=== PATIENT | female | born 1950 | race Hispanic/Latino ===

== ENCOUNTER 2018-02-09 13:52 | Emergency (ER) | payer MEDICAID, OTHER ==
[~2018-02-09 13:52] MED LIST: ASPI-1197 PO; CETI10CA5 PO; ESOM40CA PO; ISOS120T10 PO; METO50TA18 PO; NITR0.4T SL; ONDA4TAB9 PO; SERT100T12 PO; SEVE800 PO; VITA400C25 PO
== END 2018-02-09 16:32 | disposition home or self-care (01) ==
LOC: EDH 13:52
DX: I12.0 Hypertensive chronic kidney disease with stage 5 chronic kidney disease or end stage renal disease (principal); N18.6 End stage renal disease; E11.22 Type 2 diabetes mellitus with diabetic chronic kidney disease; E78.5 Hyperlipidemia, unspecified; Z79.4 Long term (current) use of insulin; Z99.2 Dependence on renal dialysis; Z88.8 Allergy status to other drugs, medicaments and biological substances
CPT/HCPCS: 93005

== ENCOUNTER 2019-01-25 19:10 | Emergency (ER) | payer MEDICARE ==
[~2019-01-25 19:10] MED LIST changes: -ISOS120T10 PO; +ISOS120T14 PO
[2019-01-25 19:41] LABS: BASOPHILS % (AUTO) 1.2 % (0.0-5.0); EOSINOPHILS % (AUTO) 14.1 % (0.0-8.0); HEMATOCRIT 33.7 % (36-48); MEAN CORPUSCULAR HEMOGLOBIN 31.7 pg (27.0-33.0); MEAN CORPUSCULAR HGB CONC 33.9 g/dL (32.0-36.0); MEAN CORPUSCULAR VOLUME 93.7 fL (79-99); MONOCYTES % (AUTO) 7.5 % (3.0-13.0); NEUTROPHILS % (AUTO) 50.2 % (40.0-77.0); PLATELET COUNT (AUTO) 131 K/uL (130-400); RED BLOOD CELL COUNT(AUTO) 3.59 MIL/uL (4.00-5.50); RED CELL DISTRIBUTION WIDTH 14.8 % (11.0-15.5); WHITE BLOOD COUNT (AUTO) 4.3 K/uL (4.8-10.8)
[2019-01-25] MEDS ORDERED: LISINOPRIL 5 MG TABLET ONE (19:48)
[2019-01-25] MEDS ORDERED: AMLODIPINE BESYLATE 5 MG TAB PO ONE (19:48)
[2019-01-25 19:55] LABS: CREATININE 5.7 mg/dL (0.5-1.5); POTASSIUM 4.7 mmol/L (3.5-5.1)
[2019-01-25 20:00] LABS: BILIRUBIN,TOTAL 0.3 mg/dL (0.2-1.0); TOTAL PROTEIN, SERUM 9.2 g/dL (6.0-8.3)
[2019-01-25] MEDS ORDERED: HYDRALAZINE HCL 25 MG TABLET ONE (21:04)
== END 2019-01-25 22:04 | disposition home or self-care (01) ==
LOC: EDH 19:10
DX: I12.0 Hypertensive chronic kidney disease with stage 5 chronic kidney disease or end stage renal disease (principal); E11.22 Type 2 diabetes mellitus with diabetic chronic kidney disease; N18.6 End stage renal disease; R51 Headache; Z88.8 Allergy status to other drugs, medicaments and biological substances; Z99.2 Dependence on renal dialysis
CPT/HCPCS: 36415; 70450; 80053; 84484; 85025; 93005

== ENCOUNTER 2019-09-05 12:49 | Inpatient (IN) | payer MEDICARE ==
[2019-09-05 14:03] LABS: BASOPHILS % (AUTO) 2.1 % (0.0-5.0); EOSINOPHILS % (AUTO) 7.4 % (0.0-8.0); LYMPHOCYTES % (AUTO) 6.7 % (21.0-51.0); MEAN CORPUSCULAR HEMOGLOBIN 29.7 pg (27.0-33.0); MEAN CORPUSCULAR VOLUME 90.1 fL (79-99); MONOCYTES % (AUTO) 5.8 % (3.0-13.0); PLATELET COUNT (AUTO) 221 K/uL (130-400); RED CELL DISTRIBUTION WIDTH 15.9 % (11.0-15.5); WHITE BLOOD COUNT (AUTO) 12.1 K/uL (4.8-10.8)
[2019-09-05 14:12] LABS: CREATININE 4.9 mg/dL (0.5-1.5); POTASSIUM 3.9 mmol/L (3.5-5.1)
[2019-09-05 14:16] LABS: ALBUMIN 2.8 g/dL (3.5-5.0); BILIRUBIN,TOTAL 0.4 mg/dL (0.2-1.0); TOTAL PROTEIN, SERUM 8.2 g/dL (6.0-8.3)
[2019-09-05 14:37] LABS: INR 1.14 (0.85-1.15); PARTIAL THROMBOPLASTIN TIME 45.3 SEC (26.3-35.5); PROTHROMBIN TIME 11.6 SEC (9.6-11.6)
[2019-09-05 14:50] LABS: B-TYPE NATRIURETIC PEPTIDE 935 pg/mL (0-100)
[2019-09-05] MEDS ORDERED: FUROSEMIDE 10 MG/ML 4ML VIAL ONE (15:37)
[2019-09-05] MEDS ORDERED: DEXTROSE 50%-WATER 50 ML DISP.SYRIN IV PRN (16:30)
[2019-09-05] MEDS ORDERED: ACETAMINOPHEN 325 MG TAB PO PRN (16:30)
[2019-09-05] MEDS ORDERED: ONDANSETRON 4 MG TABLET PO PRN (16:30)
[2019-09-05] MEDS ORDERED: GLUCAGON 1MG KIT 1 MG ML IM PRN (16:30)
[2019-09-05 19:41] VITALS: BP 158/85
[2019-09-05 20:06] LABS: CREATINE KINASE, TOTAL 25 U/L (21-232); MYOGLOBIN 124 ng/mL (10-92); TROPONIN I < 0.04 ng/mL (0.00-0.06)
[2019-09-05] MEDS: INSULIN R PO SSI SQ SCH (21:00)
[2019-09-05] MEDS ORDERED: TRAMADOL HCL 50 MG TABLET ONE (22:28)
[2019-09-05] MEDS ORDERED: TRAMADOL HCL 50 MG TABLET PO ONE (22:45)
[2019-09-05 23:48] VITALS: BP 192/72
[2019-09-06] VITALS (7 sets, daily range): BP systolic 121–162; BP diastolic 50–81
[2019-09-06 04:28] LABS: HEMATOCRIT 24.6 % (36-48); MEAN CORPUSCULAR HEMOGLOBIN 30.1 pg (27.0-33.0); MEAN CORPUSCULAR HGB CONC 33.8 g/dL (32.0-36.0); MEAN CORPUSCULAR VOLUME 89.3 fL (79-99); PLATELET COUNT (AUTO) 197 K/uL (130-400); RED BLOOD CELL COUNT(AUTO) 2.76 MIL/uL (4.00-5.50); RED CELL DISTRIBUTION WIDTH 15.9 % (11.0-15.5); WHITE BLOOD COUNT (AUTO) 10.7 K/uL (4.8-10.8)
[2019-09-06 04:53] LABS: CREATININE 4.3 mg/dL (0.5-1.5); PHOSPHORUS 3.4 mg/dL (2.5-4.9); POTASSIUM 3.8 mmol/L (3.5-5.1)
[2019-09-06] MEDS: INSULIN R PO SSI SQ SCH ×3 (06:07→16:19)
[2019-09-06] MEDS ORDERED: TRAMADOL HCL 50 MG TABLET PO SCH ×2 (07:01→22:00)
[2019-09-06] MEDS ORDERED: PANTOPRAZOLE SODIUM 40 MG TABLET.DR PO SCH (07:30)
[2019-09-06] MEDS ORDERED: ASPIRIN 81 MG EC TAB PO SCH (09:00)
[2019-09-06] MEDS: FOLIC ACID/VITAMIN B COMP W-C 1 MG CAP/TAB PO SCH (09:05)
[2019-09-06] MEDS ORDERED: ONDANSETRON 4 MG TABLET PO SCH (09:45)
[2019-09-06] MEDS ORDERED: NITROGLYCERIN 0.4 MG SL TAB SL SCH (09:45)
[2019-09-06] MEDS: PANTOPRAZOLE SODIUM 40 MG TABLET.DR PO SCH ×2 (10:59→16:48)
[2019-09-06] MEDS ORDERED: LEVOFLOXACIN 500 MG TABLET PO SCH ×2 (11:00)
[2019-09-06] MEDS: SEVELAMER HCL 800 MG TABLET PO SCH ×2 (11:46→16:48)
[2019-09-06] MEDS: ONDANSETRON 4 MG TABLET PO SCH ×2 (14:29→22:00)
[2019-09-06] MEDS ORDERED: LISI40TA4 PO (14:54)
[2019-09-06] MEDS ORDERED: AMLO10TA7 PO (14:54)
[2019-09-06] MEDS ORDERED: LOPE2CAP PO (14:54)
[2019-09-06] MEDS: TRAMADOL HCL 50 MG TABLET PO PRN ×2 (14:55→20:41)
--- NOTE | 2019-09-06 16:34 | NUR ---
DEE DEE PLAN VISITED WITH PATIENT. GETTING A ECHO. CALLED DAUGHTER ANAYELI CAMPO [phone]. SAID THAT MOM PROBABLY WILL NOT WANT TO GO AND SHE WOULD NEED TO BE THE ONE TO MAKE THE DECISION. AT THIS TIME PATIENT IS WORKING WITH THERAPY. PER CR WHO CALLED PATIENT AT [facility] FOR THERAPY SAID DID NOT NEED CLINICALS PATIENT OKAY TO RETURN. DR. GARCIA PLANS TO RETURN TO [facility] POSSIBLY TOMORROW. Addendum: 09/06/19 at 1636 by MELINDA KEARNEY RN CM Amended: Links added.
[2019-09-07] VITALS: BP 151/88
[2019-09-07] MEDS: TRAMADOL HCL 50 MG TABLET PO PRN ×3 (00:20→09:38)
[2019-09-07 03:34] VITALS: BP 118/66
[2019-09-07] MEDS: INSULIN R PO SSI SQ SCH ×2 (05:44→11:30)
[2019-09-07] MEDS: ONDANSETRON 4 MG TABLET PO SCH ×2 (06:00→15:00)
[2019-09-07] MEDS: PANTOPRAZOLE SODIUM 40 MG TABLET.DR PO SCH ×2 (06:45→12:00)
[2019-09-07] MEDS ORDERED: LISI-613 PO (08:06)
[2019-09-07] MEDS ORDERED: LEVO250T59 PO (08:06)
[2019-09-07] MEDS ORDERED: LEVO250S3 PO (08:06)
[2019-09-07 08:16] VITALS: BP 161/72
[2019-09-07] MEDS ORDERED: LEVOFLOXACIN 500 MG TABLET PO SCH (09:00)
[2019-09-07] MEDS ORDERED: ASPIRIN 81MG TAB.CHEW PO SCH (09:00)
[2019-09-07] MEDS ORDERED: SERTRALINE HCL 50 MG TABLET PO SCH (09:00)
[2019-09-07] MEDS ORDERED: VITAMIN E 400 UNIT CAPSULE PO SCH (09:00)
[2019-09-07] MEDS ORDERED: CETIRIZINE HCL 5 MG TABLET PO SCH (09:00)
[2019-09-07] MEDS: SEVELAMER HCL 800 MG TABLET PO SCH ×2 (09:22→12:00)
[2019-09-07] MEDS: FOLIC ACID/VITAMIN B COMP W-C 1 MG CAP/TAB PO SCH (09:23)
--- NOTE | 2019-09-07 11:42 | NUR ---
CM Note: [facility] reacceptance CM spoke to Mariaelena w/[facility], pt has reacceptance, does not need to completed 3 midnights, also does not need new pasrr. Pt safe to transver via [facility] transport van. Primary nurse Nik made aware. CM to cont to follow up.
[2019-09-07 12:07] VITALS: BP 134/64
--- NOTE | 2019-09-07 15:11 | NUR ---
DISCHARGE Report phoned to nurse Rosy at [facility] receiving pt. Med rec, prescriptions and discharge summary information faxed to receiving facility. Pt to be transported by facility van - nurse to dispatch tram driver after this phone call.
== END 2019-09-07 15:28 | DRG 302 ==
LOC: EDH 12:49 → EDHIP 16:00 → 2AH 17:58
PROVIDERS: ADMIT Internal Medicine Nephrology; ATTEND Internal Medicine Nephrology
PROC: 5A1D70Z Performance of Urinary Filtration, Intermittent, Less than 6 Hours Per Day (ICD-10-PCS; principal; 2019-09-05)
PROC: 5A1D70Z Performance of Urinary Filtration, Intermittent, Less than 6 Hours Per Day (ICD-10-PCS; 2019-09-07)
DX: I25.110 Atherosclerotic heart disease of native coronary artery with unstable angina pectoris (principal); N18.6 End stage renal disease; L03.116 Cellulitis of left lower limb; I12.0 Hypertensive chronic kidney disease with stage 5 chronic kidney disease or end stage renal disease; I95.3 Hypotension of hemodialysis; I25.10 Atherosclerotic heart disease of native coronary artery without angina pectoris; E11.22 Type 2 diabetes mellitus with diabetic chronic kidney disease; E11.51 Type 2 diabetes mellitus with diabetic peripheral angiopathy without gangrene; D64.9 Anemia, unspecified; E78.5 Hyperlipidemia, unspecified; Z95.1 Presence of aortocoronary bypass graft; Z99.2 Dependence on renal dialysis; Z79.4 Long term (current) use of insulin; Z86.718 Personal history of other venous thrombosis and embolism; Z71.3 Dietary counseling and surveillance; Z71.89 Other specified counseling; Z83.3 Family history of diabetes mellitus
CPT/HCPCS: 36415; 71045; 80048; 80053; 82550; 82948; 83874; 83880; 84100; 84484; 85025; 85027; 85610; 85730; 90935; 93005; 93306; 93971; 97039; G0378; J1940; Q0162

== ENCOUNTER 2019-12-22 09:36 | Inpatient (IN) | payer MEDICARE ==
[~2019-12-22] VITALS: Ht 149.9 cm; Wt 59.8 kg
[~2019-12-22 09:36] MED LIST changes: +AMLO10TA7 PO; +LEVO250S3 PO; +LEVO250T59 PO; +LISI-613 PO; +LISI40TA4 PO; +LOPE2CAP PO; -METO50TA18 PO; +ONDA-104 PO; -ONDA4TAB9 PO; -SERT100T12 PO
[2019-12-22 10:11] LABS: BASOPHILS % (AUTO) 1.2 % (0.0-5.0); EOSINOPHILS % (AUTO) 14.6 % (0.0-8.0); HEMATOCRIT 41.8 % (36-48); LYMPHOCYTES % (AUTO) 18.7 % (21.0-51.0); MEAN CORPUSCULAR HEMOGLOBIN 29.2 pg (27.0-33.0); MEAN CORPUSCULAR HGB CONC 30.9 g/dL (32.0-36.0); MEAN CORPUSCULAR VOLUME 94.6 fL (79-99); NEUTROPHILS % (AUTO) 57.5 % (40.0-77.0); PLATELET COUNT (AUTO) 98 K/uL (130-400); RED BLOOD CELL COUNT(AUTO) 4.42 MIL/uL (4.00-5.50); RED CELL DISTRIBUTION WIDTH 15.1 % (11.0-15.5); WHITE BLOOD COUNT (AUTO) 4.1 K/uL (4.8-10.8)
[2019-12-22 10:15] LABS: POTASSIUM 3.9 mmol/L (3.5-5.1)
[2019-12-22 10:21] LABS: ALBUMIN 3.5 g/dL (3.5-5.0); BILIRUBIN,TOTAL 0.5 mg/dL (0.2-1.0); TOTAL PROTEIN, SERUM 9.1 g/dL (6.0-8.3)
[2019-12-22] MEDS ORDERED: LACTULOSE 20 GM/30 ML UDCUP PO PRN (11:30)
[2019-12-22] MEDS ORDERED: GUAIFENESIN-DM 200/20 MG 10 ML PO PRN (11:30)
[2019-12-22] MEDS ORDERED: NITROGLYCERIN 1GM/1 INCH PACKET TD ONE (13:28)
[2019-12-22] MEDS ORDERED: HYDRALAZINE HCL 20 MG/ML VIAL ONE (17:47)
[2019-12-22] MEDS ORDERED: ACETAMINOPHEN 325 MG TAB ONE (18:18)
[2019-12-22] MEDS ORDERED: ONDANSETRON HCL 4 MG/2 ML VIAL IVP PRN (22:45)
[2019-12-23] MEDS ORDERED: HYDRALAZINE HCL 20 MG/ML VIAL ONE ×2 (00:06→08:01)
[2019-12-23] MEDS ORDERED: NITROGLYCERIN 1GM/1 INCH PACKET TD ONE ×2 (00:06→08:02)
[2019-12-23] MEDS ORDERED: IPRATROPIUM/ALBUTEROL SULFATE 3 ML SOLUTION IH ONE ×2 (00:51→06:09)
[2019-12-23] MEDS: NITROGLYCERIN 1GM/1 INCH PACKET TD SCH ×3 (02:39→20:31)
[2019-12-23 05:21] LABS: BASOPHILS % (AUTO) 0.7 % (0.0-5.0); EOSINOPHILS % (AUTO) 10.4 % (0.0-8.0); HEMATOCRIT 38.9 % (36-48); LYMPHOCYTES % (AUTO) 19.5 % (21.0-51.0); MEAN CORPUSCULAR HGB CONC 31.4 g/dL (32.0-36.0); MEAN CORPUSCULAR VOLUME 92.6 fL (79-99); MONOCYTES % (AUTO) 10.8 % (3.0-13.0); NEUTROPHILS % (AUTO) 58.2 % (40.0-77.0); PLATELET COUNT (AUTO) 67 K/uL (130-400); RED CELL DISTRIBUTION WIDTH 15.3 % (11.0-15.5); WHITE BLOOD COUNT (AUTO) 4.5 K/uL (4.8-10.8)
[2019-12-23 05:56] LABS: ALBUMIN 3.1 g/dL (3.5-5.0); BILIRUBIN,TOTAL 0.4 mg/dL (0.2-1.0); CREATININE 4.1 mg/dL (0.5-1.5); POTASSIUM 3.5 mmol/L (3.5-5.1); TOTAL PROTEIN, SERUM 8.3 g/dL (6.0-8.3)
[2019-12-23] MEDS: IPRATROPIUM/ALBUTEROL SULFATE 3 ML SOLUTION IH PRN ×2 (06:10→18:50)
[2019-12-23] MEDS ORDERED: APIX2.5T PO (10:02)
[2019-12-23] MEDS ORDERED: MINO2.5T3 PO (10:02)
[2019-12-23] MEDS ORDERED: ESOM40CA PO (10:02)
[2019-12-23] MEDS ORDERED: ONDANSETRON HCL 4 MG/2 ML VIAL ONE (13:16)
[2019-12-23] MEDS ORDERED: ACETAMINOPHEN 325 MG TAB ONE (13:16)
[2019-12-23 14:02] VITALS: BP 163/62
[2019-12-23] MEDS: FOLIC ACID/VITAMIN B COMP W-C 1 CAP TAB PO SCH (14:39)
[2019-12-23 16:06] VITALS: BP 164/64
[2019-12-23 19:07] VITALS: BP 160/60
--- NOTE | 2019-12-23 19:41 | NUR ---
cm note met with patient and states resides at home alone, ambulates with cane, goes to [facility] with dr fletcher, pt has a walker, and w/c but does not use. provider approx 6rhs daily, provider transports to HD. pt recently discharged from [facility]. but states dc plan is back to home at time of dc.no dc needs. Addendum: 12/23/19 at 1949 by RALEIGH WALLS CM Amended: Links added.
[2019-12-23 22:49] VITALS: BP 164/58
[2019-12-24] VITALS (14 sets, daily range): BP systolic 123–186; BP diastolic 46–74
[2019-12-24] MEDS: HYDRALAZINE HCL 20 MG/ML VIAL IV PRN (01:02)
[2019-12-24] MEDS: NITROGLYCERIN 0.4 MG SL TAB SL PRN ×2 (01:07→05:18)
[2019-12-24] MEDS: ACETAMINOPHEN 325 MG TAB PO PRN ×2 (01:23→13:06)
--- NOTE | 2019-12-24 01:29 | NUR ---
PATIENT C/O CHEST PAIN AND SOB. NITRO SL GIVEN Q5 MIN X3. SBP ELEVATE 180S. HYDRALAZINE ADMINISTERED FOR ELEVATED SBP. CURRENTLY USING 2L O2 VIA NC. O2 SATS AT 100%. SAT PATIENT UPRIGHT. PATIENT BP 130/60 POST NITRO AND HYDRALAZINE. PATIENT STATES CHEST PAIN HAS SUBSIDED. DENIES SOB. WILL CONTINUE TO MONITOR.
[2019-12-24] MEDS: NITROGLYCERIN 1GM/1 INCH PACKET TD SCH ×3 (03:30→19:30)
[2019-12-24 04:35] LABS: HEMATOCRIT 36.4 % (36-48); MEAN CORPUSCULAR HEMOGLOBIN 29.5 pg (27.0-33.0); MEAN CORPUSCULAR HGB CONC 31.3 g/dL (32.0-36.0); MEAN CORPUSCULAR VOLUME 94.1 fL (79-99); NUCLEATED RED BLOOD CELLS 0.4 % (0.0-0.19); PLATELET COUNT (AUTO) 87 K/uL (130-400); RED BLOOD CELL COUNT(AUTO) 3.87 MIL/uL (4.00-5.50); RED CELL DISTRIBUTION WIDTH 15.7 % (11.0-15.5); WHITE BLOOD COUNT (AUTO) 4.6 K/uL (4.8-10.8)
[2019-12-24] MEDS: IPRATROPIUM/ALBUTEROL SULFATE 3 ML SOLUTION IH PRN ×2 (04:38→19:28)
[2019-12-24 04:48] LABS: INR 1.12 (0.85-1.15); PARTIAL THROMBOPLASTIN TIME 42.5 SEC (26.3-35.5)
[2019-12-24 04:55] LABS: BILIRUBIN,TOTAL 0.4 mg/dL (0.2-1.0); CREATININE 5.5 mg/dL (0.5-1.5); PHOSPHORUS 5.3 mg/dL (2.5-4.9); POTASSIUM 3.7 mmol/L (3.5-5.1); TOTAL PROTEIN, SERUM 7.8 g/dL (6.0-8.3)
[2019-12-24 04:56] LABS: BAND NEUTROPHILS % (MANUAL) 4 % (0-2); BASOPHILS % (MANUAL) 8 % (0-2); EOSINOPHILS % (MANUAL) 4 % (1-6); LYMPHOCYTES % (MANUAL) 24 % (22-44); MAN.DIFF COMMENT-IMPRESSION MANUAL DIFFERENTIAL; MONOCYTES % (MANUAL) 8 % (2-9); SEGMENTED NEUTROPHILS % 52 % (40-70)
[2019-12-24 04:57] LABS: PLATELET MORPHOLOGY COMMENT DECREASED
--- NOTE | 2019-12-24 05:10 | NUR ---
PATIENT C/O SOB WITH CHEST TIGHTNESS. SBP 125/53. 02 SATS 100%, 2L, HR77. NITRO SL GIVEN Q5MIN X 3 DOSES. DENIES SOB OR TIGHTNESS AT THIS TIME
[2019-12-24] MEDS: FOLIC ACID/VITAMIN B COMP W-C 1 CAP TAB PO SCH (09:40)
[2019-12-24] MEDS ORDERED: NITROGLYCERIN 0.4 MG SL TAB SL SCH (15:00)
[2019-12-24] MEDS ORDERED: LOPERAMIDE HCL 2 MG CAP PO PRN (15:00)
[2019-12-24] MEDS: ONDANSETRON 4 MG TABLET PO SCH ×2 (16:16→23:00)
[2019-12-24] MEDS: METOCLOPRAMIDE 5 MG TABLET PO SCH ×2 (17:08→21:03)
[2019-12-24] MEDS: SEVELAMER HCL 800 MG TABLET PO SCH (17:08)
[2019-12-24] MEDS: MINOXIDIL 2.5 MG TAB PO SCH (21:03)
[2019-12-24] MEDS: APIXABAN 2.5 MG TABLET PO SCH (21:03)
[2019-12-25] MEDS: NITROGLYCERIN 1GM/1 INCH PACKET TD SCH ×3 (02:37→18:43)
[2019-12-25 04:00] VITALS: BP 170/60
[2019-12-25 04:04] LABS: BASOPHILS % (AUTO) 0.7 % (0.0-5.0); EOSINOPHILS % (AUTO) 11.9 % (0.0-8.0); HEMATOCRIT 34.8 % (36-48); LYMPHOCYTES % (AUTO) 20.6 % (21.0-51.0); MEAN CORPUSCULAR HEMOGLOBIN 29.2 pg (27.0-33.0); MEAN CORPUSCULAR VOLUME 94.1 fL (79-99); MONOCYTES % (AUTO) 11.7 % (3.0-13.0); NEUTROPHILS % (AUTO) 54.7 % (40.0-77.0); PLATELET COUNT (AUTO) 40 K/uL (130-400); WHITE BLOOD COUNT (AUTO) 4.6 K/uL (4.8-10.8)
[2019-12-25 05:16] LABS: ALBUMIN 3.2 g/dL (3.5-5.0); BILIRUBIN,TOTAL 0.4 mg/dL (0.2-1.0); CREATININE 5.1 mg/dL (0.5-1.5); POTASSIUM 4.5 mmol/L (3.5-5.1); TOTAL PROTEIN, SERUM 7.9 g/dL (6.0-8.3)
[2019-12-25] MEDS: IPRATROPIUM/ALBUTEROL SULFATE 3 ML SOLUTION IH PRN ×2 (07:19→19:29)
[2019-12-25] MEDS: PANTOPRAZOLE SODIUM 40 MG TABLET.DR PO SCH (07:46)
[2019-12-25] MEDS: ONDANSETRON 4 MG TABLET PO SCH ×3 (07:46→23:36)
[2019-12-25] MEDS: METOCLOPRAMIDE 5 MG TABLET PO SCH ×4 (07:46→20:22)
[2019-12-25] MEDS: SEVELAMER HCL 800 MG TABLET PO SCH ×3 (07:47→17:29)
[2019-12-25 08:15] VITALS: BP 193/64
[2019-12-25] MEDS: APIXABAN 2.5 MG TABLET PO SCH ×3 (09:00→21:00)
[2019-12-25] MEDS: ASPIRIN 81MG TAB.CHEW PO SCH (09:00)
[2019-12-25] MEDS: AMLODIPINE BESYLATE 5 MG TAB PO SCH (10:38)
[2019-12-25] MEDS: CETIRIZINE HCL 5 MG TABLET PO SCH (10:38)
[2019-12-25] MEDS: FOLIC ACID/VITAMIN B COMP W-C 1 CAP TAB PO SCH (10:38)
[2019-12-25] MEDS: VITAMIN E 400 UNIT CAPSULE PO SCH (10:38)
[2019-12-25] MEDS: MINOXIDIL 2.5 MG TAB PO SCH ×2 (10:38→20:22)
[2019-12-25 12:03] VITALS: BP 178/70
[2019-12-25] MEDS: HYDRALAZINE HCL 20 MG/ML VIAL IV PRN (12:28)
[2019-12-25 16:14] VITALS: BP 140/54
[2019-12-25 19:42] VITALS: BP 155/76
[2019-12-26] VITALS (7 sets, daily range): BP systolic 135–183; BP diastolic 57–68
[2019-12-26] MEDS ORDERED: DEXTROSE 50%-WATER 50 ML DISP.SYRIN IV PRN (01:45)
[2019-12-26] MEDS ORDERED: GLUCAGON 1MG KIT 1 MG ML IM PRN (01:45)
[2019-12-26] MEDS: NITROGLYCERIN 1GM/1 INCH PACKET TD SCH ×3 (02:56→19:30)
--- NOTE | 2019-12-26 05:00 | NUR ---
orders Per FOOD SERVICE TEAM MEMBER AJ start patient on electrolyte protocol
[2019-12-26] MEDS: METOCLOPRAMIDE 5 MG TABLET PO SCH ×4 (05:47→21:14)
[2019-12-26] MEDS: PANTOPRAZOLE SODIUM 40 MG TABLET.DR PO SCH (05:47)
[2019-12-26] MEDS: ONDANSETRON 4 MG TABLET PO SCH ×3 (05:47→21:13)
[2019-12-26] MEDS: INSULIN HUMULIN R 100 UNIT/ML 3ML SQ SCH ×4 (05:50→21:00)
[2019-12-26] MEDS: IPRATROPIUM/ALBUTEROL SULFATE 3 ML SOLUTION IH PRN ×2 (06:14→19:13)
--- NOTE | 2019-12-26 07:30 | NUR ---
DAILY ASSESSMENT PT AWAKE, ALERT, AND ORIENTED. UP AD ALEX, GAIT SLOW AND STEADY. DENIES CHEST PAIN, NO LABORED RESPIRATIONS AT THIS TIME. OOB TO BR WITH SUPERVISION, ASSISTED BACK TO BED, PENDING HD TODAY. CALL LIGHT WITHIN REACH.
[2019-12-26 08:12] LABS: HEPATITIS A ANTIBODY IGM Negative (Negative); HEPATITIS B CORE IGM Negative (Negative); HEPATITIS Bs ANTIGEN SCREEN P Negative (Negative)
[2019-12-26] MEDS ORDERED: ALBUMIN (HUMAN) 25% 100 ML IV ONE ×4 (08:20→13:02)
[2019-12-26] MEDS ORDERED: SODIUM CHLORIDE 0.9% 1000ML 1,000 ML IV ONE (08:25)
[2019-12-26] MEDS: APIXABAN 2.5 MG TABLET PO SCH ×2 (09:00→21:00)
[2019-12-26] MEDS: FOLIC ACID/VITAMIN B COMP W-C 1 CAP TAB PO SCH (09:00)
[2019-12-26] MEDS: AMLODIPINE BESYLATE 5 MG TAB PO SCH (09:00)
[2019-12-26] MEDS: MINOXIDIL 2.5 MG TAB PO SCH ×2 (09:00→21:13)
[2019-12-26] MEDS: CETIRIZINE HCL 5 MG TABLET PO SCH (09:00)
[2019-12-26] MEDS: ASPIRIN 81MG TAB.CHEW PO SCH (09:00)
[2019-12-26] MEDS: VITAMIN E 400 UNIT CAPSULE PO SCH (09:00)
[2019-12-26] MEDS ORDERED: MIDODRINE HCL 5 MG TABLET PO SCH (10:45)
[2019-12-26] MEDS: SEVELAMER HCL 800 MG TABLET PO SCH ×2 (12:19→17:00)
[2019-12-26 16:48] LABS: HEMATOCRIT 37.7 % (36-48); MEAN CORPUSCULAR HEMOGLOBIN 29.5 pg (27.0-33.0); RED BLOOD CELL COUNT(AUTO) 3.97 MIL/uL (4.00-5.50); RED CELL DISTRIBUTION WIDTH 15.9 % (11.0-15.5); WHITE BLOOD COUNT (AUTO) 5.8 K/uL (4.8-10.8)
--- NOTE | 2019-12-26 17:00 | NUR ---
AMBULATION O2 SATS AT REST 95% ON ROOM AIR, PT AMBULATING 50FT IN HALLWAY, GAIT SLOW AND STEADY WITH ASSIST, O2 SATS 81% ON ROOM AIR AND C/O SHORTNESS OF BREATH. PT TRANSPORTED BACK TO BED VIA WHEELCHAIR AND PLACED ON 3LNC, O2 SATS RETURNED TO 94%.
[2019-12-26 17:07] LABS: PLATELET COUNT (AUTO) 18 K/uL (130-400)
[2019-12-27] MEDS: NITROGLYCERIN 1GM/1 INCH PACKET TD SCH ×2 (03:59→12:40)
[2019-12-27 04:16] VITALS: BP 155/56
[2019-12-27] MEDS: INSULIN HUMULIN R 100 UNIT/ML 3ML SQ SCH ×3 (06:01→16:30)
[2019-12-27] MEDS: PANTOPRAZOLE SODIUM 40 MG TABLET.DR PO SCH (06:36)
[2019-12-27] MEDS: METOCLOPRAMIDE 5 MG TABLET PO SCH ×3 (06:36→17:33)
[2019-12-27] MEDS: ONDANSETRON 4 MG TABLET PO SCH ×2 (06:36→15:00)
[2019-12-27] MEDS: IPRATROPIUM/ALBUTEROL SULFATE 3 ML SOLUTION IH PRN (06:52)
[2019-12-27 07:00] VITALS: BP 149/61
[2019-12-27] MEDS: CETIRIZINE HCL 5 MG TABLET PO SCH (08:28)
[2019-12-27] MEDS: MINOXIDIL 2.5 MG TAB PO SCH (08:29)
[2019-12-27] MEDS: FOLIC ACID/VITAMIN B COMP W-C 1 CAP TAB PO SCH (08:29)
[2019-12-27] MEDS: AMLODIPINE BESYLATE 5 MG TAB PO SCH (08:29)
[2019-12-27] MEDS: SEVELAMER HCL 800 MG TABLET PO SCH ×3 (08:29→17:33)
[2019-12-27] MEDS: VITAMIN E 400 UNIT CAPSULE PO SCH (08:29)
[2019-12-27] MEDS: APIXABAN 2.5 MG TABLET PO SCH (09:00)
[2019-12-27] MEDS: ASPIRIN 81MG TAB.CHEW PO SCH (09:00)
[2019-12-27 10:42] LABS: HEMATOCRIT 33.1 % (36-48); MEAN CORPUSCULAR HEMOGLOBIN 29.2 pg (27.0-33.0); MEAN CORPUSCULAR HGB CONC 30.8 g/dL (32.0-36.0); MEAN CORPUSCULAR VOLUME 94.8 fL (79-99); PLATELET COUNT (AUTO) 31 K/uL (130-400); RED BLOOD CELL COUNT(AUTO) 3.49 MIL/uL (4.00-5.50); RED CELL DISTRIBUTION WIDTH 16.3 % (11.0-15.5); WHITE BLOOD COUNT (AUTO) 4.5 K/uL (4.8-10.8)
[2019-12-27 11:00] VITALS: BP 151/59
[2019-12-27 11:12] LABS: BASOPHILS % (MANUAL) 1 % (0-2); EOSINOPHILS % (MANUAL) 19 % (1-6); LYMPHOCYTES % (MANUAL) 16 % (22-44); MAN.DIFF COMMENT-IMPRESSION MANUAL DIFFERENTIAL; MONOCYTES % (MANUAL) 7 % (2-9); PLATELET MORPHOLOGY COMMENT MARKED DECREASE; SEGMENTED NEUTROPHILS % 57 % (40-70)
--- NOTE | 2019-12-27 14:29 | NUR ---
RD NOTIFICATION RD CONSULTS DUE TO LOS X 5. PT HAS BEEN ON DIALYSIS FOR SEVERAL YEARS NOW, PER PT. LABS REVIEWED. MEDS REVIEWED. RIGHT FOOT ULCER NOTED. PT IS FAMILIAR WITH DIET AND NUTRITION RECOMMENDATIONS AND SEES RD AT THE DIALYSIS CLINIC. RD EMPHASIZED FLUID RESTRICTION AT TIME OF VISIT AND PT AGREED. RD PROVIDED FLUID RESTRICTION NUTRITION EDUCATION ADD 1200ML/D FLUID RESTRICTION TO DIET ORDER ADD TYLER BID FOR WOUND HEALING Addendum: 12/27/19 at [address] Amended: Links added.
[2019-12-27 15:00] VITALS: BP 168/57
[2019-12-27] MEDS ORDERED: FOLIC ACID 1 MG TABLET PO SCH (15:00)
[2019-12-27] MEDS ORDERED: CYANOCOBALAMIN (VITAMIN B-12) 1,000 MCG TABLET PO SCH (15:00)
--- NOTE | 2019-12-27 17:13 | NUR ---
DEE DEE PLAN VISITED WITH PATIENT. YARED FOR [facility] PATIENT INFO SENT. TO ALL THREE NUMBERS INCLUDING [place]. LET NURSE KNOW THAT DUE TO ORDERS BEING SIGNED AFTER 1500 NOT LIKELY TO GET DELIVERED TODAY. Addendum: 12/27/19 at 1715 by MELINDA KEARNEY RN CM Amended: Links added.
== END 2019-12-27 18:50 | disposition home or self-care (01) | DRG 291 ==
LOC: EDH 09:36 → EDHIP 11:29 → 2DH 12-23 14:10
PROVIDERS: ADMIT Family Medicine; ATTEND Family Medicine
PROC: 5A1D70Z Performance of Urinary Filtration, Intermittent, Less than 6 Hours Per Day (ICD-10-PCS; 2019-12-22)
PROC: 5A1D70Z Performance of Urinary Filtration, Intermittent, Less than 6 Hours Per Day (ICD-10-PCS; 2019-12-24)
PROC: 5A1D70Z Performance of Urinary Filtration, Intermittent, Less than 6 Hours Per Day (ICD-10-PCS; principal; 2019-12-26)
DX: I13.2 Hypertensive heart and chronic kidney disease with heart failure and with stage 5 chronic kidney disease, or end stage renal disease (principal); N18.6 End stage renal disease; I50.43 Acute on chronic combined systolic (congestive) and diastolic (congestive) heart failure; D61.818 Other pancytopenia; N17.9 Acute kidney failure, unspecified; Z99.2 Dependence on renal dialysis; E11.22 Type 2 diabetes mellitus with diabetic chronic kidney disease; R53.81 Other malaise; D64.9 Anemia, unspecified; E11.40 Type 2 diabetes mellitus with diabetic neuropathy, unspecified; E11.51 Type 2 diabetes mellitus with diabetic peripheral angiopathy without gangrene; E78.2 Mixed hyperlipidemia; I25.10 Atherosclerotic heart disease of native coronary artery without angina pectoris; I42.9 Cardiomyopathy, unspecified; Z82.0 Family history of epilepsy and other diseases of the nervous system; Z82.3 Family history of stroke; Z82.49 Family history of ischemic heart disease and other diseases of the circulatory system; Z82.5 Family history of asthma and other chronic lower respiratory diseases; Z83.3 Family history of diabetes mellitus; Z86.718 Personal history of other venous thrombosis and embolism; Z88.8 Allergy status to other drugs, medicaments and biological substances; Z91.11 Patient's noncompliance with dietary regimen; Z95.1 Presence of aortocoronary bypass graft; E78.5 Hyperlipidemia, unspecified; Z90.49 Acquired absence of other specified parts of digestive tract; R63.4 Abnormal weight loss; Z68.26 Body mass index [BMI] 26.0-26.9, adult
CPT/HCPCS: 36415; 71045; 78580; 80053; 80074; 82550; 82948; 83880; 84100; 84145; 84484; 85025; 85027; 85610; 85730; 86140; 90935; 93005; 93970; 94640; 94664; 94760; A9540; G0378; J0360; J2405; J7030; P9046; Q0162

== ENCOUNTER 2020-01-07 13:43 | Inpatient (IN) | payer MEDICARE ==
[~2020-01-07] VITALS: Ht 149.9 cm; Wt 60.1 kg
[~2020-01-07 13:43] MED LIST changes: +AMLO-258 PO; -AMLO10TA7 PO; +APIX2.5T PO; -ISOS120T14 PO; -LEVO250S3 PO; -LEVO250T59 PO; -LISI-613 PO; +MINO2.5T3 PO
[2020-01-07 14:29] LABS: BASOPHILS % (AUTO) 0.8 % (0.0-5.0); EOSINOPHILS % (AUTO) 9.3 % (0.0-8.0); HEMATOCRIT 34.5 % (36-48); MEAN CORPUSCULAR HEMOGLOBIN 28.7 pg (27.0-33.0); MEAN CORPUSCULAR HGB CONC 30.7 g/dL (32.0-36.0); MEAN CORPUSCULAR VOLUME 93.5 fL (79-99); MONOCYTES % (AUTO) 9.9 % (3.0-13.0); NEUTROPHILS % (AUTO) 67.8 % (40.0-77.0); PLATELET COUNT (AUTO) 84 K/uL (130-400); RED BLOOD CELL COUNT(AUTO) 3.69 MIL/uL (4.00-5.50); RED CELL DISTRIBUTION WIDTH 14.4 % (11.0-15.5); WHITE BLOOD COUNT (AUTO) 5.2 K/uL (4.8-10.8)
[2020-01-07 14:42] LABS: CREATININE 3.7 mg/dL (0.5-1.5)
[2020-01-07 14:45] LABS: INR 1.08 (0.85-1.15); PARTIAL THROMBOPLASTIN TIME 46.5 SEC (26.3-35.5); PROTHROMBIN TIME 11.6 SEC (9.6-11.6)
[2020-01-07 14:49] LABS: ALBUMIN 3.1 g/dL (3.5-5.0); BILIRUBIN,TOTAL 0.5 mg/dL (0.2-1.0); TOTAL PROTEIN, SERUM 8.1 g/dL (6.0-8.3)
[2020-01-07] MEDS ORDERED: ONDANSETRON HCL 4 MG/2 ML VIAL IVP PRN (15:00)
[2020-01-07] MEDS ORDERED: AZITHROMYCIN 500MG+NS 250ML 250 ML IV SCH (15:00)
[2020-01-07] MEDS ORDERED: HYDRALAZINE HCL 20 MG/ML VIAL IV PRN ×2 (15:00→17:00)
[2020-01-07 15:17] LABS: B-TYPE NATRIURETIC PEPTIDE 2890 pg/mL (0-100)
[2020-01-07] MEDS ORDERED: AMLODIPINE BESYLATE 5 MG TAB PO SCH (16:15)
--- NOTE | 2020-01-07 16:15 | NUR ---
DR CHAUHAN CALLED BACK ORDERS RECEIVED
[2020-01-07] MEDS ORDERED: CEFTRIAXONE SODIUM 500 MG VIAL ONE (16:46)
[2020-01-07 17:27] VITALS: BP 199/80
--- NOTE | 2020-01-07 17:45 | NUR ---
ARRIVAL TO FLOOR ROOM 205. PT IS AAOX3 DENIES CP DENIES NV. STATES SOB ON EXERTION, SATING >95% ON 3LPM NC. ARRIVED WITH ORDERS, NOTED ELEVATED BP, AMLODIPINE PO GIVEN ORDERED. NOTED LEFT ARM DIALYSIS SITE, AND STILL WITH DIALYSIS NEEDLES IN PLACE, TAPED TO ARM FROM DIALYSIS. PAGED DR CHAUHAN WHO IS ONCALL REGARDING THIS. AWAITING CALL BACK.
--- NOTE | 2020-01-07 18:37 | NUR ---
DR SOTO ROUNDED SAW PATIENT, ORDER RECEIVED
[2020-01-07 19:31] VITALS: BP 197/67
[2020-01-07] MEDS ORDERED: LISINOPRIL 40 MG TABLET PO SCH (19:45)
[2020-01-07] MEDS: CEFTRIAXONE SODIUM 1 GM IVP SCH (20:18)
[2020-01-07] MEDS: HYDRALAZINE HCL 25 MG TABLET PO SCH (20:18)
[2020-01-07] MEDS: MINOXIDIL 2.5 MG TAB PO SCH (20:19)
[2020-01-07] MEDS: AZITHROMYCIN 500MG+NS 250ML 250 ML IV SCH (20:19)
[2020-01-07 20:27] LABS: CREATINE KINASE, TOTAL 38 U/L (21-232); MYOGLOBIN 143 ng/mL (10-92); TROPONIN I < 0.04 ng/mL (0.00-0.06)
[2020-01-08] VITALS (8 sets, daily range): BP systolic 138–189; BP diastolic 51–81
--- NOTE | 2020-01-08 01:27 | NUR ---
PT C/O SOB. STATES FEELS TIGHTNESS. STATED HAVING THIS ISSUE FOR OVER 6 MONTHS NOW SINCE CABG.
[2020-01-08 05:08] LABS: BASOPHILS % (AUTO) 0.9 % (0.0-5.0); EOSINOPHILS % (AUTO) 9.3 % (0.0-8.0); HEMATOCRIT 34.5 % (36-48); LYMPHOCYTES % (AUTO) 12.1 % (21.0-51.0); MEAN CORPUSCULAR HEMOGLOBIN 29.4 pg (27.0-33.0); MEAN CORPUSCULAR HGB CONC 31.6 g/dL (32.0-36.0); MONOCYTES % (AUTO) 7.3 % (3.0-13.0); PLATELET COUNT (AUTO) 76 K/uL (130-400); RED BLOOD CELL COUNT(AUTO) 3.71 MIL/uL (4.00-5.50); RED CELL DISTRIBUTION WIDTH 14.1 % (11.0-15.5); WHITE BLOOD COUNT (AUTO) 5.4 K/uL (4.8-10.8)
[2020-01-08 05:26] LABS: CREATININE 4.6 mg/dL (0.5-1.5); POTASSIUM 4.7 mmol/L (3.5-5.1)
[2020-01-08 05:36] LABS: B-TYPE NATRIURETIC PEPTIDE 2460 pg/mL (0-100)
[2020-01-08] MEDS: MINOXIDIL 2.5 MG TAB PO SCH ×2 (07:44→21:11)
[2020-01-08] MEDS: FAMOTIDINE 20MG TAB 20 MG TAB PO SCH (07:45)
[2020-01-08] MEDS: LISINOPRIL 40 MG TABLET PO SCH (07:45)
[2020-01-08] MEDS: ENOXAPARIN SODIUM 30 MG/0.3 ML SQ SCH (07:45)
[2020-01-08] MEDS: HYDRALAZINE HCL 25 MG TABLET PO SCH ×3 (07:45→21:11)
--- NOTE | 2020-01-08 08:00 | NUR ---
ASSESSMENT AAOX3 DENIES CP DENIES SOB DENIES NV. ON O2 VIA NC, BREATHING PATTERN IS EVEN AND UNLABORED WHILE AT REST SITTING UP IN CHAIR. AM MEDS TAKEN, DENIES PAIN. SITTING UPRIGHT EATING BREAKFAST. CALL LIGHT WITHIN REACH.
[2020-01-08] MEDS ORDERED: CEFTRIAXONE SODIUM 500 MG VIAL IV SCH (09:00)
--- NOTE | 2020-01-08 10:45 | NUR ---
DIALYSIS AT BEDSIDE
[2020-01-08] MEDS ORDERED: HYDRALAZINE HCL 20 MG/ML VIAL IV PRN (11:15)
--- NOTE | 2020-01-08 14:00 | NUR ---
DIALYSIS COMPLETE PT IS AAOX3 DENIES CP DENIES SOB DENIES NV AT THIS TIME, SITTING UPRIGHT AT BEDSIDE, EATING DINNER. CALL LIGHT WITHIN REACH.
--- NOTE | 2020-01-08 15:46 | NUR ---
INITIAL Patient lives with spouse. Emergency contact is her sister, Dee Hawk, [phone]. No home health but does have PHC with [facility] X 37 hours a week. Sister is provider. Dialysis: MWF at 10:30am at [facility] in [place]. Sister helps with transportation to and from dialysis. DME: cane, shower chair, O2 concentrator/portable. Patient needs help with ADL's and does drive at times. PCP is Dr. Steve Higgins. [facility] [place]. DCP is home. Addendum: 01/08/20 at 1550 by SESAR AGUILAR SS Amended: Links added.
--- NOTE | 2020-01-08 18:00 | NUR ---
STATUS RESTING IN BED, NO COMPLAINTS DENIES PAIN. CALL LIGHT WITHIN REACH.
[2020-01-08] MEDS: CEFTRIAXONE SODIUM 1 GM IVP SCH (21:10)
[2020-01-08] MEDS: AZITHROMYCIN 500MG+NS 250ML 250 ML IV SCH (21:11)
[2020-01-08] MEDS ORDERED: ALPRAZOLAM 0.5 MG TABLET PO ONE (21:30)
--- NOTE | 2020-01-08 21:30 | NUR ---
ORDER FOR XANAX 0.5MG X1 DOSE PER AMARJIT DICE DEALER. PT HAS BEEN ANXIOUS SINCE ADMISSION. SOB RELATED. WAS DIALYZED AND STATES SHE HAD MINIMAL IMPROVEMENT.
--- NOTE | 2020-01-09 | NUR ---
PT NOTED TO BE VERY DROWSY, MINIMAL LETHARGY. HAD HARD TIME WAKING UP AND WAS FORGETFUL. UNABLE TO WALK STEADILY AT THIS TIME. INSTRUCTED TO BE BEDREST UNTIL SHOWS IMPROVEMENT. BEDALARM IN PLACE.
[2020-01-09 04:04] LABS: BASOPHILS % (AUTO) 0.8 % (0.0-5.0); EOSINOPHILS % (AUTO) 7.1 % (0.0-8.0); HEMATOCRIT 34.7 % (36-48); LYMPHOCYTES % (AUTO) 14.5 % (21.0-51.0); MEAN CORPUSCULAR HGB CONC 31.1 g/dL (32.0-36.0); MONOCYTES % (AUTO) 12.1 % (3.0-13.0); NEUTROPHILS % (AUTO) 65.3 % (40.0-77.0); PLATELET COUNT (AUTO) 69 K/uL (130-400); RED BLOOD CELL COUNT(AUTO) 3.73 MIL/uL (4.00-5.50); RED CELL DISTRIBUTION WIDTH 14.5 % (11.0-15.5)
[2020-01-09 04:16] LABS: CREATININE 5.1 mg/dL (0.5-1.5); POTASSIUM 4.5 mmol/L (3.5-5.1)
[2020-01-09 04:40] VITALS: BP 151/60
[2020-01-09] MEDS: INSULIN HUMULIN R 100 UNIT/ML 3ML SQ SCH ×4 (06:33→21:00)
[2020-01-09 07:00] VITALS: BP 159/61
[2020-01-09] MEDS: HYDRALAZINE HCL 25 MG TABLET PO SCH ×3 (08:27→20:42)
[2020-01-09] MEDS: LISINOPRIL 40 MG TABLET PO SCH (08:27)
[2020-01-09] MEDS: MINOXIDIL 2.5 MG TAB PO SCH ×2 (08:27→20:42)
[2020-01-09] MEDS: FAMOTIDINE 20MG TAB 20 MG TAB PO SCH (08:27)
[2020-01-09] MEDS: ENOXAPARIN SODIUM 30 MG/0.3 ML SQ SCH (08:27)
--- NOTE | 2020-01-09 09:05 | NUR ---
DR. Wade GARCIA IN ROOM SPEAKING WITH PT. Re:PLAN OF CARE.
[2020-01-09 11:00] VITALS: BP 104/44
[2020-01-09 15:00] VITALS: BP 153/75
--- NOTE | 2020-01-09 18:43 | NUR ---
DR. Wade BURLESON IN ROOM SPEAKING WITH PT. RE:PLAN OF CARE; QUESTIONS ANSWERED BY DR. BURLESON.
[2020-01-09 19:25] VITALS: BP 164/67
[2020-01-09] MEDS: CEFTRIAXONE SODIUM 1 GM IVP SCH (20:42)
[2020-01-09] MEDS: AZITHROMYCIN 500MG+NS 250ML 250 ML IV SCH (20:43)
[2020-01-10] VITALS (8 sets, daily range): BP systolic 134–172; BP diastolic 50–73
[2020-01-10 05:11] LABS: EOSINOPHILS % (AUTO) 6.7 % (0.0-8.0); HEMATOCRIT 32.7 % (36-48); LYMPHOCYTES % (AUTO) 15.7 % (21.0-51.0); MEAN CORPUSCULAR HEMOGLOBIN 29.3 pg (27.0-33.0); MEAN CORPUSCULAR HGB CONC 31.2 g/dL (32.0-36.0); MONOCYTES % (AUTO) 10.6 % (3.0-13.0); NEUTROPHILS % (AUTO) 65.8 % (40.0-77.0); PLATELET COUNT (AUTO) 67 K/uL (130-400); RED BLOOD CELL COUNT(AUTO) 3.48 MIL/uL (4.00-5.50); RED CELL DISTRIBUTION WIDTH 14.5 % (11.0-15.5); WHITE BLOOD COUNT (AUTO) 4.8 K/uL (4.8-10.8)
[2020-01-10 05:38] LABS: PLATELET MORPHOLOGY COMMENT PLT CLUMPS PRESENT
[2020-01-10 05:40] LABS: MAGNESIUM 2.1 mg/dL (1.80-2.40); POTASSIUM 4.1 mmol/L (3.5-5.1)
[2020-01-10] MEDS: INSULIN HUMULIN R 100 UNIT/ML 3ML SQ SCH ×4 (06:36→20:43)
--- NOTE | 2020-01-10 08:35 | NUR ---
DR. Wade GARCIA IN ROOM SPEAKING WITH PT. RE:PLAN OF CARE.
[2020-01-10] MEDS: FAMOTIDINE 20MG TAB 20 MG TAB PO SCH (08:36)
[2020-01-10] MEDS: ENOXAPARIN SODIUM 30 MG/0.3 ML SQ SCH (09:00)
[2020-01-10] MEDS: MINOXIDIL 2.5 MG TAB PO SCH ×2 (09:02→20:42)
[2020-01-10] MEDS: LISINOPRIL 40 MG TABLET PO SCH (09:03)
[2020-01-10] MEDS: HYDRALAZINE HCL 25 MG TABLET PO SCH ×3 (09:03→20:41)
--- NOTE | 2020-01-10 16:05 | NUR ---
BEDSIDE LEFT THORACENTESIS PERFORMED BY DR. PENG UNDER STERILE TECHNIQUE WITH USE OF ULTRASOUND. APPROXIMATELY 1075ML CLEAR YELLOW FLUID OBTAINED. PT. TOLERATED W/O C/O SOB. PT. MADE DR. PENG AWARE OF FEELING PAIN TO THORACENTESIS SITE, PROCEDURE STOPPED BY DR. PENG.
[2020-01-10] MEDS ORDERED: HYDROCODONE/ACETAMINOPHEN 5/325 MG TAB ONE (16:15)
[2020-01-10] MEDS ORDERED: HYDROCODONE/ACETAMINOPHEN 5/325 MG TAB PO PRN (16:30)
--- NOTE | 2020-01-10 18:05 | NUR ---
DR. Wade BURLESON IN ROOM SPEAKING WITH PT. RE:PLAN OF CARE. QUESTIONS ANSWERED BY DR. BURLESON.
[2020-01-10 19:40] LABS: ALBUMIN,BODY FLUID 2.5 g/dL; GLUCOSE,BODY FLUID 108 mg/dL (1-40)
[2020-01-10 20:29] LABS: APPEARANCE BODY FLUID SLIGHTLY CLOUDY (CLEAR); BODY FLUID WBC 375 /cu. mm.; COLOR,BODY FLUID YELLOW (LT YELLOW); SPECIMENTYPE,BODY FLUID PLEURAL; TOTAL VOLUME,BODY FLUID 960 mL
[2020-01-10 20:30] LABS: BODY FLUID RBC 655 /cu. mm.
[2020-01-10] MEDS: CEFTRIAXONE SODIUM 1 GM IVP SCH (20:41)
[2020-01-10] MEDS: AZITHROMYCIN 500MG+NS 250ML 250 ML IV SCH (20:42)
[2020-01-10 21:56] LABS: BF LYMPHOCYTE 2 %; BF MONOCYTE 1 %
[2020-01-11] VITALS (7 sets, daily range): BP systolic 107–164; BP diastolic 51–71
[2020-01-11] MEDS: INSULIN HUMULIN R 100 UNIT/ML 3ML SQ SCH ×4 (05:46→21:54)
--- NOTE | 2020-01-11 08:00 | NUR ---
SBAR REPORT HANDED TO MAY BRIGHT. PATIENT WAS SAFELY WHEELED TO ROOM 3.5. DIALYSIS NURSE WAS IN ROOM UPON PATIENT TRANSFER. ENDORSED TO ACCEPTING NURSE MAY.
[2020-01-11] MEDS: FAMOTIDINE 20MG TAB 20 MG TAB PO SCH (09:00)
[2020-01-11] MEDS: HYDRALAZINE HCL 25 MG TABLET PO SCH ×3 (09:00→20:09)
[2020-01-11] MEDS: MINOXIDIL 2.5 MG TAB PO SCH ×2 (12:59→20:09)
[2020-01-11] MEDS: LISINOPRIL 40 MG TABLET PO SCH (13:00)
[2020-01-11] MEDS: AZITHROMYCIN 500MG+NS 250ML 250 ML IV SCH (20:08)
[2020-01-11] MEDS: CEFTRIAXONE SODIUM 1 GM IVP SCH (20:08)
--- NOTE | 2020-01-12 | NUR ---
patient is clammy and dizzy. accucheck is 42, a stat fasting glucose is ordered and patient was given 1 cup of orange juice, 2 packs of polo crackers with 1 pack of peanut butter and 2 applesauses. 25 ml of dextrose 50% amp was given via IV. will recheck an accucheck at 00:45. patient alert and oriented. will continue to monitor
[2020-01-12] MEDS ORDERED: DEXTROSE 50%-WATER 50 ML DISP.SYRIN IV ONE (00:10)
[2020-01-12] MEDS ORDERED: DEXTROSE 50%-WATER 50 ML DISP.SYRIN IV PRN (00:15)
[2020-01-12] MEDS ORDERED: GLUCAGON 1MG KIT 1 MG ML IM PRN (00:15)
[2020-01-12 04:25] VITALS: BP 148/65
[2020-01-12] MEDS: INSULIN HUMULIN R 100 UNIT/ML 3ML SQ SCH (05:28)
[2020-01-12 08:00] VITALS: BP 144/72
[2020-01-12] MEDS: FAMOTIDINE 20MG TAB 20 MG TAB PO SCH (09:00)
[2020-01-12] MEDS: MINOXIDIL 2.5 MG TAB PO SCH ×2 (09:55→20:20)
[2020-01-12] MEDS: HYDRALAZINE HCL 25 MG TABLET PO SCH ×3 (09:55→20:20)
[2020-01-12] MEDS: LISINOPRIL 40 MG TABLET PO SCH (09:55)
[2020-01-12 11:42] VITALS: BP 169/67
--- NOTE | 2020-01-12 15:00 | NUR ---
dr rebolledo informed of gi consult for weight loss and frequent nausa and i mentioned that pt has an outpatient appointment with dr Canada this week; he stated at this time he was only seeing emergencies and for the patient to keep her outpatient appointment at this time.
[2020-01-12 16:00] VITALS: BP 149/53
[2020-01-12 19:00] VITALS: BP 145/52
[2020-01-12] MEDS: AZITHROMYCIN 500MG+NS 250ML 250 ML IV SCH (20:20)
[2020-01-12] MEDS: CEFTRIAXONE SODIUM 1 GM IVP SCH (20:20)
[2020-01-12 23:31] VITALS: BP 112/47
[2020-01-13 03:42] VITALS: BP 125/62
[2020-01-13 05:49] LABS: BASOPHILS % (AUTO) 1.1 % (0.0-5.0); EOSINOPHILS % (AUTO) 14.2 % (0.0-8.0); HEMATOCRIT 32.8 % (36-48); LYMPHOCYTES % (AUTO) 15.1 % (21.0-51.0); MEAN CORPUSCULAR HEMOGLOBIN 29.3 pg (27.0-33.0); MEAN CORPUSCULAR HGB CONC 31.4 g/dL (32.0-36.0); MEAN CORPUSCULAR VOLUME 93.2 fL (79-99); MONOCYTES % (AUTO) 10.2 % (3.0-13.0); PLATELET COUNT (AUTO) 110 K/uL (130-400); RED BLOOD CELL COUNT(AUTO) 3.52 MIL/uL (4.00-5.50); RED CELL DISTRIBUTION WIDTH 14.3 % (11.0-15.5); WHITE BLOOD COUNT (AUTO) 5.3 K/uL (4.8-10.8)
[2020-01-13 06:16] LABS: CREATININE 5.7 mg/dL (0.5-1.5); POTASSIUM 4.8 mmol/L (3.5-5.1)
[2020-01-13 07:30] VITALS: BP 154/53
[2020-01-13] MEDS: FAMOTIDINE 20MG TAB 20 MG TAB PO SCH (09:00)
[2020-01-13] MEDS ORDERED: LACTULOSE 20 GM/30 ML UDCUP ONE (09:40)
[2020-01-13] MEDS: LISINOPRIL 40 MG TABLET PO SCH (09:43)
[2020-01-13] MEDS: HYDRALAZINE HCL 25 MG TABLET PO SCH ×3 (09:43→20:33)
[2020-01-13] MEDS: MINOXIDIL 2.5 MG TAB PO SCH ×2 (09:44→20:32)
[2020-01-13 11:00] VITALS: BP 152/56
[2020-01-13 16:00] VITALS: BP 148/71
[2020-01-13 20:00] VITALS: BP 109/42
[2020-01-13] MEDS: CEFTRIAXONE SODIUM 1 GM IVP SCH (20:32)
[2020-01-13] MEDS: AZITHROMYCIN 500MG+NS 250ML 250 ML IV SCH (20:33)
[2020-01-13 23:00] VITALS: BP 143/62
[2020-01-14 03:59] VITALS: BP 153/67
[2020-01-14 06:25] LABS: HEMATOCRIT 33.6 % (36-48); MEAN CORPUSCULAR HEMOGLOBIN 29.3 pg (27.0-33.0); MEAN CORPUSCULAR VOLUME 94.6 fL (79-99); PLATELET COUNT (AUTO) 136 K/uL (130-400); RED BLOOD CELL COUNT(AUTO) 3.55 MIL/uL (4.00-5.50); RED CELL DISTRIBUTION WIDTH 14.4 % (11.0-15.5); WHITE BLOOD COUNT (AUTO) 4.8 K/uL (4.8-10.8)
[2020-01-14 06:35] LABS: POTASSIUM 5.1 mmol/L (3.5-5.1)
[2020-01-14 08:00] VITALS: BP 142/53
[2020-01-14 08:31] LABS: EOSINOPHILS % (MANUAL) 9 % (1-6); LYMPHOCYTES % (MANUAL) 9 % (22-44); MONOCYTES % (MANUAL) 10 % (2-9); SEGMENTED NEUTROPHILS % 72 % (40-70)
[2020-01-14 08:32] LABS: MAN.DIFF COMMENT-IMPRESSION MANUAL DIFFERENTIAL; PLATELET MORPHOLOGY COMMENT ADEQUATE
[2020-01-14] MEDS: LISINOPRIL 40 MG TABLET PO SCH (09:00)
[2020-01-14] MEDS: FAMOTIDINE 20MG TAB 20 MG TAB PO SCH (09:00)
[2020-01-14] MEDS: MINOXIDIL 2.5 MG TAB PO SCH ×2 (09:00→21:49)
[2020-01-14] MEDS: HYDRALAZINE HCL 25 MG TABLET PO SCH ×3 (09:00→21:42)
--- NOTE | 2020-01-14 09:03 | NUR ---
pulmonary consult called dr liz, left message regarding consult for possible thoracentesis
[2020-01-14 11:40] VITALS: BP 173/63
[2020-01-14 15:32] VITALS: BP 149/68
[2020-01-14 19:28] VITALS: BP 171/52
--- NOTE | 2020-01-14 20:15 | NUR ---
THORACENTESIS ASSITED DR DE LA GARZA WITH THORACENTESIS. REMOVED 1L BLOOD TINGED FLUID FROM RIGHT LUNG. PLEURAL FLUID TAKEN TO LAB.
[2020-01-14 21:32] LABS: SPECIMENTYPE,BODY FLUID PLEURAL
[2020-01-14 21:33] LABS: APPEARANCE BODY FLUID BLOODY (CLEAR); BODY FLUID WBC 156 /cu. mm.; COLOR,BODY FLUID RED (LT YELLOW); TOTAL VOLUME,BODY FLUID 106 mL
[2020-01-14 21:34] LABS: BODY FLUID RBC 131300 /cu. mm.
[2020-01-14] MEDS ORDERED: SODIUM CHLORIDE 0.9% 250 ML IV ONE (21:39)
[2020-01-14] MEDS: AZITHROMYCIN 500MG+NS 250ML 250 ML IV SCH (21:41)
[2020-01-14] MEDS: CEFTRIAXONE SODIUM 1 GM IVP SCH (21:41)
[2020-01-14 21:52] LABS: BF EOSINOPHIL 7 %; BF LYMPHOCYTE 45 %; BF MONOCYTE 9 %
--- NOTE | 2020-01-14 23:10 | NUR ---
CYTOLOGY ON PLEURAL FLUID REQUEST FORM GIVEN TO RA IN LAB.
--- NOTE | 2020-01-14 23:40 | NUR ---
ATTEMPTED TO LAY PT FLAT WITH O2 2L PT DID NOT TOLERATE LAYING FLAT. STATED THAT SHE FELT SUFFOCATED. 2 SATS NEVER DROPPED. MORE ANXIETY THAN SOB
[2020-01-14 23:49] VITALS: BP 114/43
[2020-01-15] VITALS (11 sets, daily range): BP systolic 126–160; BP diastolic 44–61
--- NOTE | 2020-01-15 00:20 | NUR ---
PT LAYING FLAT ON O2 2L SATS AT 99-100%. TOLERATING LAYING FLAT WELL WHILE ASLEEP.
[2020-01-15 04:12] LABS: BASOPHILS % (AUTO) 0.8 % (0.0-5.0); HEMATOCRIT 29.2 % (36-48); LYMPHOCYTES % (AUTO) 13.5 % (21.0-51.0); MEAN CORPUSCULAR HEMOGLOBIN 29.1 pg (27.0-33.0); MEAN CORPUSCULAR HGB CONC 31.5 g/dL (32.0-36.0); MEAN CORPUSCULAR VOLUME 92.4 fL (79-99); MONOCYTES % (AUTO) 9.1 % (3.0-13.0); NEUTROPHILS % (AUTO) 66.4 % (40.0-77.0); RED BLOOD CELL COUNT(AUTO) 3.16 MIL/uL (4.00-5.50); RED CELL DISTRIBUTION WIDTH 14.5 % (11.0-15.5); WHITE BLOOD COUNT (AUTO) 4.8 K/uL (4.8-10.8)
[2020-01-15 04:13] LABS: INR 1.07 (0.85-1.15); PARTIAL THROMBOPLASTIN TIME 42.1 SEC (26.3-35.5); PROTHROMBIN TIME 11.5 SEC (9.6-11.6)
[2020-01-15 04:33] LABS: ALBUMIN 2.6 g/dL (3.5-5.0); BILIRUBIN,TOTAL 0.3 mg/dL (0.2-1.0); CREATININE 7.1 mg/dL (0.5-1.5); POTASSIUM 5.1 mmol/L (3.5-5.1)
[2020-01-15 04:34] LABS: PLATELET COUNT (AUTO) 90 K/uL (130-400)
[2020-01-15] MEDS: MINOXIDIL 2.5 MG TAB PO SCH ×2 (09:00→21:15)
[2020-01-15] MEDS: LISINOPRIL 40 MG TABLET PO SCH (09:00)
[2020-01-15] MEDS: HYDRALAZINE HCL 25 MG TABLET PO SCH ×3 (09:00→21:15)
[2020-01-15] MEDS: FAMOTIDINE 20MG TAB 20 MG TAB PO SCH (09:00)
--- NOTE | 2020-01-15 10:06 | NUR ---
RD NOTIFICATION RD consults due to LOS X 8. Diet: renal dialysis, fine chopped, 1000ml fluid restriction. PO intake 100% and has good appetite. Pt is tolerating current diet. Skin is intact. Labs and meds reviewed. Pt has been on dialysis for approx. 10 years now. Prognosis is poor. Monitor po intake and tolerance Monitor labs and BM Addendum: 01/15/20 at [address] Amended: Links added.
[2020-01-15] MEDS ORDERED: HEPARIN SODIUM 1000UNIT/ML 10ML VIAL ONE (10:29)
[2020-01-15] MEDS ORDERED: FENTANYL CITRATE PF 50 MCG/1 ML 2ML VIAL ONE (10:30)
[2020-01-15] MEDS ORDERED: IOHEXOL-350 50ML VIAL IV ONE (10:30)
[2020-01-15] MEDS ORDERED: IOHEXOL 350 MG/ML 100ML INFUS..BTL IV ONE ×2 (10:30→14:10)
[2020-01-15] MEDS ORDERED: LIDOCAINE HCL 2% 20ML ONE (10:30)
[2020-01-15] MEDS ORDERED: MIDAZOLAM HCL 1 MG/ML 2ML VIAL ONE (10:30)
[2020-01-15] MEDS ORDERED: NITROGLYCERIN 2 MG/VIAL VIAL IV ONE (10:31)
[2020-01-15] MEDS ORDERED: BIVALIRUDIN 250 MG/VIAL IV ONE (13:06)
[2020-01-15] MEDS: SODIUM CHLORIDE 0.9% 10 ML VIAL IVP SCH ×2 (15:26→21:16)
[2020-01-15] MEDS ORDERED: APIXABAN 2.5 MG TABLET PO SCH (21:00)
[2020-01-15] MEDS: AZITHROMYCIN 500MG+NS 250ML 250 ML IV SCH (21:14)
[2020-01-15] MEDS: CEFTRIAXONE SODIUM 1 GM IVP SCH (21:15)
--- NOTE | 2020-01-16 00:15 | NUR ---
RECEIVED REPORT RECEIVED FROM DEANGELO MIELS. NURSES'S ROUNDS DONE. PT STILL AWAKE, WATCHING TV. NO CONCERNS VERBALIZED. NO DISTRESS NOTED. KEPT RESTED AND COMFORTABLE. CALL LIGHT WITHIN REACH. ENCOURAGED TO REST AND SLEEP. Addendum: 01/16/20 at 0051 by ROBERT TAPIA RN RN Amended: Links added.
--- NOTE | 2020-01-16 02:00 | NUR ---
ROUNDS PT RESTING WELL, FAIRLY ASLEEP WITH RESPIRATIONS EVEN AND UNLABORED. NO NOTED DISTRESS. KEPT RESTED AND COMFORTABLE. CALL LIGHT WITHIN REACH. WILL MONITOR PT.
[2020-01-16 03:32] VITALS: BP 162/53
[2020-01-16] MEDS: SODIUM CHLORIDE 0.9% 10 ML VIAL IVP SCH ×2 (05:24→13:49)
[2020-01-16 05:35] LABS: BASOPHILS % (AUTO) 1.1 % (0.0-5.0); EOSINOPHILS % (AUTO) 8.2 % (0.0-8.0); HEMATOCRIT 29.7 % (36-48); LYMPHOCYTES % (AUTO) 13.2 % (21.0-51.0); MEAN CORPUSCULAR HEMOGLOBIN 28.6 pg (27.0-33.0); MEAN CORPUSCULAR HGB CONC 31.3 g/dL (32.0-36.0); MEAN CORPUSCULAR VOLUME 91.4 fL (79-99); MONOCYTES % (AUTO) 9.1 % (3.0-13.0); NEUTROPHILS % (AUTO) 68.2 % (40.0-77.0); PLATELET COUNT (AUTO) 127 K/uL (130-400); RED BLOOD CELL COUNT(AUTO) 3.25 MIL/uL (4.00-5.50); RED CELL DISTRIBUTION WIDTH 14.6 % (11.0-15.5); WHITE BLOOD COUNT (AUTO) 4.6 K/uL (4.8-10.8)
[2020-01-16 06:00] LABS: ALBUMIN 2.8 g/dL (3.5-5.0); BILIRUBIN,TOTAL 0.4 mg/dL (0.2-1.0); POTASSIUM 5.4 mmol/L (3.5-5.1); TOTAL PROTEIN, SERUM 7.6 g/dL (6.0-8.3)
[2020-01-16 06:11] LABS: CREATININE 8.2 mg/dL (0.5-1.5)
--- NOTE | 2020-01-16 07:05 | NUR ---
REPORT REPORT GIVEN TO AM SHIFT. PT HAVING DIALYSIS TREATMENT AT THIS TIME. FOR MORE CARE.
[2020-01-16 08:00] VITALS: BP 114/47
[2020-01-16] MEDS ORDERED: ISOSORBIDE MONO 30MG TAB SR PO SCH (09:00)
[2020-01-16] MEDS: MINOXIDIL 2.5 MG TAB PO SCH (09:00)
[2020-01-16] MEDS: HYDRALAZINE HCL 25 MG TABLET PO SCH ×2 (09:00→13:48)
[2020-01-16] MEDS ORDERED: FOLIC ACID 1 MG TABLET PO SCH (11:30)
[2020-01-16 12:00] VITALS: BP 147/89
[2020-01-16] MEDS ORDERED: CYANOCOBALAMIN (VITAMIN B-12) 1,000 MCG TABLET PO SCH (12:15)
[2020-01-16] MEDS ORDERED: Isosorbide Mono 30MG Tab Sr PO (12:41)
[2020-01-16] MEDS ORDERED: MECO10005 PO (12:41)
[2020-01-16] MEDS ORDERED: FOLI0.8C PO (12:41)
[2020-01-16] MEDS: FAMOTIDINE 20MG TAB 20 MG TAB PO SCH (13:47)
[2020-01-17] MEDS ORDERED: FOLIC ACID 1 MG TABLET PO SCH (09:00)
[2020-01-17] MEDS ORDERED: CYANOCOBALAMIN (VITAMIN B-12) 1,000 MCG TABLET PO SCH (09:00)
[2020-01-17] MEDS ORDERED: APIXABAN 2.5 MG TABLET PO SCH (09:00)
== END 2020-01-16 18:30 | disposition home or self-care (01) | DRG 286 ==
LOC: EDH 13:43 → OBSVTOIN 14:44 → EDHIP 14:44 → 2AH 17:09 → 3BH 01-11 08:46
PROVIDERS: ADMIT Internal Medicine; ATTEND Internal Medicine
PROC: 5A1D70Z Performance of Urinary Filtration, Intermittent, Less than 6 Hours Per Day (ICD-10-PCS; 2020-01-08)
PROC: 5A1D70Z Performance of Urinary Filtration, Intermittent, Less than 6 Hours Per Day (ICD-10-PCS; 2020-01-09)
PROC: 0W9B3ZZ Drainage of Left Pleural Cavity, Percutaneous Approach (ICD-10-PCS; principal; 2020-01-10)
PROC: 5A1D70Z Performance of Urinary Filtration, Intermittent, Less than 6 Hours Per Day (ICD-10-PCS; 2020-01-11)
PROC: 5A1D70Z Performance of Urinary Filtration, Intermittent, Less than 6 Hours Per Day (ICD-10-PCS; 2020-01-14)
PROC: 0W993ZZ Drainage of Right Pleural Cavity, Percutaneous Approach (ICD-10-PCS; 2020-01-14)
PROC: 4A023N7 Measurement of Cardiac Sampling and Pressure, Left Heart, Percutaneous Approach (ICD-10-PCS; 2020-01-15)
PROC: B2111ZZ Fluoroscopy of Multiple Coronary Arteries using Low Osmolar Contrast (ICD-10-PCS; 2020-01-15)
PROC: B2151ZZ Fluoroscopy of Left Heart using Low Osmolar Contrast (ICD-10-PCS; 2020-01-15)
PROC: B2181ZZ Fluoroscopy of Left Internal Mammary Bypass Graft using Low Osmolar Contrast (ICD-10-PCS; 2020-01-15)
PROC: B51D1ZZ Fluoroscopy of Bilateral Lower Extremity Veins using Low Osmolar Contrast (ICD-10-PCS; 2020-01-15)
PROC: 5A1D70Z Performance of Urinary Filtration, Intermittent, Less than 6 Hours Per Day (ICD-10-PCS; 2020-01-16)
DX: I13.2 Hypertensive heart and chronic kidney disease with heart failure and with stage 5 chronic kidney disease, or end stage renal disease (principal); I50.31 Acute diastolic (congestive) heart failure; J96.21 Acute and chronic respiratory failure with hypoxia; N18.6 End stage renal disease; I16.1 Hypertensive emergency; D61.818 Other pancytopenia; E44.0 Moderate protein-calorie malnutrition; E87.1 Hypo-osmolality and hyponatremia; J94.2 Hemothorax; J98.11 Atelectasis; J91.8 Pleural effusion in other conditions classified elsewhere; I25.110 Atherosclerotic heart disease of native coronary artery with unstable angina pectoris; I42.9 Cardiomyopathy, unspecified; E11.22 Type 2 diabetes mellitus with diabetic chronic kidney disease; D63.8 Anemia in other chronic diseases classified elsewhere; D69.59 Other secondary thrombocytopenia; E78.5 Hyperlipidemia, unspecified; I27.29 Other secondary pulmonary hypertension; I48.91 Unspecified atrial fibrillation; I50.82 Biventricular heart failure; R13.10 Dysphagia, unspecified; T50.905A Adverse effect of unspecified drugs, medicaments and biological substances, initial encounter; Z68.26 Body mass index [BMI] 26.0-26.9, adult; Y92.89 Other specified places as the place of occurrence of the external cause; Z88.8 Allergy status to other drugs, medicaments and biological substances; Z99.2 Dependence on renal dialysis; Z79.01 Long term (current) use of anticoagulants; Z95.1 Presence of aortocoronary bypass graft; Z82.3 Family history of stroke; Z83.3 Family history of diabetes mellitus; Z82.5 Family history of asthma and other chronic lower respiratory diseases; Z82.49 Family history of ischemic heart disease and other diseases of the circulatory system; Z82.0 Family history of epilepsy and other diseases of the nervous system
CPT/HCPCS: 36415; 71045; 71046; 71250; 75710; 80048; 80053; 82042; 82550; 82945; 82947; 82948; 83615; 83735; 83874; 83880; 83986; 84100; 84145; 84157; 84484; 85025; 85610; 85730; 87071; 87116; 87205; 87206; 87210; 87486; 87581; 87633; 87798; 88112; 88305; 89051; 90935; 93005; 93306; 93356; 93459; 97039; 99156; 99157; C1729; C1769; C1894; G0378; J0456; J0583; J0696; J1644; J1650; J1815; J2250; J2405; J3010; J3490; J7050; J7070; Q9967

== ENCOUNTER 2020-04-09 11:31 | Inpatient (IN) | payer MEDICARE ==
[~2020-04-09] VITALS: Ht 149.9 cm; Wt 60.6 kg
[~2020-04-09 11:31] MED LIST changes: -AMLO-258 PO; +AMLO10TA7 PO; +FOLI0.8C PO; +Isosorbide Mono 30MG Tab Sr PO; +MECO10005 PO
[2020-04-09] MEDS ORDERED: ASPIRIN 325 MG TABLET ONE (12:18)
[2020-04-09 12:31] LABS: BASOPHILS % (AUTO) 0.8 % (0.0-5.0); EOSINOPHILS % (AUTO) 25.4 % (0.0-8.0); HEMATOCRIT 49.9 % (36-48); LYMPHOCYTES % (AUTO) 7.7 % (21.0-51.0); MEAN CORPUSCULAR HGB CONC 30.9 g/dL (32.0-36.0); MEAN CORPUSCULAR VOLUME 97.3 fL (79-99); MONOCYTES % (AUTO) 5.6 % (3.0-13.0); NEUTROPHILS % (AUTO) 60.4 % (40.0-77.0); PLATELET COUNT (AUTO) 123 K/uL (130-400); RED BLOOD CELL COUNT(AUTO) 5.13 MIL/uL (4.00-5.50); RED CELL DISTRIBUTION WIDTH 15.1 % (11.0-15.5); WHITE BLOOD COUNT (AUTO) 7.6 K/uL (4.8-10.8)
[2020-04-09 12:45] LABS: ALBUMIN 3.2 g/dL (3.5-5.0); BILIRUBIN,TOTAL 0.5 mg/dL (0.2-1.0); CREATININE 6.1 mg/dL (0.5-1.5); POTASSIUM 4.3 mmol/L (3.5-5.1); TOTAL PROTEIN, SERUM 7.9 g/dL (6.0-8.3)
[2020-04-09 12:49] LABS: INR 1.23 (0.85-1.15); PARTIAL THROMBOPLASTIN TIME 47.4 SEC (26.3-35.5); PROTHROMBIN TIME 13.2 SEC (9.6-11.6)
[2020-04-09] MEDS ORDERED: MORPHINE SULFATE 2 MG/ML 1ML SYG IV PRN (15:15)
[2020-04-09] MEDS ORDERED: NITROGLYCERIN 0.4 MG SL TAB SL PRN (16:15)
[2020-04-09 17:15] LABS: CHOLESTEROL 86 mg/dL (<200); HDL CHOLESTEROL 67 mg/dL (35-85); LDL DIRECT 32 mg/dL (0-99); TRIGLYCERIDES 125 mg/dL (30-200)
[2020-04-09] MEDS ORDERED: FAMOTIDINE/PF 20 MG/2 ML VIAL IV ONE (23:20)
[2020-04-10] VITALS (7 sets, daily range): BP systolic 141–185; BP diastolic 47–114
[2020-04-10 04:53] LABS: BASOPHILS % (AUTO) 0.9 % (0.0-5.0); EOSINOPHILS % (AUTO) 33.8 % (0.0-8.0); HEMATOCRIT 36.8 % (36-48); MEAN CORPUSCULAR HEMOGLOBIN 29.4 pg (27.0-33.0); MEAN CORPUSCULAR HGB CONC 30.2 g/dL (32.0-36.0); MEAN CORPUSCULAR VOLUME 97.6 fL (79-99); MONOCYTES % (AUTO) 6.6 % (3.0-13.0); NEUTROPHILS % (AUTO) 42.5 % (40.0-77.0); PLATELET COUNT (AUTO) 91 K/uL (130-400); RED BLOOD CELL COUNT(AUTO) 3.77 MIL/uL (4.00-5.50); RED CELL DISTRIBUTION WIDTH 15.1 % (11.0-15.5); WHITE BLOOD COUNT (AUTO) 8.1 K/uL (4.8-10.8)
[2020-04-10 05:15] LABS: ALBUMIN 2.9 g/dL (3.5-5.0); BILIRUBIN,TOTAL 0.4 mg/dL (0.2-1.0); POTASSIUM 4.4 mmol/L (3.5-5.1); TOTAL PROTEIN, SERUM 6.8 g/dL (6.0-8.3)
[2020-04-10] MEDS: ACETAMINOPHEN 325 MG TAB PO PRN (06:50)
[2020-04-10] MEDS: ENOXAPARIN SODIUM 30 MG/0.3 ML SQ SCH (09:00)
[2020-04-10] MEDS ORDERED: AMLODIPINE BESYLATE 5 MG TAB PO SCH (09:30)
--- NOTE | 2020-04-10 10:00 | NUR ---
HOLDING MORNING MEDS. PT STATES BP DROPS WHEN GETS DIALYSIS. PT SCHEDULED FOR DIALYSIS TODAY.
--- NOTE | 2020-04-10 13:00 | NUR ---
SPOKE TO PATIENT IN ROOM FOR DC PLANNING [facility] LIVES WITH SISTER XIAO WHO PROVIDES TRANSPORT TO HD. GOES TO HD [address] [facility], STATES HOME IS SAFE AND ACCESSIBLE, HAS SHOWER CHAIR & [employer]IMBER[employer] BAPT[employer]E, DCP IS HOME , NO NEEDS ANTICIPATED Addendum: 04/10/20 at 1448 by RICO ESPINOZA RN CM Amended: Links added.
--- NOTE | 2020-04-10 13:01 | NUR ---
ADDENDUM: ALSO HAS HOME O2 "09/05" PER PATIENT
[2020-04-10] MEDS: LISINOPRIL 40 MG TABLET PO SCH ×2 (13:55→17:02)
[2020-04-10] MEDS: FAMOTIDINE/PF 20 MG/2 ML VIAL IV SCH (13:55)
[2020-04-10] MEDS: AMLODIPINE BESYLATE 5 MG TAB PO SCH ×2 (13:55→17:02)
--- NOTE | 2020-04-10 14:04 | NUR ---
RAPID RESPONSE: PT WAS GETTING DIALYSIS, 30 MIN INTO BEING DIALYZED PT BEGINS TO LOSE CONSCIOUSNESS. PT APPEARS VERY LETHARGIC SO I THEN INITIATED RAPID RESPONSE BP BEGINS TO DROP. DR SCHMID, DR SOTO, DASH BEASLEY, CHARGE MARISA AND NASREEN ARRIVED TO RAPID. BLOOD SUGAR (121) and vitals were being monitored. [SEE RAPID CODE SHEET.] @1413 PT BEGINS TO BECOME MORE AWARE AND RESPONSIVE. DR GARCIA WAS CALLED AT 1417. NO ANSWER BUT MESSAGE LEFT. DR GARCIA CALLED BACK 1428 MADE AWARE OF SITUATION ORDERS GIVEN FOR DIALYSIS NURSE TO RETURN BLOOD AND TRY AGAIN TOMORROW. DIALYSIS NURSES AND DR SCHMID MADE AWARE. PER MD REQUEST PT WAS TRANSFERRED TO RM 425. VITALS STABLE. PT IS AWAKE ALERT, AND ORIENTED. REPORT GIVEN TO DEANGELO FREIRE.
--- NOTE | 2020-04-10 14:37 | NUR ---
RD NOTIFICATION Pt admitted with Chest Pain, Hx of ESRD on HD. Pt with fair PO intake, tolerating Renal Dialysis diet order. Pt with chewing difficulty with dentures, report tough to chew meat especially. Overweight BMI. Hemodialysis in place. Recommend 1500mL Fluid Restriction Mechanical Soft Diet Order modification per Pt request RD to continue to monitor. Please notify RD as additional nutrition concerns arise. Thank you. Addendum: 04/10/20 at [address] Amended: Links added.
--- NOTE | 2020-04-10 16:15 | NUR ---
PATIENT TRANSFER RECEIVED REPORT FROM SHARMILA MATHIS, PATIENT ARRIVED ON FLOOR AT APPROX 1615 HOURS. RESTING COMFORTABLY IN ROOM.
[2020-04-11] VITALS (7 sets, daily range): BP systolic 150–205; BP diastolic 50–84
[2020-04-11 08:13] LABS: HEPATITIS A ANTIBODY IGM Negative (Negative); HEPATITIS B CORE IGM Negative (Negative); HEPATITIS Bs ANTIGEN SCREEN P Negative (Negative)
[2020-04-11] MEDS: FAMOTIDINE/PF 20 MG/2 ML VIAL IV SCH (08:32)
[2020-04-11] MEDS: ENOXAPARIN SODIUM 30 MG/0.3 ML SQ SCH (09:00)
[2020-04-11] MEDS: LISINOPRIL 40 MG TABLET PO SCH ×2 (09:00→15:40)
[2020-04-11] MEDS: AMLODIPINE BESYLATE 5 MG TAB PO SCH ×2 (09:00→15:39)
--- NOTE | 2020-04-11 09:55 | NUR ---
DR. GRUBBS AWARE OF CONSULT CALLED MD CORRECTIONAL PROGRAM SPECIALIST TO FOLLOW-UP ON CONSULT PLACED YESTERDAY. MD STATES HE WILL SEE PATIENT LATER TODAY. PT STATES SHE SEES DR. GRUBBS AN OUTPATIENT.
--- NOTE | 2020-04-11 11:25 | NUR ---
HYPOTENSION DURING HEMODIALYSIS TREATMENT PATIENT CURRENTLY RECEIVING HEMODIALYSIS TREATMENT IN ROOM. HEMODIALYSIS NURSE REPORTED TO ME THAT PATIENTS BLOOD PRESSURE RAPIDLY DROPPED TO 128/42 SHORTLY AFTER STARTING HEMODIALYSIS TREATMENT. PATIENT REPORTS "NOT FEELING GOOD", RESPONSIVE AND ALERT AND ORIENTED TO PERSON AND PLACE. HEMODIALYSIS NURSE BRIEFLY STOPPED TREATMENT UNTIL FURTHER ORDERS FROM DR. ZARA GARCIA. ORDERED TO GIVE MIDODRINE 10MG PO AND ATTEMPT TO CONTINUE HEMODIALYSIS TREATMENT.
[2020-04-11] MEDS ORDERED: MIDODRINE HCL 5 MG TABLET ONE (11:27)
[2020-04-11] MEDS ORDERED: MIDODRINE HCL 5 MG TABLET PO SCH (11:30)
--- NOTE | 2020-04-11 15:21 | NUR ---
1925 PATIENT SIGNED IM LETTER, I FAXED IM LETTER TO [id number] AND PLACED IN CHART UNDER CONSENT TAB.
[2020-04-11] MEDS ORDERED: AMLO10TA4 PO (16:04)
[2020-04-11] MEDS ORDERED: SEVE800 PO (16:04)
[2020-04-11] MEDS ORDERED: LISI40TA4 PO (16:04)
[2020-04-11] MEDS ORDERED: ATOR40TA69 PO (16:04)
[2020-04-11] MEDS ORDERED: ISOS30TA6 PO ×2 (16:04)
[2020-04-11] MEDS ORDERED: MIDO10TA PO (16:05)
[2020-04-11] MEDS ORDERED: APIX2.5T PO (16:05)
[2020-04-11] MEDS ORDERED: ASPI-556 PO (16:05)
[2020-04-12 03:54] VITALS: BP 151/59
[2020-04-12 06:52] LABS: HEMATOCRIT 36.1 % (36-48); MEAN CORPUSCULAR HEMOGLOBIN 29.9 pg (27.0-33.0); MEAN CORPUSCULAR HGB CONC 30.7 g/dL (32.0-36.0); MEAN CORPUSCULAR VOLUME 97.3 fL (79-99); RED BLOOD CELL COUNT(AUTO) 3.71 MIL/uL (4.00-5.50); RED CELL DISTRIBUTION WIDTH 15.1 % (11.0-15.5); WHITE BLOOD COUNT (AUTO) 6.3 K/uL (4.8-10.8)
[2020-04-12 07:18] LABS: MAGNESIUM 2.5 mg/dL (1.80-2.40); PHOSPHORUS 5.6 mg/dL (2.5-4.9); POTASSIUM 5.4 mmol/L (3.5-5.1)
[2020-04-12 07:28] LABS: CREATININE 8.4 mg/dL (0.5-1.5)
[2020-04-12 07:30] VITALS: BP 141/89
--- NOTE | 2020-04-12 07:50 | NUR ---
PAGED HOSPITALIST PAGED BRASS BUFFER HOSPITALIST REGARDING PATIENT HOME MEDICATIONS ENTERED AND NEED TO BE REVIEWED
[2020-04-12] MEDS: LISINOPRIL 40 MG TABLET PO SCH ×2 (08:19→17:11)
[2020-04-12] MEDS: ENOXAPARIN SODIUM 30 MG/0.3 ML SQ SCH (08:19)
[2020-04-12] MEDS: AMLODIPINE BESYLATE 5 MG TAB PO SCH ×2 (08:19→17:10)
[2020-04-12] MEDS: FAMOTIDINE/PF 20 MG/2 ML VIAL IV SCH (09:05)
--- NOTE | 2020-04-12 09:20 | NUR ---
CALLED AND SPOKE WITH DR. GRUBBS IN REFERENCE TO CONSULT. DR. GRUBBS STATED HE IS AWARE OF THE CONSULT FROM 3 DAYS AGO AND STATED HE WILL BE IN TO SEE PATIENT BEFORE THIS DAY IS OVER. NOTIFIED PRIMARY CARE NURSE JENELLE BRIGHT.
[2020-04-12] MEDS: MIDODRINE HCL 5 MG TABLET PO SCH (09:32)
--- NOTE | 2020-04-12 10:55 | NUR ---
DR. Wade CHAUDHARY PATIENT APPEARS TO NOT BE TOLERATING HEMODIALYSIS TREATMENT. REPORTS HAVING TROUBLE BREATHING, CHEST PAIN, AND DIZZINESS SHORTLY AFTER STARTING HEMODIALYSIS TREATMENT. BP READING 119/65 WHEN PATIENT REPORTED SYMPTOMS.
--- NOTE | 2020-04-12 11:25 | NUR ---
DR. GRUBBS HERE TO SEE PATIENT
[2020-04-12 11:30] VITALS: BP 180/71
[2020-04-12 15:19] LABS: POTASSIUM 5.6 mmol/L (3.5-5.1)
[2020-04-12 15:25] LABS: CREATININE 8.3 mg/dL (0.5-1.5)
[2020-04-12 15:30] VITALS: BP 196/57
[2020-04-12] MEDS: ONDANSETRON HCL 4 MG/2 ML VIAL IV PRN (16:35)
[2020-04-12] MEDS ORDERED: SODIUM POLYSTYRENE SULFONATE 15 GM/60 ML ML PO ONE (16:45)
[2020-04-12] MEDS ORDERED: DEXTROSE 50%-WATER 25 GM/50 ML VIAL IV SCH (16:45)
[2020-04-12] MEDS ORDERED: CALCIUM CHLORIDE 100 MG/ML 10 ML SYG IVP ONE (16:45)
[2020-04-12] MEDS ORDERED: INSULIN HUMULIN R 100 UNIT/ML 3ML SQ SCH (16:45)
[2020-04-12] MEDS ORDERED: DEXTROSE 50%-WATER 50 ML DISP.SYRIN IV SCH (17:00)
[2020-04-12] MEDS: SEVELAMER HCL 800 MG TABLET PO SCH (17:10)
--- NOTE | 2020-04-12 19:40 | NUR ---
JAIRO MARTÍNEZ, BUT HELD EARLIER DUE TO LOW PLATELETS. Addendum: 04/13/20 at 0012 by SESAR TORREZ RN RN Amended: Links added.
[2020-04-12 20:18] VITALS: BP 186/78
[2020-04-12] MEDS ORDERED: DEXTROSE 50%-WATER 50 ML DISP.SYRIN IV ONE (20:39)
--- NOTE | 2020-04-12 20:39 | NUR ---
BLOOD SUGAR 28MG/DL. PATIENT DROWSY, BUT RESPONSIVE, REPORTS FEELING DIZZY AND NAUSEATED. ADMINISTERED D50 1 AMPULE IV.
[2020-04-12] MEDS: ATORVASTATIN CALCIUM 40 MG TABLET PO SCH (21:01)
[2020-04-12] MEDS: MINOXIDIL 2.5 MG TAB PO SCH (21:04)
[2020-04-12] MEDS: ISOSORBIDE MONO 30MG TAB SR PO SCH (21:04)
[2020-04-12] MEDS ORDERED: GLUCAGON 1MG KIT 1 MG ML IM PRN (21:15)
[2020-04-12] MEDS ORDERED: DEXTROSE 50%-WATER 50 ML DISP.SYRIN IV PRN (21:15)
--- NOTE | 2020-04-12 21:15 | NUR ---
PATIENT AWAKE IN BED, ALERT, ORIENTED X3, STATES FEELS BETTER AND WAS ABLE TO TOLERATE HS SNACK. BLOOD SUGAR 137MG/DL PER LAB. PATIENT WAS ADMINISTERED. FERMIN BURNETT N.P. CALLED BACK AND WAS MADE AWARE OF HYPOGLYCEMIC EPISODE, ORDERED GLUCOMETER CHECKS Q4HRS. WILL CONTINUE TO MONITOR.
[2020-04-12 23:56] VITALS: BP 137/49
--- NOTE | 2020-04-13 00:40 | NUR ---
PATIENT RESTING IN BED, SNACKED EARLIER, BUT CURRENTLY BLOOD SUGAR AT 78MG/DL, D50 1 AMPULE GIVEN. WILL CONTINUE TO MONITOR.
[2020-04-13 03:40] VITALS: BP 183/63
[2020-04-13 04:30] LABS: HEMATOCRIT 37.5 % (36-48); MEAN CORPUSCULAR HEMOGLOBIN 29.4 pg (27.0-33.0); MEAN CORPUSCULAR HGB CONC 30.1 g/dL (32.0-36.0); MEAN CORPUSCULAR VOLUME 97.7 fL (79-99); PLATELET COUNT (AUTO) 90 K/uL (130-400); RED BLOOD CELL COUNT(AUTO) 3.84 MIL/uL (4.00-5.50); WHITE BLOOD COUNT (AUTO) 5.9 K/uL (4.8-10.8)
[2020-04-13 04:52] LABS: ALBUMIN 3.1 g/dL (3.5-5.0); BILIRUBIN,DIRECT 0.2 mg/dL (0.0-0.3); BILIRUBIN,TOTAL 0.4 mg/dL (0.2-1.0); PHOSPHORUS 5.8 mg/dL (2.5-4.9); POTASSIUM 5.3 mmol/L (3.5-5.1); TOTAL PROTEIN, SERUM 7.1 g/dL (6.0-8.3)
[2020-04-13 04:58] LABS: HEMOGLOBIN A1C 4.2 % (4.0-6.0)
[2020-04-13 05:01] LABS: CREATININE 8.9 mg/dL (0.5-1.5)
[2020-04-13 05:19] LABS: BAND NEUTROPHILS % (MANUAL) 4 % (0-2); EOSINOPHILS % (MANUAL) 8 % (1-6); LYMPHOCYTES % (MANUAL) 32 % (22-44); MAN.DIFF COMMENT-IMPRESSION MANUAL DIFFERENTIAL; PLATELET MORPHOLOGY COMMENT DECREASED; SEGMENTED NEUTROPHILS % 56 % (40-70)
[2020-04-13 07:30] VITALS: BP 141/80
[2020-04-13] MEDS: ENOXAPARIN SODIUM 30 MG/0.3 ML SQ SCH (08:08)
[2020-04-13] MEDS: FAMOTIDINE/PF 20 MG/2 ML VIAL IV SCH (08:39)
[2020-04-13] MEDS: SEVELAMER HCL 800 MG TABLET PO SCH ×3 (08:39→16:24)
[2020-04-13] MEDS: FOLIC ACID 1 MG TABLET PO SCH (08:39)
[2020-04-13] MEDS: ISOSORBIDE MONO 30MG TAB SR PO SCH ×2 (08:40→20:18)
[2020-04-13] MEDS: AMLODIPINE BESYLATE 5 MG TAB PO SCH (08:40)
[2020-04-13] MEDS: CYANOCOBALAMIN (VITAMIN B-12) 1,000 MCG TABLET PO SCH (08:40)
[2020-04-13] MEDS: CETIRIZINE HCL 5 MG TABLET PO SCH (08:40)
[2020-04-13] MEDS: ASPIRIN 81 MG EC TAB PO SCH (08:40)
[2020-04-13] MEDS: VITAMIN E 400 UNIT CAPSULE PO SCH (08:40)
[2020-04-13] MEDS: MINOXIDIL 2.5 MG TAB PO SCH ×2 (08:41→20:18)
[2020-04-13] MEDS: LISINOPRIL 40 MG TABLET PO SCH (08:41)
[2020-04-13 11:30] VITALS: BP 187/73
[2020-04-13 16:00] VITALS: BP 144/56
[2020-04-13] MEDS: MIDODRINE HCL 5 MG TABLET PO SCH (16:06)
[2020-04-13] MEDS ORDERED: ALBUMIN (HUMAN) 25% 50 ML IV ONE (17:15)
[2020-04-13] MEDS ORDERED: ALBUMIN (HUMAN) 25% 50 ML IV STA (17:33)
[2020-04-13] MEDS: ONDANSETRON HCL 4 MG/2 ML VIAL IV PRN (17:58)
[2020-04-13 19:58] VITALS: BP 170/62
[2020-04-13] MEDS: ATORVASTATIN CALCIUM 40 MG TABLET PO SCH (20:18)
--- NOTE | 2020-04-13 20:20 | NUR ---
MEDS SHIFT ASSESSMENT DONE, PLEASE REFER TO CHART. DUE MEDS ADMINISTERED, TOLERATED WELL. KEPT RESTED AND COMFORTABLE WITH HOB ELEVATED. PT ON RA AT THIS TIME AND O2 SAT=99%. CALL LIGHT WITHIN REACH. WILL MONITOR PT. Addendum: 04/13/20 at 2218 by ROBERT TAPIA RN RN Amended: Links added.
--- NOTE | 2020-04-13 22:00 | NUR ---
ROUNDS PT HAS OCCASIONAL COUGH BUT NOT IN SEVERE DISTRESS. KEPT RESTED IN BED. WILL MONITOR PT.
[2020-04-13 23:23] VITALS: BP 157/58
--- NOTE | 2020-04-14 01:56 | NUR ---
ROUNDS PT SLEPT AT INTERVALS. OCCASIONAL COUGHING NOTED BUT NO SEVERE RESPIRATORY DISTRESS. KEPT PT ON O2 AT 2LPM VIA NC. KEPT COMFORTABLE WITH HOB ELEVATED. WILL MONITOR PT.
[2020-04-14 03:45] VITALS: BP 165/57
[2020-04-14] MEDS: FOLIC ACID 1 MG TABLET PO SCH (07:50)
[2020-04-14] MEDS: SEVELAMER HCL 800 MG TABLET PO SCH ×3 (07:50→17:40)
[2020-04-14] MEDS: ASPIRIN 81 MG EC TAB PO SCH (09:19)
[2020-04-14] MEDS: CETIRIZINE HCL 5 MG TABLET PO SCH (09:19)
[2020-04-14] MEDS: VITAMIN E 400 UNIT CAPSULE PO SCH (09:19)
[2020-04-14] MEDS: ENOXAPARIN SODIUM 30 MG/0.3 ML SQ SCH (09:20)
[2020-04-14] MEDS: CYANOCOBALAMIN (VITAMIN B-12) 1,000 MCG TABLET PO SCH (09:20)
[2020-04-14] MEDS: FAMOTIDINE/PF 20 MG/2 ML VIAL IV SCH (09:21)
[2020-04-14 09:39] LABS: BASOPHILS % (AUTO) 1.2 % (0.0-5.0); EOSINOPHILS % (AUTO) 20.8 % (0.0-8.0); HEMATOCRIT 35.3 % (36-48); LYMPHOCYTES % (AUTO) 11.9 % (21.0-51.0); MEAN CORPUSCULAR HEMOGLOBIN 29.1 pg (27.0-33.0); MONOCYTES % (AUTO) 13.2 % (3.0-13.0); NEUTROPHILS % (AUTO) 52.7 % (40.0-77.0); PLATELET COUNT (AUTO) 84 K/uL (130-400); RED BLOOD CELL COUNT(AUTO) 3.64 MIL/uL (4.00-5.50); RED CELL DISTRIBUTION WIDTH 14.7 % (11.0-15.5); WHITE BLOOD COUNT (AUTO) 4.9 K/uL (4.8-10.8)
[2020-04-14 09:59] LABS: ALBUMIN 3.2 g/dL (3.5-5.0); BILIRUBIN,TOTAL 0.4 mg/dL (0.2-1.0); MAGNESIUM 2.5 mg/dL (1.80-2.40); POTASSIUM 5.3 mmol/L (3.5-5.1); TOTAL PROTEIN, SERUM 7.2 g/dL (6.0-8.3)
[2020-04-14 10:15] LABS: CREATININE 9.2 mg/dL (0.5-1.5)
[2020-04-14 10:33] VITALS: BP 187/58
[2020-04-14 12:28] VITALS: BP 181/66
[2020-04-14] MEDS: MIDODRINE HCL 5 MG TABLET PO SCH (13:26)
[2020-04-14] MEDS ORDERED: ALBUMIN (HUMAN) 25% 100 ML IV PRN (13:45)
[2020-04-14] MEDS ORDERED: 0.9% SODIUM CHLORIDE 1000 ML IV BAG IV PRN (13:45)
[2020-04-14] MEDS ORDERED: NITROGLYCERIN 0.4 MG SL TAB SL PRN (13:45)
[2020-04-14] MEDS ORDERED: LIDOCAINE HCL-MPF 1% 2ML VIAL IJ PRN (13:45)
[2020-04-14] MEDS ORDERED: SODIUM CHLORIDE 0.9% 1000ML 1,000 ML IV PRN (13:45)
[2020-04-14] MEDS ORDERED: ACETAMINOPHEN 325 MG TAB PO PRN (13:45)
[2020-04-14] MEDS ORDERED: ALBUMIN (HUMAN) 25% 100 ML IV ONE (13:51)
[2020-04-14] MEDS ORDERED: METHYLPREDNISOLONE SOD SUCC 40MG/ML 1ML IVP SCH (14:15)
[2020-04-14] MEDS: ISOSORBIDE MONO 30MG TAB SR PO SCH (17:37)
[2020-04-14] MEDS: AMLODIPINE BESYLATE 5 MG TAB PO SCH (17:38)
[2020-04-14] MEDS: LISINOPRIL 40 MG TABLET PO SCH (17:39)
[2020-04-14] MEDS: MINOXIDIL 2.5 MG TAB PO SCH ×2 (17:39→20:56)
[2020-04-14 18:26] VITALS: BP 124/79
[2020-04-14 20:35] VITALS: BP 168/54
[2020-04-14] MEDS: ATORVASTATIN CALCIUM 40 MG TABLET PO SCH (21:03)
[2020-04-14] MEDS: ACETAMINOPHEN 325 MG TAB PO PRN (21:18)
[2020-04-15] VITALS (7 sets, daily range): BP systolic 156–173; BP diastolic 65–78
[2020-04-15 05:07] LABS: BASOPHILS % (AUTO) 0.8 % (0.0-5.0); LYMPHOCYTES % (AUTO) 17.4 % (21.0-51.0); MEAN CORPUSCULAR HEMOGLOBIN 29.6 pg (27.0-33.0); MEAN CORPUSCULAR HGB CONC 30.6 g/dL (32.0-36.0); MONOCYTES % (AUTO) 5.1 % (3.0-13.0); NEUTROPHILS % (AUTO) 76.3 % (40.0-77.0); PLATELET COUNT (AUTO) 86 K/uL (130-400); RED BLOOD CELL COUNT(AUTO) 3.71 MIL/uL (4.00-5.50); RED CELL DISTRIBUTION WIDTH 14.1 % (11.0-15.5); WHITE BLOOD COUNT (AUTO) 2.4 K/uL (4.8-10.8)
[2020-04-15 05:19] LABS: CREATININE 6.7 mg/dL (0.5-1.5); MAGNESIUM 2.4 mg/dL (1.80-2.40)
[2020-04-15 06:04] LABS: BAND NEUTROPHILS % (MANUAL) 5 % (0-2); BASOPHILS % (MANUAL) 2 % (0-2); LYMPHOCYTES % (MANUAL) 14 % (22-44); MAN.DIFF COMMENT-IMPRESSION MANUAL DIFFERENTIAL; MONOCYTES % (MANUAL) 4 % (2-9); PLATELET MORPHOLOGY COMMENT DECREASED; SEGMENTED NEUTROPHILS % 75 % (40-70)
[2020-04-15] MEDS: SEVELAMER HCL 800 MG TABLET PO SCH ×3 (09:09→16:18)
[2020-04-15] MEDS: CYANOCOBALAMIN (VITAMIN B-12) 1,000 MCG TABLET PO SCH (09:10)
[2020-04-15] MEDS: VITAMIN E 400 UNIT CAPSULE PO SCH (09:10)
[2020-04-15] MEDS: ASPIRIN 81 MG EC TAB PO SCH (09:10)
[2020-04-15] MEDS: CETIRIZINE HCL 5 MG TABLET PO SCH (09:11)
[2020-04-15] MEDS: FAMOTIDINE/PF 20 MG/2 ML VIAL IV SCH (09:11)
[2020-04-15] MEDS: ENOXAPARIN SODIUM 30 MG/0.3 ML SQ SCH (09:12)
[2020-04-15] MEDS: FOLIC ACID 1 MG TABLET PO SCH (09:15)
[2020-04-15] MEDS ORDERED: LACTULOSE 20 GM/30 ML UDCUP PO PRN (11:30)
[2020-04-15] MEDS: ISOSORBIDE MONO 30MG TAB SR PO SCH ×2 (12:16→20:21)
[2020-04-15] MEDS: MINOXIDIL 2.5 MG TAB PO SCH ×2 (12:16→20:21)
[2020-04-15] MEDS: LISINOPRIL 40 MG TABLET PO SCH (12:17)
[2020-04-15] MEDS: AMLODIPINE BESYLATE 5 MG TAB PO SCH (12:17)
[2020-04-15] MEDS: ATORVASTATIN CALCIUM 40 MG TABLET PO SCH (20:21)
[2020-04-16] MEDS ORDERED: METHYLPREDNISOLONE SOD SUCC 40MG/ML 1ML IVP PRN (01:00)
--- NOTE | 2020-04-16 02:47 | NUR ---
RESTING Pt calm,resting quietly in bed,no distress noted.
[2020-04-16 04:00] VITALS: BP 149/52
[2020-04-16 04:26] LABS: ALBUMIN 2.9 g/dL (3.5-5.0); BILIRUBIN,TOTAL 0.4 mg/dL (0.2-1.0); CREATININE 7.5 mg/dL (0.5-1.5); TOTAL PROTEIN, SERUM 6.9 g/dL (6.0-8.3)
[2020-04-16 08:00] VITALS: BP 150/62
[2020-04-16] MEDS: SEVELAMER HCL 800 MG TABLET PO SCH ×3 (08:03→16:55)
[2020-04-16] MEDS: MIDODRINE HCL 5 MG TABLET PO SCH (08:50)
[2020-04-16] MEDS: AMLODIPINE BESYLATE 5 MG TAB PO SCH (09:00)
[2020-04-16] MEDS: MINOXIDIL 2.5 MG TAB PO SCH ×2 (09:00→21:06)
[2020-04-16] MEDS: LISINOPRIL 40 MG TABLET PO SCH (09:00)
[2020-04-16] MEDS: ENOXAPARIN SODIUM 30 MG/0.3 ML SQ SCH (09:00)
[2020-04-16] MEDS: ISOSORBIDE MONO 30MG TAB SR PO SCH (09:00)
[2020-04-16 12:00] VITALS: BP 136/64
[2020-04-16] MEDS: ASPIRIN 81 MG EC TAB PO SCH (12:16)
[2020-04-16] MEDS: CETIRIZINE HCL 5 MG TABLET PO SCH (12:16)
[2020-04-16] MEDS: CYANOCOBALAMIN (VITAMIN B-12) 1,000 MCG TABLET PO SCH (12:16)
[2020-04-16] MEDS: VITAMIN E 400 UNIT CAPSULE PO SCH (12:16)
[2020-04-16] MEDS: FAMOTIDINE/PF 20 MG/2 ML VIAL IV SCH (12:17)
[2020-04-16] MEDS: FOLIC ACID 1 MG TABLET PO SCH (12:17)
[2020-04-16 16:00] VITALS: BP 163/68
[2020-04-16 19:34] VITALS: BP 158/65
[2020-04-16] MEDS: ATORVASTATIN CALCIUM 40 MG TABLET PO SCH (21:06)
[2020-04-16 23:16] VITALS: BP 162/52
[2020-04-17 03:16] VITALS: BP 167/54
[2020-04-17 06:21] LABS: CREATININE 6.1 mg/dL (0.5-1.5)
[2020-04-17] MEDS: FOLIC ACID 1 MG TABLET PO SCH (07:34)
[2020-04-17] MEDS: SEVELAMER HCL 800 MG TABLET PO SCH ×3 (07:34→17:00)
[2020-04-17] MEDS: CETIRIZINE HCL 5 MG TABLET PO SCH (08:09)
[2020-04-17] MEDS: LISINOPRIL 40 MG TABLET PO SCH (08:09)
[2020-04-17] MEDS: FAMOTIDINE/PF 20 MG/2 ML VIAL IV SCH (08:09)
[2020-04-17] MEDS: VITAMIN E 400 UNIT CAPSULE PO SCH (08:09)
[2020-04-17] MEDS: ASPIRIN 81 MG EC TAB PO SCH (08:10)
[2020-04-17] MEDS: ISOSORBIDE MONO 30MG TAB SR PO SCH ×2 (08:10→20:46)
[2020-04-17] MEDS: AMLODIPINE BESYLATE 5 MG TAB PO SCH (08:10)
[2020-04-17] MEDS: CYANOCOBALAMIN (VITAMIN B-12) 1,000 MCG TABLET PO SCH (08:10)
[2020-04-17] MEDS: MINOXIDIL 2.5 MG TAB PO SCH ×2 (08:10→20:46)
[2020-04-17] MEDS: ENOXAPARIN SODIUM 30 MG/0.3 ML SQ SCH (08:11)
[2020-04-17 08:30] VITALS: BP 201/74
--- NOTE | 2020-04-17 11:20 | NUR ---
CM NOTE/[facility] HGN PER NOEL AT [facility], PATIENT IS CURRENT WITH HER DIALYSIS CHAIR, MAY RETURN TO HER SCHEDULE OF MWF AND BE ABLE TO RECEIVE DIALYSIS 04/18/2020.
[2020-04-17 11:53] VITALS: BP 143/53
[2020-04-17 16:56] VITALS: BP 179/68
[2020-04-17 19:00] VITALS: BP 173/62
[2020-04-17] MEDS: ATORVASTATIN CALCIUM 40 MG TABLET PO SCH (20:45)
[2020-04-17 23:00] VITALS: BP 177/53
[2020-04-18 03:00] VITALS: BP 168/61
[2020-04-18 07:51] VITALS: BP 165/55
--- NOTE | 2020-04-18 08:00 | NUR ---
AM SHIFT ASSESSMENT
[2020-04-18] MEDS: ENOXAPARIN SODIUM 30 MG/0.3 ML SQ SCH (09:00)
[2020-04-18] MEDS: CETIRIZINE HCL 5 MG TABLET PO SCH (09:23)
[2020-04-18] MEDS: ASPIRIN 81 MG EC TAB PO SCH (09:23)
[2020-04-18] MEDS: FAMOTIDINE/PF 20 MG/2 ML VIAL IV SCH (09:23)
[2020-04-18] MEDS: VITAMIN E 400 UNIT CAPSULE PO SCH (09:24)
[2020-04-18] MEDS: ISOSORBIDE MONO 30MG TAB SR PO SCH (09:24)
[2020-04-18] MEDS: AMLODIPINE BESYLATE 5 MG TAB PO SCH (09:24)
[2020-04-18] MEDS: CYANOCOBALAMIN (VITAMIN B-12) 1,000 MCG TABLET PO SCH (09:24)
[2020-04-18] MEDS: MINOXIDIL 2.5 MG TAB PO SCH ×2 (09:25→20:00)
[2020-04-18] MEDS: LISINOPRIL 40 MG TABLET PO SCH (09:25)
[2020-04-18] MEDS: FOLIC ACID 1 MG TABLET PO SCH (09:33)
[2020-04-18] MEDS: SEVELAMER HCL 800 MG TABLET PO SCH ×3 (09:34→17:08)
[2020-04-18 11:57] VITALS: BP 161/61
--- NOTE | 2020-04-18 14:00 | NUR ---
DR. CHAUHAN IN TO SEE PT. ORDERED LABS FOR AM
[2020-04-18 16:41] VITALS: BP 141/56
--- NOTE | 2020-04-18 17:15 | NUR ---
H-D TX. NOW COMPLETE. PROCEDURE TOLERATED WELL, 2 LITERS OF FLUID REMOVED.
[2020-04-18] MEDS: ATORVASTATIN CALCIUM 40 MG TABLET PO SCH (20:00)
[2020-04-18 20:02] VITALS: BP 167/60
[2020-04-19] VITALS (8 sets, daily range): BP systolic 121–163; BP diastolic 41–73
[2020-04-19] MEDS: ACETAMINOPHEN 325 MG TAB PO PRN (05:08)
--- NOTE | 2020-04-19 06:44 | NUR ---
NO SCALE ON BED OR ON FLOOR. NO WEIGHT FOR THIS AM
[2020-04-19 07:57] LABS: HEMATOCRIT 33.2 % (36-48); MEAN CORPUSCULAR HEMOGLOBIN 28.5 pg (27.0-33.0); MEAN CORPUSCULAR HGB CONC 30.7 g/dL (32.0-36.0); MEAN CORPUSCULAR VOLUME 92.7 fL (79-99); PLATELET COUNT (AUTO) 93 K/uL (130-400); RED BLOOD CELL COUNT(AUTO) 3.58 MIL/uL (4.00-5.50); RED CELL DISTRIBUTION WIDTH 13.5 % (11.0-15.5)
[2020-04-19 08:16] LABS: CREATININE 5.5 mg/dL (0.5-1.5); POTASSIUM 4.2 mmol/L (3.5-5.1)
[2020-04-19 08:19] LABS: BAND NEUTROPHILS % (MANUAL) 1 % (0-2); EOSINOPHILS % (MANUAL) 2 % (1-6); LYMPHOCYTES % (MANUAL) 21 % (22-44); MAN.DIFF COMMENT-IMPRESSION MANUAL DIFFERENTIAL; MONOCYTES % (MANUAL) 9 % (2-9); SEGMENTED NEUTROPHILS % 67 % (40-70)
[2020-04-19 08:21] LABS: PLATELET MORPHOLOGY COMMENT SLIGHTLY DECREASED
[2020-04-19] MEDS: FOLIC ACID 1 MG TABLET PO SCH (09:18)
[2020-04-19] MEDS: CETIRIZINE HCL 5 MG TABLET PO SCH (09:18)
[2020-04-19] MEDS: SEVELAMER HCL 800 MG TABLET PO SCH ×3 (09:18→17:29)
[2020-04-19] MEDS: ENOXAPARIN SODIUM 30 MG/0.3 ML SQ SCH (09:18)
[2020-04-19] MEDS: ASPIRIN 81 MG EC TAB PO SCH (09:19)
[2020-04-19] MEDS: ISOSORBIDE MONO 30MG TAB SR PO SCH ×2 (09:19→20:33)
[2020-04-19] MEDS: MINOXIDIL 2.5 MG TAB PO SCH ×2 (09:19→20:34)
[2020-04-19] MEDS: CYANOCOBALAMIN (VITAMIN B-12) 1,000 MCG TABLET PO SCH (09:19)
[2020-04-19] MEDS: LISINOPRIL 40 MG TABLET PO SCH (09:20)
[2020-04-19] MEDS: FAMOTIDINE/PF 20 MG/2 ML VIAL IV SCH (09:20)
[2020-04-19] MEDS: VITAMIN E 400 UNIT CAPSULE PO SCH (09:20)
[2020-04-19] MEDS: AMLODIPINE BESYLATE 5 MG TAB PO SCH (09:26)
[2020-04-19] MEDS ORDERED: VANCOMYCIN PROTOCOL PER PHARMACY IV SCH (11:45)
[2020-04-19] MEDS ORDERED: VANCOMYCIN 1.25 GM in SODIUM CHLORIDE 0.9% 250 ML IV ONE (13:30)
[2020-04-19] MEDS ORDERED: COMPOUND IV REFRIGERATED 1 EACH IVSOLN MISC PRN (13:45)
[2020-04-19] MEDS: ZOSYN 3.375GM+NS 50ML 50 ML IV SCH ×2 (14:19→23:45)
--- NOTE | 2020-04-19 18:17 | NUR ---
Report for transfer to Covid unit. Report to Nurse Ed for transfer to Covid unit. All questions answered.
--- NOTE | 2020-04-19 18:30 | NUR ---
PT RECEIVED AAO3, NO SIGNS OF DISTRESS NOTED, 2 IV INTACT/PATENT TO RT HAND/WRIST. O2 @ 2L NC, O2 SATS 98%, COVID SWAB OBTAINED BY Christiano ARGUETA RN. TOLERATED WITHOUT INCIDENT.
[2020-04-19] MEDS: ATORVASTATIN CALCIUM 40 MG TABLET PO SCH (20:33)
[2020-04-20 04:00] VITALS: BP 147/58
[2020-04-20] MEDS: FAMOTIDINE/PF 20 MG/2 ML VIAL IV SCH (07:44)
[2020-04-20] MEDS: ZOSYN 3.375GM+NS 50ML 50 ML IV SCH ×2 (07:44→23:45)
[2020-04-20] MEDS: ENOXAPARIN SODIUM 30 MG/0.3 ML SQ SCH (07:44)
[2020-04-20] MEDS: CETIRIZINE HCL 5 MG TABLET PO SCH (07:45)
[2020-04-20] MEDS: FOLIC ACID 1 MG TABLET PO SCH (07:45)
[2020-04-20] MEDS: ASPIRIN 81 MG EC TAB PO SCH (07:45)
[2020-04-20] MEDS: CYANOCOBALAMIN (VITAMIN B-12) 1,000 MCG TABLET PO SCH (07:45)
[2020-04-20] MEDS: LISINOPRIL 40 MG TABLET PO SCH (07:45)
[2020-04-20] MEDS: AMLODIPINE BESYLATE 5 MG TAB PO SCH (07:45)
[2020-04-20] MEDS: MINOXIDIL 2.5 MG TAB PO SCH ×2 (07:45→20:37)
[2020-04-20] MEDS: VITAMIN E 400 UNIT CAPSULE PO SCH (07:46)
[2020-04-20] MEDS: SEVELAMER HCL 800 MG TABLET PO SCH ×3 (07:46→16:29)
[2020-04-20] MEDS: ISOSORBIDE MONO 30MG TAB SR PO SCH ×2 (07:47→20:37)
[2020-04-20 08:00] VITALS: BP 134/71
--- NOTE | 2020-04-20 08:00 | NUR ---
ASSESSMENT PT IS AAOX3 DENIES CP DENIES NV DENIES SOB WHILE AT REST, CURRENTLY ON O2 VIA NC. BREATHING PATTERN IS EVEN AND UNLABORED. SITTING UPRIGHT AT BEDSIDE. CALL LIGHT WITHIN REACH.
[2020-04-20 08:09] LABS: BASOPHILS % (AUTO) 0.3 % (0.0-5.0); EOSINOPHILS % (AUTO) 6.3 % (0.0-8.0); HEMATOCRIT 32.2 % (36-48); LYMPHOCYTES % (AUTO) 17.2 % (21.0-51.0); MEAN CORPUSCULAR HGB CONC 31.1 g/dL (32.0-36.0); MEAN CORPUSCULAR VOLUME 93.3 fL (79-99); MONOCYTES % (AUTO) 8.9 % (3.0-13.0); PLATELET COUNT (AUTO) 93 K/uL (130-400); RED BLOOD CELL COUNT(AUTO) 3.45 MIL/uL (4.00-5.50); RED CELL DISTRIBUTION WIDTH 13.3 % (11.0-15.5); WHITE BLOOD COUNT (AUTO) 3.5 K/uL (4.8-10.8)
[2020-04-20 08:30] LABS: CREATININE 6.7 mg/dL (0.5-1.5); POTASSIUM 4.5 mmol/L (3.5-5.1)
[2020-04-20 11:00] VITALS: BP 135/49
[2020-04-20 12:02] LABS: CRP QUANTITATIVE 35.5 mg/L (0.00-9.0)
[2020-04-20 16:00] VITALS: BP 149/65
[2020-04-20 20:29] VITALS: BP 149/49
[2020-04-20] MEDS: ATORVASTATIN CALCIUM 40 MG TABLET PO SCH (20:37)
[2020-04-20 23:59] VITALS: BP 146/52
--- NOTE | 2020-04-21 03:30 | NUR ---
ZOSYN WAS GIVEN IN THE 2100 DOSE. BY ONLAN BRIGHT. VERIFIED THROUGH [facility]. NURSE WAS TRANSFERRED TO ER.
[2020-04-21 04:08] VITALS: BP 145/49
[2020-04-21 07:58] LABS: HEMATOCRIT 33.2 % (36-48); MEAN CORPUSCULAR HEMOGLOBIN 28.5 pg (27.0-33.0); MEAN CORPUSCULAR VOLUME 91.7 fL (79-99); RED BLOOD CELL COUNT(AUTO) 3.62 MIL/uL (4.00-5.50); RED CELL DISTRIBUTION WIDTH 13.5 % (11.0-15.5); WHITE BLOOD COUNT (AUTO) 4.7 K/uL (4.8-10.8)
[2020-04-21 08:00] VITALS: BP 143/44
[2020-04-21] MEDS: FAMOTIDINE/PF 20 MG/2 ML VIAL IV SCH (08:19)
[2020-04-21] MEDS: SEVELAMER HCL 800 MG TABLET PO SCH ×3 (08:20→17:08)
[2020-04-21] MEDS: CETIRIZINE HCL 5 MG TABLET PO SCH (08:20)
[2020-04-21] MEDS: AMLODIPINE BESYLATE 5 MG TAB PO SCH (08:20)
[2020-04-21] MEDS: FOLIC ACID 1 MG TABLET PO SCH (08:20)
[2020-04-21] MEDS: VITAMIN E 400 UNIT CAPSULE PO SCH (08:20)
[2020-04-21] MEDS: MINOXIDIL 2.5 MG TAB PO SCH ×2 (08:21→21:12)
[2020-04-21] MEDS: ISOSORBIDE MONO 30MG TAB SR PO SCH (08:21)
[2020-04-21] MEDS: CYANOCOBALAMIN (VITAMIN B-12) 1,000 MCG TABLET PO SCH (08:21)
[2020-04-21] MEDS: LISINOPRIL 40 MG TABLET PO SCH (08:21)
[2020-04-21] MEDS: ASPIRIN 81 MG EC TAB PO SCH (08:21)
[2020-04-21] MEDS: ENOXAPARIN SODIUM 30 MG/0.3 ML SQ SCH (08:23)
[2020-04-21 12:00] VITALS: BP 134/59
[2020-04-21] MEDS: ZOSYN 3.375GM+NS 50ML 50 ML IV SCH (12:06)
[2020-04-21 16:00] VITALS: BP 158/60
--- NOTE | 2020-04-21 18:30 | NUR ---
DIALYSIS DIALYSIS TODAY ON AT 1530 OFF AT 1830 VIA LEFT AV FISSULA WITH 2.5 LITERS REMOVED. PATIENT TOLERATED PROCEDURE WELL
[2020-04-21 19:57] VITALS: BP 129/50
[2020-04-21] MEDS: ATORVASTATIN CALCIUM 40 MG TABLET PO SCH (21:12)
[2020-04-21 23:47] VITALS: BP 106/48
[2020-04-21] MEDS ORDERED: SODIUM CHLORIDE 0.9% 250 ML IV ONE (23:57)
[2020-04-22 03:22] VITALS: BP 122/50
[2020-04-22 07:30] VITALS: BP 118/51
[2020-04-22 07:51] LABS: BASOPHILS % (AUTO) 0.2 % (0.0-5.0); EOSINOPHILS % (AUTO) 8.7 % (0.0-8.0); HEMATOCRIT 33.2 % (36-48); MEAN CORPUSCULAR VOLUME 93.5 fL (79-99); MONOCYTES % (AUTO) 10.5 % (3.0-13.0); NEUTROPHILS % (AUTO) 65.4 % (40.0-77.0); PLATELET COUNT (AUTO) 93 K/uL (130-400); RED BLOOD CELL COUNT(AUTO) 3.55 MIL/uL (4.00-5.50); RED CELL DISTRIBUTION WIDTH 13.4 % (11.0-15.5)
[2020-04-22 08:05] LABS: CREATININE 5.8 mg/dL (0.5-1.5); CRP QUANTITATIVE 40.6 mg/L (0.00-9.0); POTASSIUM 4.2 mmol/L (3.5-5.1)
[2020-04-22] MEDS: VITAMIN E 400 UNIT CAPSULE PO SCH (10:22)
[2020-04-22] MEDS: FOLIC ACID 1 MG TABLET PO SCH (10:22)
[2020-04-22] MEDS: AMLODIPINE BESYLATE 5 MG TAB PO SCH (10:22)
[2020-04-22] MEDS: ISOSORBIDE MONO 30MG TAB SR PO SCH ×2 (10:23→21:37)
[2020-04-22] MEDS: MINOXIDIL 2.5 MG TAB PO SCH ×2 (10:23→21:37)
[2020-04-22] MEDS: FAMOTIDINE/PF 20 MG/2 ML VIAL IV SCH (10:23)
[2020-04-22] MEDS: CYANOCOBALAMIN (VITAMIN B-12) 1,000 MCG TABLET PO SCH (10:23)
[2020-04-22] MEDS: LISINOPRIL 40 MG TABLET PO SCH (10:23)
[2020-04-22] MEDS: ASPIRIN 81 MG EC TAB PO SCH (10:23)
[2020-04-22] MEDS: CETIRIZINE HCL 5 MG TABLET PO SCH (10:23)
[2020-04-22] MEDS: SEVELAMER HCL 800 MG TABLET PO SCH ×3 (10:24→17:26)
[2020-04-22] MEDS: ENOXAPARIN SODIUM 30 MG/0.3 ML SQ SCH (10:24)
[2020-04-22] MEDS: ZOSYN 3.375GM+NS 50ML 50 ML IV SCH ×3 (10:25→23:30)
[2020-04-22 11:00] VITALS: BP 124/47
[2020-04-22 16:00] VITALS: BP 127/53
--- NOTE | 2020-04-22 20:00 | NUR ---
Pt presented A&Ox4 and is cooperative and pleasant to talk to; pts mood is appropriate; pt stated "I feel good and ready to go go home;" pt stated she had BM today; pt administered medications, no PRNs were requested and/or administered; pt educated on benefits, risk and side effects of meds and encouraged to utilize PRNs to relieve symptoms of disease process as well as use of medical equipment; pt verbalized understanding; pt denies any requests and/or complaints at this time; pts respirations are even and unlabored and she denies SOB (pt on nasal canula with 3L O2); no distress noted; will continue to monitor throughout remainder of shift Addendum: 04/23/20 at 0100 by Raúl Hough RN RN Amended: Links added.
[2020-04-22 20:15] VITALS: BP 131/58
[2020-04-22] MEDS: ATORVASTATIN CALCIUM 40 MG TABLET PO SCH (21:37)
[2020-04-22 23:34] VITALS: BP 122/48
[2020-04-23 03:36] VITALS: BP 140/58
[2020-04-23 08:00] VITALS: BP 138/55
[2020-04-23] MEDS: SEVELAMER HCL 800 MG TABLET PO SCH ×3 (08:00→17:49)
[2020-04-23] MEDS: FOLIC ACID 1 MG TABLET PO SCH (08:00)
--- NOTE | 2020-04-23 08:30 | NUR ---
AM ASSESSMENT PT AWAKE AND ALERT, DENIES CHEST PAIN, NO SOB OR LABORED RESPIRATIONS, O2 PER NC AT 2 L. CALL LIGHT WITHIN REACH.
[2020-04-23] MEDS: ASPIRIN 81 MG EC TAB PO SCH (09:00)
[2020-04-23] MEDS: ENOXAPARIN SODIUM 30 MG/0.3 ML SQ SCH (09:00)
[2020-04-23] MEDS: MINOXIDIL 2.5 MG TAB PO SCH ×2 (09:00→21:52)
[2020-04-23] MEDS: LISINOPRIL 40 MG TABLET PO SCH (09:00)
[2020-04-23] MEDS: VITAMIN E 400 UNIT CAPSULE PO SCH (09:00)
[2020-04-23] MEDS: CETIRIZINE HCL 5 MG TABLET PO SCH (09:00)
[2020-04-23] MEDS: AMLODIPINE BESYLATE 5 MG TAB PO SCH (09:00)
[2020-04-23] MEDS: ISOSORBIDE MONO 30MG TAB SR PO SCH (09:00)
[2020-04-23] MEDS: FAMOTIDINE/PF 20 MG/2 ML VIAL IV SCH (09:00)
[2020-04-23] MEDS: CYANOCOBALAMIN (VITAMIN B-12) 1,000 MCG TABLET PO SCH (09:00)
--- NOTE | 2020-04-23 09:30 | NUR ---
HEMODIALYSIS PT AWAKE AND ALERT, DENIES SOB OR LABORED RESPIRATIONS, O2 PER NC. PT RECEIVING HEMODIALYSIS AT THIS TIME, TOLERATING, NO DISTRESS.
--- NOTE | 2020-04-23 10:45 | NUR ---
LAB CALL PLACED TO LAB REGARDING RESULTS FOR COVID, PER STAFF READINESS OFFICER, SPECIMEN SENT OUT AND SHOULD RECEIVE RESULTS BY TODAY.
[2020-04-23] MEDS: ZOSYN 3.375GM+NS 50ML 50 ML IV SCH (11:45)
[2020-04-23 12:00] VITALS: BP 116/51
[2020-04-23] MEDS ORDERED: VANCOMYCIN 750MG + NS 250 ML IV SCH ×2 (13:00)
--- NOTE | 2020-04-23 13:00 | NUR ---
PM ASSESSMENT PT AWAKE AND ORIENTED , COMPLETED HEMODIALYSIS, DENIES DISCOMFORT, NO SOB OR LABORED RESPIRATIONS, O2 PER NC. CALL LIGHT WITHIN REACH.
[2020-04-23 16:00] VITALS: BP 128/55
[2020-04-23 21:15] VITALS: BP 129/57
[2020-04-23] MEDS: ATORVASTATIN CALCIUM 40 MG TABLET PO SCH (21:52)
[2020-04-24] MEDS: ZOSYN 3.375GM+NS 50ML 50 ML IV SCH ×2 (00:32→12:04)
[2020-04-24 00:53] VITALS: BP 139/54
[2020-04-24 04:45] VITALS: BP 143/55
[2020-04-24] MEDS: SEVELAMER HCL 800 MG TABLET PO SCH ×3 (08:23→17:15)
[2020-04-24] MEDS: CYANOCOBALAMIN (VITAMIN B-12) 1,000 MCG TABLET PO SCH (08:23)
[2020-04-24] MEDS: LISINOPRIL 40 MG TABLET PO SCH (08:23)
[2020-04-24] MEDS: FOLIC ACID 1 MG TABLET PO SCH (08:23)
[2020-04-24] MEDS: ASPIRIN 81 MG EC TAB PO SCH (08:23)
[2020-04-24] MEDS: CETIRIZINE HCL 5 MG TABLET PO SCH (08:23)
[2020-04-24] MEDS: VITAMIN E 400 UNIT CAPSULE PO SCH (08:23)
[2020-04-24] MEDS: AMLODIPINE BESYLATE 5 MG TAB PO SCH (08:23)
[2020-04-24] MEDS: FAMOTIDINE/PF 20 MG/2 ML VIAL IV SCH (08:24)
[2020-04-24] MEDS: ISOSORBIDE MONO 30MG TAB SR PO SCH (08:24)
[2020-04-24] MEDS: MINOXIDIL 2.5 MG TAB PO SCH (08:24)
[2020-04-24] MEDS: ENOXAPARIN SODIUM 30 MG/0.3 ML SQ SCH (08:24)
[2020-04-24 09:26] VITALS: BP 147/56
--- NOTE | 2020-04-24 11:30 | NUR ---
CM NOTE/[facility] CALLED MADE TO [facility] TO SEE IF ARRANGEMENTS WILL BE MADE TO DUE COVID POSITIVE. PER JENNIFER, PATIENT OK TO RETURN TO DIALYSIS CENTER BUT SHIFT IS TO BE CHANGED TO ACCOMMODATE DIAGNOSIS. PER JENNIFER, NOTHING ELSE IS REQUIRED TO BE FAXED OTHER THAN THE COVID TEST RESULTS. PER JENNIFER, PATIENT TO CALL DIALYSIS CENTER WHEN DISCHARGED TO BE INFORMED OF WHAT NEW SHIFT SHE WILL ATTEND. COVID RESULTS FAXED AND CONFIRMED RECEIVED. CALL MADE TO PATIENT CELL [phone], NO ANSWER, LEFT. SISTER CALLED, XIAO SPICER, TO INFORM, VERBALIZED UNDERSTANDING.
--- NOTE | 2020-04-24 11:51 | NUR ---
CM NOTE/[facility] NOTED POSSIBILITY OF PATIENT TO BE DISCHARGED TODAY. CALLED JENNIFER AT [facility] TO INFORM. PER JENNIFER, REQUIRES H&P AND DISCHARGE SUMMARY. CLINICAL PACKET FAXED AND CONFIRMED RECEIVED. JAIME RN, PRIMARY NURSE, AWARE OF POSSIBLE DC HOME TODAY AND FOR PATIENT TO CALL [facility] FOR NEW TIME FOR DIALYSIS ONCE DISCHARGED FROM HOSPITAL
[2020-04-24 12:00] VITALS: BP 138/50
[2020-04-24] MEDS ORDERED: BENZ-39 PO (12:24)
--- NOTE | 2020-04-24 14:30 | NUR ---
DR RADHA GARCIA PAGED ORDERED. MADE AWARE PT WAS GOING TO BE DISCHARGED TODAY; STATED PT CAN BE DISCHARGED FROM NEPHROLOGY STANDPOINT. STATED TO MAKE PT AWARE OUTPATIENT DIALYSIS CENTER WILL HER AND LET HER KNOW OF NEW OUTPATIENT HEMODIALYSIS SCHEDULE AND TIME.
--- NOTE | 2020-04-24 16:00 | NUR ---
DC INSTRUCTIONS PT AWAKE, ALERT, AND ORIENTED. DC HOME INSTRUCTIONS GIVEN TO PT, ACKNOWLEDGED ALL INFORMATION, ALL QUESTIONS ANSWERED. EDUCATED PATIENT ON COVID 19 AND ALSO MADE PT AWARE OF HAVING TO SELF ISOLATE UNTIL CLEARED. COVID-19 INFORMATION GIVEN TO PT ON PAPER; MADE AWARE TO CALL 911 IMMEDIATELY IF HAVING SOB OR LABORED RESPIRATIONS. NOTIFY MD FOR OTHER QUESTIONS OR CONCERNS. MADE AWARE RX SENT ELECTRONICALLY TO PHARMACY. AWAITING FOR TRANSPORTATION PER SISTER.
--- NOTE | 2020-04-24 17:00 | NUR ---
TRANSPORTATION AWAITING FOR PT'S SISTER TO PROVIDE TRANSPORTATION.
== END 2020-04-24 18:30 | disposition home or self-care (01) | DRG 177 ==
LOC: EDH 11:31 → INTOOBSV 14:38 → OBSVTOIN 14:38 → EDHIP 14:38 → 3AH 04-10 00:34 → 4DH 04-10 16:50 → DAHIP 04-17 17:46 → 4CH 04-19 18:22
PROVIDERS: ADMIT Hospitalist; ATTEND Hospitalist
PROC: 5A1D70Z Performance of Urinary Filtration, Intermittent, Less than 6 Hours Per Day (ICD-10-PCS; 2020-04-09)
PROC: 5A1D70Z Performance of Urinary Filtration, Intermittent, Less than 6 Hours Per Day (ICD-10-PCS; 2020-04-10)
PROC: 5A1D70Z Performance of Urinary Filtration, Intermittent, Less than 6 Hours Per Day (ICD-10-PCS; 2020-04-12)
PROC: 5A1D70Z Performance of Urinary Filtration, Intermittent, Less than 6 Hours Per Day (ICD-10-PCS; 2020-04-13)
PROC: 5A1D70Z Performance of Urinary Filtration, Intermittent, Less than 6 Hours Per Day (ICD-10-PCS; 2020-04-14)
PROC: 5A1D70Z Performance of Urinary Filtration, Intermittent, Less than 6 Hours Per Day (ICD-10-PCS; 2020-04-16)
PROC: 5A1D70Z Performance of Urinary Filtration, Intermittent, Less than 6 Hours Per Day (ICD-10-PCS; 2020-04-18)
PROC: 5A1D70Z Performance of Urinary Filtration, Intermittent, Less than 6 Hours Per Day (ICD-10-PCS; 2020-04-21)
PROC: 5A1D70Z Performance of Urinary Filtration, Intermittent, Less than 6 Hours Per Day (ICD-10-PCS; principal; 2020-04-23)
DX: U07.1 COVID-19 (principal); A41.89 Other specified sepsis; N18.6 End stage renal disease; J18.9 Pneumonia, unspecified organism; E44.1 Mild protein-calorie malnutrition; I12.0 Hypertensive chronic kidney disease with stage 5 chronic kidney disease or end stage renal disease; J44.0 Chronic obstructive pulmonary disease with (acute) lower respiratory infection; J98.11 Atelectasis; I25.119 Atherosclerotic heart disease of native coronary artery with unspecified angina pectoris; E11.22 Type 2 diabetes mellitus with diabetic chronic kidney disease; D64.9 Anemia, unspecified; E11.51 Type 2 diabetes mellitus with diabetic peripheral angiopathy without gangrene; E87.5 Hyperkalemia; E87.70 Fluid overload, unspecified; I95.3 Hypotension of hemodialysis; Y95 Nosocomial condition; I45.10 Unspecified right bundle-branch block; T78.40XA Allergy, unspecified, initial encounter; X58.XXXA Exposure to other specified factors, initial encounter; R07.89 Other chest pain; Z82.0 Family history of epilepsy and other diseases of the nervous system; Z82.3 Family history of stroke; Z82.49 Family history of ischemic heart disease and other diseases of the circulatory system; Z82.5 Family history of asthma and other chronic lower respiratory diseases; Z83.3 Family history of diabetes mellitus; Z95.1 Presence of aortocoronary bypass graft; Z99.2 Dependence on renal dialysis; Z90.49 Acquired absence of other specified parts of digestive tract; Z68.27 Body mass index [BMI] 27.0-27.9, adult; Z88.8 Allergy status to other drugs, medicaments and biological substances
CPT/HCPCS: 36415; 71045; 71250; 74150; 80048; 80053; 80061; 80074; 80076; 80202; 82550; 82728; 82947; 82948; 83036; 83615; 83735; 84100; 84145; 84443; 84484; 85025; 85027; 85378; 85610; 85730; 86140; 87040; 90935; 93005; 93306; 93356; G0378; J1650; J1815; J2405; J2543; J2920; J3370; J3490; J7050; J7070; P9046; P9047; U0003

== ENCOUNTER → 2020-11-04 | Outpatient (CLI) | payer MEDICARE ==
[~2020-11-04] MED LIST changes: +ALBUMIN (HUMAN) 25% 200 ML IV SCH; +AMLO10TA4 PO; -AMLO10TA7 PO; -ASPI-1197 PO; +ASPI-556 PO; +ATOR40TA69 PO; +BENZ-39 PO; +ISOS30TA6 PO; -Isosorbide Mono 30MG Tab Sr PO; -LOPE2CAP PO; +MIDO10TA PO; -NITR0.4T SL
[2020-11-04 08:52] LABS: INR 1.21 (0.85-1.15); PROTHROMBIN TIME 12.7 SEC (9.6-11.6)
[2020-11-04 08:53] LABS: PARTIAL THROMBOPLASTIN TIME 48.4 SEC (26.3-35.5)
== END | disposition home or self-care (01) ==
LOC: RAH 07:32
PROVIDERS: ATTEND Internal Medicine Nephrology
DX: R18.8 Other ascites (principal); I12.0 Hypertensive chronic kidney disease with stage 5 chronic kidney disease or end stage renal disease; E11.22 Type 2 diabetes mellitus with diabetic chronic kidney disease; N18.6 End stage renal disease
CPT/HCPCS: 36415; 76705; 85610; 85730; P9046

== ENCOUNTER → 2020-11-06 | Outpatient (CLI) | payer MEDICARE ==
[~2020-11-06] MED LIST changes: +ALBUMIN (HUMAN) 25% 100 ML IV SCH; -ALBUMIN (HUMAN) 25% 200 ML IV SCH
[2020-11-06 14:09] LABS: APPEARANCE BODY FLUID CLEAR (CLEAR); COLOR,BODY FLUID YELLOW (LT YELLOW); SPECIMENTYPE,BODY FLUID ASCITES; TOTAL VOLUME,BODY FLUID 13300 mL
[2020-11-06 14:10] LABS: BODY FLUID RBC 20 /cu. mm.; BODY FLUID WBC 175 /cu. mm.
[2020-11-06 14:23] LABS: BF LYMPHOCYTE 18 %; BF MESOTHELIAL 5 %
== END | disposition home or self-care (01) ==
LOC: RAH 07:38
PROVIDERS: ATTEND Internal Medicine Nephrology
DX: R18.8 Other ascites (principal); K74.69 Other cirrhosis of liver; E11.22 Type 2 diabetes mellitus with diabetic chronic kidney disease; I12.0 Hypertensive chronic kidney disease with stage 5 chronic kidney disease or end stage renal disease; N18.6 End stage renal disease
CPT/HCPCS: 49083; 87071; 87205; 89051; A4215; P9046; 96365

== ENCOUNTER 2020-12-08 07:38 | Emergency (ER) | payer MEDICARE ==
[~2020-12-08 07:38] MED LIST changes: -ALBUMIN (HUMAN) 25% 100 ML IV SCH; -ISOS30TA6 PO; +ISOS30TA92 PO; -LISI40TA4 PO; +LISI40TA9 PO
[2020-12-08 08:03] LABS: BASOPHILS % (AUTO) 0.7 % (0.0-5.0); EOSINOPHILS % (AUTO) 2.4 % (0.0-8.0); HEMATOCRIT 33.5 % (36-48); LYMPHOCYTES % (AUTO) 15.7 % (21.0-51.0); MEAN CORPUSCULAR HEMOGLOBIN 29.7 pg (27.0-33.0); MEAN CORPUSCULAR HGB CONC 30.4 g/dL (32.0-36.0); MEAN CORPUSCULAR VOLUME 97.7 fL (79-99); NEUTROPHILS % (AUTO) 73.9 % (40.0-77.0); PLATELET COUNT (AUTO) 192 K/uL (130-400); RED BLOOD CELL COUNT(AUTO) 3.43 MIL/uL (4.00-5.50); RED CELL DISTRIBUTION WIDTH 16.3 % (11.0-15.5); WHITE BLOOD COUNT (AUTO) 5.9 K/uL (4.8-10.8)
[2020-12-08 08:11] LABS: CREATININE 5.5 mg/dL (0.5-1.5); POTASSIUM 4.4 mmol/L (3.5-5.1)
[2020-12-08 08:14] LABS: INR 1.13 (0.85-1.15); PROTHROMBIN TIME 12.2 SEC (9.6-11.6)
[2020-12-08 08:16] LABS: PARTIAL THROMBOPLASTIN TIME 41.5 SEC (26.3-35.5)
[2020-12-08] MEDS ORDERED: ALBUMIN (HUMAN) 25% 200 ML IV ONE (10:03)
== END 2020-12-08 11:54 | disposition home or self-care (01) ==
LOC: EDH 07:38
DX: R18.8 Other ascites (principal); E11.22 Type 2 diabetes mellitus with diabetic chronic kidney disease; N18.6 End stage renal disease; E87.70 Fluid overload, unspecified; E78.00 Pure hypercholesterolemia, unspecified; Z99.2 Dependence on renal dialysis; Z88.8 Allergy status to other drugs, medicaments and biological substances; Z90.49 Acquired absence of other specified parts of digestive tract
CPT/HCPCS: 36415; 49083; 80048; 85025; 85610; 85730; 96365; 99285; A4215; P9046

== ENCOUNTER 2020-12-25 07:32 | Emergency (ER) | payer MEDICARE ==
[2020-12-25 07:53] LABS: BASOPHILS % (AUTO) 0.8 % (0.0-5.0); EOSINOPHILS % (AUTO) 5.6 % (0.0-8.0); HEMATOCRIT 32.3 % (36-48); LYMPHOCYTES % (AUTO) 19.6 % (21.0-51.0); MEAN CORPUSCULAR HEMOGLOBIN 29.4 pg (27.0-33.0); MEAN CORPUSCULAR HGB CONC 29.1 g/dL (32.0-36.0); MEAN CORPUSCULAR VOLUME 100.9 fL (79-99); MONOCYTES % (AUTO) 9.3 % (3.0-13.0); NEUTROPHILS % (AUTO) 64.5 % (40.0-77.0); PLATELET COUNT (AUTO) 177 K/uL (130-400); RED CELL DISTRIBUTION WIDTH 15.6 % (11.0-15.5)
[2020-12-25 08:08] LABS: CREATININE 3.9 mg/dL (0.5-1.5); POTASSIUM 4.6 mmol/L (3.5-5.1)
[2020-12-25 08:10] LABS: INR 1.15 (0.85-1.15); PROTHROMBIN TIME 12.4 SEC (9.6-11.6)
[2020-12-25 08:11] LABS: PARTIAL THROMBOPLASTIN TIME 43.8 SEC (26.3-35.5)
[2020-12-25 08:13] LABS: ALBUMIN 2.5 g/dL (3.5-5.0); BILIRUBIN,TOTAL 0.3 mg/dL (0.2-1.0); TOTAL PROTEIN, SERUM 7.2 g/dL (6.0-8.3)
[2020-12-25] MEDS ORDERED: ALBUMIN (HUMAN) 25% 200 ML IV ONE (10:59)
== END 2020-12-25 13:15 | disposition home or self-care (01) ==
LOC: EDH 07:32
DX: R18.8 Other ascites (principal); E78.00 Pure hypercholesterolemia, unspecified; Z99.2 Dependence on renal dialysis; E11.22 Type 2 diabetes mellitus with diabetic chronic kidney disease; N18.6 End stage renal disease; Z88.8 Allergy status to other drugs, medicaments and biological substances
CPT/HCPCS: 36415; 49083; 80053; 85025; 85610; 85730; 93005; 96365; 99285; A4215; P9046

== ENCOUNTER 2021-01-05 08:18 | Emergency (ER) | payer MEDICARE ==
[2021-01-05 08:55] LABS: BASOPHILS % (AUTO) 0.8 % (0.0-5.0); EOSINOPHILS % (AUTO) 4.6 % (0.0-8.0); HEMATOCRIT 37.5 % (36-48); LYMPHOCYTES % (AUTO) 14.7 % (21.0-51.0); MEAN CORPUSCULAR HEMOGLOBIN 30.1 pg (27.0-33.0); MEAN CORPUSCULAR HGB CONC 29.6 g/dL (32.0-36.0); MEAN CORPUSCULAR VOLUME 101.6 fL (79-99); MONOCYTES % (AUTO) 7.5 % (3.0-13.0); NEUTROPHILS % (AUTO) 71.8 % (40.0-77.0); PLATELET COUNT (AUTO) 180 K/uL (130-400); RED BLOOD CELL COUNT(AUTO) 3.69 MIL/uL (4.00-5.50); RED CELL DISTRIBUTION WIDTH 16.2 % (11.0-15.5); WHITE BLOOD COUNT (AUTO) 5.2 K/uL (4.8-10.8)
[2021-01-05 09:04] LABS: CREATININE 5.7 mg/dL (0.5-1.5)
[2021-01-05 09:07] LABS: INR 1.1 (0.85-1.15); PROTHROMBIN TIME 11.9 SEC (9.6-11.6)
[2021-01-05 09:09] LABS: PARTIAL THROMBOPLASTIN TIME 41.9 SEC (26.3-35.5)
[2021-01-05] MEDS ORDERED: CALCIUM GLUCONATE 1 GM/10 ML VIAL IV ONE (11:12)
[2021-01-05] MEDS ORDERED: DEXTROSE 50%-WATER 50 ML DISP.SYRIN IV ONE (11:12)
[2021-01-05] MEDS ORDERED: INSULIN HUMULIN R 100 UNIT/ML 3ML ONE (11:14)
[2021-01-05] MEDS ORDERED: SODIUM CHLORIDE 0.9% 50 ML IV ONE (11:16)
[2021-01-05] MEDS ORDERED: ALBUMIN (HUMAN) 25% 200 ML IV ONE (11:52)
== END 2021-01-05 13:19 | disposition home or self-care (01) ==
LOC: EDH 08:18
DX: R18.8 Other ascites (principal); E87.5 Hyperkalemia
CPT/HCPCS: 36415; 49083; 71045; 80048; 85025; 85610; 85730; 93005; 96365; 96366; 96367; 96375; 99285; A4215; J0610; J1815; J7070; P9046

== ENCOUNTER 2021-01-16 07:57 | Emergency (ER) | payer MEDICARE ==
[2021-01-16 08:32] LABS: BASOPHILS % (AUTO) 0.8 % (0.0-5.0); EOSINOPHILS % (AUTO) 5.6 % (0.0-8.0); HEMATOCRIT 32.9 % (36-48); LYMPHOCYTES % (AUTO) 13.1 % (21.0-51.0); MEAN CORPUSCULAR HEMOGLOBIN 30.2 pg (27.0-33.0); MEAN CORPUSCULAR HGB CONC 30.1 g/dL (32.0-36.0); MEAN CORPUSCULAR VOLUME 100.3 fL (79-99); MONOCYTES % (AUTO) 7.6 % (3.0-13.0); NEUTROPHILS % (AUTO) 72.4 % (40.0-77.0); PLATELET COUNT (AUTO) 147 K/uL (130-400); RED BLOOD CELL COUNT(AUTO) 3.28 MIL/uL (4.00-5.50); RED CELL DISTRIBUTION WIDTH 15.5 % (11.0-15.5); WHITE BLOOD COUNT (AUTO) 5.9 K/uL (4.8-10.8)
[2021-01-16 08:42] LABS: INR 1.17 (0.85-1.15); PROTHROMBIN TIME 12.6 SEC (9.6-11.6)
[2021-01-16 08:43] LABS: PARTIAL THROMBOPLASTIN TIME 43.5 SEC (26.3-35.5)
[2021-01-16 08:48] LABS: ALBUMIN 2.5 g/dL (3.5-5.0); BILIRUBIN,TOTAL 0.3 mg/dL (0.2-1.0); CREATININE 5.4 mg/dL (0.5-1.5); POTASSIUM 5.3 mmol/L (3.5-5.1); TOTAL PROTEIN, SERUM 6.9 g/dL (6.0-8.3)
[2021-01-16] MEDS ORDERED: ALBUMIN (HUMAN) 25% 200 ML IV ONE (09:37)
== END 2021-01-16 13:32 | disposition home or self-care (01) ==
LOC: EDH 07:57
DX: R18.8 Other ascites (principal); E11.22 Type 2 diabetes mellitus with diabetic chronic kidney disease; N18.6 End stage renal disease; E78.00 Pure hypercholesterolemia, unspecified; Z90.49 Acquired absence of other specified parts of digestive tract; Z88.8 Allergy status to other drugs, medicaments and biological substances; Z88.2 Allergy status to sulfonamides
CPT/HCPCS: 36415; 49083; 80053; 82550; 84484; 85025; 85610; 85730; 96365; 99284; A4215; P9046

== ENCOUNTER 2021-01-26 07:25 | Emergency (ER) | payer MEDICARE ==
[2021-01-26 08:01] LABS: BASOPHILS % (AUTO) 0.6 % (0.0-5.0); EOSINOPHILS % (AUTO) 7.5 % (0.0-8.0); HEMATOCRIT 38.1 % (36-48); MEAN CORPUSCULAR HEMOGLOBIN 30.8 pg (27.0-33.0); MEAN CORPUSCULAR HGB CONC 30.4 g/dL (32.0-36.0); MEAN CORPUSCULAR VOLUME 101.1 fL (79-99); MONOCYTES % (AUTO) 7.5 % (3.0-13.0); NEUTROPHILS % (AUTO) 70.1 % (40.0-77.0); PLATELET COUNT (AUTO) 122 K/uL (130-400); RED BLOOD CELL COUNT(AUTO) 3.77 MIL/uL (4.00-5.50); RED CELL DISTRIBUTION WIDTH 15.9 % (11.0-15.5); WHITE BLOOD COUNT (AUTO) 6.8 K/uL (4.8-10.8)
[2021-01-26 08:15] LABS: ALBUMIN 2.7 g/dL (3.5-5.0); BILIRUBIN,TOTAL 0.3 mg/dL (0.2-1.0); CREATININE 6.1 mg/dL (0.5-1.5); POTASSIUM 5.8 mmol/L (3.5-5.1); TOTAL PROTEIN, SERUM 6.9 g/dL (6.0-8.3)
[2021-01-26 08:45] LABS: INR 1.17 (0.85-1.15); PARTIAL THROMBOPLASTIN TIME 41.1 SEC (26.3-35.5); PROTHROMBIN TIME 12.1 SEC (9.6-11.6)
[2021-01-26] MEDS ORDERED: ALBUMIN (HUMAN) 25% 200 ML IV ONE (10:22)
== END 2021-01-26 13:19 | disposition home or self-care (01) ==
LOC: EDH 07:25
DX: R18.8 Other ascites (principal); I12.0 Hypertensive chronic kidney disease with stage 5 chronic kidney disease or end stage renal disease; E11.22 Type 2 diabetes mellitus with diabetic chronic kidney disease; N18.6 End stage renal disease; E87.5 Hyperkalemia; E78.00 Pure hypercholesterolemia, unspecified; Z90.49 Acquired absence of other specified parts of digestive tract; Z88.8 Allergy status to other drugs, medicaments and biological substances; Z88.2 Allergy status to sulfonamides
CPT/HCPCS: 36415; 49083; 71045; 80053; 84484; 85025; 85610; 85730; 93005; 96365; 99285; A4215; P9046

== ENCOUNTER 2021-02-05 08:02 | Emergency (ER) | payer MEDICARE ==
[2021-02-05 08:48] LABS: BASOPHILS % (AUTO) 0.8 % (0.0-5.0); EOSINOPHILS % (AUTO) 9.1 % (0.0-8.0); LYMPHOCYTES % (AUTO) 16.3 % (21.0-51.0); MEAN CORPUSCULAR HEMOGLOBIN 30.7 pg (27.0-33.0); MEAN CORPUSCULAR HGB CONC 30.5 g/dL (32.0-36.0); MEAN CORPUSCULAR VOLUME 100.9 fL (79-99); MONOCYTES % (AUTO) 6.6 % (3.0-13.0); NEUTROPHILS % (AUTO) 66.9 % (40.0-77.0); PLATELET COUNT (AUTO) 110 K/uL (130-400); RED BLOOD CELL COUNT(AUTO) 4.36 MIL/uL (4.00-5.50); RED CELL DISTRIBUTION WIDTH 15.6 % (11.0-15.5); WHITE BLOOD COUNT (AUTO) 6.1 K/uL (4.8-10.8)
[2021-02-05 09:05] LABS: CREATININE 4.4 mg/dL (0.5-1.5); POTASSIUM 4.2 mmol/L (3.5-5.1)
[2021-02-05 09:07] LABS: INR 1.14 (0.85-1.15); PROTHROMBIN TIME 12.3 SEC (9.6-11.6)
[2021-02-05 09:09] LABS: PARTIAL THROMBOPLASTIN TIME 45.9 SEC (26.3-35.5)
[2021-02-05 09:10] LABS: ALBUMIN 3.2 g/dL (3.5-5.0); BILIRUBIN,TOTAL 0.4 mg/dL (0.2-1.0); TOTAL PROTEIN, SERUM 8.4 g/dL (6.0-8.3)
[2021-02-05] MEDS ORDERED: ALBUMIN (HUMAN) 25% 200 ML IV SCH (11:15)
[2021-02-05 15:46] LABS: APPEARANCE BODY FLUID SLIGHTLY CLOUDY (CLEAR); BODY FLUID RBC 23 /cu. mm.; BODY FLUID WBC 46 /cu. mm.; COLOR,BODY FLUID YELLOW (LT YELLOW); SPECIMENTYPE,BODY FLUID ASCITES; TOTAL VOLUME,BODY FLUID 6200 mL
[2021-02-05 16:05] LABS: BF LYMPHOCYTE 33 %; BF MESOTHELIAL 63 %
== END 2021-02-05 15:34 | disposition home or self-care (01) ==
LOC: EDH 08:02
DX: K76.89 Other specified diseases of liver (principal); R18.8 Other ascites; R94.31 Abnormal electrocardiogram [ECG] [EKG]; I12.0 Hypertensive chronic kidney disease with stage 5 chronic kidney disease or end stage renal disease; E11.22 Type 2 diabetes mellitus with diabetic chronic kidney disease; N18.6 End stage renal disease; E78.00 Pure hypercholesterolemia, unspecified; Z99.2 Dependence on renal dialysis; Z90.49 Acquired absence of other specified parts of digestive tract; Z88.8 Allergy status to other drugs, medicaments and biological substances
CPT/HCPCS: 36415; 49083; 80053; 85025; 85610; 85730; 87071; 87205; 89051; 93005; 96365; 99285; A4215

== ENCOUNTER 2021-02-25 10:11 | Emergency (ER) | payer MEDICARE ==
[~2021-02-25 10:11] MED LIST changes: -AMLO10TA4 PO; -LISI40TA9 PO; -MINO2.5T3 PO
[2021-02-25 11:17] LABS: BASOPHILS % (AUTO) 0.9 % (0.0-5.0); EOSINOPHILS % (AUTO) 8.1 % (0.0-8.0); HEMATOCRIT 33.7 % (36-48); LYMPHOCYTES % (AUTO) 16.1 % (21.0-51.0); MEAN CORPUSCULAR HEMOGLOBIN 31.7 pg (27.0-33.0); MEAN CORPUSCULAR HGB CONC 31.5 g/dL (32.0-36.0); MEAN CORPUSCULAR VOLUME 100.9 fL (79-99); MONOCYTES % (AUTO) 8.3 % (3.0-13.0); NEUTROPHILS % (AUTO) 66.4 % (40.0-77.0); PLATELET COUNT (AUTO) 125 K/uL (130-400); RED BLOOD CELL COUNT(AUTO) 3.34 MIL/uL (4.00-5.50); RED CELL DISTRIBUTION WIDTH 14.1 % (11.0-15.5); WHITE BLOOD COUNT (AUTO) 5.5 K/uL (4.8-10.8)
[2021-02-25 11:19] LABS: ALBUMIN 2.9 g/dL (3.5-5.0); BILIRUBIN,TOTAL 0.3 mg/dL (0.2-1.0); CREATININE 5.9 mg/dL (0.5-1.5); POTASSIUM 5.5 mmol/L (3.5-5.1); TOTAL PROTEIN, SERUM 6.9 g/dL (6.0-8.3)
[2021-02-25] MEDS ORDERED: ALBUMIN (HUMAN) 25% 200 ML IV ONE (13:20)
[2021-02-25 13:47] LABS: INR 1.14 (0.85-1.15); PARTIAL THROMBOPLASTIN TIME 40.5 SEC (26.3-35.5); PROTHROMBIN TIME 11.7 SEC (9.6-11.6)
== END 2021-02-25 16:23 | disposition home or self-care (01) ==
LOC: EDH 10:11
DX: R18.8 Other ascites (principal); I12.0 Hypertensive chronic kidney disease with stage 5 chronic kidney disease or end stage renal disease; E11.22 Type 2 diabetes mellitus with diabetic chronic kidney disease; N18.6 End stage renal disease; Z88.6 Allergy status to analgesic agent; Z88.8 Allergy status to other drugs, medicaments and biological substances; Z99.2 Dependence on renal dialysis; Z90.49 Acquired absence of other specified parts of digestive tract; Z86.16 Personal history of COVID-19
CPT/HCPCS: 36415; 49083; 80053; 85025; 85610; 85730; 96365; 99285; A4215; P9046

== ENCOUNTER 2021-03-06 10:38 | Emergency (ER) | payer MEDICARE ==
[2021-03-06] MEDS ORDERED: ALBUMIN (HUMAN) 25% 200 ML IV ONE (11:04)
[2021-03-06 11:40] LABS: BASOPHILS % (AUTO) 0.5 % (0.0-5.0); EOSINOPHILS % (AUTO) 7.6 % (0.0-8.0); HEMATOCRIT 33.5 % (36-48); LYMPHOCYTES % (AUTO) 13.9 % (21.0-51.0); MEAN CORPUSCULAR HEMOGLOBIN 31.7 pg (27.0-33.0); MEAN CORPUSCULAR HGB CONC 31.3 g/dL (32.0-36.0); MEAN CORPUSCULAR VOLUME 101.2 fL (79-99); MONOCYTES % (AUTO) 7.6 % (3.0-13.0); NEUTROPHILS % (AUTO) 70.1 % (40.0-77.0); PLATELET COUNT (AUTO) 121 K/uL (130-400); RED BLOOD CELL COUNT(AUTO) 3.31 MIL/uL (4.00-5.50); RED CELL DISTRIBUTION WIDTH 13.9 % (11.0-15.5)
[2021-03-06 12:00] LABS: INR 1.05 (0.85-1.15); PROTHROMBIN TIME 11.4 SEC (9.6-11.6)
[2021-03-06 12:01] LABS: PARTIAL THROMBOPLASTIN TIME 38.3 SEC (26.3-35.5)
[2021-03-06 13:29] LABS: ALBUMIN 4.3 g/dL (3.5-5.0); BILIRUBIN,TOTAL 0.4 mg/dL (0.2-1.0); CREATININE 4.3 mg/dL (0.5-1.5)
[2021-03-06 14:27] LABS: POTASSIUM 5.2 mmol/L (3.5-5.1)
== END 2021-03-06 15:46 | disposition home or self-care (01) ==
LOC: EDH 10:38
DX: R18.8 Other ascites (principal); K76.89 Other specified diseases of liver; I12.0 Hypertensive chronic kidney disease with stage 5 chronic kidney disease or end stage renal disease; N18.6 End stage renal disease; E11.22 Type 2 diabetes mellitus with diabetic chronic kidney disease; Z99.2 Dependence on renal dialysis; Z88.8 Allergy status to other drugs, medicaments and biological substances
CPT/HCPCS: 36415; 49083; 80053; 85025; 85610; 85730; 96365; 99285; A4215; P9046

== ENCOUNTER 2021-03-13 10:11 | Emergency (ER) | payer MEDICARE ==
[2021-03-13 10:39] LABS: BASOPHILS % (AUTO) 0.8 % (0.0-5.0); HEMATOCRIT 28.7 % (36-48); MEAN CORPUSCULAR HEMOGLOBIN 31.7 pg (27.0-33.0); MEAN CORPUSCULAR HGB CONC 32.1 g/dL (32.0-36.0); MONOCYTES % (AUTO) 7.2 % (3.0-13.0); NEUTROPHILS % (AUTO) 72.5 % (40.0-77.0); PLATELET COUNT (AUTO) 149 K/uL (130-400); RED CELL DISTRIBUTION WIDTH 14.2 % (11.0-15.5); WHITE BLOOD COUNT (AUTO) 6.3 K/uL (4.8-10.8)
[2021-03-13 10:52] LABS: INR 1.1 (0.85-1.15); PROTHROMBIN TIME 11.9 SEC (9.6-11.6)
[2021-03-13 10:53] LABS: PARTIAL THROMBOPLASTIN TIME 40.8 SEC (26.3-35.5)
[2021-03-13 10:55] LABS: ALBUMIN 2.7 g/dL (3.5-5.0); BILIRUBIN,TOTAL 0.4 mg/dL (0.2-1.0); POTASSIUM 5.8 mmol/L (3.5-5.1); TOTAL PROTEIN, SERUM 6.8 g/dL (6.0-8.3)
[2021-03-13 11:14] LABS: CREATININE 5.4 mg/dL (0.5-1.5)
[2021-03-13] MEDS ORDERED: ALBUMIN (HUMAN) 25% 200 ML IV ONE (11:15)
[2021-03-13] MEDS ORDERED: MIDODRINE HCL 5 MG TABLET ONE (13:41)
== END 2021-03-13 15:57 | disposition home or self-care (01) ==
LOC: EDH 10:11
DX: R18.8 Other ascites (principal); I12.0 Hypertensive chronic kidney disease with stage 5 chronic kidney disease or end stage renal disease; E11.22 Type 2 diabetes mellitus with diabetic chronic kidney disease; N18.6 End stage renal disease; Z99.2 Dependence on renal dialysis; E78.00 Pure hypercholesterolemia, unspecified; Z90.49 Acquired absence of other specified parts of digestive tract; Z98.890 Other specified postprocedural states; Z88.8 Allergy status to other drugs, medicaments and biological substances
CPT/HCPCS: 36415; 49083; 80053; 85025; 85610; 85730; 96365; 99285; A4215; P9046

== ENCOUNTER 2021-03-18 10:24 | Emergency (ER) | payer MEDICARE ==
[~2021-03-18] VITALS: Ht 149.9 cm; Wt 61.2 kg
[2021-03-18 13:46] LABS: BASOPHILS % (AUTO) 0.4 % (0.0-5.0); HEMATOCRIT 31.7 % (36-48); LYMPHOCYTES % (AUTO) 7.3 % (21.0-51.0); MEAN CORPUSCULAR HEMOGLOBIN 31.1 pg (27.0-33.0); MEAN CORPUSCULAR HGB CONC 30.6 g/dL (32.0-36.0); MEAN CORPUSCULAR VOLUME 101.6 fL (79-99); MONOCYTES % (AUTO) 8.1 % (3.0-13.0); NEUTROPHILS % (AUTO) 81.7 % (40.0-77.0); PLATELET COUNT (AUTO) 185 K/uL (130-400); RED BLOOD CELL COUNT(AUTO) 3.12 MIL/uL (4.00-5.50); RED CELL DISTRIBUTION WIDTH 14.8 % (11.0-15.5); WHITE BLOOD COUNT (AUTO) 10.7 K/uL (4.8-10.8)
[2021-03-18 13:57] LABS: ALBUMIN 2.5 g/dL (3.5-5.0); CREATININE 5.6 mg/dL (0.5-1.5)
[2021-03-18 14:01] LABS: POTASSIUM 6.1 mmol/L (3.5-5.1)
[2021-03-18 14:03] LABS: BILIRUBIN,TOTAL 0.6 mg/dL (0.2-1.0); TOTAL PROTEIN, SERUM 6.7 g/dL (6.0-8.3)
[2021-03-18] MEDS ORDERED: ACETAMINOPHEN 500 MG TABLET PO SCH (14:30)
[2021-03-18] MEDS ORDERED: DEXTROSE 50%-WATER 25 GM/50 ML VIAL IV ONE (15:45)
[2021-03-18] MEDS ORDERED: DEXTROSE 50%-WATER 50 ML DISP.SYRIN IV ONE (15:45)
[2021-03-18] MEDS ORDERED: CALCIUM GLUCONATE 1 GM in SODIUM CHLORIDE 0.9% 100 ML IV ONE (15:45)
[2021-03-18] MEDS ORDERED: SODIUM BICARB 8.4% 50ML SYRINGE IVP ONE (15:45)
[2021-03-18] MEDS ORDERED: INSULIN HUMULIN R 100 UNIT/ML 3ML IV ONE (15:45)
[2021-03-18 16:06] VITALS: BP 102/42
== END 2021-03-18 16:06 | disposition home or self-care (01) ==
LOC: EDH 10:24
DX: E87.5 Hyperkalemia (principal); R60.0 Localized edema; M79.605 Pain in left leg; N18.6 End stage renal disease; D63.1 Anemia in chronic kidney disease; Z99.2 Dependence on renal dialysis; Z88.6 Allergy status to analgesic agent; Z79.899 Other long term (current) drug therapy; Z88.8 Allergy status to other drugs, medicaments and biological substances
CPT/HCPCS: 36415; 80053; 85025; 93971; J0610; J7070

== ENCOUNTER 2021-03-23 10:09 | Emergency (ER) | payer MEDICARE ==
[~2021-03-23] VITALS: Ht 149.9 cm; Wt 59.0 kg
[2021-03-23 10:11] VITALS: BP 141/52
[2021-03-23 11:10] LABS: BASOPHILS % (AUTO) 0.2 % (0.0-5.0); EOSINOPHILS % (AUTO) 1.2 % (0.0-8.0); HEMATOCRIT 28.5 % (36-48); LYMPHOCYTES % (AUTO) 8.2 % (21.0-51.0); MEAN CORPUSCULAR HEMOGLOBIN 31.2 pg (27.0-33.0); MEAN CORPUSCULAR HGB CONC 30.9 g/dL (32.0-36.0); MEAN CORPUSCULAR VOLUME 101.1 fL (79-99); MONOCYTES % (AUTO) 8.2 % (3.0-13.0); NEUTROPHILS % (AUTO) 81.3 % (40.0-77.0); PLATELET COUNT (AUTO) 196 K/uL (130-400); RED BLOOD CELL COUNT(AUTO) 2.82 MIL/uL (4.00-5.50); WHITE BLOOD COUNT (AUTO) 8.1 K/uL (4.8-10.8)
[2021-03-23 11:27] LABS: ALANINE AMINOTRANSFERASE 24 U/L (12-78); ALBUMIN 2.2 g/dL (3.5-5.0); ASPARTATE AMINOTRANSFERASE 24 U/L (10-37); BILIRUBIN,TOTAL 0.5 mg/dL (0.2-1.0); CARBON DIOXIDE 27 mmol/L (21-32); CHLORIDE 104 mmol/L (101-111); CREATININE 6.1 mg/dL (0.5-1.5); GLOMERULAR FILTR. RATE CALC 7 mL/min (>60); GLUCOSE,RANDOM 99 mg/dL (70-105); SODIUM SERUM 141 mmol/L (136-145); TOTAL PROTEIN, SERUM 6.5 g/dL (6.0-8.3); UREA NITROGEN, BLOOD 58 mg/dL (7-18)
[2021-03-23 11:28] LABS: LIPASE < 50 U/L (114-286); POTASSIUM 6.2 mmol/L (3.5-5.1)
[2021-03-23 11:53] LABS: INR 1.16 (0.85-1.15); PROTHROMBIN TIME 12.5 SEC (9.6-11.6)
[2021-03-23 11:54] LABS: PARTIAL THROMBOPLASTIN TIME 50.7 SEC (26.3-35.5)
== END 2021-03-23 12:31 | disposition home or self-care (01) ==
LOC: EDH 10:09
DX: E87.5 Hyperkalemia (principal); R60.0 Localized edema; E11.9 Type 2 diabetes mellitus without complications; I10 Essential (primary) hypertension; Z79.01 Long term (current) use of anticoagulants; Z79.899 Other long term (current) drug therapy; Z79.82 Long term (current) use of aspirin; Z99.2 Dependence on renal dialysis
CPT/HCPCS: 36415; 80053; 83690; 85025; 85610; 85730

== ENCOUNTER 2021-04-24 07:41 | Emergency (ER) | payer MEDICARE ==
[~2021-04-24] VITALS: Ht 149.9 cm; Wt 63.5 kg
[~2021-04-24 07:41] MED LIST changes: -BENZ-39 PO; -FOLI0.8C PO; +LISI40TA9 PO; -MECO10005 PO; +MINO2.5T3 PO; -ONDA-104 PO; -SEVE800 PO; +VITA200C75 PO; -VITA400C25 PO
[2021-04-24 07:44] VITALS: BP 145/65
[2021-04-24] MEDS ORDERED: ALBUMIN (HUMAN) 25% 200 ML IV ONE (08:18)
[2021-04-24] MEDS ORDERED: SODIUM BICARB 50MEQ 50ML VIAL 50 ML ONE (09:41)
[2021-04-24 11:02] VITALS: BP 111/49
[2021-04-24 13:20] LABS: APPEARANCE BODY FLUID CLEAR (CLEAR); COLOR,BODY FLUID YELLOW (LT YELLOW); SPECIMENTYPE,BODY FLUID ASCITES; TOTAL VOLUME,BODY FLUID 10600 mL
[2021-04-24 13:21] LABS: BODY FLUID RBC 47 /cu. mm.; BODY FLUID WBC 112 /cu. mm.
[2021-04-24 13:23] LABS: BF LYMPHOCYTE 6 %; BF MESOTHELIAL 55 %; BF MONOCYTE 24 %
== END 2021-04-24 11:07 | disposition home or self-care (01) ==
LOC: EDH 07:41
DX: R18.8 Other ascites (principal); R14.0 Abdominal distension (gaseous); R06.02 Shortness of breath; I12.0 Hypertensive chronic kidney disease with stage 5 chronic kidney disease or end stage renal disease; E11.22 Type 2 diabetes mellitus with diabetic chronic kidney disease; N18.6 End stage renal disease; Z90.49 Acquired absence of other specified parts of digestive tract; Z95.0 Presence of cardiac pacemaker; Z98.890 Other specified postprocedural states; Z79.82 Long term (current) use of aspirin; Z79.899 Other long term (current) drug therapy; Z88.8 Allergy status to other drugs, medicaments and biological substances
CPT/HCPCS: 49083; 87071; 87205; 89051; 96365; 99285; A4215; J3490; P9046

== ENCOUNTER → 2021-05-11 | Outpatient (CLI) | payer MEDICARE ==
[~2021-05-11] MED LIST changes: +ALBUMIN (HUMAN) 25% 200 ML IV SCH
[2021-05-11 10:38] LABS: INR 1.18 (0.85-1.15); PROTHROMBIN TIME 12.7 SEC (9.6-11.6)
[2021-05-11 10:39] LABS: PARTIAL THROMBOPLASTIN TIME 45.8 SEC (26.3-35.5)
[2021-05-11 12:55] LABS: APPEARANCE BODY FLUID CLEAR (CLEAR); BODY FLUID WBC 174 /cu. mm.; COLOR,BODY FLUID YELLOW (LT YELLOW); SPECIMENTYPE,BODY FLUID ASCITES; TOTAL VOLUME,BODY FLUID 7900 mL
[2021-05-11 12:56] LABS: BODY FLUID RBC 2 /cu. mm.
[2021-05-11 13:27] LABS: BF LYMPHOCYTE 23 %; BF MESOTHELIAL 70 %; BF MONOCYTE 7 %
== END | disposition home or self-care (01) ==
LOC: RAH 09:43
PROVIDERS: ATTEND Internal Medicine
DX: R18.8 Other ascites (principal); Z79.01 Long term (current) use of anticoagulants
CPT/HCPCS: 36415; 49083; 85610; 85730; 87071; 87205; 89051; A4215; P9046; 96365; C1729

== ENCOUNTER 2021-05-29 11:03 | Emergency (ER) | payer MEDICARE ==
[~2021-05-29 11:03] MED LIST changes: -ALBUMIN (HUMAN) 25% 200 ML IV SCH
[2021-05-29 11:05] VITALS: BP 157/72
[2021-05-29 11:52] LABS: BASOPHILS % (AUTO) 0.8 % (0.0-5.0); EOSINOPHILS % (AUTO) 4.8 % (0.0-8.0); HEMATOCRIT 39.4 % (36-48); LYMPHOCYTES % (AUTO) 12.5 % (21.0-51.0); MEAN CORPUSCULAR HEMOGLOBIN 31.7 pg (27.0-33.0); MEAN CORPUSCULAR HGB CONC 29.4 g/dL (32.0-36.0); MEAN CORPUSCULAR VOLUME 107.7 fL (79-99); MONOCYTES % (AUTO) 7.3 % (3.0-13.0); PLATELET COUNT (AUTO) 137 K/uL (130-400); RED BLOOD CELL COUNT(AUTO) 3.66 MIL/uL (4.00-5.50); RED CELL DISTRIBUTION WIDTH 15.2 % (11.0-15.5); WHITE BLOOD COUNT (AUTO) 5.2 K/uL (4.8-10.8)
[2021-05-29 12:02] LABS: CREATININE 5.3 mg/dL (0.5-1.5); POTASSIUM 5.4 mmol/L (3.5-5.1)
[2021-05-29 12:10] LABS: ALBUMIN 2.7 g/dL (3.5-5.0); BILIRUBIN,DIRECT 0.2 mg/dL (0.0-0.3); BILIRUBIN,TOTAL 0.4 mg/dL (0.2-1.0); TOTAL PROTEIN, SERUM 7.6 g/dL (6.0-8.3)
[2021-05-29] MEDS ORDERED: ALBUMIN (HUMAN) 25% 200 ML IV ONE (16:00)
[2021-05-29 16:31] VITALS: BP 119/66
[2021-05-29 16:33] LABS: APPEARANCE BODY FLUID SLIGHTLY CLOUDY (CLEAR); COLOR,BODY FLUID YELLOW (LT YELLOW); SPECIMENTYPE,BODY FLUID ASCITES; TOTAL VOLUME,BODY FLUID 5200 mL
[2021-05-29 16:34] LABS: BODY FLUID RBC 47 /cu. mm.; BODY FLUID WBC 75 /cu. mm.
[2021-05-29 17:05] LABS: BF LYMPHOCYTE 49 %; BF MESOTHELIAL 45 %
== END 2021-05-29 16:48 | disposition home or self-care (01) ==
LOC: EDH 11:03
DX: R18.8 Other ascites (principal); K74.60 Unspecified cirrhosis of liver; I12.0 Hypertensive chronic kidney disease with stage 5 chronic kidney disease or end stage renal disease; E11.22 Type 2 diabetes mellitus with diabetic chronic kidney disease; N18.6 End stage renal disease; Z99.2 Dependence on renal dialysis; Z90.49 Acquired absence of other specified parts of digestive tract; Z95.1 Presence of aortocoronary bypass graft; Z79.82 Long term (current) use of aspirin; Z79.899 Other long term (current) drug therapy; Z88.8 Allergy status to other drugs, medicaments and biological substances
CPT/HCPCS: 36415; 49083; 71045; 80053; 80076; 82140; 83690; 84484; 85025; 87071; 87205; 89051; 93005; 96365; 99285; C1729; P9046

== ENCOUNTER 2021-06-26 10:23 | Emergency (ER) | payer MEDICARE ==
[~2021-06-26] VITALS: Ht 149.9 cm; Wt 59.0 kg
[2021-06-26 11:43] VITALS: BP 164/71
[2021-06-26 11:48] LABS: BASOPHILS % (AUTO) 1.5 % (0.0-5.0); EOSINOPHILS % (AUTO) 10.7 % (0.0-8.0); HEMATOCRIT 46.1 % (36-48); LYMPHOCYTES % (AUTO) 13.9 % (21.0-51.0); MEAN CORPUSCULAR HGB CONC 30.6 g/dL (32.0-36.0); MEAN CORPUSCULAR VOLUME 98.1 fL (79-99); NEUTROPHILS % (AUTO) 63.9 % (40.0-77.0); PLATELET COUNT (AUTO) 138 K/uL (130-400); RED CELL DISTRIBUTION WIDTH 13.9 % (11.0-15.5); WHITE BLOOD COUNT (AUTO) 4.7 K/uL (4.8-10.8)
[2021-06-26 11:58] LABS: CREATININE 5.4 mg/dL (0.5-1.5); POTASSIUM 5.1 mmol/L (3.5-5.1)
[2021-06-26 12:03] LABS: ALBUMIN 2.7 g/dL (3.5-5.0); BILIRUBIN,TOTAL 0.4 mg/dL (0.2-1.0); TOTAL PROTEIN, SERUM 7.8 g/dL (6.0-8.3)
[2021-06-26 12:55] VITALS: BP 154/63
[2021-06-26] MEDS ORDERED: ALBUMIN (HUMAN) 25% 100 ML IV ONE (14:00)
[2021-06-26 14:25] LABS: INR 1.08 (0.85-1.15); PROTHROMBIN TIME 11.7 SEC (9.6-11.6)
[2021-06-26 14:27] LABS: PARTIAL THROMBOPLASTIN TIME 46.1 SEC (26.3-35.5)
[2021-06-26] MEDS ORDERED: ALBUMIN (HUMAN) 25% 200 ML IV SCH (14:30)
[2021-06-26 15:20] VITALS: BP 147/54
[2021-06-26 16:29] VITALS: BP 145/61
[2021-06-26 17:49] LABS: APPEARANCE BODY FLUID CLEAR (CLEAR); COLOR,BODY FLUID YELLOW (LT YELLOW); SPECIMENTYPE,BODY FLUID ASCITES; TOTAL VOLUME,BODY FLUID 5500 mL
[2021-06-26 17:50] LABS: BODY FLUID RBC 13 /cu. mm.; BODY FLUID WBC 18 /cu. mm.
[2021-06-26 18:32] LABS: BF LYMPHOCYTE 55 %; BF MESOTHELIAL 41 %
== END 2021-06-26 16:30 | disposition home or self-care (01) ==
LOC: EDH 10:23
DX: R18.8 Other ascites (principal); I13.2 Hypertensive heart and chronic kidney disease with heart failure and with stage 5 chronic kidney disease, or end stage renal disease; I50.9 Heart failure, unspecified; N18.6 End stage renal disease; E11.22 Type 2 diabetes mellitus with diabetic chronic kidney disease; E78.5 Hyperlipidemia, unspecified; Z79.01 Long term (current) use of anticoagulants; Z79.82 Long term (current) use of aspirin; Z79.899 Other long term (current) drug therapy; Z90.49 Acquired absence of other specified parts of digestive tract; Z95.1 Presence of aortocoronary bypass graft; Z95.5 Presence of coronary angioplasty implant and graft; Z99.2 Dependence on renal dialysis
CPT/HCPCS: 36415; 49083; 80053; 85025; 85610; 85730; 87071; 87205; 89051; 96365; 99285; C1729; P9046

== ENCOUNTER 2021-07-21 10:38 | Emergency (ER) | payer MEDICARE ==
[~2021-07-21] VITALS: Ht 149.9 cm; Wt 61.2 kg
[2021-07-21 11:09] LABS: BASOPHILS % (AUTO) 1.1 % (0.0-5.0); EOSINOPHILS % (AUTO) 13.7 % (0.0-8.0); HEMATOCRIT 35.4 % (36-48); LYMPHOCYTES % (AUTO) 13.8 % (21.0-51.0); MEAN CORPUSCULAR HEMOGLOBIN 29.1 pg (27.0-33.0); MEAN CORPUSCULAR HGB CONC 30.5 g/dL (32.0-36.0); MEAN CORPUSCULAR VOLUME 95.4 fL (79-99); MONOCYTES % (AUTO) 7.7 % (3.0-13.0); NEUTROPHILS % (AUTO) 63.5 % (40.0-77.0); PLATELET COUNT (AUTO) 106 K/uL (130-400); RED BLOOD CELL COUNT(AUTO) 3.71 MIL/uL (4.00-5.50); RED CELL DISTRIBUTION WIDTH 14.6 % (11.0-15.5); WHITE BLOOD COUNT (AUTO) 5.4 K/uL (4.8-10.8)
[2021-07-21 11:28] LABS: BILIRUBIN,TOTAL 0.4 mg/dL (0.2-1.0); CREATININE 4.4 mg/dL (0.5-1.5); POTASSIUM 4.9 mmol/L (3.5-5.1); TOTAL PROTEIN, SERUM 7.8 g/dL (6.0-8.3)
[2021-07-21 11:32] LABS: INR 1.08 (0.85-1.15); PROTHROMBIN TIME 11.7 SEC (9.6-11.6)
[2021-07-21 11:33] LABS: PARTIAL THROMBOPLASTIN TIME 44.2 SEC (26.3-35.5)
[2021-07-21 16:01] VITALS: BP 149/58
[2021-07-21 19:14] LABS: APPEARANCE BODY FLUID CLEAR (CLEAR); COLOR,BODY FLUID YELLOW (LT YELLOW); SPECIMENTYPE,BODY FLUID ASCITES; TOTAL VOLUME,BODY FLUID 5400 mL
[2021-07-21 19:15] LABS: BODY FLUID RBC 101 /cu. mm.; BODY FLUID WBC 70 /cu. mm.
[2021-07-21 19:38] LABS: BF EOSINOPHIL 1 %; BF LYMPHOCYTE 41 %; BF MONOCYTE 8 %; BF OTHER CELLS 4
== END 2021-07-21 16:19 | disposition home or self-care (01) ==
LOC: EDH 10:38
DX: R18.8 Other ascites (principal); K74.60 Unspecified cirrhosis of liver; I25.10 Atherosclerotic heart disease of native coronary artery without angina pectoris; I12.0 Hypertensive chronic kidney disease with stage 5 chronic kidney disease or end stage renal disease; E11.22 Type 2 diabetes mellitus with diabetic chronic kidney disease; N18.6 End stage renal disease; Z99.2 Dependence on renal dialysis; E78.00 Pure hypercholesterolemia, unspecified; Z88.8 Allergy status to other drugs, medicaments and biological substances; Z79.899 Other long term (current) drug therapy; Z79.82 Long term (current) use of aspirin; Z90.49 Acquired absence of other specified parts of digestive tract; Z95.818 Presence of other cardiac implants and grafts; Z98.890 Other specified postprocedural states; Z60.2 Problems related to living alone
CPT/HCPCS: 36415; 49083; 80053; 85025; 85610; 85730; 87071; 87205; 89051; 96365; 99285; C1729

== ENCOUNTER 2021-07-30 10:24 | Emergency (ER) | payer MEDICARE ==
[~2021-07-30] VITALS: Ht 147.3 cm; Wt 56.7 kg
[2021-07-30] MEDS ORDERED: ALBUMIN (HUMAN) 25% 100 ML IV ONE (10:25)
[2021-07-30 11:13] LABS: BASOPHILS % (AUTO) 1.1 % (0.0-5.0); EOSINOPHILS % (AUTO) 16.3 % (0.0-8.0); HEMATOCRIT 38.5 % (36-48); LYMPHOCYTES % (AUTO) 13.9 % (21.0-51.0); MEAN CORPUSCULAR HEMOGLOBIN 29.4 pg (27.0-33.0); MEAN CORPUSCULAR HGB CONC 30.9 g/dL (32.0-36.0); MEAN CORPUSCULAR VOLUME 95.1 fL (79-99); MONOCYTES % (AUTO) 7.8 % (3.0-13.0); NEUTROPHILS % (AUTO) 60.7 % (40.0-77.0); PLATELET COUNT (AUTO) 124 K/uL (130-400); RED BLOOD CELL COUNT(AUTO) 4.05 MIL/uL (4.00-5.50); RED CELL DISTRIBUTION WIDTH 15.2 % (11.0-15.5); WHITE BLOOD COUNT (AUTO) 5.5 K/uL (4.8-10.8)
[2021-07-30 11:19] LABS: CREATININE 4.4 mg/dL (0.5-1.5); POTASSIUM 4.9 mmol/L (3.5-5.1)
[2021-07-30 11:25] LABS: ALBUMIN 3.5 g/dL (3.5-5.0); BILIRUBIN,TOTAL 0.4 mg/dL (0.2-1.0); TOTAL PROTEIN, SERUM 8.8 g/dL (6.0-8.3)
[2021-07-30 16:48] VITALS: BP 148/78
== END 2021-07-30 16:55 | disposition home or self-care (01) ==
LOC: EDH 10:24
DX: R18.8 Other ascites (principal); I12.0 Hypertensive chronic kidney disease with stage 5 chronic kidney disease or end stage renal disease; E11.22 Type 2 diabetes mellitus with diabetic chronic kidney disease; N18.6 End stage renal disease; E78.00 Pure hypercholesterolemia, unspecified; Z79.01 Long term (current) use of anticoagulants; Z79.82 Long term (current) use of aspirin; Z79.899 Other long term (current) drug therapy; Z90.49 Acquired absence of other specified parts of digestive tract; Z95.1 Presence of aortocoronary bypass graft; Z95.5 Presence of coronary angioplasty implant and graft; Z99.2 Dependence on renal dialysis
CPT/HCPCS: 36415; 49083; 80053; 85025; 85730; 96365; 99285; C1729; P9046

== ENCOUNTER 2021-08-11 10:09 | Emergency (ER) | payer MEDICARE ==
[~2021-08-11] VITALS: Ht 149.9 cm; Wt 56.7 kg
[2021-08-11 11:05] LABS: BASOPHILS % (AUTO) 0.7 % (0.0-5.0); HEMATOCRIT 31.7 % (36-48); LYMPHOCYTES % (AUTO) 16.5 % (21.0-51.0); MEAN CORPUSCULAR HEMOGLOBIN 29.5 pg (27.0-33.0); MEAN CORPUSCULAR HGB CONC 31.2 g/dL (32.0-36.0); MEAN CORPUSCULAR VOLUME 94.3 fL (79-99); MONOCYTES % (AUTO) 9.2 % (3.0-13.0); NEUTROPHILS % (AUTO) 62.4 % (40.0-77.0); PLATELET COUNT (AUTO) 126 K/uL (130-400); RED BLOOD CELL COUNT(AUTO) 3.36 MIL/uL (4.00-5.50); RED CELL DISTRIBUTION WIDTH 15.2 % (11.0-15.5); WHITE BLOOD COUNT (AUTO) 5.6 K/uL (4.8-10.8)
[2021-08-11 11:19] LABS: INR 1.09 (0.85-1.15); PROTHROMBIN TIME 11.8 SEC (9.6-11.6)
[2021-08-11 11:22] LABS: ALBUMIN 2.8 g/dL (3.5-5.0); BILIRUBIN,TOTAL 0.3 mg/dL (0.2-1.0); CREATININE 3.9 mg/dL (0.5-1.5); POTASSIUM 5.1 mmol/L (3.5-5.1); TOTAL PROTEIN, SERUM 7.5 g/dL (6.0-8.3)
[2021-08-11] MEDS ORDERED: ALBUMIN (HUMAN) 25% 200 ML IV ONE (14:22)
[2021-08-11] MEDS ORDERED: SODIUM BICARB 50MEQ 50ML VIAL 50 ML ONE (14:22)
[2021-08-11 17:35] VITALS: BP 139/50
== END 2021-08-11 17:40 | disposition home or self-care (01) ==
LOC: EDH 10:09
DX: R18.8 Other ascites (principal); I12.0 Hypertensive chronic kidney disease with stage 5 chronic kidney disease or end stage renal disease; E11.22 Type 2 diabetes mellitus with diabetic chronic kidney disease; N18.6 End stage renal disease; E78.00 Pure hypercholesterolemia, unspecified; Z79.01 Long term (current) use of anticoagulants; Z79.82 Long term (current) use of aspirin; Z79.899 Other long term (current) drug therapy; Z82.49 Family history of ischemic heart disease and other diseases of the circulatory system; Z90.49 Acquired absence of other specified parts of digestive tract; Z95.1 Presence of aortocoronary bypass graft; Z99.2 Dependence on renal dialysis
CPT/HCPCS: 36415; 49083; 80053; 85025; 85610; 96365; 99285; C1729; J3490; P9046

== ENCOUNTER 2021-08-25 09:22 | Emergency (ER) | payer MEDICARE ==
[~2021-08-25] VITALS: Ht 149.9 cm; Wt 56.7 kg
[2021-08-25 10:53] LABS: BASOPHILS % (AUTO) 0.9 % (0.0-5.0); EOSINOPHILS % (AUTO) 12.3 % (0.0-8.0); HEMATOCRIT 34.8 % (36-48); LYMPHOCYTES % (AUTO) 13.4 % (21.0-51.0); MEAN CORPUSCULAR HEMOGLOBIN 29.8 pg (27.0-33.0); MEAN CORPUSCULAR HGB CONC 30.7 g/dL (32.0-36.0); MEAN CORPUSCULAR VOLUME 96.9 fL (79-99); NEUTROPHILS % (AUTO) 63.2 % (40.0-77.0); PLATELET COUNT (AUTO) 122 K/uL (130-400); RED BLOOD CELL COUNT(AUTO) 3.59 MIL/uL (4.00-5.50); RED CELL DISTRIBUTION WIDTH 17.4 % (11.0-15.5); WHITE BLOOD COUNT (AUTO) 5.3 K/uL (4.8-10.8)
[2021-08-25 11:00] LABS: INR 1.09 (0.85-1.15); PROTHROMBIN TIME 11.8 SEC (9.6-11.6)
[2021-08-25 11:01] LABS: CREATININE 4.4 mg/dL (0.5-1.5); PARTIAL THROMBOPLASTIN TIME 44.7 SEC (26.3-35.5)
[2021-08-25 11:05] LABS: ALBUMIN 2.9 g/dL (3.5-5.0); BILIRUBIN,TOTAL 0.4 mg/dL (0.2-1.0); TOTAL PROTEIN, SERUM 7.7 g/dL (6.0-8.3)
[2021-08-25] MEDS ORDERED: KAYEXALATE 15GM/60ML PO ONE (12:30)
[2021-08-25] MEDS ORDERED: ALBUMIN (HUMAN) 25% 200 ML IV ONE (14:03)
[2021-08-25 15:49] VITALS: BP 144/62
== END 2021-08-25 15:56 | disposition home or self-care (01) ==
LOC: EDH 09:22
DX: R18.8 Other ascites (principal); E87.5 Hyperkalemia; E78.00 Pure hypercholesterolemia, unspecified; I12.0 Hypertensive chronic kidney disease with stage 5 chronic kidney disease or end stage renal disease; N18.6 End stage renal disease; E11.22 Type 2 diabetes mellitus with diabetic chronic kidney disease; Z79.01 Long term (current) use of anticoagulants; Z79.82 Long term (current) use of aspirin; Z79.899 Other long term (current) drug therapy; Z90.49 Acquired absence of other specified parts of digestive tract; Z95.1 Presence of aortocoronary bypass graft
CPT/HCPCS: 36415; 49083; 80053; 85025; 85610; 85730; 96365; 99285; C1729; P9046

== ENCOUNTER → 2021-09-07 | Outpatient (CLI) | payer MEDICARE | END | disposition home or self-care (01) | LOC: RAH 11:39 | PROVIDERS: ATTEND Internal Medicine Infectious Disease | DX: R18.8 Other ascites (principal); K74.60 Unspecified cirrhosis of liver; E11.22 Type 2 diabetes mellitus with diabetic chronic kidney disease; I13.2 Hypertensive heart and chronic kidney disease with heart failure and with stage 5 chronic kidney disease, or end stage renal disease; N18.6 End stage renal disease; I50.9 Heart failure, unspecified; E11.40 Type 2 diabetes mellitus with diabetic neuropathy, unspecified; E11.3519 Type 2 diabetes mellitus with proliferative diabetic retinopathy with macular edema, unspecified eye; K21.9 Gastro-esophageal reflux disease without esophagitis; E66.9 Obesity, unspecified; I25.10 Atherosclerotic heart disease of native coronary artery without angina pectoris; Z99.2 Dependence on renal dialysis; Z98.42 Cataract extraction status, left eye; Z98.41 Cataract extraction status, right eye; Z86.73 Personal history of transient ischemic attack (TIA), and cerebral infarction without residual deficits | CPT/HCPCS: 49083; C1729 ==

== ENCOUNTER → 2021-09-17 | Outpatient (CLI) | payer MEDICARE ==
[~2021-09-17] MED LIST changes: +LIDOCAINE HCL 4% LTA SOL 4 ML VIAL TP ONE
== END | disposition home or self-care (01) ==
LOC: WHH 09:07
PROVIDERS: ATTEND Family Medicine
DX: T81.89XD Other complications of procedures, not elsewhere classified, subsequent encounter (principal); S81.802D Unspecified open wound, left lower leg, subsequent encounter; E11.628 Type 2 diabetes mellitus with other skin complications; I70.203 Unspecified atherosclerosis of native arteries of extremities, bilateral legs; E11.22 Type 2 diabetes mellitus with diabetic chronic kidney disease; I12.0 Hypertensive chronic kidney disease with stage 5 chronic kidney disease or end stage renal disease; N18.6 End stage renal disease; E78.5 Hyperlipidemia, unspecified; K74.60 Unspecified cirrhosis of liver; I25.10 Atherosclerotic heart disease of native coronary artery without angina pectoris; I25.9 Chronic ischemic heart disease, unspecified; E78.00 Pure hypercholesterolemia, unspecified; Z79.899 Other long term (current) drug therapy; Z79.84 Long term (current) use of oral hypoglycemic drugs; Z95.5 Presence of coronary angioplasty implant and graft; Z95.1 Presence of aortocoronary bypass graft; Z99.2 Dependence on renal dialysis; Z90.49 Acquired absence of other specified parts of digestive tract; Z98.890 Other specified postprocedural states; X58.XXXD Exposure to other specified factors, subsequent encounter; Y83.8 Other surgical procedures as the cause of abnormal reaction of the patient, or of later complication, without mention of misadventure at the time of the procedure
CPT/HCPCS: 11042; A4450; A6209

== ENCOUNTER 2021-09-24 10:30 | Emergency (ER) | payer MEDICARE ==
[~2021-09-24] VITALS: Ht 144.8 cm; Wt 56.7 kg
[~2021-09-24 10:30] MED LIST changes: -LIDOCAINE HCL 4% LTA SOL 4 ML VIAL TP ONE; -SILVER NITRATE APPLICATOR 1 SWAB TP ONE
[2021-09-24 11:16] LABS: BASOPHILS % (AUTO) 0.8 % (0.0-5.0); HEMATOCRIT 37.2 % (36-48); LYMPHOCYTES % (AUTO) 19.1 % (21.0-51.0); MEAN CORPUSCULAR HEMOGLOBIN 31.3 pg (27.0-33.0); MEAN CORPUSCULAR HGB CONC 30.9 g/dL (32.0-36.0); MEAN CORPUSCULAR VOLUME 101.1 fL (79-99); NEUTROPHILS % (AUTO) 57.9 % (40.0-77.0); PLATELET COUNT (AUTO) 103 K/uL (130-400); RED BLOOD CELL COUNT(AUTO) 3.68 MIL/uL (4.00-5.50); RED CELL DISTRIBUTION WIDTH 14.2 % (11.0-15.5); WHITE BLOOD COUNT (AUTO) 4.9 K/uL (4.8-10.8)
[2021-09-24 11:25] LABS: CREATININE 4.9 mg/dL (0.5-1.5); INR 1.1 (0.85-1.15); POTASSIUM 5.4 mmol/L (3.5-5.1); PROTHROMBIN TIME 11.9 SEC (9.6-11.6)
[2021-09-24 11:27] LABS: PARTIAL THROMBOPLASTIN TIME 47.1 SEC (26.3-35.5)
[2021-09-24 11:29] LABS: ALBUMIN 3.1 g/dL (3.5-5.0); BILIRUBIN,TOTAL 0.4 mg/dL (0.2-1.0); TOTAL PROTEIN, SERUM 7.9 g/dL (6.0-8.3)
[2021-09-24] MEDS ORDERED: ALBUMIN (HUMAN) 25% 200 ML IV ONE (15:00)
[2021-09-24 17:03] VITALS: BP 137/44
[2021-09-24 18:09] LABS: APPEARANCE BODY FLUID SLIGHTLY CLOUDY (CLEAR); COLOR,BODY FLUID YELLOW (LT YELLOW); SPECIMENTYPE,BODY FLUID ASCITES; TOTAL VOLUME,BODY FLUID 1750 mL
[2021-09-24 18:10] LABS: BODY FLUID RBC 40 /cu. mm.; BODY FLUID WBC 65 /cu. mm.
[2021-09-24 18:22] LABS: BF EOSINOPHIL 2 %; BF LYMPHOCYTE 85 %; BF MONOCYTE 11 %
== END 2021-09-24 17:38 | disposition home or self-care (01) ==
LOC: EDH 10:30
DX: R18.8 Other ascites (principal); I12.0 Hypertensive chronic kidney disease with stage 5 chronic kidney disease or end stage renal disease; E11.22 Type 2 diabetes mellitus with diabetic chronic kidney disease; N18.6 End stage renal disease; E78.00 Pure hypercholesterolemia, unspecified; Z79.01 Long term (current) use of anticoagulants; Z79.82 Long term (current) use of aspirin; Z79.899 Other long term (current) drug therapy; Z90.49 Acquired absence of other specified parts of digestive tract; Z95.1 Presence of aortocoronary bypass graft
CPT/HCPCS: 36415; 49083; 80053; 85025; 85610; 85730; 87071; 87205; 89051; 96365; 99285; C1729; P9046

== ENCOUNTER → 2021-09-24 | Outpatient (CLI) | payer MEDICARE ==
[~2021-09-24] MED LIST changes: +SILVER NITRATE APPLICATOR 1 SWAB TP ONE
== END | disposition home or self-care (01) ==
LOC: WHH 09:26
PROVIDERS: ATTEND Family Medicine
DX: T81.89XD Other complications of procedures, not elsewhere classified, subsequent encounter (principal); S81.802D Unspecified open wound, left lower leg, subsequent encounter; E11.628 Type 2 diabetes mellitus with other skin complications; I70.203 Unspecified atherosclerosis of native arteries of extremities, bilateral legs; E11.22 Type 2 diabetes mellitus with diabetic chronic kidney disease; I12.0 Hypertensive chronic kidney disease with stage 5 chronic kidney disease or end stage renal disease; N18.6 End stage renal disease; E78.5 Hyperlipidemia, unspecified; K74.60 Unspecified cirrhosis of liver; I25.10 Atherosclerotic heart disease of native coronary artery without angina pectoris; I25.9 Chronic ischemic heart disease, unspecified; E78.00 Pure hypercholesterolemia, unspecified; Z79.899 Other long term (current) drug therapy; Z79.84 Long term (current) use of oral hypoglycemic drugs; Z95.5 Presence of coronary angioplasty implant and graft; Z95.1 Presence of aortocoronary bypass graft; Z99.2 Dependence on renal dialysis; Z90.49 Acquired absence of other specified parts of digestive tract; Z98.890 Other specified postprocedural states; X58.XXXD Exposure to other specified factors, subsequent encounter; Y83.8 Other surgical procedures as the cause of abnormal reaction of the patient, or of later complication, without mention of misadventure at the time of the procedure
CPT/HCPCS: 11042; A6209

== ENCOUNTER → 2021-10-01 | Outpatient (CLI) | payer MEDICARE ==
[~2021-10-01] MED LIST changes: +LIDOCAINE HCL 4% LTA SOL 4 ML VIAL TP ONE; +SILVER NITRATE APPLICATOR 1 SWAB TP ONE
== END | disposition home or self-care (01) ==
LOC: WHH 09:34
PROVIDERS: ATTEND Family Medicine
DX: T81.89XD Other complications of procedures, not elsewhere classified, subsequent encounter (principal); S81.802D Unspecified open wound, left lower leg, subsequent encounter; E11.628 Type 2 diabetes mellitus with other skin complications; I70.203 Unspecified atherosclerosis of native arteries of extremities, bilateral legs; E11.22 Type 2 diabetes mellitus with diabetic chronic kidney disease; I12.0 Hypertensive chronic kidney disease with stage 5 chronic kidney disease or end stage renal disease; N18.6 End stage renal disease; E78.5 Hyperlipidemia, unspecified; K74.60 Unspecified cirrhosis of liver; I25.10 Atherosclerotic heart disease of native coronary artery without angina pectoris; I25.9 Chronic ischemic heart disease, unspecified; E78.00 Pure hypercholesterolemia, unspecified; Z79.899 Other long term (current) drug therapy; Z79.84 Long term (current) use of oral hypoglycemic drugs; Z95.5 Presence of coronary angioplasty implant and graft; Z95.1 Presence of aortocoronary bypass graft; Z99.2 Dependence on renal dialysis; Z90.49 Acquired absence of other specified parts of digestive tract; Z98.890 Other specified postprocedural states; X58.XXXD Exposure to other specified factors, subsequent encounter; Y83.8 Other surgical procedures as the cause of abnormal reaction of the patient, or of later complication, without mention of misadventure at the time of the procedure
CPT/HCPCS: 17250; A6209

== ENCOUNTER 2021-10-08 10:17 | Emergency (ER) | payer MEDICARE ==
[~2021-10-08] VITALS: Ht 149.9 cm; Wt 61.2 kg
[~2021-10-08 10:17] MED LIST changes: -LIDOCAINE HCL 4% LTA SOL 4 ML VIAL TP ONE; -SILVER NITRATE APPLICATOR 1 SWAB TP ONE
[2021-10-08 11:13] LABS: BASOPHILS % (AUTO) 0.6 % (0.0-5.0); EOSINOPHILS % (AUTO) 10.5 % (0.0-8.0); HEMATOCRIT 39.7 % (36-48); LYMPHOCYTES % (AUTO) 11.9 % (21.0-51.0); MEAN CORPUSCULAR HEMOGLOBIN 31.1 pg (27.0-33.0); MEAN CORPUSCULAR HGB CONC 30.7 g/dL (32.0-36.0); MEAN CORPUSCULAR VOLUME 101.3 fL (79-99); MONOCYTES % (AUTO) 9.2 % (3.0-13.0); NEUTROPHILS % (AUTO) 67.6 % (40.0-77.0); PLATELET COUNT (AUTO) 113 K/uL (130-400); RED BLOOD CELL COUNT(AUTO) 3.92 MIL/uL (4.00-5.50); WHITE BLOOD COUNT (AUTO) 5.3 K/uL (4.8-10.8)
[2021-10-08 11:17] LABS: CREATININE 4.4 mg/dL (0.5-1.5); POTASSIUM 4.8 mmol/L (3.5-5.1)
[2021-10-08 11:21] LABS: ALBUMIN 3.1 g/dL (3.5-5.0); BILIRUBIN,TOTAL 0.3 mg/dL (0.2-1.0); TOTAL PROTEIN, SERUM 7.9 g/dL (6.0-8.3)
[2021-10-08 11:30] LABS: INR 1.1 (0.85-1.15); PROTHROMBIN TIME 11.9 SEC (9.6-11.6)
[2021-10-08] MEDS ORDERED: ALBUMIN (HUMAN) 25% 200 ML IV ONE (11:56)
[2021-10-08 15:08] VITALS: BP 134/66
[2021-10-08 15:37] LABS: APPEARANCE BODY FLUID SLIGHTLY CLOUDY (CLEAR); COLOR,BODY FLUID YELLOW (LT YELLOW); SPECIMENTYPE,BODY FLUID ASCITES; TOTAL VOLUME,BODY FLUID 5300 mL
[2021-10-08 16:51] LABS: BODY FLUID WBC 335 /cu. mm.
[2021-10-08 16:52] LABS: BODY FLUID RBC 1700 /cu. mm.
[2021-10-08 16:57] LABS: BF LYMPHOCYTE 37 %; BF MESOTHELIAL 28 %; BF OTHER CELLS 3
== END 2021-10-08 15:11 | disposition home or self-care (01) ==
LOC: EDH 10:17
DX: R18.8 Other ascites (principal); I12.0 Hypertensive chronic kidney disease with stage 5 chronic kidney disease or end stage renal disease; E11.22 Type 2 diabetes mellitus with diabetic chronic kidney disease; N18.6 End stage renal disease; E78.00 Pure hypercholesterolemia, unspecified; Z79.01 Long term (current) use of anticoagulants; Z79.82 Long term (current) use of aspirin; Z79.899 Other long term (current) drug therapy; Z90.49 Acquired absence of other specified parts of digestive tract; Z95.1 Presence of aortocoronary bypass graft; Z99.2 Dependence on renal dialysis
CPT/HCPCS: 36415; 49083; 80053; 85025; 85610; 85730; 87071; 87205; 89051; 96365; 99285; C1729; P9046

== ENCOUNTER → 2021-10-08 | Outpatient (CLI) | payer MEDICARE | END | disposition home or self-care (01) | LOC: WHH 08:53 | PROVIDERS: ATTEND Family Medicine | DX: T81.89XD Other complications of procedures, not elsewhere classified, subsequent encounter (principal); S81.802D Unspecified open wound, left lower leg, subsequent encounter; E11.628 Type 2 diabetes mellitus with other skin complications; I70.203 Unspecified atherosclerosis of native arteries of extremities, bilateral legs; E11.22 Type 2 diabetes mellitus with diabetic chronic kidney disease; I12.0 Hypertensive chronic kidney disease with stage 5 chronic kidney disease or end stage renal disease; N18.6 End stage renal disease; E78.5 Hyperlipidemia, unspecified; K74.60 Unspecified cirrhosis of liver; I25.10 Atherosclerotic heart disease of native coronary artery without angina pectoris; I25.9 Chronic ischemic heart disease, unspecified; E78.00 Pure hypercholesterolemia, unspecified; Z79.899 Other long term (current) drug therapy; Z79.84 Long term (current) use of oral hypoglycemic drugs; Z95.5 Presence of coronary angioplasty implant and graft; Z95.1 Presence of aortocoronary bypass graft; Z99.2 Dependence on renal dialysis; Z90.49 Acquired absence of other specified parts of digestive tract; Z98.890 Other specified postprocedural states; X58.XXXD Exposure to other specified factors, subsequent encounter; Y83.8 Other surgical procedures as the cause of abnormal reaction of the patient, or of later complication, without mention of misadventure at the time of the procedure | CPT/HCPCS: 17250; A6209 ==

== ENCOUNTER → 2021-10-15 | Outpatient (CLI) | payer MEDICARE ==
[~2021-10-15] MED LIST changes: +LIDOCAINE HCL 4% LTA SOL 4 ML VIAL TP ONE; +SILVER NITRATE APPLICATOR 1 SWAB TP ONE
== END | disposition home or self-care (01) ==
LOC: WHH 09:07
PROVIDERS: ATTEND Family Medicine
DX: T81.89XD Other complications of procedures, not elsewhere classified, subsequent encounter (principal); S81.802D Unspecified open wound, left lower leg, subsequent encounter; E11.628 Type 2 diabetes mellitus with other skin complications; I70.203 Unspecified atherosclerosis of native arteries of extremities, bilateral legs; E11.22 Type 2 diabetes mellitus with diabetic chronic kidney disease; I12.0 Hypertensive chronic kidney disease with stage 5 chronic kidney disease or end stage renal disease; N18.6 End stage renal disease; E11.40 Type 2 diabetes mellitus with diabetic neuropathy, unspecified; E11.311 Type 2 diabetes mellitus with unspecified diabetic retinopathy with macular edema; E78.5 Hyperlipidemia, unspecified; K74.60 Unspecified cirrhosis of liver; I25.10 Atherosclerotic heart disease of native coronary artery without angina pectoris; I25.9 Chronic ischemic heart disease, unspecified; E78.00 Pure hypercholesterolemia, unspecified; K21.9 Gastro-esophageal reflux disease without esophagitis; Z98.42 Cataract extraction status, left eye; Z98.41 Cataract extraction status, right eye; Z79.899 Other long term (current) drug therapy; Z79.84 Long term (current) use of oral hypoglycemic drugs; Z95.5 Presence of coronary angioplasty implant and graft; Z95.1 Presence of aortocoronary bypass graft; Z99.2 Dependence on renal dialysis; Z90.49 Acquired absence of other specified parts of digestive tract; Z98.890 Other specified postprocedural states; X58.XXXD Exposure to other specified factors, subsequent encounter; Y83.8 Other surgical procedures as the cause of abnormal reaction of the patient, or of later complication, without mention of misadventure at the time of the procedure
CPT/HCPCS: 11042; A6209

== ENCOUNTER → 2021-10-22 | Outpatient (CLI) | payer OTHER, MEDICARE | END | disposition home or self-care (01) | LOC: WHH 09:51 | PROVIDERS: ATTEND Family Medicine | DX: T81.89XD Other complications of procedures, not elsewhere classified, subsequent encounter (principal); S81.802D Unspecified open wound, left lower leg, subsequent encounter; E11.628 Type 2 diabetes mellitus with other skin complications; I70.203 Unspecified atherosclerosis of native arteries of extremities, bilateral legs; E11.22 Type 2 diabetes mellitus with diabetic chronic kidney disease; I12.0 Hypertensive chronic kidney disease with stage 5 chronic kidney disease or end stage renal disease; N18.6 End stage renal disease; E11.40 Type 2 diabetes mellitus with diabetic neuropathy, unspecified; E11.311 Type 2 diabetes mellitus with unspecified diabetic retinopathy with macular edema; E78.5 Hyperlipidemia, unspecified; K74.60 Unspecified cirrhosis of liver; I25.10 Atherosclerotic heart disease of native coronary artery without angina pectoris; I25.9 Chronic ischemic heart disease, unspecified; E78.00 Pure hypercholesterolemia, unspecified; K21.9 Gastro-esophageal reflux disease without esophagitis; Z98.42 Cataract extraction status, left eye; Z98.41 Cataract extraction status, right eye; Z79.899 Other long term (current) drug therapy; Z79.84 Long term (current) use of oral hypoglycemic drugs; Z95.5 Presence of coronary angioplasty implant and graft; Z95.1 Presence of aortocoronary bypass graft; Z99.2 Dependence on renal dialysis; Z90.49 Acquired absence of other specified parts of digestive tract; Z98.890 Other specified postprocedural states; X58.XXXD Exposure to other specified factors, subsequent encounter; Y83.8 Other surgical procedures as the cause of abnormal reaction of the patient, or of later complication, without mention of misadventure at the time of the procedure | CPT/HCPCS: 11042; A6209 ==

== ENCOUNTER 2021-10-29 11:26 | Emergency (ER) | payer OTHER, MEDICARE ==
[~2021-10-29] VITALS: Ht 149.9 cm; Wt 61.2 kg
[~2021-10-29 11:26] MED LIST changes: -CIPR-278 PO
[2021-10-29 12:08] LABS: BASOPHILS % (AUTO) 0.8 % (0.0-5.0); EOSINOPHILS % (AUTO) 8.2 % (0.0-8.0); HEMATOCRIT 35.2 % (36-48); LYMPHOCYTES % (AUTO) 13.7 % (21.0-51.0); MEAN CORPUSCULAR HEMOGLOBIN 30.8 pg (27.0-33.0); MEAN CORPUSCULAR HGB CONC 31.5 g/dL (32.0-36.0); MEAN CORPUSCULAR VOLUME 97.8 fL (79-99); MONOCYTES % (AUTO) 7.8 % (3.0-13.0); NEUTROPHILS % (AUTO) 69.1 % (40.0-77.0); PLATELET COUNT (AUTO) 131 K/uL (130-400); WHITE BLOOD COUNT (AUTO) 5.1 K/uL (4.8-10.8)
[2021-10-29 12:17] LABS: CREATININE 4.2 mg/dL (0.5-1.5); POTASSIUM 4.8 mmol/L (3.5-5.1)
[2021-10-29 12:23] LABS: ALBUMIN 3.3 g/dL (3.5-5.0); BILIRUBIN,TOTAL 0.2 mg/dL (0.2-1.0); TOTAL PROTEIN, SERUM 8.3 g/dL (6.0-8.3)
[2021-10-29 12:24] LABS: INR 1.09 (0.85-1.15); PROTHROMBIN TIME 11.8 SEC (9.6-11.6)
[2021-10-29 12:26] LABS: PARTIAL THROMBOPLASTIN TIME 47.7 SEC (26.3-35.5)
[2021-10-29 14:02] LABS: APPEARANCE BODY FLUID CLEAR (CLEAR); BODY FLUID WBC 152 /cu. mm.; COLOR,BODY FLUID YELLOW (LT YELLOW); SPECIMENTYPE,BODY FLUID ASCITES; TOTAL VOLUME,BODY FLUID 4300 mL
[2021-10-29 14:03] LABS: BODY FLUID RBC 40 /cu. mm.
[2021-10-29 14:27] LABS: BF EOSINOPHIL 1 %; BF LYMPHOCYTE 46 %; BF MESOTHELIAL 43 %; BF MONOCYTE 10 %
[2021-10-29 14:50] VITALS: BP 145/65
[2021-10-29] MEDS ORDERED: CIPR-278 PO (14:50)
[2021-10-29] MEDS ORDERED: ALBUMIN (HUMAN) 25% 100 ML IV ONE (15:00)
== END 2021-10-29 15:23 | disposition home or self-care (01) ==
LOC: EDH 11:26
DX: R18.8 Other ascites (principal); I10 Essential (primary) hypertension; Z90.49 Acquired absence of other specified parts of digestive tract; Z95.0 Presence of cardiac pacemaker; Z88.8 Allergy status to other drugs, medicaments and biological substances; Z79.82 Long term (current) use of aspirin; Z79.899 Other long term (current) drug therapy
CPT/HCPCS: 11042; 36415; 49083; 80053; 85025; 85610; 85730; 87071; 87205; 89051; 96365; 99285; A6021; A6197; C1729

== ENCOUNTER → 2021-10-29 | Outpatient (CLI) | payer OTHER, MEDICARE ==
[~2021-10-29] MED LIST changes: +CIPR-278 PO; -LIDOCAINE HCL 4% LTA SOL 4 ML VIAL TP ONE; -SILVER NITRATE APPLICATOR 1 SWAB TP ONE
== END | disposition home or self-care (01) ==
LOC: WHH 09:24
PROVIDERS: ATTEND Family Medicine
DX: T81.89XD Other complications of procedures, not elsewhere classified, subsequent encounter (principal); S81.802D Unspecified open wound, left lower leg, subsequent encounter; E11.628 Type 2 diabetes mellitus with other skin complications; I70.203 Unspecified atherosclerosis of native arteries of extremities, bilateral legs; E11.22 Type 2 diabetes mellitus with diabetic chronic kidney disease; I12.0 Hypertensive chronic kidney disease with stage 5 chronic kidney disease or end stage renal disease; N18.6 End stage renal disease; E11.40 Type 2 diabetes mellitus with diabetic neuropathy, unspecified; E11.311 Type 2 diabetes mellitus with unspecified diabetic retinopathy with macular edema; E78.5 Hyperlipidemia, unspecified; K74.60 Unspecified cirrhosis of liver; I25.10 Atherosclerotic heart disease of native coronary artery without angina pectoris; I25.9 Chronic ischemic heart disease, unspecified; E78.00 Pure hypercholesterolemia, unspecified; K21.9 Gastro-esophageal reflux disease without esophagitis; Z98.42 Cataract extraction status, left eye; Z98.41 Cataract extraction status, right eye; Z79.899 Other long term (current) drug therapy; Z79.84 Long term (current) use of oral hypoglycemic drugs; Z95.5 Presence of coronary angioplasty implant and graft; Z95.1 Presence of aortocoronary bypass graft; Z99.2 Dependence on renal dialysis; Z90.49 Acquired absence of other specified parts of digestive tract; Z98.890 Other specified postprocedural states; X58.XXXD Exposure to other specified factors, subsequent encounter; Y83.8 Other surgical procedures as the cause of abnormal reaction of the patient, or of later complication, without mention of misadventure at the time of the procedure
CPT/HCPCS: 11042; A6021

== ENCOUNTER → 2021-11-05 | Outpatient (CLI) | payer OTHER, MEDICARE ==
[~2021-11-05] MED LIST changes: +CIPR-278 PO
== END | disposition home or self-care (01) ==
LOC: WHH 09:36
PROVIDERS: ATTEND Family Medicine
DX: T81.89XD Other complications of procedures, not elsewhere classified, subsequent encounter (principal); S81.802D Unspecified open wound, left lower leg, subsequent encounter; E11.628 Type 2 diabetes mellitus with other skin complications; I70.203 Unspecified atherosclerosis of native arteries of extremities, bilateral legs; E11.22 Type 2 diabetes mellitus with diabetic chronic kidney disease; I12.0 Hypertensive chronic kidney disease with stage 5 chronic kidney disease or end stage renal disease; N18.6 End stage renal disease; E11.40 Type 2 diabetes mellitus with diabetic neuropathy, unspecified; E11.311 Type 2 diabetes mellitus with unspecified diabetic retinopathy with macular edema; E78.5 Hyperlipidemia, unspecified; K74.60 Unspecified cirrhosis of liver; I25.10 Atherosclerotic heart disease of native coronary artery without angina pectoris; I25.9 Chronic ischemic heart disease, unspecified; E78.00 Pure hypercholesterolemia, unspecified; K21.9 Gastro-esophageal reflux disease without esophagitis; Z98.42 Cataract extraction status, left eye; Z98.41 Cataract extraction status, right eye; Z79.899 Other long term (current) drug therapy; Z79.84 Long term (current) use of oral hypoglycemic drugs; Z95.5 Presence of coronary angioplasty implant and graft; Z95.1 Presence of aortocoronary bypass graft; Z99.2 Dependence on renal dialysis; Z90.49 Acquired absence of other specified parts of digestive tract; Z98.890 Other specified postprocedural states; X58.XXXD Exposure to other specified factors, subsequent encounter; Y83.8 Other surgical procedures as the cause of abnormal reaction of the patient, or of later complication, without mention of misadventure at the time of the procedure
CPT/HCPCS: 11042; A6021; A6197

== ENCOUNTER → 2021-11-12 | Outpatient (CLI) | payer OTHER, MEDICARE | END | disposition home or self-care (01) | LOC: WHH 10:47 | PROVIDERS: ATTEND Family Medicine | DX: T81.89XD Other complications of procedures, not elsewhere classified, subsequent encounter (principal); E11.628 Type 2 diabetes mellitus with other skin complications; S81.802D Unspecified open wound, left lower leg, subsequent encounter; I70.203 Unspecified atherosclerosis of native arteries of extremities, bilateral legs; E11.22 Type 2 diabetes mellitus with diabetic chronic kidney disease; I13.11 Hypertensive heart and chronic kidney disease without heart failure, with stage 5 chronic kidney disease, or end stage renal disease; N18.6 End stage renal disease; E11.40 Type 2 diabetes mellitus with diabetic neuropathy, unspecified; E11.311 Type 2 diabetes mellitus with unspecified diabetic retinopathy with macular edema; E78.5 Hyperlipidemia, unspecified; E78.00 Pure hypercholesterolemia, unspecified; I70.92 Chronic total occlusion of artery of the extremities; I25.10 Atherosclerotic heart disease of native coronary artery without angina pectoris; K21.9 Gastro-esophageal reflux disease without esophagitis; K74.60 Unspecified cirrhosis of liver; Z99.2 Dependence on renal dialysis; Z79.899 Other long term (current) drug therapy; Z98.42 Cataract extraction status, left eye; Z98.41 Cataract extraction status, right eye; Z98.890 Other specified postprocedural states; Z79.01 Long term (current) use of anticoagulants; Z79.82 Long term (current) use of aspirin; Z95.5 Presence of coronary angioplasty implant and graft; Z95.1 Presence of aortocoronary bypass graft; X58.XXXD Exposure to other specified factors, subsequent encounter; Y83.8 Other surgical procedures as the cause of abnormal reaction of the patient, or of later complication, without mention of misadventure at the time of the procedure | CPT/HCPCS: G0463 ==

== ENCOUNTER 2021-11-26 11:11 | Emergency (ER) | payer OTHER, MEDICARE ==
[~2021-11-26] VITALS: Ht 149.9 cm; Wt 61.2 kg
[2021-11-26 12:14] LABS: BASOPHILS % (AUTO) 1.2 % (0.0-5.0); EOSINOPHILS % (AUTO) 7.1 % (0.0-8.0); HEMATOCRIT 42.6 % (36-48); LYMPHOCYTES % (AUTO) 14.6 % (21.0-51.0); MEAN CORPUSCULAR HEMOGLOBIN 30.4 pg (27.0-33.0); MEAN CORPUSCULAR HGB CONC 29.6 g/dL (32.0-36.0); MEAN CORPUSCULAR VOLUME 102.9 fL (79-99); MONOCYTES % (AUTO) 7.8 % (3.0-13.0); NEUTROPHILS % (AUTO) 69.1 % (40.0-77.0); PLATELET COUNT (AUTO) 108 K/uL (130-400); RED BLOOD CELL COUNT(AUTO) 4.14 MIL/uL (4.00-5.50); WHITE BLOOD COUNT (AUTO) 4.1 K/uL (4.8-10.8)
[2021-11-26 12:24] LABS: CREATININE 4.5 mg/dL (0.5-1.5); POTASSIUM 5.1 mmol/L (3.5-5.1)
[2021-11-26 12:26] LABS: INR 1.1 (0.85-1.15); PROTHROMBIN TIME 11.9 SEC (9.6-11.6)
[2021-11-26 12:28] LABS: PARTIAL THROMBOPLASTIN TIME 45.9 SEC (26.3-35.5)
[2021-11-26 12:29] LABS: ALBUMIN 3.1 g/dL (3.5-5.0); BILIRUBIN,TOTAL 0.3 mg/dL (0.2-1.0); TOTAL PROTEIN, SERUM 8.1 g/dL (6.0-8.3)
[2021-11-26] MEDS ORDERED: ALBUMIN (HUMAN) 25% 100 ML IV ONE (14:00)
[2021-11-26 15:38] VITALS: BP 154/64
== END 2021-11-26 15:39 | disposition home or self-care (01) ==
LOC: EDH 11:11
DX: R18.8 Other ascites (principal); R06.02 Shortness of breath; I13.2 Hypertensive heart and chronic kidney disease with heart failure and with stage 5 chronic kidney disease, or end stage renal disease; E11.22 Type 2 diabetes mellitus with diabetic chronic kidney disease; N18.6 End stage renal disease; I50.9 Heart failure, unspecified; E78.00 Pure hypercholesterolemia, unspecified; Z98.890 Other specified postprocedural states; Z99.2 Dependence on renal dialysis; Z95.0 Presence of cardiac pacemaker
CPT/HCPCS: 36415; 49083; 80053; 85025; 85610; 85730; 96365; 99285; C1729

== ENCOUNTER 2021-12-31 12:01 | Emergency (ER) | payer OTHER, MEDICARE ==
[~2021-12-31] VITALS: Ht 149.9 cm; Wt 56.2 kg
[2021-12-31 12:38] LABS: BASOPHILS % (AUTO) 0.8 % (0.0-5.0); EOSINOPHILS % (AUTO) 8.3 % (0.0-8.0); HEMATOCRIT 41.4 % (36-48); LYMPHOCYTES % (AUTO) 12.1 % (21.0-51.0); MEAN CORPUSCULAR HEMOGLOBIN 30.5 pg (27.0-33.0); MEAN CORPUSCULAR HGB CONC 30.2 g/dL (32.0-36.0); MONOCYTES % (AUTO) 8.3 % (3.0-13.0); NEUTROPHILS % (AUTO) 70.2 % (40.0-77.0); PLATELET COUNT (AUTO) 134 K/uL (130-400); RED CELL DISTRIBUTION WIDTH 14.5 % (11.0-15.5); WHITE BLOOD COUNT (AUTO) 6.3 K/uL (4.8-10.8)
[2021-12-31 12:55] LABS: CREATININE 4.6 mg/dL (0.5-1.5); POTASSIUM 5.1 mmol/L (3.5-5.1)
[2021-12-31 12:57] LABS: INR 1.19 (0.85-1.15); PROTHROMBIN TIME 12.8 SEC (9.6-11.6)
[2021-12-31 12:58] LABS: PARTIAL THROMBOPLASTIN TIME 52.4 SEC (26.3-35.5)
[2021-12-31 13:00] LABS: ALBUMIN 3.3 g/dL (3.5-5.0); BILIRUBIN,TOTAL 0.5 mg/dL (0.2-1.0); TOTAL PROTEIN, SERUM 8.7 g/dL (6.0-8.3)
[2021-12-31 15:13] VITALS: BP 134/67
== END 2021-12-31 15:15 | disposition home or self-care (01) ==
LOC: EDH 12:01
DX: R18.8 Other ascites (principal); I12.0 Hypertensive chronic kidney disease with stage 5 chronic kidney disease or end stage renal disease; E11.22 Type 2 diabetes mellitus with diabetic chronic kidney disease; N18.6 End stage renal disease; Z99.2 Dependence on renal dialysis; Z90.49 Acquired absence of other specified parts of digestive tract; Z95.1 Presence of aortocoronary bypass graft; Z98.890 Other specified postprocedural states; Z88.8 Allergy status to other drugs, medicaments and biological substances; Z79.82 Long term (current) use of aspirin; Z79.899 Other long term (current) drug therapy
CPT/HCPCS: 36415; 49082; 80053; 85025; 85610; 85730

== ENCOUNTER 2022-01-21 10:14 | Emergency (ER) | payer OTHER, MEDICARE ==
[~2022-01-21] VITALS: Ht 149.9 cm; Wt 57.6 kg
[2022-01-21 10:50] LABS: BASOPHILS % (AUTO) 0.7 % (0.0-5.0); EOSINOPHILS % (AUTO) 10.4 % (0.0-8.0); HEMATOCRIT 31.2 % (36-48); LYMPHOCYTES % (AUTO) 13.6 % (21.0-51.0); MEAN CORPUSCULAR HEMOGLOBIN 31.4 pg (27.0-33.0); MEAN CORPUSCULAR HGB CONC 31.7 g/dL (32.0-36.0); MONOCYTES % (AUTO) 6.6 % (3.0-13.0); NEUTROPHILS % (AUTO) 68.5 % (40.0-77.0); PLATELET COUNT (AUTO) 146 K/uL (130-400); RED BLOOD CELL COUNT(AUTO) 3.15 MIL/uL (4.00-5.50); RED CELL DISTRIBUTION WIDTH 14.1 % (11.0-15.5); WHITE BLOOD COUNT (AUTO) 5.6 K/uL (4.8-10.8)
[2022-01-21 10:54] LABS: INR 1.08 (0.85-1.15); PROTHROMBIN TIME 11.7 SEC (9.6-11.6)
[2022-01-21 10:57] LABS: CREATININE 4.2 mg/dL (0.5-1.5); POTASSIUM 5.1 mmol/L (3.5-5.1)
[2022-01-21] MEDS ORDERED: SODIUM BICARB 50MEQ 50ML VIAL 50 ML ONE (11:00)
[2022-01-21 11:01] LABS: ALBUMIN 3.3 g/dL (3.5-5.0); BILIRUBIN,TOTAL 0.4 mg/dL (0.2-1.0); TOTAL PROTEIN, SERUM 8.9 g/dL (6.0-8.3)
[2022-01-21] MEDS ORDERED: LIDOCAINE HCL MPF 1% 5ML VIAL ONE (11:02)
[2022-01-21 12:32] VITALS: BP 155/56
[2022-01-21 16:01] LABS: APPEARANCE BODY FLUID SLIGHTLY CLOUDY (CLEAR); COLOR,BODY FLUID YELLOW (LT YELLOW); SPECIMENTYPE,BODY FLUID ASCITES
[2022-01-21 16:02] LABS: BODY FLUID WBC 59 /cu. mm.; TOTAL VOLUME,BODY FLUID 4500 mL
[2022-01-21 16:03] LABS: BODY FLUID RBC 57 /cu. mm.
[2022-01-21 16:24] LABS: BF LYMPHOCYTE 23 %; BF MONOCYTE 1 %; BF OTHER CELLS 5
== END 2022-01-21 12:56 | disposition home or self-care (01) ==
LOC: EDH 10:14
DX: R18.8 Other ascites (principal); I12.0 Hypertensive chronic kidney disease with stage 5 chronic kidney disease or end stage renal disease; E11.22 Type 2 diabetes mellitus with diabetic chronic kidney disease; N18.6 End stage renal disease; E78.00 Pure hypercholesterolemia, unspecified; Z99.2 Dependence on renal dialysis; Z79.899 Other long term (current) drug therapy; Z79.82 Long term (current) use of aspirin; Z79.01 Long term (current) use of anticoagulants
CPT/HCPCS: 36415; 49083; 80053; 85025; 85610; 85730; 87071; 87205; 89051; 99285; C1729; J3490 ×2

== ENCOUNTER 2022-02-04 10:49 | Emergency (ER) | payer OTHER, MEDICARE ==
[~2022-02-04] VITALS: Ht 152.4 cm; Wt 74.8 kg
[2022-02-04 11:10] LABS: CREATININE 4.2 mg/dL (0.5-1.5); POTASSIUM 4.3 mmol/L (3.5-5.1)
[2022-02-04 11:15] LABS: ALBUMIN 2.8 g/dL (3.5-5.0); BILIRUBIN,TOTAL 0.3 mg/dL (0.2-1.0)
[2022-02-04 11:19] LABS: BASOPHILS % (AUTO) 0.6 % (0.0-5.0); HEMATOCRIT 25.9 % (36-48); LYMPHOCYTES % (AUTO) 14.1 % (21.0-51.0); MEAN CORPUSCULAR HEMOGLOBIN 31.9 pg (27.0-33.0); MEAN CORPUSCULAR HGB CONC 31.3 g/dL (32.0-36.0); MONOCYTES % (AUTO) 8.2 % (3.0-13.0); NEUTROPHILS % (AUTO) 68.9 % (40.0-77.0); PLATELET COUNT (AUTO) 132 K/uL (130-400); RED BLOOD CELL COUNT(AUTO) 2.54 MIL/uL (4.00-5.50); RED CELL DISTRIBUTION WIDTH 16.5 % (11.0-15.5); WHITE BLOOD COUNT (AUTO) 4.9 K/uL (4.8-10.8)
[2022-02-04 11:27] LABS: INR 1.11 (0.85-1.15)
[2022-02-04 11:28] LABS: PARTIAL THROMBOPLASTIN TIME 46.4 SEC (26.3-35.5)
[2022-02-04 13:09] VITALS: BP 105/65
[2022-02-04] MEDS ORDERED: LIDOCAINE HCL MPF 1% 5ML VIAL ONE (16:16)
== END 2022-02-04 13:13 | disposition home or self-care (01) ==
LOC: EDH 10:49
DX: R18.8 Other ascites (principal); R14.0 Abdominal distension (gaseous); E11.9 Type 2 diabetes mellitus without complications; E78.00 Pure hypercholesterolemia, unspecified; I10 Essential (primary) hypertension; Z88.8 Allergy status to other drugs, medicaments and biological substances; Z79.899 Other long term (current) drug therapy; Z79.82 Long term (current) use of aspirin; Z79.01 Long term (current) use of anticoagulants; Z98.890 Other specified postprocedural states; Z60.2 Problems related to living alone
CPT/HCPCS: 36415; 49083; 80053; 85025; 85610; 85730; 99285; C1729; J3490

== ENCOUNTER 2022-02-18 10:17 | Emergency (ER) | payer OTHER, MEDICARE ==
[~2022-02-18] VITALS: Ht 149.9 cm; Wt 62.6 kg
[2022-02-18 10:22] VITALS: BP 165/75
[2022-02-18 10:51] LABS: EOSINOPHILS % (AUTO) 10.5 % (0.0-8.0); HEMATOCRIT 30.9 % (36-48); LYMPHOCYTES % (AUTO) 16.7 % (21.0-51.0); MEAN CORPUSCULAR HEMOGLOBIN 31.9 pg (27.0-33.0); MEAN CORPUSCULAR HGB CONC 30.7 g/dL (32.0-36.0); MEAN CORPUSCULAR VOLUME 103.7 fL (79-99); MONOCYTES % (AUTO) 8.1 % (3.0-13.0); NEUTROPHILS % (AUTO) 63.2 % (40.0-77.0); PLATELET COUNT (AUTO) 121 K/uL (130-400); RED BLOOD CELL COUNT(AUTO) 2.98 MIL/uL (4.00-5.50); RED CELL DISTRIBUTION WIDTH 15.9 % (11.0-15.5); WHITE BLOOD COUNT (AUTO) 4.1 K/uL (4.8-10.8)
[2022-02-18 10:55] LABS: CREATININE 4.4 mg/dL (0.5-1.5); POTASSIUM 4.9 mmol/L (3.5-5.1)
[2022-02-18 11:00] LABS: ALBUMIN 2.9 g/dL (3.5-5.0); BILIRUBIN,TOTAL 0.4 mg/dL (0.2-1.0); TOTAL PROTEIN, SERUM 7.9 g/dL (6.0-8.3)
[2022-02-18 11:02] LABS: INR 1.07 (0.85-1.15); PROTHROMBIN TIME 11.6 SEC (9.6-11.6)
[2022-02-18 11:03] LABS: PARTIAL THROMBOPLASTIN TIME 47.7 SEC (26.3-35.5)
[2022-02-18] MEDS ORDERED: LIDOCAINE HCL 400MG/20ML VIAL ONE (11:25)
== END 2022-02-18 14:21 | disposition home or self-care (01) ==
LOC: EDH 10:17
DX: S09.90XA Unspecified injury of head, initial encounter (principal); R18.8 Other ascites; I12.0 Hypertensive chronic kidney disease with stage 5 chronic kidney disease or end stage renal disease; E11.22 Type 2 diabetes mellitus with diabetic chronic kidney disease; N18.6 End stage renal disease; E78.00 Pure hypercholesterolemia, unspecified; Z99.2 Dependence on renal dialysis; Z90.49 Acquired absence of other specified parts of digestive tract; Z95.0 Presence of cardiac pacemaker; Z88.8 Allergy status to other drugs, medicaments and biological substances; Z79.82 Long term (current) use of aspirin; Z79.899 Other long term (current) drug therapy; W22.8XXA Striking against or struck by other objects, initial encounter; Y93.89 Activity, other specified; Y92.810 Car as the place of occurrence of the external cause; Y99.8 Other external cause status
CPT/HCPCS: 36415; 49083; 70250; 80053; 85025; 85610; 85730; 99285; C1729; J3490

== ENCOUNTER 2022-03-04 10:38 | Emergency (ER) | payer OTHER, MEDICARE ==
[~2022-03-04] VITALS: Ht 149.9 cm; Wt 56.2 kg
[2022-03-04 10:58] LABS: BASOPHILS % (AUTO) 0.9 % (0.0-5.0); EOSINOPHILS % (AUTO) 11.4 % (0.0-8.0); HEMATOCRIT 38.9 % (36-48); LYMPHOCYTES % (AUTO) 16.4 % (21.0-51.0); MEAN CORPUSCULAR HEMOGLOBIN 30.4 pg (27.0-33.0); MEAN CORPUSCULAR HGB CONC 29.8 g/dL (32.0-36.0); MEAN CORPUSCULAR VOLUME 102.1 fL (79-99); MONOCYTES % (AUTO) 8.2 % (3.0-13.0); NEUTROPHILS % (AUTO) 62.7 % (40.0-77.0); PLATELET COUNT (AUTO) 126 K/uL (130-400); RED BLOOD CELL COUNT(AUTO) 3.81 MIL/uL (4.00-5.50); RED CELL DISTRIBUTION WIDTH 14.8 % (11.0-15.5); WHITE BLOOD COUNT (AUTO) 4.6 K/uL (4.8-10.8)
[2022-03-04 11:10] LABS: ALBUMIN 3.3 g/dL (3.5-5.0); BILIRUBIN,TOTAL 0.4 mg/dL (0.2-1.0); CREATININE 4.4 mg/dL (0.5-1.5); POTASSIUM 5.5 mmol/L (3.5-5.1); TOTAL PROTEIN, SERUM 8.5 g/dL (6.0-8.3)
[2022-03-04] MEDS ORDERED: LIDOCAINE PF 100MG/5ML (2%) SYRINGE 5ML ONE (11:51)
[2022-03-04] MEDS ORDERED: ALBUMIN (HUMAN) 25% 200 ML IV ONE (13:00)
[2022-03-04 14:18] VITALS: BP 149/50
== END 2022-03-04 15:45 | disposition home or self-care (01) ==
LOC: EDH 10:38
DX: R18.8 Other ascites (principal); E11.9 Type 2 diabetes mellitus without complications; E78.00 Pure hypercholesterolemia, unspecified; I10 Essential (primary) hypertension; Z90.49 Acquired absence of other specified parts of digestive tract; Z88.8 Allergy status to other drugs, medicaments and biological substances; Z79.899 Other long term (current) drug therapy; Z79.82 Long term (current) use of aspirin; Z79.01 Long term (current) use of anticoagulants; Z98.890 Other specified postprocedural states; Z60.2 Problems related to living alone
CPT/HCPCS: 36415; 49083; 80053; 85025; 96365; 99285; C1729; J2001; P9046

== ENCOUNTER → 2022-03-25 | Outpatient (CLI) | payer OTHER, MEDICARE ==
[~2022-03-25] MED LIST changes: +ALBUMIN (HUMAN) 25% 200 ML IV ONE
[2022-03-25 11:32] LABS: MEAN CORPUSCULAR HEMOGLOBIN 30.6 pg (27.0-33.0); MEAN CORPUSCULAR HGB CONC 30.5 g/dL (32.0-36.0); MEAN CORPUSCULAR VOLUME 100.2 fL (79-99); PLATELET COUNT (AUTO) 124 K/uL (130-400); RED BLOOD CELL COUNT(AUTO) 4.09 MIL/uL (4.00-5.50); RED CELL DISTRIBUTION WIDTH 13.8 % (11.0-15.5)
[2022-03-25 11:53] LABS: BASOPHILS % (MANUAL) 1 % (0-2); EOSINOPHILS % (MANUAL) 13 % (1-6); LYMPHOCYTES % (MANUAL) 13 % (22-44); MAN.DIFF COMMENT-IMPRESSION MANUAL DIFFERENTIAL; MONOCYTES % (MANUAL) 5 % (2-9); SEGMENTED NEUTROPHILS % 68 % (40-70)
[2022-03-25 11:54] LABS: % IRON SATURATION 26.2 % (22-44); PLATELET MORPHOLOGY COMMENT SLIGHTLY DECREASED
[2022-03-25 11:58] LABS: ALBUMIN 3.8 g/dL (3.5-5.0); BILIRUBIN,TOTAL 0.4 mg/dL (0.2-1.0); CREATININE 4.9 mg/dL (0.5-1.5); POTASSIUM 4.9 mmol/L (3.5-5.1); TOTAL PROTEIN, SERUM 9.3 g/dL (6.0-8.3)
[2022-03-25 12:18] LABS: INR 1.01 (0.85-1.15)
[2022-03-25 12:52] LABS: APPEARANCE BODY FLUID CLEAR (CLEAR); COLOR,BODY FLUID YELLOW (LT YELLOW); SPECIMENTYPE,BODY FLUID ASCITES; TOTAL VOLUME,BODY FLUID 3200 mL
[2022-03-25 12:58] LABS: BODY FLUID WBC 453 /cu. mm.
[2022-03-25 12:59] LABS: BODY FLUID RBC 144 /cu. mm.
[2022-03-25 14:23] LABS: BF LYMPHOCYTE 13 %; BF MESOTHELIAL 87 %
[2022-03-25 18:36] LABS: HEPATITIS A IGM ANTIBODY Non-Reactive (Negative); HEPATITIS B CORE IGM ANTIBODY Non-Reactive (Negative); HEPATITIS B SURFACE ANTIGEN Non-Reactive (Negative); HEPATITIS C ANTIBODY Non-Reactive (NEGATIVE)
[2022-03-26 15:13] LABS: ALPHA-1-ANTITRYPSIN 172 mg/dL (101-187)
== END | disposition home or self-care (01) ==
LOC: RAH 09:38
PROVIDERS: ATTEND Internal Medicine Gastroenterology
DX: R18.8 Other ascites (principal); K74.60 Unspecified cirrhosis of liver; I10 Essential (primary) hypertension; E11.9 Type 2 diabetes mellitus without complications; E78.00 Pure hypercholesterolemia, unspecified; Z90.49 Acquired absence of other specified parts of digestive tract; Z98.890 Other specified postprocedural states; Z88.8 Allergy status to other drugs, medicaments and biological substances; Z60.2 Problems related to living alone; Z79.82 Long term (current) use of aspirin; Z79.01 Long term (current) use of anticoagulants; Z79.899 Other long term (current) drug therapy
CPT/HCPCS: 36415; 49083; 80053; 80074; 82103; 82105; 82390; 82728; 82784 ×2; 83516; 83540; 83550; 85025; 85610; 86038; 86255; 87071; 87205; 89051; C1729; P9046; 96365

== ENCOUNTER → 2022-04-08 | Outpatient (CLI) | payer OTHER, MEDICARE ==
[~2022-04-08] MED LIST changes: +LIDOCAINE HCL 1% MDV 50ML VIAL ONE
[2022-04-08 13:59] LABS: APPEARANCE BODY FLUID CLEAR (CLEAR); COLOR,BODY FLUID YELLOW (LT YELLOW); SPECIMENTYPE,BODY FLUID ASCITES; TOTAL VOLUME,BODY FLUID 3200 mL
[2022-04-08 14:00] LABS: BODY FLUID RBC 80 /cu. mm.; BODY FLUID WBC 330 /cu. mm.
[2022-04-08 14:05] LABS: BF LYMPHOCYTE 45 %; BF MESOTHELIAL 31 %
== END | disposition home or self-care (01) ==
LOC: CANPRECLI → RAH 07:29
PROVIDERS: ATTEND Internal Medicine Gastroenterology
DX: R18.8 Other ascites (principal); K74.60 Unspecified cirrhosis of liver; E11.22 Type 2 diabetes mellitus with diabetic chronic kidney disease; I13.2 Hypertensive heart and chronic kidney disease with heart failure and with stage 5 chronic kidney disease, or end stage renal disease; I50.9 Heart failure, unspecified; K21.9 Gastro-esophageal reflux disease without esophagitis; N18.6 End stage renal disease; F32.A Depression, unspecified; G47.00 Insomnia, unspecified; J44.9 Chronic obstructive pulmonary disease, unspecified; I25.10 Atherosclerotic heart disease of native coronary artery without angina pectoris; F41.9 Anxiety disorder, unspecified; D64.9 Anemia, unspecified; Z90.49 Acquired absence of other specified parts of digestive tract; Z86.73 Personal history of transient ischemic attack (TIA), and cerebral infarction without residual deficits; Z86.010 Personal history of colon polyps; Z98.890 Other specified postprocedural states; Z99.2 Dependence on renal dialysis; Z79.899 Other long term (current) drug therapy; Z86.718 Personal history of other venous thrombosis and embolism; Z79.01 Long term (current) use of anticoagulants
CPT/HCPCS: 49083; 76700; 87071; 87205; 89051; C1729; J3490; P9046

== ENCOUNTER → 2022-04-15 | Outpatient (CLI) | payer OTHER, MEDICARE ==
[~2022-04-15] MED LIST changes: -ALBUMIN (HUMAN) 25% 200 ML IV ONE; -LIDOCAINE HCL 1% MDV 50ML VIAL ONE
== END | disposition home or self-care (01) ==
LOC: SHCH 08:28
PROVIDERS: ATTEND Internal Medicine Cardiovascular Disease
DX: I08.1 Rheumatic disorders of both mitral and tricuspid valves (principal); I11.9 Hypertensive heart disease without heart failure; I25.10 Atherosclerotic heart disease of native coronary artery without angina pectoris; I27.20 Pulmonary hypertension, unspecified; E11.9 Type 2 diabetes mellitus without complications; Z95.1 Presence of aortocoronary bypass graft
CPT/HCPCS: 93306

== ENCOUNTER → 2022-04-27 | Outpatient (CLI) | payer OTHER, MEDICARE ==
[2022-04-27 09:40] LABS: HEMATOCRIT 35.1 % (36-48); MEAN CORPUSCULAR HEMOGLOBIN 29.4 pg (27.0-33.0); MEAN CORPUSCULAR HGB CONC 30.5 g/dL (32.0-36.0); MEAN CORPUSCULAR VOLUME 96.4 fL (79-99); PLATELET COUNT (AUTO) 103 K/uL (130-400); RED BLOOD CELL COUNT(AUTO) 3.64 MIL/uL (4.00-5.50); RED CELL DISTRIBUTION WIDTH 14.1 % (11.0-15.5); WHITE BLOOD COUNT (AUTO) 4.6 K/uL (4.8-10.8)
[2022-04-27 09:51] LABS: INR 1.05 (0.85-1.15); PROTHROMBIN TIME 11.4 SEC (9.6-11.6)
[2022-04-27 09:52] LABS: PARTIAL THROMBOPLASTIN TIME 45.8 SEC (26.3-35.5)
[2022-04-27 09:55] LABS: ALBUMIN 3.1 g/dL (3.5-5.0); BILIRUBIN,TOTAL 0.3 mg/dL (0.2-1.0); POTASSIUM 5.5 mmol/L (3.5-5.1); TOTAL PROTEIN, SERUM 8.1 g/dL (6.0-8.3)
[2022-04-27 10:08] LABS: BASOPHILS % (MANUAL) 1 % (0-2); EOSINOPHILS % (MANUAL) 19 % (1-6); LYMPHOCYTES % (MANUAL) 13 % (22-44); MAN.DIFF COMMENT-IMPRESSION MANUAL DIFFERENTIAL; MONOCYTES % (MANUAL) 5 % (2-9); SEGMENTED NEUTROPHILS % 62 % (40-70)
[2022-04-27 10:09] LABS: PLATELET MORPHOLOGY COMMENT SLIGHTLY DECREASED
[2022-04-27 16:02] LABS: APPEARANCE BODY FLUID SLIGHTLY CLOUDY (CLEAR); COLOR,BODY FLUID YELLOW (LT YELLOW); SPECIMENTYPE,BODY FLUID ASCITES; TOTAL VOLUME,BODY FLUID 3200 mL
[2022-04-27 16:03] LABS: BODY FLUID RBC 158 /cu. mm.; BODY FLUID WBC 338 /cu. mm.
[2022-04-27 17:46] LABS: BF EOSINOPHIL 1 %; BF LYMPHOCYTE 58 %
== END | disposition home or self-care (01) ==
LOC: RAH 08:51
PROVIDERS: ATTEND Internal Medicine Gastroenterology
DX: R18.8 Other ascites (principal); K74.60 Unspecified cirrhosis of liver; E11.22 Type 2 diabetes mellitus with diabetic chronic kidney disease; I13.2 Hypertensive heart and chronic kidney disease with heart failure and with stage 5 chronic kidney disease, or end stage renal disease; I50.9 Heart failure, unspecified; N18.6 End stage renal disease; K21.9 Gastro-esophageal reflux disease without esophagitis; G47.00 Insomnia, unspecified; F32.A Depression, unspecified; J44.9 Chronic obstructive pulmonary disease, unspecified; I25.10 Atherosclerotic heart disease of native coronary artery without angina pectoris; F41.9 Anxiety disorder, unspecified; D64.9 Anemia, unspecified; Z90.49 Acquired absence of other specified parts of digestive tract; Z86.73 Personal history of transient ischemic attack (TIA), and cerebral infarction without residual deficits; Z86.010 Personal history of colon polyps; Z98.890 Other specified postprocedural states; Z99.2 Dependence on renal dialysis; Z86.718 Personal history of other venous thrombosis and embolism; Z79.01 Long term (current) use of anticoagulants; Z79.899 Other long term (current) drug therapy
CPT/HCPCS: 49083; 80053; 85025; 89051; 85610; 85730; 36415; C1729

== ENCOUNTER → 2022-05-25 | Outpatient (CLI) | payer OTHER, MEDICARE ==
[~2022-05-25] MED LIST changes: +ALBUMIN (HUMAN) 25% 200 ML IV SCH
[2022-05-25 11:57] LABS: APPEARANCE BODY FLUID CLEAR (CLEAR); BODY FLUID WBC 494 /cu. mm.; COLOR,BODY FLUID YELLOW (LT YELLOW); SPECIMENTYPE,BODY FLUID ASCITES; TOTAL VOLUME,BODY FLUID 2500 mL
[2022-05-25 11:58] LABS: BODY FLUID RBC 88 /cu. mm.
[2022-05-25 12:19] LABS: BF LYMPHOCYTE 12 %; BF MESOTHELIAL 87 %; BF MONOCYTE 1 %
== END | disposition home or self-care (01) ==
LOC: RAH 09:34
PROVIDERS: ATTEND Internal Medicine Gastroenterology
DX: R18.8 Other ascites (principal); K74.60 Unspecified cirrhosis of liver; E11.22 Type 2 diabetes mellitus with diabetic chronic kidney disease; I13.2 Hypertensive heart and chronic kidney disease with heart failure and with stage 5 chronic kidney disease, or end stage renal disease; N18.6 End stage renal disease; I50.9 Heart failure, unspecified; K21.9 Gastro-esophageal reflux disease without esophagitis; G47.00 Insomnia, unspecified; F32.A Depression, unspecified; F41.9 Anxiety disorder, unspecified; I25.10 Atherosclerotic heart disease of native coronary artery without angina pectoris; J44.9 Chronic obstructive pulmonary disease, unspecified; D64.9 Anemia, unspecified; Z79.899 Other long term (current) drug therapy; Z79.01 Long term (current) use of anticoagulants; Z98.890 Other specified postprocedural states; Z90.49 Acquired absence of other specified parts of digestive tract; Z86.73 Personal history of transient ischemic attack (TIA), and cerebral infarction without residual deficits; Z86.010 Personal history of colon polyps; Z86.718 Personal history of other venous thrombosis and embolism; Z99.2 Dependence on renal dialysis
CPT/HCPCS: 49083; 89051; 87071; 87205; 88305; 88342; 88112; 88341; P9046; C1729

== ENCOUNTER → 2022-06-08 | Outpatient (CLI) | payer OTHER, MEDICARE ==
[~2022-06-08] MED LIST changes: +ALBUMIN (HUMAN) 25% 100 ML IV SCH; -ALBUMIN (HUMAN) 25% 200 ML IV SCH
[2022-06-08 11:51] LABS: HEMATOCRIT 39.7 % (36-48); MEAN CORPUSCULAR HEMOGLOBIN 30.3 pg (27.0-33.0); MEAN CORPUSCULAR HGB CONC 30.7 g/dL (32.0-36.0); MEAN CORPUSCULAR VOLUME 98.5 fL (79-99); PLATELET COUNT (AUTO) 116 K/uL (130-400); RED BLOOD CELL COUNT(AUTO) 4.03 MIL/uL (4.00-5.50); RED CELL DISTRIBUTION WIDTH 14.9 % (11.0-15.5); WHITE BLOOD COUNT (AUTO) 5.4 K/uL (4.8-10.8)
[2022-06-08 12:03] LABS: INR 1.04 (0.85-1.15); PROTHROMBIN TIME 11.3 SEC (9.6-11.6)
[2022-06-08 12:06] LABS: ALBUMIN 3.5 g/dL (3.5-5.0); CREATININE 5.2 mg/dL (0.5-1.5); POTASSIUM 5.2 mmol/L (3.5-5.1)
[2022-06-08 12:34] LABS: EOSINOPHILS % (MANUAL) 11 % (1-6); LYMPHOCYTES % (MANUAL) 14 % (22-44); MAN.DIFF COMMENT-IMPRESSION MANUAL DIFFERENTIAL; MONOCYTES % (MANUAL) 3 % (2-9); PLATELET MORPHOLOGY COMMENT SLIGHTLY DECREASED; SEGMENTED NEUTROPHILS % 72 % (40-70)
[2022-06-08 20:00] LABS: BF LYMPHOCYTE 38 %; BF OTHER CELLS 7
[2022-06-08 21:09] LABS: APPEARANCE BODY FLUID SLIGHTLY CLOUDY (CLEAR); COLOR,BODY FLUID YELLOW (LT YELLOW); SPECIMENTYPE,BODY FLUID ASCITES
[2022-06-08 21:10] LABS: BODY FLUID WBC 367 /cu. mm.; TOTAL VOLUME,BODY FLUID 2300 mL
[2022-06-08 21:11] LABS: BODY FLUID RBC 164 /cu. mm.
== END | disposition home or self-care (01) ==
LOC: RAH 10:55
PROVIDERS: ATTEND Internal Medicine Gastroenterology
DX: R18.8 Other ascites (principal); K74.60 Unspecified cirrhosis of liver; E11.22 Type 2 diabetes mellitus with diabetic chronic kidney disease; I13.2 Hypertensive heart and chronic kidney disease with heart failure and with stage 5 chronic kidney disease, or end stage renal disease; N18.6 End stage renal disease; I50.9 Heart failure, unspecified; K21.9 Gastro-esophageal reflux disease without esophagitis; G47.00 Insomnia, unspecified; F32.A Depression, unspecified; F41.9 Anxiety disorder, unspecified; I25.10 Atherosclerotic heart disease of native coronary artery without angina pectoris; J44.9 Chronic obstructive pulmonary disease, unspecified; D64.9 Anemia, unspecified; Z79.899 Other long term (current) drug therapy; Z90.49 Acquired absence of other specified parts of digestive tract; Z79.01 Long term (current) use of anticoagulants; Z98.890 Other specified postprocedural states
CPT/HCPCS: 49083; 80053; 85025; 89051; 85610; 87071; 87205; 36415; 88305; 88342; 88112; 88341; P9046; C1729

== ENCOUNTER → 2022-06-22 | Outpatient (CLI) | payer OTHER, MEDICARE ==
[~2022-06-22] MED LIST changes: -ALBUMIN (HUMAN) 25% 100 ML IV SCH
[2022-06-22 13:21] LABS: APPEARANCE BODY FLUID CLEAR (CLEAR); COLOR,BODY FLUID YELLOW (LT YELLOW); SPECIMENTYPE,BODY FLUID ASCITES
[2022-06-22 13:22] LABS: BODY FLUID RBC 123 /cu. mm.; BODY FLUID WBC 425 /cu. mm.; TOTAL VOLUME,BODY FLUID 3000 mL
[2022-06-22 13:42] LABS: BF EOSINOPHIL 1 %; BF LYMPHOCYTE 23 %; BF MESOTHELIAL 66 %; BF MONOCYTE 9 %
== END | disposition home or self-care (01) ==
LOC: RAH 09:28
PROVIDERS: ATTEND Internal Medicine Gastroenterology
DX: R18.8 Other ascites (principal); K74.69 Other cirrhosis of liver; E11.22 Type 2 diabetes mellitus with diabetic chronic kidney disease; I13.2 Hypertensive heart and chronic kidney disease with heart failure and with stage 5 chronic kidney disease, or end stage renal disease; N18.6 End stage renal disease; I50.9 Heart failure, unspecified; K21.9 Gastro-esophageal reflux disease without esophagitis; G47.00 Insomnia, unspecified; F32.A Depression, unspecified; F41.9 Anxiety disorder, unspecified; I25.10 Atherosclerotic heart disease of native coronary artery without angina pectoris; J44.9 Chronic obstructive pulmonary disease, unspecified; D64.9 Anemia, unspecified; Z90.49 Acquired absence of other specified parts of digestive tract; Z79.01 Long term (current) use of anticoagulants; Z79.899 Other long term (current) drug therapy
CPT/HCPCS: 49083; 89051; 87071; 87205; 88305; 88112; C1729

== ENCOUNTER → 2022-07-15 | Outpatient (CLI) | payer OTHER, MEDICARE ==
[2022-07-15 11:04] LABS: BASOPHILS % (AUTO) 0.8 % (0.0-5.0); EOSINOPHILS % (AUTO) 9.6 % (0.0-8.0); HEMATOCRIT 31.8 % (36-48); LYMPHOCYTES % (AUTO) 13.8 % (21.0-51.0); MEAN CORPUSCULAR HEMOGLOBIN 30.6 pg (27.0-33.0); MEAN CORPUSCULAR HGB CONC 31.1 g/dL (32.0-36.0); MEAN CORPUSCULAR VOLUME 98.1 fL (79-99); MONOCYTES % (AUTO) 9.2 % (3.0-13.0); NEUTROPHILS % (AUTO) 65.6 % (40.0-77.0); PLATELET COUNT (AUTO) 177 K/uL (130-400); RED BLOOD CELL COUNT(AUTO) 3.24 MIL/uL (4.00-5.50); RED CELL DISTRIBUTION WIDTH 14.9 % (11.0-15.5); WHITE BLOOD COUNT (AUTO) 4.8 K/uL (4.8-10.8)
[2022-07-15 11:18] LABS: INR 1.05 (0.85-1.15); PROTHROMBIN TIME 11.4 SEC (9.6-11.6)
[2022-07-15 17:01] LABS: APPEARANCE BODY FLUID CLOUDY (CLEAR); SPECIMENTYPE,BODY FLUID ASCITES
[2022-07-15 17:02] LABS: BODY FLUID WBC 255 /cu. mm.; COLOR,BODY FLUID YELLOW (LT YELLOW); TOTAL VOLUME,BODY FLUID 3000 mL
[2022-07-15 17:03] LABS: BODY FLUID RBC 2270 /cu. mm.
[2022-07-15 17:20] LABS: BF LYMPHOCYTE 38 %; BF OTHER CELLS 6
== END | disposition home or self-care (01) ==
LOC: RAH 09:49
PROVIDERS: ATTEND Internal Medicine Gastroenterology
DX: R18.8 Other ascites (principal); K74.69 Other cirrhosis of liver; E11.22 Type 2 diabetes mellitus with diabetic chronic kidney disease; I13.2 Hypertensive heart and chronic kidney disease with heart failure and with stage 5 chronic kidney disease, or end stage renal disease; N18.6 End stage renal disease; I50.9 Heart failure, unspecified; K21.9 Gastro-esophageal reflux disease without esophagitis; G47.00 Insomnia, unspecified; F32.A Depression, unspecified; F41.9 Anxiety disorder, unspecified; I25.10 Atherosclerotic heart disease of native coronary artery without angina pectoris; J44.9 Chronic obstructive pulmonary disease, unspecified; D64.9 Anemia, unspecified; Z79.899 Other long term (current) drug therapy; Z90.49 Acquired absence of other specified parts of digestive tract; Z79.01 Long term (current) use of anticoagulants
CPT/HCPCS: 49083; 85025; 89051; 85610; 87071; 87205; 36415; 88305; 88112; C1729

== ENCOUNTER → 2022-08-12 | Outpatient (CLI) | payer OTHER, MEDICARE ==
[2022-08-12 15:25] LABS: APPEARANCE BODY FLUID SLIGHTLY CLOUDY (CLEAR); BODY FLUID WBC 348 /cu. mm.; COLOR,BODY FLUID YELLOW (LT YELLOW); SPECIMENTYPE,BODY FLUID ASCITES; TOTAL VOLUME,BODY FLUID 3100 mL
[2022-08-12 15:26] LABS: BODY FLUID RBC 30 /cu. mm.
[2022-08-12 15:38] LABS: BF LYMPHOCYTE 40 %; BF MONOCYTE 21 %
== END | disposition home or self-care (01) ==
LOC: RAH 09:55
PROVIDERS: ATTEND Internal Medicine Gastroenterology
DX: R18.8 Other ascites (principal); E11.22 Type 2 diabetes mellitus with diabetic chronic kidney disease; I13.2 Hypertensive heart and chronic kidney disease with heart failure and with stage 5 chronic kidney disease, or end stage renal disease; N18.6 End stage renal disease; I50.9 Heart failure, unspecified; K21.9 Gastro-esophageal reflux disease without esophagitis; G47.00 Insomnia, unspecified; F41.9 Anxiety disorder, unspecified; F32.A Depression, unspecified; I25.10 Atherosclerotic heart disease of native coronary artery without angina pectoris; J44.9 Chronic obstructive pulmonary disease, unspecified; D64.9 Anemia, unspecified; Z79.899 Other long term (current) drug therapy; Z79.01 Long term (current) use of anticoagulants; Z90.49 Acquired absence of other specified parts of digestive tract
CPT/HCPCS: 49083; 89051; C1729

== ENCOUNTER → 2022-08-26 | Outpatient (CLI) | payer OTHER, MEDICARE ==
[2022-08-26 10:50] LABS: BASOPHILS % (AUTO) 0.8 % (0.0-5.0); EOSINOPHILS % (AUTO) 10.2 % (0.0-8.0); HEMATOCRIT 30.5 % (36-48); LYMPHOCYTES % (AUTO) 16.4 % (21.0-51.0); MEAN CORPUSCULAR HEMOGLOBIN 30.5 pg (27.0-33.0); MEAN CORPUSCULAR HGB CONC 29.8 g/dL (32.0-36.0); MEAN CORPUSCULAR VOLUME 102.3 fL (79-99); MONOCYTES % (AUTO) 9.9 % (3.0-13.0); NEUTROPHILS % (AUTO) 62.4 % (40.0-77.0); PLATELET COUNT (AUTO) 117 K/uL (130-400); RED BLOOD CELL COUNT(AUTO) 2.98 MIL/uL (4.00-5.50); RED CELL DISTRIBUTION WIDTH 14.9 % (11.0-15.5); WHITE BLOOD COUNT (AUTO) 3.7 K/uL (4.8-10.8)
[2022-08-26 11:04] LABS: ALBUMIN 3.1 g/dL (3.5-5.0); CREATININE 4.4 mg/dL (0.5-1.5); POTASSIUM 4.9 mmol/L (3.5-5.1); TOTAL PROTEIN, SERUM 7.6 g/dL (6.0-8.3)
[2022-08-26 11:25] LABS: INR 1.06 (0.85-1.15); PROTHROMBIN TIME 11.5 SEC (9.6-11.6)
== END | disposition home or self-care (01) ==
LOC: RAH 09:53
PROVIDERS: ATTEND Internal Medicine Gastroenterology
DX: R18.8 Other ascites (principal)
CPT/HCPCS: 36415; 76705; 80053; 85025; 85610

== ENCOUNTER → 2022-09-06 | Outpatient (CLI) | payer OTHER, MEDICARE ==
[2022-09-06 17:10] LABS: APPEARANCE BODY FLUID SLIGHTLY CLOUDY (CLEAR); COLOR,BODY FLUID YELLOW (LT YELLOW); SPECIMENTYPE,BODY FLUID ASCITES; TOTAL VOLUME,BODY FLUID 3000 mL
[2022-09-06 17:11] LABS: BODY FLUID WBC 76 /cu. mm.
[2022-09-06 17:12] LABS: BODY FLUID RBC 126 /cu. mm.
[2022-09-06 17:16] LABS: BF LYMPHOCYTE 29 %
== END | disposition home or self-care (01) ==
LOC: RAH 10:36
PROVIDERS: ATTEND Internal Medicine Gastroenterology
DX: R18.8 Other ascites (principal); E11.22 Type 2 diabetes mellitus with diabetic chronic kidney disease; I13.2 Hypertensive heart and chronic kidney disease with heart failure and with stage 5 chronic kidney disease, or end stage renal disease; N18.6 End stage renal disease; I50.9 Heart failure, unspecified; K21.9 Gastro-esophageal reflux disease without esophagitis; G47.00 Insomnia, unspecified; F41.9 Anxiety disorder, unspecified; F32.A Depression, unspecified; I25.10 Atherosclerotic heart disease of native coronary artery without angina pectoris; J44.9 Chronic obstructive pulmonary disease, unspecified; D64.9 Anemia, unspecified; Z90.49 Acquired absence of other specified parts of digestive tract; Z79.01 Long term (current) use of anticoagulants; Z98.890 Other specified postprocedural states; Z79.899 Other long term (current) drug therapy
CPT/HCPCS: 49083; 89051; C1729

== ENCOUNTER 2022-09-28 10:07 | Emergency (ER) | payer OTHER, MEDICARE ==
[~2022-09-28] VITALS: Ht 149.9 cm; Wt 61.2 kg
[2022-09-28 10:43] LABS: EOSINOPHILS % (AUTO) 9.5 % (0.0-8.0); LYMPHOCYTES % (AUTO) 17.8 % (21.0-51.0); MEAN CORPUSCULAR HEMOGLOBIN 29.9 pg (27.0-33.0); MEAN CORPUSCULAR HGB CONC 30.7 g/dL (32.0-36.0); MEAN CORPUSCULAR VOLUME 97.3 fL (79-99); MONOCYTES % (AUTO) 9.3 % (3.0-13.0); NEUTROPHILS % (AUTO) 62.2 % (40.0-77.0); PLATELET COUNT (AUTO) 148 K/uL (130-400); RED BLOOD CELL COUNT(AUTO) 4.52 MIL/uL (4.00-5.50); RED CELL DISTRIBUTION WIDTH 15.2 % (11.0-15.5); WHITE BLOOD COUNT (AUTO) 4.1 K/uL (4.8-10.8)
[2022-09-28 11:14] LABS: CREATININE 5.1 mg/dL (0.5-1.5); POTASSIUM 4.6 mmol/L (3.5-5.1)
[2022-09-28 11:18] LABS: ALBUMIN 3.2 g/dL (3.5-5.0); TOTAL PROTEIN, SERUM 8.2 g/dL (6.0-8.3)
[2022-09-28 11:38] LABS: INR 1.13 (0.85-1.15); PROTHROMBIN TIME 12.2 SEC (9.6-11.6)
[2022-09-28 11:40] LABS: PARTIAL THROMBOPLASTIN TIME 50.1 SEC (26.3-35.5)
[2022-09-28 12:46] VITALS: BP 133/69
== END 2022-09-28 13:12 | disposition home or self-care (01) ==
LOC: EDH 10:07
DX: R10.9 Unspecified abdominal pain (principal); I12.9 Hypertensive chronic kidney disease with stage 1 through stage 4 chronic kidney disease, or unspecified chronic kidney disease; E11.22 Type 2 diabetes mellitus with diabetic chronic kidney disease; N18.6 End stage renal disease; E78.00 Pure hypercholesterolemia, unspecified; Z90.49 Acquired absence of other specified parts of digestive tract; Z99.2 Dependence on renal dialysis; Z98.890 Other specified postprocedural states; Z88.8 Allergy status to other drugs, medicaments and biological substances; Z95.1 Presence of aortocoronary bypass graft
CPT/HCPCS: 49083 ×2; 99285; 80053; 85025; 85610; 85730; 36415; C1729

== ENCOUNTER → 2022-10-07 | Outpatient (CLI) | payer OTHER, MEDICARE | END | disposition home or self-care (01) | LOC: RAH 09:38 | PROVIDERS: ATTEND Internal Medicine Gastroenterology | DX: R18.8 Other ascites (principal) | CPT/HCPCS: 76705 ==

== ENCOUNTER → 2022-10-14 | Outpatient (CLI) | payer OTHER, MEDICARE | END | disposition home or self-care (01) | LOC: RAH 10:38 | PROVIDERS: ATTEND Internal Medicine Gastroenterology | DX: R18.8 Other ascites (principal) | CPT/HCPCS: 76705 ==

== ENCOUNTER 2022-11-03 13:26 | Observation (INO) | payer MEDICARE ==
[~2022-11-03] VITALS: Ht 149.9 cm; Wt 59.1 kg
[2022-11-03 14:18] LABS: BASOPHILS % (AUTO) 0.8 % (0.0-5.0); EOSINOPHILS % (AUTO) 7.4 % (0.0-8.0); HEMATOCRIT 40.6 % (36-48); MEAN CORPUSCULAR HGB CONC 31.5 g/dL (32.0-36.0); MEAN CORPUSCULAR VOLUME 91.9 fL (79-99); MONOCYTES % (AUTO) 6.1 % (3.0-13.0); NEUTROPHILS % (AUTO) 71.1 % (40.0-77.0); PLATELET COUNT (AUTO) 118 K/uL (130-400); RED BLOOD CELL COUNT(AUTO) 4.42 MIL/uL (4.00-5.50); RED CELL DISTRIBUTION WIDTH 14.6 % (11.0-15.5); WHITE BLOOD COUNT (AUTO) 3.6 K/uL (4.8-10.8)
[2022-11-03 14:30] LABS: CREATININE 3.6 mg/dL (0.5-1.5); POTASSIUM 4.2 mmol/L (3.5-5.1)
[2022-11-03 14:35] LABS: ALBUMIN 3.4 g/dL (3.5-5.0); TOTAL PROTEIN, SERUM 8.6 g/dL (6.0-8.3)
[2022-11-03] MEDS ORDERED: HYDROCODONE/ACETAMINOPHEN 5/325 MG TAB PO PRN (19:30)
[2022-11-03] MEDS ORDERED: ACETAMINOPHEN 325 MG TAB PO PRN ×2 (19:30)
[2022-11-03] MEDS ORDERED: HYDROMORPHONE 0.5 MG SYG (0.5MG/0.5ML) IV PRN (19:30)
[2022-11-03] MEDS ORDERED: ASPIRIN 81MG CHEW TAB PO ONE (19:30)
[2022-11-03] MEDS ORDERED: ONDANSETRON 4MG INJ IV PRN (19:30)
[2022-11-03] MEDS: NITROGLYCERIN 1GM OINT 1 INCH/1GM TD SCH (19:52)
[2022-11-03] MEDS: HEPARIN 5,000 UNIT VIAL SQ SCH (19:52)
[2022-11-03] MEDS ORDERED: CINA30TA5 PO (20:31)
[2022-11-03] MEDS ORDERED: SEVE800T7 PO (20:31)
[2022-11-03] MEDS ORDERED: MIDO10TA PO (20:31)
[2022-11-03] MEDS ORDERED: URSO250T12 PO (20:31)
[2022-11-03] MEDS ORDERED: AMLO-390 PO (20:31)
[2022-11-03 20:35] LABS: CREATININE,URINE RANDOM 63 mg/dL (30-135); SODIUM,URINE RANDOM 88 mmol/l (40-220)
[2022-11-03 21:40] VITALS: BP 178/60
[2022-11-03] MEDS ORDERED: VITA400T9 PO (22:52)
[2022-11-03] MEDS ORDERED: FOLI0.4T6 PO (22:54)
[2022-11-03] MEDS ORDERED: ONDA4TAB10 PO (22:54)
[2022-11-04] VITALS: BP 131/56
[2022-11-04] MEDS: NITROGLYCERIN 1GM OINT 1 INCH/1GM TD SCH (03:51)
[2022-11-04 04:00] VITALS: BP 141/54
[2022-11-04 05:02] LABS: EOSINOPHILS % (AUTO) 14.7 % (0.0-8.0); HEMATOCRIT 35.3 % (36-48); LYMPHOCYTES % (AUTO) 20.4 % (21.0-51.0); MEAN CORPUSCULAR HEMOGLOBIN 29.1 pg (27.0-33.0); MEAN CORPUSCULAR HGB CONC 30.9 g/dL (32.0-36.0); MEAN CORPUSCULAR VOLUME 94.1 fL (79-99); NEUTROPHILS % (AUTO) 55.7 % (40.0-77.0); PLATELET COUNT (AUTO) 107 K/uL (130-400); RED BLOOD CELL COUNT(AUTO) 3.75 MIL/uL (4.00-5.50); RED CELL DISTRIBUTION WIDTH 14.6 % (11.0-15.5); WHITE BLOOD COUNT (AUTO) 4.9 K/uL (4.8-10.8)
[2022-11-04 05:13] LABS: CREATININE 4.7 mg/dL (0.5-1.5); MAGNESIUM 2.1 mg/dL (1.80-2.40); PHOSPHORUS 4.3 mg/dL (2.5-4.9); POTASSIUM 5.1 mmol/L (3.5-5.1)
[2022-11-04 05:28] LABS: HEMOGLOBIN A1C 5.3 % (4.0-6.0)
[2022-11-04] MEDS ORDERED: INSULIN HUMULIN R 100 UNIT/ML 3ML SQ SCH (07:30)
[2022-11-04 08:00] VITALS: BP 122/50
[2022-11-04] MEDS ORDERED: PANTOPRAZOLE 40 MG TAB DR PO SCH (09:00)
[2022-11-04] MEDS ORDERED: ASPIRIN 81MG CHEW TAB PO SCH (09:00)
[2022-11-04] MEDS: HEPARIN 5,000 UNIT VIAL SQ SCH (10:19)
[2022-11-04 12:00] VITALS: BP 146/61
[2022-11-04 16:00] VITALS: BP 141/51
== END 2022-11-04 17:30 | disposition home or self-care (01) ==
LOC: EDH 13:26 → EDHIP 18:05 → INTOOBSV 18:05 → 4CH 20:53
PROVIDERS: ADMIT Hospitalist; ATTEND Hospitalist
DX: R77.8 Other specified abnormalities of plasma proteins (principal); I12.0 Hypertensive chronic kidney disease with stage 5 chronic kidney disease or end stage renal disease; N18.6 End stage renal disease; E11.22 Type 2 diabetes mellitus with diabetic chronic kidney disease; I25.10 Atherosclerotic heart disease of native coronary artery without angina pectoris; I48.91 Unspecified atrial fibrillation; I51.7 Cardiomegaly; I95.3 Hypotension of hemodialysis; F41.9 Anxiety disorder, unspecified; J44.9 Chronic obstructive pulmonary disease, unspecified; K43.9 Ventral hernia without obstruction or gangrene; R55 Syncope and collapse; R07.89 Other chest pain; K74.60 Unspecified cirrhosis of liver; Z51.5 Encounter for palliative care; Z79.82 Long term (current) use of aspirin; Z88.8 Allergy status to other drugs, medicaments and biological substances; Z95.1 Presence of aortocoronary bypass graft; Z99.2 Dependence on renal dialysis
CPT/HCPCS: 96372 ×2; 99285; 82570; 84484 ×4; 80053; 84300; 85025 ×2; 82948 ×4; 83605; 83935; 36415 ×2; 71045; 93005; 83036; 83735; 84100; 80048; J1644 ×2; G0378 ×8

== ENCOUNTER → 2022-12-09 | Outpatient (CLI) | payer MEDICARE ==
[~2022-12-09] MED LIST changes: +AMLO-390 PO; -APIX2.5T PO; -CETI10CA5 PO; +CINA30TA5 PO; -CIPR-278 PO; +FOLI0.4T6 PO; -ISOS30TA92 PO; +LIDOCAINE HCL 1% 20 ML VIAL ONE; -LISI40TA9 PO; +ONDA4TAB10 PO; +SEVE800T7 PO; +URSO250T12 PO; -VITA200C75 PO; +VITA400T9 PO
[2022-12-09 14:22] LABS: BASOPHILS % (AUTO) 0.8 % (0.0-5.0); EOSINOPHILS % (AUTO) 9.1 % (0.0-8.0); HEMATOCRIT 30.6 % (36-48); MEAN CORPUSCULAR HEMOGLOBIN 29.2 pg (27.0-33.0); MEAN CORPUSCULAR HGB CONC 30.7 g/dL (32.0-36.0); MONOCYTES % (AUTO) 8.1 % (3.0-13.0); NEUTROPHILS % (AUTO) 62.8 % (40.0-77.0); PLATELET COUNT (AUTO) 156 K/uL (130-400); RED BLOOD CELL COUNT(AUTO) 3.22 MIL/uL (4.00-5.50); RED CELL DISTRIBUTION WIDTH 17.9 % (11.0-15.5); WHITE BLOOD COUNT (AUTO) 4.8 K/uL (4.8-10.8)
[2022-12-09 14:32] LABS: INR 1.12 (0.85-1.15); PROTHROMBIN TIME 12.1 SEC (9.6-11.6)
[2022-12-09 15:38] LABS: ALBUMIN 3.2 g/dL (3.5-5.0); CREATININE 4.3 mg/dL (0.5-1.5); POTASSIUM 4.1 mmol/L (3.5-5.1); TOTAL PROTEIN, SERUM 7.6 g/dL (6.0-8.3)
[2022-12-09 16:38] LABS: SPECIMENTYPE,BODY FLUID ASCITES
[2022-12-09 16:39] LABS: APPEARANCE BODY FLUID CLEAR (CLEAR); COLOR,BODY FLUID YELLOW (LT YELLOW); TOTAL VOLUME,BODY FLUID 2500 mL
[2022-12-09 16:45] LABS: BODY FLUID RBC 275 /cu. mm.; BODY FLUID WBC 516 /cu. mm.
[2022-12-09 16:51] LABS: ALBUMIN,BODY FLUID 2.2 g/dL
[2022-12-09 17:19] LABS: BF LYMPHOCYTE 55 %; BF MESOTHELIAL 14 %; BF MONOCYTE 15 %
== END | disposition home or self-care (01) ==
LOC: RAH 12:11
PROVIDERS: ATTEND Internal Medicine
DX: R18.8 Other ascites (principal); K74.69 Other cirrhosis of liver; E11.22 Type 2 diabetes mellitus with diabetic chronic kidney disease; I12.0 Hypertensive chronic kidney disease with stage 5 chronic kidney disease or end stage renal disease; N18.6 End stage renal disease; K72.90 Hepatic failure, unspecified without coma; K21.9 Gastro-esophageal reflux disease without esophagitis; F32.A Depression, unspecified; G47.00 Insomnia, unspecified; D64.9 Anemia, unspecified; J44.9 Chronic obstructive pulmonary disease, unspecified; F41.9 Anxiety disorder, unspecified; E78.5 Hyperlipidemia, unspecified; Z86.73 Personal history of transient ischemic attack (TIA), and cerebral infarction without residual deficits; Z86.010 Personal history of colon polyps; Z99.2 Dependence on renal dialysis; Z90.710 Acquired absence of both cervix and uterus; Z90.49 Acquired absence of other specified parts of digestive tract; Z79.01 Long term (current) use of anticoagulants; Z79.899 Other long term (current) drug therapy; Z98.890 Other specified postprocedural states
CPT/HCPCS: 49083; 84157; 80053; 85025; 89051; 85610; 85730; 87071; 87076; 87205; 82042; 36415; 88108; 88305; 88342; 88341; C1729

== ENCOUNTER 2022-12-29 13:15 | Inpatient (IN) | payer MEDICARE ==
[~2022-12-29] VITALS: Ht 149.9 cm; Wt 59.5 kg
[~2022-12-29 13:15] MED LIST changes: -LIDOCAINE HCL 1% 20 ML VIAL ONE
[2022-12-29 13:42] LABS: BASOPHILS % (AUTO) 0.5 % (0.0-5.0); EOSINOPHILS % (AUTO) 2.3 % (0.0-8.0); HEMATOCRIT 38.7 % (36-48); LYMPHOCYTES % (AUTO) 5.7 % (21.0-51.0); MEAN CORPUSCULAR HEMOGLOBIN 29.6 pg (27.0-33.0); MEAN CORPUSCULAR HGB CONC 30.7 g/dL (32.0-36.0); MEAN CORPUSCULAR VOLUME 96.3 fL (79-99); MONOCYTES % (AUTO) 7.5 % (3.0-13.0); NEUTROPHILS % (AUTO) 83.7 % (40.0-77.0); PLATELET COUNT (AUTO) 115 K/uL (130-400); RED BLOOD CELL COUNT(AUTO) 4.02 MIL/uL (4.00-5.50); RED CELL DISTRIBUTION WIDTH 16.6 % (11.0-15.5); WHITE BLOOD COUNT (AUTO) 3.9 K/uL (4.8-10.8)
[2022-12-29 13:55] LABS: ALBUMIN 3.6 g/dL (3.5-5.0); CREATININE 3.6 mg/dL (0.5-1.5); POTASSIUM 3.3 mmol/L (3.5-5.1); TOTAL PROTEIN, SERUM 8.4 g/dL (6.0-8.3)
[2022-12-29] MEDS ORDERED: NITROGLYCERIN 1GM OINT 1 INCH/1GM TD ONE (15:00)
[2022-12-29] MEDS ORDERED: SOD FERRIC GLUC COMPLEX/SUC 125 MG in 0.9%NACL 100ML 100 ML IV SCH (19:00)
[2022-12-29] MEDS ORDERED: IRON SUCROSE COMPLEX 300 MG in 0.9% NACL 250ML 250 ML IV ONE (21:00)
[2022-12-29] MEDS: AZITHROMYCIN 250 MG TABLET PO SCH (21:05)
[2022-12-30 04:00] VITALS: BP 159/60
[2022-12-30 05:59] LABS: EOSINOPHILS % (AUTO) 1.4 % (0.0-8.0); HEMATOCRIT 36.2 % (36-48); MEAN CORPUSCULAR HEMOGLOBIN 29.3 pg (27.0-33.0); MEAN CORPUSCULAR HGB CONC 29.8 g/dL (32.0-36.0); MEAN CORPUSCULAR VOLUME 98.1 fL (79-99); MONOCYTES % (AUTO) 15.6 % (3.0-13.0); PLATELET COUNT (AUTO) 115 K/uL (130-400); RED BLOOD CELL COUNT(AUTO) 3.69 MIL/uL (4.00-5.50); RED CELL DISTRIBUTION WIDTH 16.5 % (11.0-15.5); WHITE BLOOD COUNT (AUTO) 2.9 K/uL (4.8-10.8)
[2022-12-30 06:05] LABS: HEMOGLOBIN A1C 4.4 % (4.0-6.0)
[2022-12-30 06:29] LABS: ALBUMIN 2.9 g/dL (3.5-5.0); CREATININE 4.7 mg/dL (0.5-1.5); MAGNESIUM 2.1 mg/dL (1.80-2.40); PHOSPHORUS 4.1 mg/dL (2.5-4.9); POTASSIUM 3.4 mmol/L (3.5-5.1); TOTAL PROTEIN, SERUM 7.2 g/dL (6.0-8.3)
[2022-12-30 07:46] LABS: BAND NEUTROPHILS % (MANUAL) 2 % (0-2); EOSINOPHILS % (MANUAL) 2 % (1-6); LYMPHOCYTES % (MANUAL) 17 % (22-44); MONOCYTES % (MANUAL) 8 % (2-9); SEGMENTED NEUTROPHILS % 71 % (40-70)
[2022-12-30 07:47] LABS: MAN.DIFF COMMENT-IMPRESSION MANUAL DIFFERENTIAL
[2022-12-30 07:48] LABS: PLATELET MORPHOLOGY COMMENT SLIGHTLY DECREASED
[2022-12-30 08:00] VITALS: BP 150/53
[2022-12-30] MEDS: LOSARTAN 50 MG TABLET PO SCH (09:00)
[2022-12-30 12:00] VITALS: BP 176/63
[2022-12-30 16:00] VITALS: BP 172/68
[2022-12-30] MEDS: AZITHROMYCIN 250 MG TABLET PO SCH (17:30)
[2022-12-30 20:00] VITALS: BP_SYST 149; BP_SYST 161; BP_DIAS 58; BP_DIAS 61
[2022-12-31] VITALS (20 sets, daily range): BP systolic 139–188; BP diastolic 52–74
[2022-12-31] MEDS: AZITHROMYCIN 250 MG TABLET PO SCH (10:04)
[2022-12-31] MEDS: LOSARTAN 50 MG TABLET PO SCH (10:04)
[2023-01-01] VITALS: BP 175/71
[2023-01-01 04:50] VITALS: BP 159/72
[2023-01-01 08:00] VITALS: BP 165/66
[2023-01-01] MEDS: LOSARTAN 50 MG TABLET PO SCH (09:10)
[2023-01-01 12:00] VITALS: BP 172/73
[2023-01-01 16:00] VITALS: BP 173/60
[2023-01-02 04:21] LABS: HEPATITIS B SURFACE ANTIGEN Non-Reactive (Nonreactive)
== END 2023-01-01 20:15 | disposition home or self-care (01) | DRG 177 ==
LOC: EDH 13:15 → EDHIP 17:37 → 3AH 12-30 02:58
PROVIDERS: ADMIT Internal Medicine; ATTEND Internal Medicine
PROC: 5A1D70Z Performance of Urinary Filtration, Intermittent, Less than 6 Hours Per Day (ICD-10-PCS; principal; 2022-12-31)
DX: U07.1 COVID-19 (principal); I21.A1 Myocardial infarction type 2; J12.82 Pneumonia due to coronavirus disease 2019; N18.6 End stage renal disease; I25.110 Atherosclerotic heart disease of native coronary artery with unstable angina pectoris; I12.0 Hypertensive chronic kidney disease with stage 5 chronic kidney disease or end stage renal disease; E87.70 Fluid overload, unspecified; K74.60 Unspecified cirrhosis of liver; E11.22 Type 2 diabetes mellitus with diabetic chronic kidney disease; D64.9 Anemia, unspecified; E78.00 Pure hypercholesterolemia, unspecified; I27.20 Pulmonary hypertension, unspecified; Z82.49 Family history of ischemic heart disease and other diseases of the circulatory system; Z86.718 Personal history of other venous thrombosis and embolism; Z86.73 Personal history of transient ischemic attack (TIA), and cerebral infarction without residual deficits; Z95.1 Presence of aortocoronary bypass graft; Z99.2 Dependence on renal dialysis
CPT/HCPCS: 36415; 71045; 80053; 82550; 82948; 83036; 83630; 83735; 83874; 83880; 84100; 84484; 85025; 86704; 86706; 87324; 87340; 87635; 87804; 90935; C9803; G0378; J1756; J2916; J7050

== ENCOUNTER → 2023-01-11 | Outpatient (CLI) | payer MEDICARE ==
[~2023-01-11] MED LIST changes: +LIDOCAINE HCL-MPF 1% 2ML VIAL ONE; -ONDA4TAB10 PO
[2023-01-11 12:53] LABS: BASOPHILS % (AUTO) 0.8 % (0.0-5.0); EOSINOPHILS % (AUTO) 6.7 % (0.0-8.0); HEMATOCRIT 39.2 % (36-48); LYMPHOCYTES % (AUTO) 15.8 % (21.0-51.0); MEAN CORPUSCULAR HEMOGLOBIN 29.2 pg (27.0-33.0); MEAN CORPUSCULAR HGB CONC 30.1 g/dL (32.0-36.0); MONOCYTES % (AUTO) 8.7 % (3.0-13.0); NEUTROPHILS % (AUTO) 67.8 % (40.0-77.0); PLATELET COUNT (AUTO) 136 K/uL (130-400); RED BLOOD CELL COUNT(AUTO) 4.04 MIL/uL (4.00-5.50); RED CELL DISTRIBUTION WIDTH 15.2 % (11.0-15.5)
[2023-01-11 13:03] LABS: ALBUMIN 3.3 g/dL (3.5-5.0); CREATININE 4.5 mg/dL (0.5-1.5); POTASSIUM 3.9 mmol/L (3.5-5.1)
[2023-01-11 13:04] LABS: INR 1.1 (0.85-1.15); PROTHROMBIN TIME 11.9 SEC (9.6-11.6)
[2023-01-11 13:05] LABS: PARTIAL THROMBOPLASTIN TIME 47.8 SEC (26.3-35.5)
[2023-01-11 15:11] LABS: APPEARANCE BODY FLUID CLEAR (CLEAR); COLOR,BODY FLUID YELLOW (LT YELLOW); SPECIMENTYPE,BODY FLUID ASCITES; TOTAL VOLUME,BODY FLUID 2800 mL
[2023-01-11 15:28] LABS: BODY FLUID RBC 66 /cu. mm.; BODY FLUID WBC 625 /cu. mm.
[2023-01-11 16:16] LABS: BF LYMPHOCYTE 28 %; BF MESOTHELIAL 46 %; BF MONOCYTE 1 %
== END | disposition home or self-care (01) ==
LOC: RAH 10:04
PROVIDERS: ATTEND Internal Medicine
DX: R18.8 Other ascites (principal); K74.69 Other cirrhosis of liver; E11.22 Type 2 diabetes mellitus with diabetic chronic kidney disease; I12.0 Hypertensive chronic kidney disease with stage 5 chronic kidney disease or end stage renal disease; N18.6 End stage renal disease; K72.90 Hepatic failure, unspecified without coma; K21.9 Gastro-esophageal reflux disease without esophagitis; F32.A Depression, unspecified; G47.00 Insomnia, unspecified; D64.9 Anemia, unspecified; J44.9 Chronic obstructive pulmonary disease, unspecified; F41.9 Anxiety disorder, unspecified; E78.5 Hyperlipidemia, unspecified; Z86.73 Personal history of transient ischemic attack (TIA), and cerebral infarction without residual deficits; Z79.01 Long term (current) use of anticoagulants; Z86.010 Personal history of colon polyps; Z99.2 Dependence on renal dialysis; Z90.710 Acquired absence of both cervix and uterus; Z90.49 Acquired absence of other specified parts of digestive tract; Z79.899 Other long term (current) drug therapy; Z98.890 Other specified postprocedural states
CPT/HCPCS: 49083; 84157; 80053; 85025; 89051; 85610; 85730; 87071; 87076; 87205; 82042; 36415; 88108; 88305; J3490; C1729

== ENCOUNTER → 2023-01-25 | Outpatient (CLI) | payer MEDICARE ==
[~2023-01-25] MED LIST changes: +LIDOCAINE HCL 1% 20 ML VIAL ONE; -LIDOCAINE HCL-MPF 1% 2ML VIAL ONE
== END | disposition home or self-care (01) ==
LOC: RAH 11:02
PROVIDERS: ATTEND Internal Medicine Gastroenterology
DX: R18.8 Other ascites (principal); K74.69 Other cirrhosis of liver; E11.22 Type 2 diabetes mellitus with diabetic chronic kidney disease; I12.0 Hypertensive chronic kidney disease with stage 5 chronic kidney disease or end stage renal disease; N18.6 End stage renal disease; K72.90 Hepatic failure, unspecified without coma; K21.9 Gastro-esophageal reflux disease without esophagitis; F32.A Depression, unspecified; G47.00 Insomnia, unspecified; F41.9 Anxiety disorder, unspecified; D64.9 Anemia, unspecified; J44.9 Chronic obstructive pulmonary disease, unspecified; E78.5 Hyperlipidemia, unspecified; Z86.73 Personal history of transient ischemic attack (TIA), and cerebral infarction without residual deficits; Z86.010 Personal history of colon polyps; Z99.2 Dependence on renal dialysis; Z90.49 Acquired absence of other specified parts of digestive tract; Z90.710 Acquired absence of both cervix and uterus; Z79.899 Other long term (current) drug therapy; Z98.890 Other specified postprocedural states; Z79.01 Long term (current) use of anticoagulants
CPT/HCPCS: 49083; C1729

== ENCOUNTER 2023-03-03 11:10 | Observation (INO) | payer MEDICARE ==
[~2023-03-03] VITALS: Ht 149.9 cm; Wt 62.8 kg
[~2023-03-03 11:10] MED LIST changes: -LIDOCAINE HCL 1% 20 ML VIAL ONE
[2023-03-03 12:21] LABS: BASOPHILS % (AUTO) 0.7 % (0.0-5.0); HEMATOCRIT 37.8 % (36-48); MEAN CORPUSCULAR HEMOGLOBIN 28.9 pg (27.0-33.0); MEAN CORPUSCULAR HGB CONC 30.4 g/dL (32.0-36.0); MONOCYTES % (AUTO) 7.2 % (3.0-13.0); NEUTROPHILS % (AUTO) 60.6 % (40.0-77.0); PLATELET COUNT (AUTO) 127 K/uL (130-400); RED BLOOD CELL COUNT(AUTO) 3.98 MIL/uL (4.00-5.50); RED CELL DISTRIBUTION WIDTH 14.5 % (11.0-15.5); WHITE BLOOD COUNT (AUTO) 4.3 K/uL (4.8-10.8)
[2023-03-03 12:38] LABS: CREATININE 4.1 mg/dL (0.5-1.5); POTASSIUM 4.6 mmol/L (3.5-5.1)
[2023-03-03 12:46] LABS: ALBUMIN 3.5 g/dL (3.5-5.0); TOTAL PROTEIN, SERUM 8.2 g/dL (6.0-8.3)
[2023-03-03] MEDS ORDERED: AMLO-257 PO (17:27)
[2023-03-03] MEDS ORDERED: OLME40TA18 PO (17:27)
[2023-03-03] MEDS ORDERED: LACT10SO85 PO (17:27)
[2023-03-03] MEDS ORDERED: ONDA4TAB10 PO (17:27)
[2023-03-03] MEDS ORDERED: MV-M1TAB20 PO (17:27)
[2023-03-04] VITALS (27 sets, daily range): BP systolic 124–180; BP diastolic 50–83
[2023-03-04 02:14] LABS: BASOPHILS % (AUTO) 0.9 % (0.0-5.0); EOSINOPHILS % (AUTO) 12.6 % (0.0-8.0); HEMATOCRIT 35.4 % (36-48); LYMPHOCYTES % (AUTO) 21.8 % (21.0-51.0); MEAN CORPUSCULAR HEMOGLOBIN 28.9 pg (27.0-33.0); MEAN CORPUSCULAR HGB CONC 30.2 g/dL (32.0-36.0); MEAN CORPUSCULAR VOLUME 95.7 fL (79-99); MONOCYTES % (AUTO) 10.6 % (3.0-13.0); NEUTROPHILS % (AUTO) 53.7 % (40.0-77.0); PLATELET COUNT (AUTO) 115 K/uL (130-400); RED CELL DISTRIBUTION WIDTH 14.4 % (11.0-15.5); WHITE BLOOD COUNT (AUTO) 4.5 K/uL (4.8-10.8)
[2023-03-04 02:30] LABS: ALBUMIN 2.9 g/dL (3.5-5.0); CREATININE 4.9 mg/dL (0.5-1.5); POTASSIUM 4.5 mmol/L (3.5-5.1); TOTAL PROTEIN, SERUM 6.9 g/dL (6.0-8.3)
[2023-03-04] MEDS: LACTULOSE 20 GM/30 ML UDCUP PO SCH ×2 (09:00→20:58)
[2023-03-04] MEDS ORDERED: CINACALCET 30 MG TAB PO SCH (09:00)
[2023-03-04] MEDS: SEVELAMER HCL 800 MG TABLET PO SCH ×3 (09:41→20:58)
[2023-03-04] MEDS ORDERED: ONDANSETRON ODT 4MG TAB PO PRN (12:30)
[2023-03-04] MEDS ORDERED: LOPERAMIDE 1 MG/7.5 ML UDCUP PO PRN (12:30)
[2023-03-04] MEDS ORDERED: NON-FORMULARY MEDICATION 1 EACH (Midodrine HCl 10 MG) PO PRN (12:30)
[2023-03-04] MEDS ORDERED: ALBUMIN (HUMAN) 25% 200 ML IV SCH (13:00)
[2023-03-04] MEDS: Ursodiol 250 MG PO SCH ×2 (13:25→20:59)
[2023-03-04] MEDS ORDERED: PHARMACY COMMUNICATION MISC SCH ×2 (14:00→15:00)
[2023-03-04 14:01] LABS: BODY FLUID RBC 369 /cu. mm.; BODY FLUID WBC 717 /cu. mm.
[2023-03-04 14:07] LABS: APPEARANCE BODY FLUID SLIGHTLY CLOUDY (CLEAR); COLOR,BODY FLUID YELLOW (LT YELLOW); SPECIMENTYPE,BODY FLUID ASCITES; TOTAL VOLUME,BODY FLUID 5300 mL
[2023-03-04 14:30] LABS: BF LYMPHOCYTE 50 %; BF MONOCYTE 19 %
[2023-03-04] MEDS ORDERED: ALBUMIN (HUMAN) 25% 100 ML IV SCH ×2 (14:30→15:13)
[2023-03-04] MEDS ORDERED: ALBUMIN (HUMAN) 25% 50 ML IV SCH (14:30)
[2023-03-04] MEDS ORDERED: ATORVASTATIN 40 MG TABLET PO SCH (21:00)
[2023-03-05] MEDS ORDERED: ASPIRIN 81 MG EC TAB PO SCH (09:00)
[2023-03-05] MEDS ORDERED: VITAMIN E 400 UNIT CAPSULE PO SCH (09:00)
[2023-03-05] MEDS ORDERED: AMLODIPINE 5 MG TAB PO SCH (09:00)
[2023-03-05] MEDS ORDERED: FOLIC ACID 1 MG TABLET PO SCH (09:00)
[2023-03-05] MEDS ORDERED: Olmesartan 40 MG PO SCH (09:00)
[2023-03-05] MEDS ORDERED: Vitamin D3 Complete Cap PO SCH (09:00)
[2023-03-05] MEDS ORDERED: FOLIC ACID 0.4 MG PO SCH (09:00)
[2023-03-05] MEDS ORDERED: MINOXIDIL 2.5 MG TAB PO SCH (09:00)
[2023-03-05] MEDS ORDERED: PANTOPRAZOLE 40 MG TAB DR PO SCH (09:00)
[2023-03-07] MEDS ORDERED: MIDODRINE HCL 5 MG TABLET PO SCH (09:00)
== END 2023-03-04 22:20 | disposition home or self-care (01) ==
LOC: EDH 11:10 → EDHIP 16:09 → 3AH 03-04
PROVIDERS: ADMIT Internal Medicine; ATTEND Internal Medicine
DX: K74.60 Unspecified cirrhosis of liver (principal); R18.8 Other ascites; I12.0 Hypertensive chronic kidney disease with stage 5 chronic kidney disease or end stage renal disease; E11.22 Type 2 diabetes mellitus with diabetic chronic kidney disease; N18.6 End stage renal disease; E78.5 Hyperlipidemia, unspecified; I25.10 Atherosclerotic heart disease of native coronary artery without angina pectoris; E87.70 Fluid overload, unspecified; E78.00 Pure hypercholesterolemia, unspecified; I25.2 Old myocardial infarction; I45.10 Unspecified right bundle-branch block; K76.6 Portal hypertension; Z95.1 Presence of aortocoronary bypass graft; Z99.2 Dependence on renal dialysis; Z79.899 Other long term (current) drug therapy
CPT/HCPCS: 99284; 82550 ×3; 83874 ×3; 84484 ×5; 80053 ×2; 83690; 85025 ×2; 36415 ×2; 93005 ×2; 96365; 89051; 87071; 87205; 82948 ×4; 49083; G0378 ×27; P9046; C1729; 90935; P9047

== ENCOUNTER → 2023-03-15 | Outpatient (CLI) | payer MEDICARE ==
[~2023-03-15] MED LIST changes: +AMLO-257 PO; +LACT10SO85 PO; +MV-M1TAB20 PO; +OLME40TA18 PO; +ONDA4TAB10 PO; +REGADENOSON 0.4 MG/5 ML PF SYG IVP ONE
== END | disposition home or self-care (01) ==
LOC: SHCH 08:46
PROVIDERS: ATTEND Internal Medicine Cardiovascular Disease
DX: I25.10 Atherosclerotic heart disease of native coronary artery without angina pectoris (principal); I12.0 Hypertensive chronic kidney disease with stage 5 chronic kidney disease or end stage renal disease; E11.22 Type 2 diabetes mellitus with diabetic chronic kidney disease; N18.6 End stage renal disease; I25.2 Old myocardial infarction; J44.9 Chronic obstructive pulmonary disease, unspecified; K21.9 Gastro-esophageal reflux disease without esophagitis; E78.5 Hyperlipidemia, unspecified; F41.9 Anxiety disorder, unspecified; F32.A Depression, unspecified; Z99.2 Dependence on renal dialysis; Z79.01 Long term (current) use of anticoagulants; Z95.1 Presence of aortocoronary bypass graft; Z79.899 Other long term (current) drug therapy; Z90.49 Acquired absence of other specified parts of digestive tract
CPT/HCPCS: 78452; 93017; J2785; A9500 ×2; 96374

== ENCOUNTER 2023-03-24 10:42 | Emergency (ER) | payer MEDICARE ==
[~2023-03-24] VITALS: Ht 180.3 cm; Wt 59.4 kg
[~2023-03-24 10:42] MED LIST changes: -REGADENOSON 0.4 MG/5 ML PF SYG IVP ONE
[2023-03-24 11:21] LABS: BASOPHILS % (AUTO) 0.8 % (0.0-5.0); HEMATOCRIT 37.6 % (36-48); LYMPHOCYTES % (AUTO) 14.9 % (21.0-51.0); MEAN CORPUSCULAR HEMOGLOBIN 29.3 pg (27.0-33.0); MEAN CORPUSCULAR HGB CONC 30.6 g/dL (32.0-36.0); MEAN CORPUSCULAR VOLUME 95.7 fL (79-99); MONOCYTES % (AUTO) 8.6 % (3.0-13.0); NEUTROPHILS % (AUTO) 66.3 % (40.0-77.0); PLATELET COUNT (AUTO) 121 K/uL (130-400); RED BLOOD CELL COUNT(AUTO) 3.93 MIL/uL (4.00-5.50); RED CELL DISTRIBUTION WIDTH 16.1 % (11.0-15.5)
[2023-03-24 11:25] LABS: CREATININE 4.2 mg/dL (0.5-1.5); POTASSIUM 3.6 mmol/L (3.5-5.1)
[2023-03-24] MEDS ORDERED: LIDOCAINE HCL 1% 20 ML VIAL ONE ×2 (11:27→12:17)
[2023-03-24 11:29] LABS: ALBUMIN 3.6 g/dL (3.5-5.0); TOTAL PROTEIN, SERUM 8.2 g/dL (6.0-8.3)
[2023-03-24 11:52] LABS: INR 1.05 (0.85-1.15); PROTHROMBIN TIME 11.4 SEC (9.6-11.6)
[2023-03-24] MEDS ORDERED: SODIUM BICARB 50MEQ 50ML VIAL 50 ML ONE (12:18)
[2023-03-24] MEDS ORDERED: ALBUMIN (HUMAN) 25% 200 ML IV ONE (12:18)
[2023-03-24 12:58] VITALS: BP 134/50
== END 2023-03-24 14:16 | disposition home or self-care (01) ==
LOC: EDH 10:42
DX: R18.8 Other ascites (principal); E11.9 Type 2 diabetes mellitus without complications; E78.00 Pure hypercholesterolemia, unspecified; I10 Essential (primary) hypertension; Z79.82 Long term (current) use of aspirin; Z95.1 Presence of aortocoronary bypass graft
CPT/HCPCS: 49083; 99285; 96365; 80053; 85025; 85610; 36415; P9046; J3490; C1729

== ENCOUNTER 2023-04-12 10:14 | Emergency (ER) | payer MEDICARE ==
[~2023-04-12] VITALS: Ht 149.9 cm; Wt 59.4 kg
[2023-04-12 11:13] LABS: BASOPHILS % (AUTO) 0.4 % (0.0-5.0); EOSINOPHILS % (AUTO) 9.7 % (0.0-8.0); HEMATOCRIT 35.1 % (36-48); MEAN CORPUSCULAR HEMOGLOBIN 30.4 pg (27.0-33.0); MEAN CORPUSCULAR HGB CONC 31.1 g/dL (32.0-36.0); MEAN CORPUSCULAR VOLUME 97.8 fL (79-99); NEUTROPHILS % (AUTO) 73.6 % (40.0-77.0); PLATELET COUNT (AUTO) 164 K/uL (130-400); RED BLOOD CELL COUNT(AUTO) 3.59 MIL/uL (4.00-5.50); RED CELL DISTRIBUTION WIDTH 15.3 % (11.0-15.5); WHITE BLOOD COUNT (AUTO) 6.9 K/uL (4.8-10.8)
[2023-04-12 11:22] LABS: CREATININE 4.7 mg/dL (0.5-1.5); POTASSIUM 4.3 mmol/L (3.5-5.1)
[2023-04-12 11:35] LABS: ALBUMIN 3.5 g/dL (3.5-5.0); TOTAL PROTEIN, SERUM 8.3 g/dL (6.0-8.3)
[2023-04-12 11:56] LABS: INR 0.97 (0.85-1.15); PROTHROMBIN TIME 11.3 SEC (9.6-11.6)
[2023-04-12 11:57] LABS: PARTIAL THROMBOPLASTIN TIME 47.9 SEC (26.3-35.5)
[2023-04-12 14:32] VITALS: BP 141/63
== END 2023-04-12 14:45 | disposition home or self-care (01) ==
LOC: EDH 10:14
DX: R18.8 Other ascites (principal); E11.9 Type 2 diabetes mellitus without complications; E78.00 Pure hypercholesterolemia, unspecified; I10 Essential (primary) hypertension; Z79.82 Long term (current) use of aspirin; Z90.49 Acquired absence of other specified parts of digestive tract
CPT/HCPCS: 49083; 99285; 80053; 83690; 85025; 85610; 85730; 36415; C1729

== ENCOUNTER → 2023-05-12 | Emergency (ER) | payer MEDICARE ==
[~2023-05-12] VITALS: Ht 149.9 cm; Wt 61.2 kg
[2023-05-12 14:12] VITALS: BP 122/53; PULSE 77; RESP 16
== END ==
LOC: EDH 14:10
DX: R18.8 Other ascites (principal); I12.0 Hypertensive chronic kidney disease with stage 5 chronic kidney disease or end stage renal disease; E11.22 Type 2 diabetes mellitus with diabetic chronic kidney disease; N18.6 End stage renal disease; Z99.2 Dependence on renal dialysis; E78.00 Pure hypercholesterolemia, unspecified; Z79.82 Long term (current) use of aspirin; Z95.1 Presence of aortocoronary bypass graft
CPT/HCPCS: 99281

== ENCOUNTER 2023-05-17 10:50 | Emergency (ER) | payer MEDICARE ==
[~2023-05-17] VITALS: Ht 149.9 cm; Wt 61.2 kg
[2023-05-17 12:35] LABS: BASOPHILS # (AUTO) 0.04 K/uL (0.00-0.20); BASOPHILS % (AUTO) 0.8 % (0.0-5.0); EOSINOPHILS # (AUTO) 0.43 K/uL (0.00-0.70); EOSINOPHILS % (AUTO) 8.7 % (0.0-8.0); HEMATOCRIT 32.1 % (36-48); IMMATURE GRANULOCYTE ABSOLUTE 0.01 K/uL (0-1); LYMPHOCYTES # (AUTO) 0.8 K/uL (1.0-4.8); MEAN CORPUSCULAR HEMOGLOBIN 30.8 pg (27.0-33.0); MEAN CORPUSCULAR HGB CONC 30.8 g/dL (32.0-36.0); MONOCYTES # (AUTO) 0.4 K/uL (0.1-1.0); MONOCYTES % (AUTO) 8.7 % (3.0-13.0); NEUTROPHILS # (AUTO) 3.2 K/uL (1.8-7.7); NEUTROPHILS % (AUTO) 65.6 % (40.0-77.0); PLATELET COUNT (AUTO) 158 K/uL (130-400); RED BLOOD CELL COUNT(AUTO) 3.21 MIL/uL (4.00-5.50); RED CELL DISTRIBUTION WIDTH 14.6 % (11.0-15.5); WHITE BLOOD COUNT (AUTO) 4.9 K/uL (4.8-10.8)
[2023-05-17 12:52] LABS: CREATININE 4.9 mg/dL (0.5-1.5); INR 1.03 (0.85-1.15); POTASSIUM 4.2 mmol/L (3.5-5.1); PROTHROMBIN TIME 11.9 SEC (9.6-11.6)
[2023-05-17 12:53] LABS: PARTIAL THROMBOPLASTIN TIME 50.1 SEC (26.3-35.5)
[2023-05-17 13:08] LABS: ALBUMIN 3.1 g/dL (3.5-5.0); BILIRUBIN,TOTAL 0.3 mg/dL (0.2-1.0); TOTAL PROTEIN, SERUM 7.8 g/dL (6.0-8.3)
[2023-05-17] MEDS ORDERED: LIDOCAINE HCL 1% 20 ML VIAL ONE (14:22)
[2023-05-17] MEDS ORDERED: SODIUM BICARB 50MEQ 50ML VIAL 50 ML ONE (14:22)
[2023-05-17] MEDS ORDERED: ALBUMIN (HUMAN) 25% 200 ML IV ONE (15:14)
[2023-05-17 16:34] VITALS: BP 121/62; PULSE 76; RESP 18; O2SAT 98
== END 2023-05-17 16:51 | disposition home or self-care (01) ==
LOC: EDH 10:50
DX: R18.8 Other ascites (principal); E11.9 Type 2 diabetes mellitus without complications; E78.00 Pure hypercholesterolemia, unspecified; I10 Essential (primary) hypertension; Z79.82 Long term (current) use of aspirin; Z95.1 Presence of aortocoronary bypass graft
CPT/HCPCS: 49083; 99285; 96365; 80053; 85025; 85610; 85730; 36415; P9046; J3490; C1729

== ENCOUNTER → 2023-06-16 | Outpatient (CLI) | payer MEDICARE ==
[~2023-06-16] MED LIST changes: +ALBUMIN (HUMAN) 25% 200 ML IV SCH
[2023-06-16 11:08] LABS: BASOPHILS # (AUTO) 0.04 K/uL (0.00-0.20); BASOPHILS % (AUTO) 0.7 % (0.0-5.0); EOSINOPHILS # (AUTO) 0.61 K/uL (0.00-0.70); EOSINOPHILS % (AUTO) 11.3 % (0.0-8.0); HEMATOCRIT 38.2 % (36-48); IMMATURE GRANULOCYTE ABSOLUTE 0.02 K/uL (0-1); LYMPHOCYTES # (AUTO) 0.7 K/uL (1.0-4.8); LYMPHOCYTES % (AUTO) 13.8 % (21.0-51.0); MEAN CORPUSCULAR HEMOGLOBIN 30.3 pg (27.0-33.0); MEAN CORPUSCULAR HGB CONC 30.4 g/dL (32.0-36.0); MEAN CORPUSCULAR VOLUME 99.7 fL (79-99); MONOCYTES # (AUTO) 0.4 K/uL (0.1-1.0); MONOCYTES % (AUTO) 7.4 % (3.0-13.0); NEUTROPHILS # (AUTO) 3.6 K/uL (1.8-7.7); NEUTROPHILS % (AUTO) 66.4 % (40.0-77.0); PLATELET COUNT (AUTO) 138 K/uL (130-400); RED BLOOD CELL COUNT(AUTO) 3.83 MIL/uL (4.00-5.50); RED CELL DISTRIBUTION WIDTH 13.9 % (11.0-15.5); WHITE BLOOD COUNT (AUTO) 5.4 K/uL (4.8-10.8)
[2023-06-16 11:25] LABS: ALBUMIN 3.3 g/dL (3.5-5.0)
[2023-06-16 11:39] LABS: BILIRUBIN,TOTAL 0.3 mg/dL (0.2-1.0); POTASSIUM 4.3 mmol/L (3.5-5.1); TOTAL PROTEIN, SERUM 8.4 g/dL (6.0-8.3)
[2023-06-16 11:45] LABS: INR 1.03 (0.85-1.15); PROTHROMBIN TIME 11.9 SEC (9.6-11.6)
[2023-06-16 11:46] LABS: PARTIAL THROMBOPLASTIN TIME 51.8 SEC (26.3-35.5)
[2023-06-16 15:32] LABS: SPECIMENTYPE,BODY FLUID ASCITES
[2023-06-16 15:33] LABS: APPEARANCE BODY FLUID CLEAR (CLEAR); COLOR,BODY FLUID YELLOW (LT YELLOW); TOTAL VOLUME,BODY FLUID 4800 mL
[2023-06-16 16:06] LABS: BODY FLUID RBC 190 /cu. mm.; BODY FLUID WBC 360 /cu. mm.
[2023-06-16 18:49] LABS: BF EOSINOPHIL 1 %; BF LYMPHOCYTE 38 %; BF MACROPHAGE 52; BF OTHER CELLS 9; BF TOTAL CELLS COUNTED 100
== END | disposition home or self-care (01) ==
LOC: RAH 10:00
PROVIDERS: ATTEND Internal Medicine Gastroenterology
DX: R18.8 Other ascites (principal); K74.69 Other cirrhosis of liver; I12.0 Hypertensive chronic kidney disease with stage 5 chronic kidney disease or end stage renal disease; E11.22 Type 2 diabetes mellitus with diabetic chronic kidney disease; N18.6 End stage renal disease; E78.00 Pure hypercholesterolemia, unspecified; Z99.2 Dependence on renal dialysis; Z79.01 Long term (current) use of anticoagulants; Z79.899 Other long term (current) drug therapy
CPT/HCPCS: 49083; 80053; 85025; 89051; 85610; 85730; 87071; 87205; 36415; 88108; C1729

== ENCOUNTER 2023-06-17 11:00 | Observation (INO) | payer MEDICARE ==
[~2023-06-17] VITALS: Ht 144.8 cm; Wt 56.6 kg
[~2023-06-17 11:00] MED LIST changes: -ALBUMIN (HUMAN) 25% 200 ML IV SCH
[2023-06-17] MEDS ORDERED: 0.9% NACL 250ML 250 ML IV ONE (12:00)
[2023-06-17 13:16] LABS: CREATININE 5.5 mg/dL (0.5-1.5); POTASSIUM 4.4 mmol/L (3.5-5.1)
[2023-06-17 13:20] LABS: ALBUMIN 3.1 g/dL (3.5-5.0); BILIRUBIN,TOTAL 0.3 mg/dL (0.2-1.0); TOTAL PROTEIN, SERUM 6.7 g/dL (6.0-8.3)
[2023-06-17 13:46] LABS: BASOPHILS # (AUTO) 0.06 K/uL (0.00-0.20); BASOPHILS % (AUTO) 0.5 % (0.0-5.0); EOSINOPHILS # (AUTO) 0.26 K/uL (0.00-0.70); EOSINOPHILS % (AUTO) 2.1 % (0.0-8.0); HEMATOCRIT 22.4 % (36-48); IMMATURE GRANULOCYTE ABSOLUTE 0.05 K/uL (0-1); LYMPHOCYTES # (AUTO) 1.3 K/uL (1.0-4.8); LYMPHOCYTES % (AUTO) 10.4 % (21.0-51.0); MEAN CORPUSCULAR HEMOGLOBIN 29.9 pg (27.0-33.0); MEAN CORPUSCULAR HGB CONC 29.9 g/dL (32.0-36.0); MONOCYTES % (AUTO) 8.3 % (3.0-13.0); NEUTROPHILS # (AUTO) 9.6 K/uL (1.8-7.7); NEUTROPHILS % (AUTO) 78.3 % (40.0-77.0); PLATELET COUNT (AUTO) 144 K/uL (130-400); RED BLOOD CELL COUNT(AUTO) 2.24 MIL/uL (4.00-5.50); RED CELL DISTRIBUTION WIDTH 14.6 % (11.0-15.5); WHITE BLOOD COUNT (AUTO) 12.3 K/uL (4.8-10.8)
[2023-06-17 21:24] VITALS: O2SAT 98
[2023-06-17 21:30] VITALS: BP 121/50; PULSE 63; RESP 18
[2023-06-17 23:40] VITALS: BP 96/41; PULSE 56; RESP 15
[2023-06-18] VITALS (23 sets, daily range): BP systolic 90–124; BP diastolic 37–58; PULSE 49–99; RESP 14–18; TEMP 97.9–98.4; O2SAT 97–99
[2023-06-18] MEDS ORDERED: MIDODRINE HCL 5 MG TABLET ONE (03:08)
[2023-06-18] MEDS ORDERED: DEXTROSE 50%-WATER 50 ML DISP.SYRIN IV PRN (03:30)
[2023-06-18] MEDS ORDERED: GLUCAGON 1MG KIT 1 MG ML IM PRN (03:30)
[2023-06-18 06:53] LABS: BASOPHILS # (AUTO) 0.07 K/uL (0.00-0.20); BASOPHILS % (AUTO) 0.7 % (0.0-5.0); EOSINOPHILS # (AUTO) 0.55 K/uL (0.00-0.70); EOSINOPHILS % (AUTO) 5.3 % (0.0-8.0); HEMATOCRIT 26.8 % (36-48); IMMATURE GRANULOCYTE ABSOLUTE 0.06 K/uL (0-1); LYMPHOCYTES % (AUTO) 9.9 % (21.0-51.0); MEAN CORPUSCULAR HEMOGLOBIN 28.7 pg (27.0-33.0); MEAN CORPUSCULAR HGB CONC 30.2 g/dL (32.0-36.0); MONOCYTES # (AUTO) 0.9 K/uL (0.1-1.0); MONOCYTES % (AUTO) 8.4 % (3.0-13.0); NEUTROPHILS # (AUTO) 7.8 K/uL (1.8-7.7); NEUTROPHILS % (AUTO) 75.1 % (40.0-77.0); PLATELET COUNT (AUTO) 152 K/uL (130-400); RED BLOOD CELL COUNT(AUTO) 2.82 MIL/uL (4.00-5.50); RED CELL DISTRIBUTION WIDTH 19.9 % (11.0-15.5); WHITE BLOOD COUNT (AUTO) 10.3 K/uL (4.8-10.8)
[2023-06-18 07:17] LABS: ALBUMIN 2.8 g/dL (3.5-5.0); BILIRUBIN,TOTAL 0.4 mg/dL (0.2-1.0); CREATININE 6.3 mg/dL (0.5-1.5); POTASSIUM 5.4 mmol/L (3.5-5.1); TOTAL PROTEIN, SERUM 6.5 g/dL (6.0-8.3)
[2023-06-18] MEDS: INSULIN HUMULIN R 100 UNIT/ML 3ML SQ SCH ×4 (07:30→20:58)
[2023-06-18] MEDS ORDERED: MIDODRINE HCL 5 MG TABLET PO SCH (09:00)
[2023-06-18] MEDS ORDERED: EPOETIN ALFA-EPBX (NON-ESRD) 10,000 UNIT/ML VIAL SQ SCH (12:00)
[2023-06-18] MEDS: MIDODRINE HCL 5 MG TABLET PO SCH ×2 (16:43→21:15)
[2023-06-19 04:00] VITALS: BP 105/51; PULSE 77; RESP 16
[2023-06-19] MEDS: INSULIN HUMULIN R 100 UNIT/ML 3ML SQ SCH (06:17)
[2023-06-19 07:29] VITALS: BP 94/48; PULSE 71; RESP 17
[2023-06-19 07:40] VITALS: O2SAT 96
[2023-06-19] MEDS: MIDODRINE HCL 5 MG TABLET PO SCH (09:34)
[2023-06-20] MEDS ORDERED: EPOETIN ALFA-EPBX (NON-ESRD) 10,000 UNIT/ML VIAL SQ SCH (09:00)
== END 2023-06-19 11:35 | disposition home or self-care (01) ==
LOC: EDH 11:00 → EDHIP 17:10 → 3AH 20:26
PROVIDERS: ADMIT Internal Medicine; ATTEND Internal Medicine
DX: I95.9 Hypotension, unspecified (principal); I12.0 Hypertensive chronic kidney disease with stage 5 chronic kidney disease or end stage renal disease; E11.22 Type 2 diabetes mellitus with diabetic chronic kidney disease; N18.6 End stage renal disease; D63.1 Anemia in chronic kidney disease; E87.5 Hyperkalemia; K74.60 Unspecified cirrhosis of liver; R18.8 Other ascites; E78.00 Pure hypercholesterolemia, unspecified; Z95.1 Presence of aortocoronary bypass graft; Z99.0 Dependence on aspirator; Z99.2 Dependence on renal dialysis; Z79.899 Other long term (current) drug therapy
CPT/HCPCS: 36430; 84484; 80053 ×2; 85025 ×2; 86850; 86900; 86901; 86923; 36415 ×2; 71045; 99291; 93005; 96372; 82948 ×5; 86706; G0378 ×40; P9016; J7050; Q5106; 90935

== ENCOUNTER 2023-08-04 08:44 | Emergency (ER) | payer MEDICARE ==
[~2023-08-04] VITALS: Ht 149.9 cm; Wt 61.2 kg
[2023-08-04 09:11] LABS: BASOPHILS # (AUTO) 0.04 K/uL (0.00-0.20); BASOPHILS % (AUTO) 0.7 % (0.0-5.0); EOSINOPHILS # (AUTO) 0.18 K/uL (0.00-0.70); EOSINOPHILS % (AUTO) 3.3 % (0.0-8.0); IMMATURE GRANULOCYTE ABSOLUTE 0.01 K/uL (0-1); LYMPHOCYTES # (AUTO) 0.7 K/uL (1.0-4.8); LYMPHOCYTES % (AUTO) 12.9 % (21.0-51.0); MEAN CORPUSCULAR HEMOGLOBIN 28.5 pg (27.0-33.0); MEAN CORPUSCULAR HGB CONC 30.7 g/dL (32.0-36.0); MEAN CORPUSCULAR VOLUME 92.7 fL (79-99); MONOCYTES # (AUTO) 0.5 K/uL (0.1-1.0); MONOCYTES % (AUTO) 8.6 % (3.0-13.0); NEUTROPHILS % (AUTO) 74.3 % (40.0-77.0); PLATELET COUNT (AUTO) 229 K/uL (130-400); RED BLOOD CELL COUNT(AUTO) 3.02 MIL/uL (4.00-5.50); RED CELL DISTRIBUTION WIDTH 16.5 % (11.0-15.5); WHITE BLOOD COUNT (AUTO) 5.4 K/uL (4.8-10.8)
[2023-08-04 09:30] LABS: INR 0.99 (0.85-1.15); PROTHROMBIN TIME 11.5 SEC (9.6-11.6)
[2023-08-04 09:31] LABS: PARTIAL THROMBOPLASTIN TIME 55.3 SEC (26.3-35.5)
[2023-08-04 09:34] LABS: CREATININE 3.5 mg/dL (0.5-1.5); POTASSIUM 3.5 mmol/L (3.5-5.1)
[2023-08-04 09:39] LABS: BILIRUBIN,TOTAL 0.4 mg/dL (0.2-1.0); TOTAL PROTEIN, SERUM 8.6 g/dL (6.0-8.3)
[2023-08-04 10:36] VITALS: BP 137/64; PULSE 75; RESP 18; O2SAT 100
== END 2023-08-04 10:57 | disposition home or self-care (01) ==
LOC: EDH 08:44
DX: R18.8 Other ascites (principal); E78.00 Pure hypercholesterolemia, unspecified; E11.22 Type 2 diabetes mellitus with diabetic chronic kidney disease; I12.0 Hypertensive chronic kidney disease with stage 5 chronic kidney disease or end stage renal disease; N18.5 Chronic kidney disease, stage 5; Z79.82 Long term (current) use of aspirin; Z79.899 Other long term (current) drug therapy; Z98.890 Other specified postprocedural states
CPT/HCPCS: 99285; 49083; 80053; 85025; 85610; 85730; 36415; C1729

== ENCOUNTER 2023-08-11 08:47 | Emergency (ER) | payer MEDICARE ==
[~2023-08-11] VITALS: Ht 149.9 cm; Wt 57.2 kg
[2023-08-11 09:44] LABS: CREATININE 3.3 mg/dL (0.5-1.5); HEMATOCRIT 27.3 % (36-48); MEAN CORPUSCULAR HEMOGLOBIN 29.2 pg (27.0-33.0); MEAN CORPUSCULAR HGB CONC 30.8 g/dL (32.0-36.0); MEAN CORPUSCULAR VOLUME 94.8 fL (79-99); PLATELET COUNT (AUTO) 192 K/uL (130-400); POTASSIUM 4.3 mmol/L (3.5-5.1); RED BLOOD CELL COUNT(AUTO) 2.88 MIL/uL (4.00-5.50); RED CELL DISTRIBUTION WIDTH 18.1 % (11.0-15.5); WHITE BLOOD COUNT (AUTO) 5.3 K/uL (4.8-10.8)
[2023-08-11 09:48] LABS: INR 1.03 (0.85-1.15); PROTHROMBIN TIME 11.9 SEC (9.6-11.6)
[2023-08-11 10:12] VITALS: RESP 16
[2023-08-11 11:51] VITALS: BP 132/47; PULSE 54; O2SAT 98
== END 2023-08-11 13:17 | disposition home or self-care (01) ==
LOC: EDH 08:47
DX: R18.8 Other ascites (principal); I12.0 Hypertensive chronic kidney disease with stage 5 chronic kidney disease or end stage renal disease; E11.22 Type 2 diabetes mellitus with diabetic chronic kidney disease; N18.6 End stage renal disease; Z99.2 Dependence on renal dialysis; E78.00 Pure hypercholesterolemia, unspecified; Z79.82 Long term (current) use of aspirin; Z95.1 Presence of aortocoronary bypass graft
CPT/HCPCS: 49083; 99285; 80048; 85027; 85610; 85730; 36415; 93005; C1729

== ENCOUNTER → 2023-08-30 | Outpatient (CLI) | payer MEDICARE ==
[~2023-08-30] MED LIST changes: +ALBUMIN (HUMAN) 25% 200 ML IV SCH
== END | disposition home or self-care (01) ==
LOC: RAH 08:02
PROVIDERS: ATTEND Internal Medicine Gastroenterology
DX: R18.8 Other ascites (principal); I12.0 Hypertensive chronic kidney disease with stage 5 chronic kidney disease or end stage renal disease; E11.22 Type 2 diabetes mellitus with diabetic chronic kidney disease; N18.6 End stage renal disease; E78.00 Pure hypercholesterolemia, unspecified; Z99.2 Dependence on renal dialysis; Z79.82 Long term (current) use of aspirin; Z95.1 Presence of aortocoronary bypass graft; Z79.01 Long term (current) use of anticoagulants
CPT/HCPCS: 49083; C1729; P9046

== ENCOUNTER → 2023-09-22 | Outpatient (CLI) | payer MEDICARE ==
[~2023-09-22] MED LIST changes: +ALBUMIN (HUMAN) 25% 200 ML IV ONE; -ALBUMIN (HUMAN) 25% 200 ML IV SCH
[2023-09-22 10:37] LABS: BASOPHILS # (AUTO) 0.05 K/uL (0.00-0.20); EOSINOPHILS # (AUTO) 0.36 K/uL (0.00-0.70); EOSINOPHILS % (AUTO) 7.4 % (0.0-8.0); HEMATOCRIT 36.4 % (36-48); IMMATURE GRANULOCYTE ABSOLUTE 0.02 K/uL (0-1); LYMPHOCYTES # (AUTO) 0.5 K/uL (1.0-4.8); LYMPHOCYTES % (AUTO) 10.9 % (21.0-51.0); MEAN CORPUSCULAR HEMOGLOBIN 31.8 pg (27.0-33.0); MEAN CORPUSCULAR VOLUME 102.5 fL (79-99); MONOCYTES # (AUTO) 0.6 K/uL (0.1-1.0); MONOCYTES % (AUTO) 11.3 % (3.0-13.0); NEUTROPHILS # (AUTO) 3.4 K/uL (1.8-7.7); PLATELET COUNT (AUTO) 171 K/uL (130-400); RED BLOOD CELL COUNT(AUTO) 3.55 MIL/uL (4.00-5.50); RED CELL DISTRIBUTION WIDTH 14.4 % (11.0-15.5); WHITE BLOOD COUNT (AUTO) 4.9 K/uL (4.8-10.8)
[2023-09-22 10:54] LABS: ALBUMIN 2.6 g/dL (3.5-5.0); BILIRUBIN,TOTAL 0.4 mg/dL (0.2-1.0); CREATININE 4.1 mg/dL (0.5-1.5); POTASSIUM 4.4 mmol/L (3.5-5.1); TOTAL PROTEIN, SERUM 7.8 g/dL (6.0-8.3)
[2023-09-22 10:56] LABS: INR 1.03 (0.85-1.15); PROTHROMBIN TIME 11.9 SEC (9.6-11.6)
[2023-09-22 10:57] LABS: PARTIAL THROMBOPLASTIN TIME 53.5 SEC (26.3-35.5)
[2023-09-22 15:15] LABS: BODY FLUID RBC 225 /cu. mm.; BODY FLUID WBC 497 /cu. mm.
[2023-09-22 16:00] LABS: APPEARANCE BODY FLUID CLEAR (CLEAR); SPECIMENTYPE,BODY FLUID ASCITES
[2023-09-22 16:01] LABS: COLOR,BODY FLUID YELLOW (LT YELLOW); TOTAL VOLUME,BODY FLUID 3800 mL
[2023-09-22 16:40] LABS: BF EOSINOPHIL 1 %; BF LYMPHOCYTE 35 %; BF MACROPHAGE 32; BF TOTAL CELLS COUNTED 100
== END ==
LOC: RAH 08:56
PROVIDERS: ATTEND Internal Medicine Gastroenterology
DX: R18.8 Other ascites (principal); I12.9 Hypertensive chronic kidney disease with stage 1 through stage 4 chronic kidney disease, or unspecified chronic kidney disease; N18.9 Chronic kidney disease, unspecified; Z99.2 Dependence on renal dialysis; Z83.3 Family history of diabetes mellitus; Z80.9 Family history of malignant neoplasm, unspecified; Z88.6 Allergy status to analgesic agent; Z88.8 Allergy status to other drugs, medicaments and biological substances; Z82.49 Family history of ischemic heart disease and other diseases of the circulatory system; Z79.82 Long term (current) use of aspirin; Z79.899 Other long term (current) drug therapy
CPT/HCPCS: 49083; 84157; 80053; 85025; 89051; 85610; 85730; 87071; 87205; 82105; 82042; 36415; 88305; 88112; P9046; C1729

== ENCOUNTER 2023-11-17 08:53 | Emergency (ER) | payer MEDICARE ==
[~2023-11-17] VITALS: Ht 149.9 cm; Wt 58.5 kg
[~2023-11-17 08:53] MED LIST changes: -ALBUMIN (HUMAN) 25% 200 ML IV ONE
[2023-11-17 09:10] VITALS: BP 185/50; PULSE 50; RESP 18; O2SAT 98
[2023-11-17 09:33] LABS: BASOPHILS # (AUTO) 0.06 K/uL (0.00-0.20); BASOPHILS % (AUTO) 1.1 % (0.0-5.0); EOSINOPHILS # (AUTO) 0.46 K/uL (0.00-0.70); EOSINOPHILS % (AUTO) 8.5 % (0.0-8.0); HEMATOCRIT 35.3 % (36-48); IMMATURE GRANULOCYTE ABSOLUTE 0.02 K/uL (0-1); LYMPHOCYTES # (AUTO) 0.8 K/uL (1.0-4.8); LYMPHOCYTES % (AUTO) 13.9 % (21.0-51.0); MEAN CORPUSCULAR HEMOGLOBIN 31.8 pg (27.0-33.0); MEAN CORPUSCULAR HGB CONC 31.2 g/dL (32.0-36.0); MONOCYTES # (AUTO) 0.5 K/uL (0.1-1.0); MONOCYTES % (AUTO) 8.3 % (3.0-13.0); NEUTROPHILS # (AUTO) 3.7 K/uL (1.8-7.7); NEUTROPHILS % (AUTO) 67.8 % (40.0-77.0); PLATELET COUNT (AUTO) 134 K/uL (130-400); RED BLOOD CELL COUNT(AUTO) 3.46 MIL/uL (4.00-5.50); RED CELL DISTRIBUTION WIDTH 14.5 % (11.0-15.5); WHITE BLOOD COUNT (AUTO) 5.4 K/uL (4.8-10.8)
[2023-11-17 09:40] LABS: POTASSIUM 4.5 mmol/L (3.5-5.1)
[2023-11-17 09:42] LABS: INR 1.05 (0.85-1.15); PROTHROMBIN TIME 12.1 SEC (9.6-11.6)
[2023-11-17 09:44] LABS: PARTIAL THROMBOPLASTIN TIME 54.6 SEC (26.3-35.5)
[2023-11-17 09:46] LABS: ALBUMIN 3.2 g/dL (3.5-5.0); BILIRUBIN,TOTAL 0.5 mg/dL (0.2-1.0); TOTAL PROTEIN, SERUM 8.9 g/dL (6.0-8.3)
== END 2023-11-17 11:06 | disposition home or self-care (01) ==
LOC: EDH 08:53
DX: R18.8 Other ascites (principal); R06.02 Shortness of breath; E11.9 Type 2 diabetes mellitus without complications; E78.00 Pure hypercholesterolemia, unspecified; I10 Essential (primary) hypertension; K74.60 Unspecified cirrhosis of liver; Z79.82 Long term (current) use of aspirin
CPT/HCPCS: 49083; 99285; 80053; 85025; 85610; 85730; 36415; C1729

== ENCOUNTER 2023-12-29 09:04 | Emergency (ER) | payer MEDICARE ==
[~2023-12-29] VITALS: Ht 149.9 cm; Wt 57.2 kg
[~2023-12-29 09:04] MED LIST changes: +SEVE800T50 PO; -SEVE800T7 PO
[2023-12-29 09:33] LABS: BASOPHILS # (AUTO) 0.03 K/uL (0.00-0.20); BASOPHILS % (AUTO) 0.8 % (0.0-5.0); EOSINOPHILS # (AUTO) 0.43 K/uL (0.00-0.70); EOSINOPHILS % (AUTO) 10.8 % (0.0-8.0); HEMATOCRIT 35.6 % (36-48); IMMATURE GRANULOCYTE ABSOLUTE 0.01 K/uL (0-1); LYMPHOCYTES # (AUTO) 0.6 K/uL (1.0-4.8); LYMPHOCYTES % (AUTO) 16.1 % (21.0-51.0); MEAN CORPUSCULAR HEMOGLOBIN 31.6 pg (27.0-33.0); MEAN CORPUSCULAR HGB CONC 31.5 g/dL (32.0-36.0); MEAN CORPUSCULAR VOLUME 100.6 fL (79-99); MONOCYTES # (AUTO) 0.4 K/uL (0.1-1.0); MONOCYTES % (AUTO) 8.8 % (3.0-13.0); NEUTROPHILS # (AUTO) 2.5 K/uL (1.8-7.7); NEUTROPHILS % (AUTO) 63.2 % (40.0-77.0); PLATELET COUNT (AUTO) 110 K/uL (130-400); RED BLOOD CELL COUNT(AUTO) 3.54 MIL/uL (4.00-5.50); RED CELL DISTRIBUTION WIDTH 13.3 % (11.0-15.5)
[2023-12-29 09:40] LABS: INR 1.04 (0.85-1.15); PROTHROMBIN TIME 12.2 SEC (9.6-11.6)
[2023-12-29 09:41] LABS: PARTIAL THROMBOPLASTIN TIME 49.9 SEC (26.3-35.5)
[2023-12-29 09:45] LABS: ALBUMIN 3.5 g/dL (3.5-5.0); BILIRUBIN,TOTAL 0.4 mg/dL (0.2-1.0); CREATININE 3.6 mg/dL (0.5-1.5); POTASSIUM 4.8 mmol/L (3.5-5.1); TOTAL PROTEIN, SERUM 8.8 g/dL (6.0-8.3)
[2023-12-29 11:54] VITALS: BP 174/51; PULSE 59; RESP 17; O2SAT 96
== END 2023-12-29 12:25 | disposition home or self-care (01) ==
LOC: EDH 09:04
DX: K70.31 Alcoholic cirrhosis of liver with ascites (principal); R06.02 Shortness of breath
CPT/HCPCS: 49083; 99285; 80053; 85025; 85610; 85730; 36415; C1729

== ENCOUNTER 2024-02-16 09:28 | Emergency (ER) | payer MEDICARE ==
[~2024-02-16] VITALS: Ht 149.9 cm; Wt 59.0 kg
[~2024-02-16 09:28] MED LIST changes: -SEVE800T50 PO; +SEVE800T7 PO
[2024-02-16 10:11] LABS: BASOPHILS # (AUTO) 0.03 K/uL (0.00-0.20); BASOPHILS % (AUTO) 0.8 % (0.0-5.0); EOSINOPHILS % (AUTO) 10.7 % (0.0-8.0); HEMATOCRIT 36.4 % (36-48); IMMATURE GRANULOCYTE ABSOLUTE 0.02 K/uL (0-1); LYMPHOCYTES # (AUTO) 0.6 K/uL (1.0-4.8); MEAN CORPUSCULAR HEMOGLOBIN 32.9 pg (27.0-33.0); MEAN CORPUSCULAR VOLUME 99.7 fL (79-99); MONOCYTES # (AUTO) 0.3 K/uL (0.1-1.0); MONOCYTES % (AUTO) 9.1 % (3.0-13.0); NEUTROPHILS # (AUTO) 2.4 K/uL (1.8-7.7); NEUTROPHILS % (AUTO) 63.9 % (40.0-77.0); PLATELET COUNT (AUTO) 126 K/uL (130-400); RED BLOOD CELL COUNT(AUTO) 3.65 MIL/uL (4.00-5.50); RED CELL DISTRIBUTION WIDTH 13.6 % (11.0-15.5); WHITE BLOOD COUNT (AUTO) 3.7 K/uL (4.8-10.8)
[2024-02-16 10:21] LABS: POTASSIUM 3.9 mmol/L (3.5-5.1)
[2024-02-16 10:24] LABS: INR 0.98 (0.85-1.15); PROTHROMBIN TIME 11.6 SEC (9.6-11.6)
[2024-02-16 10:25] LABS: PARTIAL THROMBOPLASTIN TIME 49.4 SEC (26.3-35.5)
[2024-02-16 10:26] LABS: ALBUMIN 3.6 g/dL (3.5-5.0); BILIRUBIN,TOTAL 0.4 mg/dL (0.2-1.0); TOTAL PROTEIN, SERUM 8.6 g/dL (6.0-8.3)
[2024-02-16 13:11] VITALS: BP 126/64; PULSE 73; RESP 18; O2SAT 99
== END 2024-02-16 13:14 | disposition home or self-care (01) ==
LOC: EDH 09:28
DX: R18.8 Other ascites (principal); R14.0 Abdominal distension (gaseous); R74.8 Abnormal levels of other serum enzymes; I12.0 Hypertensive chronic kidney disease with stage 5 chronic kidney disease or end stage renal disease; E11.22 Type 2 diabetes mellitus with diabetic chronic kidney disease; N18.6 End stage renal disease; Z99.2 Dependence on renal dialysis; E78.00 Pure hypercholesterolemia, unspecified; Z79.82 Long term (current) use of aspirin
CPT/HCPCS: 49083; 99285; 80053; 85025; 85610; 85730; 36415; C1729

== ENCOUNTER → 2024-03-27 | Outpatient (CLI) | payer MEDICARE ==
[~2024-03-27] MED LIST changes: +ONDA-243 PO; -ONDA4TAB10 PO
[2024-03-27 10:22] LABS: BASOPHILS # (AUTO) 0.04 K/uL (0.00-0.20); EOSINOPHILS # (AUTO) 0.44 K/uL (0.00-0.70); EOSINOPHILS % (AUTO) 11.5 % (0.0-8.0); HEMATOCRIT 36.6 % (36-48); IMMATURE GRANULOCYTE ABSOLUTE 0.01 K/uL (0-1); LYMPHOCYTES # (AUTO) 0.7 K/uL (1.0-4.8); LYMPHOCYTES % (AUTO) 17.8 % (21.0-51.0); MEAN CORPUSCULAR HEMOGLOBIN 31.8 pg (27.0-33.0); MEAN CORPUSCULAR HGB CONC 30.9 g/dL (32.0-36.0); MEAN CORPUSCULAR VOLUME 103.1 fL (79-99); MONOCYTES # (AUTO) 0.4 K/uL (0.1-1.0); MONOCYTES % (AUTO) 10.4 % (3.0-13.0); NEUTROPHILS # (AUTO) 2.3 K/uL (1.8-7.7); PLATELET COUNT (AUTO) 132 K/uL (130-400); RED BLOOD CELL COUNT(AUTO) 3.55 MIL/uL (4.00-5.50); RED CELL DISTRIBUTION WIDTH 13.5 % (11.0-15.5); WHITE BLOOD COUNT (AUTO) 3.8 K/uL (4.8-10.8)
[2024-03-27 10:28] LABS: INR 1.01 (0.85-1.15); PROTHROMBIN TIME 11.9 SEC (9.6-11.6)
[2024-03-27 10:29] LABS: PARTIAL THROMBOPLASTIN TIME 49.5 SEC (26.3-35.5)
[2024-03-27 10:33] LABS: ALBUMIN 3.3 g/dL (3.5-5.0); BILIRUBIN,TOTAL 0.4 mg/dL (0.2-1.0); CREATININE 4.2 mg/dL (0.5-1.0); POTASSIUM 4.4 mmol/L (3.5-5.1); TOTAL PROTEIN, SERUM 8.1 g/dL (6.0-8.3)
[2024-03-27 14:18] LABS: ALBUMIN,BODY FLUID 2.2 g/dL; TOTAL PROTEIN,BODY FLUID 4.6 g/dL
[2024-03-27 14:19] LABS: APPEARANCE BODY FLUID CLEAR (CLEAR); COLOR,BODY FLUID YELLOW (LT YELLOW); SPECIMENTYPE,BODY FLUID ASCITES; TOTAL VOLUME,BODY FLUID 2800 mL
[2024-03-27 14:23] LABS: BODY FLUID RBC 0 /cu. mm.; BODY FLUID WBC 273 /cu. mm.
[2024-03-27 14:41] LABS: BF BASOPHIL 1 %; BF LYMPHOCYTE 23 %; BF MESOTHELIAL 71 %; BF MONOCYTE 5 %; BF TOTAL CELLS COUNTED 100
== END | disposition home or self-care (01) ==
LOC: RAH 09:10
PROVIDERS: ATTEND Internal Medicine Gastroenterology
DX: R18.8 Other ascites (principal); K74.69 Other cirrhosis of liver; F32.A Depression, unspecified; F41.9 Anxiety disorder, unspecified; J44.9 Chronic obstructive pulmonary disease, unspecified; E78.5 Hyperlipidemia, unspecified; K72.90 Hepatic failure, unspecified without coma; E11.22 Type 2 diabetes mellitus with diabetic chronic kidney disease; I13.11 Hypertensive heart and chronic kidney disease without heart failure, with stage 5 chronic kidney disease, or end stage renal disease; N18.6 End stage renal disease; Z99.2 Dependence on renal dialysis; Z79.01 Long term (current) use of anticoagulants; Z79.899 Other long term (current) drug therapy; Z86.73 Personal history of transient ischemic attack (TIA), and cerebral infarction without residual deficits; Z86.718 Personal history of other venous thrombosis and embolism
CPT/HCPCS: 49083; 84157; 80053; 85025; 89051; 85610; 85730; 87071; 87076; 87205; 82042; 36415; 88305; 88112; C1729

== ENCOUNTER 2024-04-19 10:02 | Emergency (ER) | payer MEDICARE ==
[~2024-04-19] VITALS: Ht 149.9 cm; Wt 59.0 kg
[2024-04-19 10:16] VITALS: BP 122/50; PULSE 64; RESP 20
[2024-04-19] MEDS ORDERED: ONDANSETRON 4MG INJ IVP ONE (11:00)
[2024-04-19] MEDS ORDERED: KETOROLAC 15MG/ML VIAL (15MG/ML) IV ONE (11:00)
[2024-04-19 11:56] LABS: BASOPHILS # (AUTO) 0.04 K/uL (0.00-0.20); BASOPHILS % (AUTO) 0.8 % (0.0-5.0); EOSINOPHILS # (AUTO) 0.52 K/uL (0.00-0.70); HEMATOCRIT 36.1 % (36-48); IMMATURE GRANULOCYTE ABSOLUTE 0.01 K/uL (0-1); LYMPHOCYTES % (AUTO) 20.5 % (21.0-51.0); MEAN CORPUSCULAR HEMOGLOBIN 32.2 pg (27.0-33.0); MEAN CORPUSCULAR HGB CONC 31.9 g/dL (32.0-36.0); MEAN CORPUSCULAR VOLUME 101.1 fL (79-99); MONOCYTES # (AUTO) 0.4 K/uL (0.1-1.0); MONOCYTES % (AUTO) 9.1 % (3.0-13.0); NEUTROPHILS # (AUTO) 2.8 K/uL (1.8-7.7); NEUTROPHILS % (AUTO) 58.4 % (40.0-77.0); PLATELET COUNT (AUTO) 121 K/uL (130-400); RED BLOOD CELL COUNT(AUTO) 3.57 MIL/uL (4.00-5.50); RED CELL DISTRIBUTION WIDTH 13.3 % (11.0-15.5); WHITE BLOOD COUNT (AUTO) 4.7 K/uL (4.8-10.8)
[2024-04-19 12:16] LABS: CREATININE 4.1 mg/dL (0.5-1.0); POTASSIUM 4.4 mmol/L (3.5-5.1)
[2024-04-19 12:20] LABS: ALBUMIN 3.5 g/dL (3.5-5.0); BILIRUBIN,TOTAL 0.4 mg/dL (0.2-1.0); TOTAL PROTEIN, SERUM 8.6 g/dL (6.0-8.3)
== END 2024-04-19 13:01 | disposition home or self-care (01) ==
LOC: EDH 10:02
DX: R18.8 Other ascites (principal); I12.0 Hypertensive chronic kidney disease with stage 5 chronic kidney disease or end stage renal disease; E11.22 Type 2 diabetes mellitus with diabetic chronic kidney disease; N18.6 End stage renal disease; Z99.2 Dependence on renal dialysis; E78.00 Pure hypercholesterolemia, unspecified; K74.60 Unspecified cirrhosis of liver; Z79.82 Long term (current) use of aspirin; Z79.899 Other long term (current) drug therapy; Z98.890 Other specified postprocedural states; Z88.8 Allergy status to other drugs, medicaments and biological substances
CPT/HCPCS: 36415; 74176; 80053; 83690; 84484; 85025; 93005

== ENCOUNTER 2024-04-24 09:16 | Emergency (ER) | payer MEDICARE ==
[~2024-04-24] VITALS: Ht 149.9 cm; Wt 59.0 kg
[2024-04-24 09:54] LABS: HEMATOCRIT 32.1 % (36-48); MEAN CORPUSCULAR HEMOGLOBIN 32.1 pg (27.0-33.0); MEAN CORPUSCULAR HGB CONC 32.4 g/dL (32.0-36.0); MEAN CORPUSCULAR VOLUME 99.1 fL (79-99); PLATELET COUNT (AUTO) 130 K/uL (130-400); RED BLOOD CELL COUNT(AUTO) 3.24 MIL/uL (4.00-5.50); RED CELL DISTRIBUTION WIDTH 13.3 % (11.0-15.5); WHITE BLOOD COUNT (AUTO) 4.3 K/uL (4.8-10.8)
[2024-04-24 10:17] LABS: ALBUMIN 3.4 g/dL (3.5-5.0); BILIRUBIN,TOTAL 0.4 mg/dL (0.2-1.0); CREATININE 5.2 mg/dL (0.5-1.0); TOTAL PROTEIN, SERUM 8.2 g/dL (6.0-8.3)
[2024-04-24 11:04] LABS: BASOPHILS % (MANUAL) 2 % (0-2); EOSINOPHILS % (MANUAL) 1 % (1-6); LYMPHOCYTES % (MANUAL) 16 % (22-44); MONOCYTES % (MANUAL) 5 % (2-9); SEGMENTED NEUTROPHILS % 76 % (40-70); TOTAL CELLS COUNTED 100
[2024-04-24 11:05] LABS: MAN.DIFF COMMENT-IMPRESSION MANUAL DIFFERENTIAL; PLATELET MORPHOLOGY COMMENT ADEQUATE
[2024-04-24 11:50] LABS: INR 1.07 (0.85-1.15); PROTHROMBIN TIME 11.5 SEC (9.6-11.6)
[2024-04-24 11:52] LABS: PARTIAL THROMBOPLASTIN TIME 46.4 SEC (26.3-35.5)
[2024-04-24] MEDS: SODIUM BICARB 50MEQ 50ML VIAL 50 ML ONE (12:34)
[2024-04-24] MEDS: ALBUMIN (HUMAN) 25% 200 ML IV ONE (12:35)
[2024-04-24 13:42] VITALS: BP 134/47; PULSE 52; RESP 16; O2SAT 99
== END 2024-04-24 14:00 | disposition home or self-care (01) ==
LOC: EDH 09:16
DX: R18.8 Other ascites (principal); I12.0 Hypertensive chronic kidney disease with stage 5 chronic kidney disease or end stage renal disease; E11.22 Type 2 diabetes mellitus with diabetic chronic kidney disease; N18.6 End stage renal disease; Z99.2 Dependence on renal dialysis; D63.1 Anemia in chronic kidney disease; E78.00 Pure hypercholesterolemia, unspecified; Z79.82 Long term (current) use of aspirin
CPT/HCPCS: 49083; 99285; 96365; 80053; 85025; 85610; 85730; 36415; P9046; J3490; C1729

== ENCOUNTER 2024-05-29 09:36 | Emergency (ER) | payer MEDICARE ==
[~2024-05-29] VITALS: Ht 149.9 cm; Wt 59.0 kg
[2024-05-29 10:04] LABS: BASOPHILS # (AUTO) 0.02 K/uL (0.00-0.20); BASOPHILS % (AUTO) 0.5 % (0.0-5.0); EOSINOPHILS # (AUTO) 0.42 K/uL (0.00-0.70); EOSINOPHILS % (AUTO) 10.9 % (0.0-8.0); HEMATOCRIT 33.4 % (36-48); IMMATURE GRANULOCYTE ABSOLUTE 0.01 K/uL (0-1); LYMPHOCYTES # (AUTO) 0.8 K/uL (1.0-4.8); LYMPHOCYTES % (AUTO) 19.4 % (21.0-51.0); MEAN CORPUSCULAR HEMOGLOBIN 32.3 pg (27.0-33.0); MEAN CORPUSCULAR HGB CONC 31.7 g/dL (32.0-36.0); MEAN CORPUSCULAR VOLUME 101.8 fL (79-99); MONOCYTES # (AUTO) 0.3 K/uL (0.1-1.0); MONOCYTES % (AUTO) 8.3 % (3.0-13.0); NEUTROPHILS # (AUTO) 2.4 K/uL (1.8-7.7); NEUTROPHILS % (AUTO) 60.6 % (40.0-77.0); PLATELET COUNT (AUTO) 75 K/uL (130-400); RED BLOOD CELL COUNT(AUTO) 3.28 MIL/uL (4.00-5.50); RED CELL DISTRIBUTION WIDTH 13.6 % (11.0-15.5); WHITE BLOOD COUNT (AUTO) 3.9 K/uL (4.8-10.8)
[2024-05-29 10:11] LABS: CREATININE 4.6 mg/dL (0.5-1.0); POTASSIUM 4.1 mmol/L (3.5-5.1)
[2024-05-29 10:33] LABS: INR 1.06 (0.85-1.15); PROTHROMBIN TIME 11.4 SEC (9.6-11.6)
[2024-05-29 10:34] LABS: PARTIAL THROMBOPLASTIN TIME 45.6 SEC (26.3-35.5)
[2024-05-29] MEDS ORDERED: ALBUMIN (HUMAN) 25% 200 ML IV ONE (12:47)
[2024-05-29 14:55] VITALS: BP 138/42; PULSE 56; RESP 14; O2SAT 100
== END 2024-05-29 15:47 | disposition home or self-care (01) ==
LOC: EDH 09:36
DX: R18.8 Other ascites (principal); I12.0 Hypertensive chronic kidney disease with stage 5 chronic kidney disease or end stage renal disease; E11.22 Type 2 diabetes mellitus with diabetic chronic kidney disease; N18.6 End stage renal disease; D63.1 Anemia in chronic kidney disease; K74.60 Unspecified cirrhosis of liver; D69.6 Thrombocytopenia, unspecified; E78.00 Pure hypercholesterolemia, unspecified; Z79.82 Long term (current) use of aspirin; Z99.2 Dependence on renal dialysis; Z79.899 Other long term (current) drug therapy; Z88.8 Allergy status to other drugs, medicaments and biological substances
CPT/HCPCS: 49083; 99285; 82040; 80048; 85025; 85610; 85730; 36415; 93005; P9046; C1729

== ENCOUNTER 2024-06-21 09:40 | Emergency (ER) | payer MEDICARE ==
[~2024-06-21] VITALS: Ht 152.4 cm; Wt 55.3 kg
[2024-06-21 09:44] VITALS: BP 137/54; PULSE 65; RESP 16; TEMP 97.5
[2024-06-21 10:37] LABS: BASOPHILS # (AUTO) 0.05 K/uL (0.00-0.20); BASOPHILS % (AUTO) 1.1 % (0.0-5.0); EOSINOPHILS # (AUTO) 0.48 K/uL (0.00-0.70); EOSINOPHILS % (AUTO) 10.3 % (0.0-8.0); HEMATOCRIT 33.4 % (36-48); IMMATURE GRANULOCYTE ABSOLUTE 0.01 K/uL (0-1); LYMPHOCYTES # (AUTO) 0.8 K/uL (1.0-4.8); LYMPHOCYTES % (AUTO) 16.8 % (21.0-51.0); MEAN CORPUSCULAR HEMOGLOBIN 32.6 pg (27.0-33.0); MEAN CORPUSCULAR HGB CONC 32.3 g/dL (32.0-36.0); MEAN CORPUSCULAR VOLUME 100.9 fL (79-99); MONOCYTES # (AUTO) 0.4 K/uL (0.1-1.0); MONOCYTES % (AUTO) 8.2 % (3.0-13.0); NEUTROPHILS # (AUTO) 2.9 K/uL (1.8-7.7); NEUTROPHILS % (AUTO) 63.4 % (40.0-77.0); PLATELET COUNT (AUTO) 120 K/uL (130-400); RED BLOOD CELL COUNT(AUTO) 3.31 MIL/uL (4.00-5.50); RED CELL DISTRIBUTION WIDTH 13.3 % (11.0-15.5); WHITE BLOOD COUNT (AUTO) 4.6 K/uL (4.8-10.8)
[2024-06-21 10:53] LABS: CREATININE 4.3 mg/dL (0.5-1.0); INR 1.06 (0.85-1.15); POTASSIUM 3.8 mmol/L (3.5-5.1); PROTHROMBIN TIME 11.4 SEC (9.6-11.6)
[2024-06-21 10:55] LABS: PARTIAL THROMBOPLASTIN TIME 45.8 SEC (26.3-35.5)
[2024-06-21] MEDS ORDERED: ALBUMIN (HUMAN) 25% 200 ML IV ONE (11:47)
== END 2024-06-21 13:07 | disposition home or self-care (01) ==
LOC: EDH 09:40
DX: K74.60 Unspecified cirrhosis of liver (principal); R18.8 Other ascites; N19 Unspecified kidney failure; I10 Essential (primary) hypertension; Z88.8 Allergy status to other drugs, medicaments and biological substances; Z79.899 Other long term (current) drug therapy; Z79.82 Long term (current) use of aspirin; Z98.890 Other specified postprocedural states; Z86.73 Personal history of transient ischemic attack (TIA), and cerebral infarction without residual deficits; Z99.2 Dependence on renal dialysis
CPT/HCPCS: 49083; 99285; 96365; 93005; 80048; 83690; 85025; 85610; 85730; 36415; P9046; C1729

== ENCOUNTER 2024-07-24 08:37 | Observation (INO) | payer MEDICARE ==
[~2024-07-24] VITALS: Ht 152.4 cm; Wt 59.0 kg
[~2024-07-24 08:37] MED LIST changes: -MIDO10TA PO; +MIDO10TA3 PO
--- NOTE | 2024-07-24 08:49 | ERN ---
General Chief Complaint: Abdominal Pain Stated Complaint: FLUID RETENTION Time Seen by MD: 08:40 History of Present Illness Initial Comments The patient is a 73-year-old female with a medical history of liver cirrhosis, hypertension, and a prior heart surgery, presenting today with abdominal pain. The pain is described as defuse and is associated with increased abdominal distension due to ascites. Allergies: Coded Allergies: metformin HCl (Unverified Allergy, Intermediate, ITCHING, RASH., 05/25/13) minoxidil (Unverified Allergy, Unknown, 12/08/20) Home Meds Reported Medications Ondansetron (Ondansetron Odt) 4 Mg Tab.rapdis, 4 MG PO UNKNOWN PRN for NAUSEA/VOMITING, TAB 03/03/23 Lactulose (Lactulose) 10 Gm/15 Ml Solution, 30 ML PO BID, ML 03/03/23 Olmesartan Medoxomil (Olmesartan Medoxomil) 40 Mg Tablet, 40 MG PO DAILY, TAB 03/03/23 Amlodipine Besylate (Amlodipine Besylate) 5 Mg Tablet, 5 MG PO DAILY, TAB 03/03/23 Mv-Mn/Iron/FA/Herbal Cmplx#190 (Vitamin D3 Complete Caplet) 1 Each Tablet, 1 EACH PO DAILY, TAB 03/03/23 Folic Acid (Folic Acid) 0.4 Mg Tablet, 0.4 MG PO DAILY, TAB 11/03/22 Vitamin E Mixed (Vitamin E) 400 Unit Tablet, 400 UNIT PO DAILY, TAB 11/03/22 Sevelamer Carbonate (Renvela) 800 Mg Tablet, 800 MG PO TID, TAB 11/03/22 Midodrine HCl (Midodrine HCl) 10 Mg Tablet, 10 MG PO AD PRN for BP SUPPORT DURING DIALYSIS, TAB 11/03/22 Cinacalcet HCl (Cinacalcet HCl) 30 Mg Tablet, 30 MG PO DAILY, TAB 11/03/22 Ursodiol (Ursodiol) 250 Mg Tablet, 250 MG PO TID, TAB 11/03/22 Amlodipine/Atorvastatin (Amlodipine-Atorvast 5-10 mg) 1 Each Tablet, 2 EACH PO BID, TAB 11/03/22 Minoxidil (Minoxidil) 2.5 Mg Tablet, 2.5 MG PO 3XWK, TAB TUESDAY, TUESDAY AND Tuesday04/01/21 Aspirin (Aspir 81) 81 Mg Tablet.dr, 81 MG PO DAILY, TAB 04/11/20 Atorvastatin Calcium (LIPITOR) 40 Mg Tablet, 40 MG PO HS, TAB 04/11/20 Esomeprazole Magnesium (Nexium) 40 Mg Capsule.dr, 40 MG PO DAILY, CAP 12/23/19 Past Medical History Past Medical History: Hypertension, Liver Disease, Renal Disese, Renal Failure, Stroke, Other Medical History Other: FATTY LIVER Past Surgical History: Other Surgical History Other: L ARM HD SHUNT, FREQUENT PARACENTESIS' Family History Family History: HTN Social History Social History: Negative, Lives alone, Other Female( History) History: Not Applicable Results Laboratory and Microbiology Lab and Micro Result Laboratory Tests Test 07/24/24 08:55 White Blood Count 4.4 K/uL (4.8-10.8) L Red Blood Count 3.57 MIL/uL (4.00-5.50) L Hemoglobin 11.4 g/dL (12.0-16.0) L Hematocrit 36.4 % (36-48) Mean Corpuscular Volume 102.0 fL (79-99) H Mean Corpuscular Hemoglobin 31.9 pg (27.0-33.0) Mean Corpuscular Hemoglobin Concent 31.3 g/dL (32.0-36.0) L Red Cell Distribution Width 13.2 % (11.0-15.5) Platelet Count 100 K/uL (130-400) L Mean Platelet Volume 10.9 fL (7.5-10.5) H Immature Granulocyte % (Auto) 0.2 % (0-1) Neutrophils (%) (Auto) 57.7 % (40.0-77.0) Lymphocytes (%) (Auto) 18.2 % (21.0-51.0) L Monocytes (%) (Auto) 8.8 % (3.0-13.0) Eosinophils (%) (Auto) 14.0 % (0.0-8.0) H Basophils (%) (Auto) 1.1 % (0.0-5.0) Neutrophils # (Auto) 2.6 K/uL (1.8-7.7) Lymphocytes # (Auto) 0.8 K/uL (1.0-4.8) L Monocytes # (Auto) 0.4 K/uL (0.1-1.0) Eosinophils # (Auto) 0.62 K/uL (0.00-0.70) Basophils # (Auto) 0.05 K/uL (0.00-0.20) Absolute Immature Granulocyte (auto 0.01 K/uL (0-1) Nucleated Red Blood Cells 0.0 % (0.0-0.19) MDM MDM: Differential diagnosis: Liver cirrhosis, ascites, shortness of breath, requiring paracentesis Rationale: Tests considered and ordered secondary to shared decision making include: Previous outside records reviewed: Old ER visits. Risk of complication and/or morbidity or mortality of patient management: None Medications-Per medication reconciliation Need for hospitalization: Patient does not meet criteria for hospitalization. Need for emergency major/minor surgery: No There are no social concerns with this patient. Prescription drug management Prescriptions will include symptomatic care Patient's prior external medical records from other ER visits were reviewed by me as indicated. Prior testing and results from previous visits were reviewed. Prior tests were taken into account with medical decision making and resource utilization, independent historian/historians were used to obtain complete medical history. I independently interpreted the test that were performed, results were reviewed by me and considered findings on radiology if ordered. Medical management and examination interpretation discussions were had by me with other qualified healthcare professionals as indicated for the patient's care. Patient is a 73-year-old female coming in to be evaluated for abdominal distention. Patient has a history of liver cirrhosis as well as hypertension and open heart surgery. Patient has been having shortness of breath due to increased abdominal girth secondary to ascites. Patient will be admitted under the care of Dr. DUFFY for paracentesis to be carried out by IR. ED Course Orders Procedure Category Date Status Time Cbc With Differential LAB 07/24/24 Complete 08:42 Basic Metabolic Panel LAB 07/24/24 In Process 08:42 Prothrombin Time With LAB 07/24/24 In Process INR 08:42 Edm Admit Bridge Order ADM 07/24/24 Transmitted 09:28 Vital Signs Date Time Temp Pulse Resp B/P (MAP) Pulse Ox O2 Delivery O2 Flow Rate FiO2 07/24/24 08:58 60 14 161/59 99 Room Air* 0 21 07/24/24 08:40 98.2 82 18 144/61 97 DX & DISP Disposition: Inpatient Decision to Admit Time: 09:31 Departure Impression: Primary Impression: Abdominal ascites Additional Impressions: Abdominal distention, Shortness of breath Condition: Stable Referrals: KATHLEEN JACKSON MD (PCP) ELEAZAR GEORGE MD Jul 24, 2024 08:49 DONTAE RAMOS MD Jul 24, 2024 09:31
[2024-07-24 09:29] LABS: BASOPHILS # (AUTO) 0.05 K/uL (0.00-0.20); BASOPHILS % (AUTO) 1.1 % (0.0-5.0); EOSINOPHILS # (AUTO) 0.62 K/uL (0.00-0.70); HEMATOCRIT 36.4 % (36-48); IMMATURE GRANULOCYTE ABSOLUTE 0.01 K/uL (0-1); LYMPHOCYTES # (AUTO) 0.8 K/uL (1.0-4.8); LYMPHOCYTES % (AUTO) 18.2 % (21.0-51.0); MEAN CORPUSCULAR HEMOGLOBIN 31.9 pg (27.0-33.0); MEAN CORPUSCULAR HGB CONC 31.3 g/dL (32.0-36.0); MONOCYTES # (AUTO) 0.4 K/uL (0.1-1.0); MONOCYTES % (AUTO) 8.8 % (3.0-13.0); NEUTROPHILS # (AUTO) 2.6 K/uL (1.8-7.7); NEUTROPHILS % (AUTO) 57.7 % (40.0-77.0); PLATELET COUNT (AUTO) 100 K/uL (130-400); RED BLOOD CELL COUNT(AUTO) 3.57 MIL/uL (4.00-5.50); RED CELL DISTRIBUTION WIDTH 13.2 % (11.0-15.5); WHITE BLOOD COUNT (AUTO) 4.4 K/uL (4.8-10.8)
[2024-07-24 09:38] LABS: CREATININE 4.5 mg/dL (0.5-1.0)
[2024-07-24 09:41] LABS: INR 1.03 (0.85-1.15); PROTHROMBIN TIME 11.1 SEC (9.6-11.6)
--- NOTE | 2024-07-24 11:25 | NUR ---
U/S GD PARACENTESIS PROCEDURE PERFORMED BY DR Richard PARRY. PUNCTURE SITE RLQ AND PATIENT TOLERATED PROCEDURE WELL. TOTAL REMOVED 6.5 LITERS OF CLOUDY YELLOW FLUID. ALBUMIN 25% 50 GRAMS GIVEN DURING PROCEDURE. END OF PROCEDURE AT 1105. CATHETER REMOVED AND DRESSING APPLIED. NO BLEEDING NOTED. REPORT GIVEN TO SHAWNA BRIGHT AND PATIENT TRANSPORTED TO ED VIA BED. AAO X3 WITH NO C/O PAIN.
[2024-07-24] MEDS ORDERED: ALBUMIN (HUMAN) 25% 200 ML IV ONE (11:47)
--- NOTE | 2024-07-24 11:51 | NUR ---
ROOM ASSIGNED TO 425. PATIENT PENDING TO RETURN FROM PARACENTESIS WITH IR. PER DR DUFFY, IF PATIENT IS STABLE S/P PARACENTESIS TO DISCHARGE HOME. TIRE CORD WEAVER AWARE. WILL ASSESS PATIENT WHEN RETURNS FOR PARACENTESIS AND THEN REPORT TO DR DUFFY IF STABLE OR TRASNFER TO ROOM 425.
--- NOTE | 2024-07-24 12:08 | NUR ---
PER FAREED RN WITH INTERVENTIONAL RADIOLOGY; 6.5L WERE TAKEN OUT OF RLQ. PT AJDEENLTY RECEIVING 2ND BOTTLE OF ALBUMIN.
[2024-07-24 12:20] VITALS: BP 137/43; PULSE 60; RESP 14; TEMP 98.2; O2SAT 98
--- NOTE | 2024-07-24 12:21 | NUR ---
PER DR DUFFY TO DISCHARGE HOME S/P PARACENTESIS IF PATIENT "STABLE." AT THIS TIME THERE ARE NO SIGNS OR SYMPTOMS OF ACUTE DISTRESS. DENIES ABDOMINAL DISCOMFORT. VOICES RELIEF S/P PARACENTESIS. VOICES NO COMPLAINTS. SEE VITAL SIGNS.
--- NOTE | 2024-07-24 12:23 | NUR ---
PER NURSE NAIN RN WILL SEND FLOOR NURSE TO D/C PATIENT HOME.
--- NOTE | 2024-07-24 12:29 | NUR ---
PER PRECISION HONING MACHINE OPERATOR PATIENT OKAY TO BE DISCHARGED IN ER. NO LONGER ASSIGNED ROOM 425. PENDING FLOOR NURSE TO D/C PATIENT.
--- NOTE | 2024-07-24 12:45 | NUR ---
DISCHARGE Patient has discharge orders per ER nurse, but unit nurse must complete DC due to charting limitations of ER nursing. Per Ed BRIGHT Clinical [employer] Sousaphones, litzy to complete dc paperwork. Paperwork completed. Jane BRIGHT to ER to provide discharge education and dc packet to patient.
--- NOTE | 2024-07-24 15:21 | HMCIMG ---
US ABDOMINAL PARACENTESIS IR HISTORY: Ascites COMPARISON: None TECHNIQUE: Informed consent was obtained. Risks and benefits were explained to the patient. A timeout was performed. Patient was prepped and draped in a sterile fashion. Local anesthetics was given as required. Under ultrasound guidance, ascites fluid was localized. Paracentesis was performed. FINDINGS: 6.5 L of yellowish fluid was aspirated. Less than 2 cc blood loss is noted. Patient tolerated procedure without complication. Patient left the department in good condition. IMPRESSION: 1. Uncomplicated ultrasound guidance paracentesis.
== END 2024-07-24 13:00 | disposition home or self-care (01) ==
LOC: EDH 08:37 → EDHIP 09:30
PROVIDERS: ADMIT Internal Medicine; ATTEND Internal Medicine
DX: R18.8 Other ascites (principal); R14.0 Abdominal distension (gaseous); R06.02 Shortness of breath; I10 Essential (primary) hypertension; K74.60 Unspecified cirrhosis of liver; Z88.8 Allergy status to other drugs, medicaments and biological substances; Z79.82 Long term (current) use of aspirin; Z86.73 Personal history of transient ischemic attack (TIA), and cerebral infarction without residual deficits; Z79.899 Other long term (current) drug therapy
CPT/HCPCS: 99284; 80048; 85025; 85610; 36415; 49083; G0378; P9046; C1729

== ENCOUNTER 2024-08-14 09:19 | Emergency (ER) | payer MEDICARE ==
[~2024-08-14] VITALS: Ht 149.9 cm; Wt 59.0 kg
--- NOTE | 2024-08-14 09:38 | ERN ---
General Chief Complaint: Abdominal Pain Stated Complaint: PARACENTESIS Time Seen by MD: 09:28 History of Present Illness Initial Comments 74-year-old female presents to the ED for evaluation of abdominal distention and mentioned she is here for a paracentesis. Patient states she has been short of breath and that yesterday during dialysis her blood pressure decreased. Patient was here on the 8th of this month and received a paracentesis. No other medical or surgical history mentioned. Allergies: Coded Allergies: metformin HCl (Unverified Allergy, Intermediate, ITCHING, RASH., 05/25/13) minoxidil (Unverified Allergy, Unknown, 12/08/20) Home Meds Reported Medications Ondansetron (Ondansetron Odt) 4 Mg Tab.rapdis, 4 MG PO UNKNOWN PRN for NAUSEA/VOMITING, TAB 03/03/23 Lactulose (Lactulose) 10 Gm/15 Ml Solution, 30 ML PO BID, ML 03/03/23 Olmesartan Medoxomil (Olmesartan Medoxomil) 40 Mg Tablet, 40 MG PO DAILY, TAB 03/03/23 Amlodipine Besylate (Amlodipine Besylate) 5 Mg Tablet, 5 MG PO DAILY, TAB 03/03/23 Mv-Mn/Iron/FA/Herbal Cmplx#190 (Vitamin D3 Complete Caplet) 1 Each Tablet, 1 EACH PO DAILY, TAB 03/03/23 Folic Acid (Folic Acid) 0.4 Mg Tablet, 0.4 MG PO DAILY, TAB 11/03/22 Vitamin E Mixed (Vitamin E) 400 Unit Tablet, 400 UNIT PO DAILY, TAB 11/03/22 Sevelamer Carbonate (Renvela) 800 Mg Tablet, 800 MG PO TID, TAB 11/03/22 Midodrine HCl (Midodrine HCl) 10 Mg Tablet, 10 MG PO AD PRN for BP SUPPORT DURING DIALYSIS, TAB 11/03/22 Cinacalcet HCl (Cinacalcet HCl) 30 Mg Tablet, 30 MG PO DAILY, TAB 11/03/22 Ursodiol (Ursodiol) 250 Mg Tablet, 250 MG PO TID, TAB 11/03/22 Amlodipine/Atorvastatin (Amlodipine-Atorvast 5-10 mg) 1 Each Tablet, 2 EACH PO BID, TAB 11/03/22 Minoxidil (Minoxidil) 2.5 Mg Tablet, 2.5 MG PO 3XWK, TAB TUESDAY, TUESDAY AND Tuesday04/01/21 Aspirin (Aspir 81) 81 Mg Tablet.dr, 81 MG PO DAILY, TAB 04/11/20 Atorvastatin Calcium (LIPITOR) 40 Mg Tablet, 40 MG PO HS, TAB 04/11/20 Esomeprazole Magnesium (Nexium) 40 Mg Capsule.dr, 40 MG PO DAILY, CAP 12/23/19 Past Medical History Past Medical History: Cancer, Diabetes-Type II, High Cholesterol, Hypertension, Liver Disease, Renal Failure Medical History Other: FATTY LIVER Past Surgical History: Cholecystectomy, CABG Surgical History Other: L ARM HD SHUNT, FREQUENT PARACENTESIS' Family History Family History: HTN Social History Social History: Negative, Lives alone, Other Female( History) History: Not Applicable ROS Dictation Constitutional: Negative for fever,chills, and weight loss Eyes: Negative for injury, pain,redness, and discharge ENT: Negative for injury,pain or swelling Cardiovascular: Negative for chest pain, palpitations, and edema Respiratory: Positive for shortness breath, negative for cough, and wheezing, Abdomen/GI: Positive for abdominal distention Negative for abdominal pain, nausea, vomiting, diarrhea, and constipation Back: Negative for injury and pain : Negative for injury, bleeding and discharge MS/Extremity: Negative for injury and deformity Skin: Negative for rash, and discoloration Neuro: Negative for headache, weakness, numbness, tingling, and seizure Psych: Negative for suicide ideation, homicidal ideation, and hallucinations Physical Exam Physical Exam Dictation General: awake, alert, NAD Head/Face: Normocephalic, atraumatic Eyes: PERRL, EOMI, vision at baseline ENT: oral cavity clear, TMs clear, no signs of infection Neck: Trachea midline, supple, no nuchal rigidity Cardiovascular: RRR, normal S1/S2, No MRGs, no JVD Respiratory: CTAB, no respiratory distress, No rales or wheezes Abdomen: Soft, non-tender, moderate abdominal distention, normal bowel sounds, no guarding or rebound. Skin: Warm, dry, normal turgor, no rash MS/Extremity: Pulses equal, no cyanosis, neurovascular intact, FROM Neuro: COAx4, GCS 15, strength 5/5, CN 2-12 intact, normal cerebellar exam, normal gait, Psych: Normal behavior, mood, and affect normal Results Laboratory and Microbiology Lab and Micro Result Laboratory Tests Test 08/14/24 09:42 White Blood Count 4.4 K/uL (4.8-10.8) L Red Blood Count 3.40 MIL/uL (4.00-5.50) L Hemoglobin 10.8 g/dL (12.0-16.0) L Hematocrit 33.8 % (36-48) L Mean Corpuscular Volume 99.4 fL (79-99) H Mean Corpuscular Hemoglobin 31.8 pg (27.0-33.0) Mean Corpuscular Hemoglobin Concent 32.0 g/dL (32.0-36.0) Red Cell Distribution Width 13.5 % (11.0-15.5) Platelet Count 109 K/uL (130-400) L Mean Platelet Volume 10.5 fL (7.5-10.5) Immature Granulocyte % (Auto) 0.2 % (0-1) Neutrophils (%) (Auto) 73.5 % (40.0-77.0) Lymphocytes (%) (Auto) 11.8 % (21.0-51.0) L Monocytes (%) (Auto) 6.3 % (3.0-13.0) Eosinophils (%) (Auto) 7.7 % (0.0-8.0) Basophils (%) (Auto) 0.5 % (0.0-5.0) Neutrophils # (Auto) 3.3 K/uL (1.8-7.7) Lymphocytes # (Auto) 0.5 K/uL (1.0-4.8) L Monocytes # (Auto) 0.3 K/uL (0.1-1.0) Eosinophils # (Auto) 0.34 K/uL (0.00-0.70) Basophils # (Auto) 0.02 K/uL (0.00-0.20) Absolute Immature Granulocyte (auto 0.01 K/uL (0-1) Nucleated Red Blood Cells 0.0 % (0.0-0.19) Prothrombin Time 11.4 SEC (9.6-11.6) Prothromb Time International Ratio 1.06 (0.85-1.15) Sodium Level 134 mmol/L (136-145) L Potassium Level 3.7 mmol/L (3.5-5.1) Chloride Level 96 mmol/L (101-111) L Carbon Dioxide Level 31 mmol/L (21-32) Blood Urea Nitrogen 35 mg/dL (7-18) H Creatinine 4.6 mg/dL (0.5-1.0) H Glomerular Filtration Rate Calc 10 mL/min (>90) Random Glucose 134 mg/dL (70-105) H Total Calcium 8.8 mg/dL (8.5-10.1) MDM MDM: Differential diagnosis: Ascites, fluid overload, seeking paracentesis Extended stay in the ER due to IR performing paracentesis procedure. Previous outside records reviewed: Old ER visits. Need for hospitalization: Patient does not meet criteria for hospitalization. Need for emergency major/minor surgery: No Patient's prior external medical records from other ER visits were reviewed by me as indicated. Prior testing and results from previous visits were reviewed. Prior tests were taken into account with medical decision making and resource utilization, independent historian/historians were used to obtain complete medical history. I independently interpreted the test that were performed, results were reviewed by me and considered findings on radiology if ordered. Medical management and examination interpretation discussions were had by me with other qualified healthcare professionals as indicated for the patient's care. ED Course Orders Procedure Category Date Status Time Cbc With Differential LAB 08/14/24 Complete 09:34 Basic Metabolic Panel LAB 08/14/24 Complete 09:34 Prothrombin Time With LAB 08/14/24 Complete INR 09:34 Us Abdominal US 08/14/24 Logged Paracentesis Ir 10:15 Albumin (Human) 25% PHA 08/14/24 Complete (Plasbumin-25) 11:51 Current Medications Medications (Trade) Dose Ordered Sig/Rufina Route PRN Reason Start Time Stop Time Status Last Admin Dose Admin Albumin Human 200 ml @ As Directed STK-MED ONCE IV 08/14/24 11:51 08/14/24 11:51 DC Vital Signs Date Time Temp Pulse Resp B/P (MAP) Pulse Ox O2 Delivery O2 Flow Rate FiO2 08/14/24 12:44 98.8 67 20 136/70 98 Room Air* 0 08/14/24 10:50 98.8 66 20 126/63 98 Room Air* 0 08/14/24 09:45 98.8 76 20 164/70 99 Room Air* 0 08/14/24 09:21 98.4 73 18 135/55 99 Room Air DX & DISP Disposition: Discharge Departure Impression: Primary Impression: Status post abdominal paracentesis Additional Impression: End-stage renal disease on hemodialysis Condition: Stable Additional Instructions: FOLLOW-UP WITH PRIMARY CARE PROVIDER IN 1 TO 2 DAYS. TAKE MEDICATIONS DIRECTED HERE IN THE EMERGENCY ROOM. OKAY TO CONTINUE HOME MEDICATIONS UNLESS OTHERWISE DISCUSSED DURING YOUR VISIT IN THE EMERGENCY ROOM TODAY. RETURN TO YOUR NEAREST EMERGENCY ROOM IF SYMPTOMS WORSEN OR IF THERE IS NO IMPROVEMENT. CALL 911 IF YOU NEED IMMEDIATE ASSISTANCE. TAKE TYLENOL [id number] NEEDED AND IF NO CONTRAINDICATIONS ARE PRESENT. INCREASE ORAL HYDRATION. A WOUND CULTURE OR URINE CULTURE WAS ORDERED HERE IN THE EMERGENCY ROOM DEPARTMENT PLEASE FOLLOW-UP WITH PRIMARY CARE PROVIDER AND ADVISE THEM TO GET REPEAT PORTS FROM OUR FACILITY. IF YOU HAD ANY LESLY WRAP/SPLINTS THAT WERE APPLIED HERE, PLEASE DO NOT REMOVE THEM UNTIL YOU SEE YOUR PRIMARY CARE OR SPECIALTY. Referrals: Referrals: KATHLEEN JACKSON MD (PCP) Time of Disposition: 13:49 I have reviewed, & agreed with my scribe's, documentation. (Entered by Jairo Francis, acting as a scribe for Dr. Julian) I personally scribed for DONTAE JULIAN MD (BUNNY) on 08/14/24 at 09:38. Electronically submitted by Jairo Francis ([email or web address]). I personally scribed for DONTAE JULIAN MD (BUNNY) on 08/14/24 at 13:49. Electronically submitted by Jairo Francis ([email or web address]). DONTAE JULIAN MD Aug 14, 2024 09:38
[2024-08-14 09:51] LABS: BASOPHILS # (AUTO) 0.02 K/uL (0.00-0.20); BASOPHILS % (AUTO) 0.5 % (0.0-5.0); EOSINOPHILS # (AUTO) 0.34 K/uL (0.00-0.70); EOSINOPHILS % (AUTO) 7.7 % (0.0-8.0); HEMATOCRIT 33.8 % (36-48); IMMATURE GRANULOCYTE ABSOLUTE 0.01 K/uL (0-1); LYMPHOCYTES # (AUTO) 0.5 K/uL (1.0-4.8); LYMPHOCYTES % (AUTO) 11.8 % (21.0-51.0); MEAN CORPUSCULAR HEMOGLOBIN 31.8 pg (27.0-33.0); MEAN CORPUSCULAR VOLUME 99.4 fL (79-99); MONOCYTES # (AUTO) 0.3 K/uL (0.1-1.0); MONOCYTES % (AUTO) 6.3 % (3.0-13.0); NEUTROPHILS # (AUTO) 3.3 K/uL (1.8-7.7); NEUTROPHILS % (AUTO) 73.5 % (40.0-77.0); PLATELET COUNT (AUTO) 109 K/uL (130-400); RED CELL DISTRIBUTION WIDTH 13.5 % (11.0-15.5); WHITE BLOOD COUNT (AUTO) 4.4 K/uL (4.8-10.8)
[2024-08-14 09:59] LABS: CREATININE 4.6 mg/dL (0.5-1.0); POTASSIUM 3.7 mmol/L (3.5-5.1)
[2024-08-14 10:07] LABS: INR 1.06 (0.85-1.15); PROTHROMBIN TIME 11.4 SEC (9.6-11.6)
[2024-08-14] MEDS ORDERED: ALBUMIN (HUMAN) 25% 200 ML IV ONE (11:51)
--- NOTE | 2024-08-14 12:00 | NUR ---
U/S GUIDED PARACENTESIS PROCEDURE PERFORMED BY DR. Mariya MEDEIROS. PUNCTURE SITE RLQ AND PATIENT TOLERATED PROCEDURE WELL. TOTAL REMOVED 5.4 LITERS OF CLOUDY, YELLOW FLUID. ALBUMIN 25% 50 GRAMS INITIATED DURING PROCEDURE. END OF PROCEDURE AT 1150. CATHETER REMOVED AND DRESSING APPLIED TO RLQ- NO BLEEDING NOTED. REPORT GIVEN TO ELBA BLANCHARD RN IN ED AND PATIENT TRANSPORTED BACK TO ED VIA STRETCHER IN STABLE CONDITION.
--- NOTE | 2024-08-14 12:09 | NUR ---
PARACENTESIS REPORT: CRYSTAL CALLED REPORT ON PT 5LITERS OUT FROM RLQ W/DRESSING 2ND BAG OF ALBUMIN HANGING AT THIS TIME PT TOLERATED WELL 144/[id number]% DR MORRIS PERFORMED EXAM
[2024-08-14 13:55] VITALS: BP 136/67; PULSE 50; RESP 20; TEMP 98.6; O2SAT 98
--- NOTE | 2024-09-10 10:58 | HMCIMG ---
US ABDOMINAL PARACENTESIS IR REASON: ASCITES TECHNIQUE: Paracentesis was performed with ultrasound guidance. The puncture site was selected in the Right lower quadrant and overlying skin prepped and draped in a sterile fashion. 1% Xylocaine infiltration was performed. Catheter was placed in the fluid using trocar technique. 5.4 L were removed. Fluid sample was submitted for laboratory evaluation. The patient showed no evidence of complication during the procedure. IMPRESSION: 1. Ultrasound-guided paracentesis.
== END 2024-08-14 14:16 | disposition home or self-care (01) ==
LOC: EDH 09:19
DX: R18.8 Other ascites (principal); I12.0 Hypertensive chronic kidney disease with stage 5 chronic kidney disease or end stage renal disease; E11.22 Type 2 diabetes mellitus with diabetic chronic kidney disease; N18.6 End stage renal disease; Z99.2 Dependence on renal dialysis; E78.00 Pure hypercholesterolemia, unspecified; Z79.82 Long term (current) use of aspirin; Z90.49 Acquired absence of other specified parts of digestive tract; Z95.1 Presence of aortocoronary bypass graft
CPT/HCPCS: 99285; 80048; 85025; 85610; 36415; 49083; 96365; P9046; C1729

== ENCOUNTER 2024-09-10 09:04 | Emergency (ER) | payer MEDICARE ==
[~2024-09-10] VITALS: Ht 149.9 cm; Wt 58.5 kg
[2024-09-10 09:29] LABS: BASOPHILS # (AUTO) 0.01 K/uL (0.00-0.20); BASOPHILS % (AUTO) 0.1 % (0.0-5.0); EOSINOPHILS # (AUTO) 0.01 K/uL (0.00-0.70); EOSINOPHILS % (AUTO) 0.1 % (0.0-8.0); HEMATOCRIT 37.4 % (36-48); IMMATURE GRANULOCYTE ABSOLUTE 0.03 K/uL (0-1); LYMPHOCYTES # (AUTO) 0.6 K/uL (1.0-4.8); LYMPHOCYTES % (AUTO) 8.3 % (21.0-51.0); MEAN CORPUSCULAR HEMOGLOBIN 32.3 pg (27.0-33.0); MEAN CORPUSCULAR HGB CONC 32.1 g/dL (32.0-36.0); MEAN CORPUSCULAR VOLUME 100.5 fL (79-99); MONOCYTES # (AUTO) 0.3 K/uL (0.1-1.0); MONOCYTES % (AUTO) 4.2 % (3.0-13.0); NEUTROPHILS % (AUTO) 86.9 % (40.0-77.0); PLATELET COUNT (AUTO) 125 K/uL (130-400); RED BLOOD CELL COUNT(AUTO) 3.72 MIL/uL (4.00-5.50); RED CELL DISTRIBUTION WIDTH 13.8 % (11.0-15.5)
[2024-09-10 09:42] LABS: INR 1.04 (0.85-1.15); PROTHROMBIN TIME 11.2 SEC (9.6-11.6)
[2024-09-10 09:47] LABS: CREATININE 4.3 mg/dL (0.5-1.0); POTASSIUM 4.4 mmol/L (3.5-5.1)
--- NOTE | 2024-09-10 10:00 | NUR ---
PT IN IR AT THIS TIME FOR PARACENTESIS. [id number]
--- NOTE | 2024-09-10 10:46 | ERN ---
General Chief Complaint: Abdominal Pain Stated Complaint: PARACENTESIS Time Seen by MD: 09:07 Source: patient History of Present Illness Initial Comments Patient is a 74-year-old female coming in to be evaluated for abdominal distention. Patient does have a history of liver cirrhosis and frequently presents with a ascites buildup. Patient states he is here because when she am bulates he becomes short of breath. Allergies: Coded Allergies: metformin HCl (Unverified Allergy, Intermediate, ITCHING, RASH., 05/25/13) minoxidil (Unverified Allergy, Unknown, 12/08/20) Home Meds Reported Medications Ondansetron (Ondansetron Odt) 4 Mg Tab.rapdis, 4 MG PO UNKNOWN PRN for NAUSEA/VOMITING, TAB 03/03/23 Lactulose (Lactulose) 10 Gm/15 Ml Solution, 30 ML PO BID, ML 03/03/23 Olmesartan Medoxomil (Olmesartan Medoxomil) 40 Mg Tablet, 40 MG PO DAILY, TAB 03/03/23 Amlodipine Besylate (Amlodipine Besylate) 5 Mg Tablet, 5 MG PO DAILY, TAB 03/03/23 Mv-Mn/Iron/FA/Herbal Cmplx#190 (Vitamin D3 Complete Caplet) 1 Each Tablet, 1 EACH PO DAILY, TAB 03/03/23 Folic Acid (Folic Acid) 0.4 Mg Tablet, 0.4 MG PO DAILY, TAB 11/03/22 Vitamin E Mixed (Vitamin E) 400 Unit Tablet, 400 UNIT PO DAILY, TAB 11/03/22 Sevelamer Carbonate (Renvela) 800 Mg Tablet, 800 MG PO TID, TAB 11/03/22 Midodrine HCl (Midodrine HCl) 10 Mg Tablet, 10 MG PO AD PRN for BP SUPPORT DURING DIALYSIS, TAB 11/03/22 Cinacalcet HCl (Cinacalcet HCl) 30 Mg Tablet, 30 MG PO DAILY, TAB 11/03/22 Ursodiol (Ursodiol) 250 Mg Tablet, 250 MG PO TID, TAB 11/03/22 Amlodipine/Atorvastatin (Amlodipine-Atorvast 5-10 mg) 1 Each Tablet, 2 EACH PO BID, TAB 11/03/22 Minoxidil (Minoxidil) 2.5 Mg Tablet, 2.5 MG PO 3XWK, TAB TUESDAY, TUESDAY AND Tuesday04/01/21 Aspirin (Aspir 81) 81 Mg Tablet.dr, 81 MG PO DAILY, TAB 04/11/20 Atorvastatin Calcium (LIPITOR) 40 Mg Tablet, 40 MG PO HS, TAB 04/11/20 Esomeprazole Magnesium (Nexium) 40 Mg Capsule.dr, 40 MG PO DAILY, CAP 12/23/19 Past Medical History Past Medical History: Cancer, Diabetes-Type II, High Cholesterol, Hypertension, Liver Disease, Renal Failure Medical History Other: FATTY LIVER Past Surgical History: Cholecystectomy, CABG Surgical History Other: L ARM HD SHUNT, FREQUENT PARACENTESIS' Family History Family History: HTN Social History Social History: Negative, Lives alone, Other Female( History) History: Not Applicable ROS Dictation CONSTITUTIONAL: No chills, no fever, no weakness, no diaphoresis, no malaise. HEAD/FACE: No signs of trauma. EENT: No eye pain, no blurred vision, no tearing, no double vision, no ear pain, no ear discharge, no nose pain, no nasal congestion, no throat pain, no throat swelling, no mouth pain. RESPIRATORY: No cough, no orthopnea, no SOB, no stridor, no wheezing. CARDIOVASCULAR: No chest pain, no edema, no palpitations, no syncope. GASTROINTESTINAL/ABDOMINAL: No abdominal pain, no constipation, no diarrhea, no nausea, no vomiting. GENITOURINARY: No abnormal discharge, no dysuria, no frequent urination, no hematuria. No complaints of pain in the genitals. MUSCULOSKELETAL: No back pain, no gout, no joint pain, no joint swelling, no muscle pain, no muscle stiffness, no neck pain. INTEGUMENTARY: No change in color, no change in hair/nails, no dryness, no lesion, no lumps, no rash. NEUROLOGICAL/PSYCH: No anxiety, not depressed, no emotional problem, no headache, no numbness, no pre-existing deficit, no history of seizures, no tremors, no weakness. HEMATOLOGIC/LYMPHATIC: Not anemic, no history of blood clots, no apparent bleeding, no bruising, glands not swollen. All Systems Negative, Except as Noted. Physical Exam Physical Exam Dictation VITAL SIGNS: Reviewed. GENERAL APPEARANCE: Alert, oriented x3, no acute distress, obese. HEAD AND FACE: Non-traumatic. EYES: PERRL, pink conjunctivas, eyelid no trauma, anterior chamber clear. EARS: Pinnas intact and no signs of trauma or erythema. Ear canals clear and no discharge. TMs no erythema. NOSE: No discharge, no bleeding. OROPHARYNX: Mouth normal, teeth no caries, tongue pink. Pharynx clear, no erythema. Tonsils no exudates, no abscesses noted. Mucous membrane moist. NECK: Supple, non-tender, no thyromegaly, no masses, no JVD, no bruits. BREAST: Deferred. CHEST: No tenderness, no crepitus, no paradoxical movement, no retractions. LUNGS: Clear, well-ventilated, symmetric, no rales, no wheezing, no rhonchi, no stridor, good breath sounds bilaterally. HEART: Regular rate, regular rhythm, no murmur, no gallops. VASCULAR: No peripheral edema. ABDOMEN: Soft, positive bowel sounds, distended, no guarding, nontender, no rebound, no masses no hepatomegaly, no splenomegaly, no Diamond's sign, no hernias. RECTAL: Deferred. GENITAL: Deferred. NEUROLOGICAL: Normal speech, gross motor function intact, gross sensory function intact. MUSCULOSKELETAL: Neck nontender, full range of motion, back nontender, full range of motion. EXTREMITIES: Nontender, full range of motion. SKIN: Color pink, dry, no turgor, no rash, no lacerations, no abrasions, no contusions. LYMPHATICS: Deferred. Results Laboratory and Microbiology Lab and Micro Result Laboratory Tests Test 09/10/24 09:24 White Blood Count 7.0 K/uL (4.8-10.8) Red Blood Count 3.72 MIL/uL (4.00-5.50) L Hemoglobin 12.0 g/dL (12.0-16.0) Hematocrit 37.4 % (36-48) Mean Corpuscular Volume 100.5 fL (79-99) H Mean Corpuscular Hemoglobin 32.3 pg (27.0-33.0) Mean Corpuscular Hemoglobin Concent 32.1 g/dL (32.0-36.0) Red Cell Distribution Width 13.8 % (11.0-15.5) Platelet Count 125 K/uL (130-400) L Mean Platelet Volume 10.5 fL (7.5-10.5) Immature Granulocyte % (Auto) 0.4 % (0-1) Neutrophils (%) (Auto) 86.9 % (40.0-77.0) H Lymphocytes (%) (Auto) 8.3 % (21.0-51.0) L Monocytes (%) (Auto) 4.2 % (3.0-13.0) Eosinophils (%) (Auto) 0.1 % (0.0-8.0) Basophils (%) (Auto) 0.1 % (0.0-5.0) Neutrophils # (Auto) 6.0 K/uL (1.8-7.7) Lymphocytes # (Auto) 0.6 K/uL (1.0-4.8) L Monocytes # (Auto) 0.3 K/uL (0.1-1.0) Eosinophils # (Auto) 0.01 K/uL (0.00-0.70) Basophils # (Auto) 0.01 K/uL (0.00-0.20) Absolute Immature Granulocyte (auto 0.03 K/uL (0-1) Nucleated Red Blood Cells 0.0 % (0.0-0.19) White Cell Morphology Comment See comments Prothrombin Time 11.2 SEC (9.6-11.6) Prothromb Time International Ratio 1.04 (0.85-1.15) Sodium Level 135 mmol/L (136-145) L Potassium Level 4.4 mmol/L (3.5-5.1) Chloride Level 98 mmol/L (101-111) L Carbon Dioxide Level 27 mmol/L (21-32) Blood Urea Nitrogen 42 mg/dL (7-18) H Creatinine 4.3 mg/dL (0.5-1.0) H Glomerular Filtration Rate Calc 10 mL/min (>90) Random Glucose 184 mg/dL (70-105) H Total Calcium 8.8 mg/dL (8.5-10.1) EKG/XRAY/US/CT/MRI Ultrasound Comment [place] [address] [address] IMAGING REPORT Signed PATIENT: MURALI BRAXTON MR#: [id number] : 1950 SEX: F AGE: 74 LOCATION: [facility] ORDER DT: 11/956 STATUS: REG ER REPORT#: [id number] SERVICE 5 REASON: ASCITIES ORDERING PHYSICIAN: DONTAE RAMOS MD PROCEDURE: PARA ABD - US ABDOMINAL PARACENTESIS IR US ABDOMINAL PARACENTESIS IR REASON: ASCITIES TECHNIQUE: Paracentesis was performed with ultrasound guidance. The puncture site was selected in the Left lower quadrant and overlying skin prepped and draped in a sterile fashion. 1% Xylocaine infiltration was performed. Catheter was placed in the fluid using trocar technique. 3.2 L were removed. Fluid sample was submitted for laboratory evaluation. The patient showed no evidence of complication during the procedure. IMPRESSION: 1. Ultrasound-guided paracentesis. DICTATED BY: KACEY MEDEIROS MD DATE: 09/10/241200 ELECTRONICALLY SIGNED BY: KACEY MEDEIROS MD DATE: 09/10/241203 MDM MDM: Differential diagnosis: Status post paracentesis, liver cirrhosis, shortness of breath Patient is a 75-year-old female coming in to be evaluated for shortness of breath. On physical exam and abdomen is distended. Patient does have a history of liver cirrhosis. Patient went ahead and received a paracentesis by IR. Patient will be discharged in stable condition with a diagnosis of status post paracentesis secondary to increased ascites. ED Course Orders Procedure Category Date Status Time Cbc With Differential LAB 09/10/24 Complete 09:10 Basic Metabolic Panel LAB 09/10/24 Complete 09:10 Prothrombin Time With LAB 09/10/24 Complete INR 09:10 Us Abdominal US 09/10/24 Resulted Paracentesis Ir 09:56 Vital Signs Date Time Temp Pulse Resp B/P (MAP) Pulse Ox O2 Delivery O2 Flow Rate FiO2 09/10/24 09:05 97.5 77 16 161/76 100 Room Air 0 DX & DISP Disposition: Discharge Departure Impression: Primary Impression: Abdominal ascites Additional Impression: Status post abdominal paracentesis Condition: Stable Additional Instructions: FOLLOW-UP WITH PRIMARY CARE PROVIDER IN 1 TO 2 DAYS. TAKE MEDICATIONS DIRECTED HERE IN THE EMERGENCY ROOM. OKAY TO CONTINUE HOME MEDICATIONS UNLESS OTHERWISE DISCUSSED DURING YOUR VISIT IN THE EMERGENCY ROOM TODAY. RETURN TO YOUR NEAREST EMERGENCY ROOM IF SYMPTOMS WORSEN OR IF THERE IS NO IMPROVEMENT. CALL 911 IF YOU NEED IMMEDIATE ASSISTANCE. TAKE TYLENOL DCMC-KCP-JAFCLIZ NEEDED AND IF NO CONTRAINDICATIONS ARE PRESENT. INCREASE ORAL HYDRATION. A WOUND CULTURE OR URINE CULTURE WAS ORDERED HERE IN THE EMERGENCY ROOM DEPARTMENT PLEASE FOLLOW-UP WITH PRIMARY CARE PROVIDER AND ADVISE THEM TO GET REPEAT PORTS FROM OUR FACILITY. IF YOU HAD ANY LESLY WRAP/SPLINTS THAT WERE APPLIED HERE, PLEASE DO NOT REMOVE THEM UNTIL YOU SEE YOUR PRIMARY CARE OR SPECIALTY. Referrals: Referrals: KATHLEEN JACKSON MD (PCP) Time of Disposition: 12:11 DONTAE RAMOS MD Sep 10, 2024 10:46
--- NOTE | 2024-09-10 11:22 | NUR ---
U/S GD PARACENTESIS PROCEDURE PERFORMED BY DR Elmira MEDEIROS. PUNCTURE SITE LLQ AND PATIENT TOLERATED PROCEDURE WELL. TOTAL REMOVED 3.3 LITERS OF CLOUD YELLOW FLUID. END OF PROCEDURE AT 1100. CATHETER REMOVED AND DRESSING APPLIED. NO BLEEDING NOTED. REPORT GIVEN TO Mallory CRENSHAW LVN AND PATIENT TRANSPORTED TO ED 14 VIA STRETCHER AT 1125. AAO X3 WITH NO C/O PAIN.
--- NOTE | 2024-09-10 11:50 | NUR ---
PT RETURNED FROM IR. AOX3 PARACENTESIS 3.5L NO ALBUMIN NEEDED. LLQ DRESSING DRY AND INTACT
--- NOTE | 2024-09-10 12:04 | HMCIMG ---
US ABDOMINAL PARACENTESIS IR REASON: ASCITIES TECHNIQUE: Paracentesis was performed with ultrasound guidance. The puncture site was selected in the Left lower quadrant and overlying skin prepped and draped in a sterile fashion. 1% Xylocaine infiltration was performed. Catheter was placed in the fluid using trocar technique. 3.2 L were removed. Fluid sample was submitted for laboratory evaluation. The patient showed no evidence of complication during the procedure. IMPRESSION: 1. Ultrasound-guided paracentesis.
[2024-09-10 12:15] VITALS: BP 136/52; PULSE 74; RESP 16; TEMP 97.9; O2SAT 100
== END 2024-09-10 12:39 | disposition home or self-care (01) ==
LOC: EDH 09:04
DX: R18.8 Other ascites (principal); E11.9 Type 2 diabetes mellitus without complications; E78.00 Pure hypercholesterolemia, unspecified; I10 Essential (primary) hypertension; Z79.82 Long term (current) use of aspirin; Z90.49 Acquired absence of other specified parts of digestive tract; Z95.1 Presence of aortocoronary bypass graft
CPT/HCPCS: 49083; 99285; 80048; 85025; 85610; 36415; C1729

== ENCOUNTER 2024-10-02 10:06 | Emergency (ER) | payer MEDICARE ==
[~2024-10-02] VITALS: Ht 149.9 cm; Wt 59.0 kg
[2024-10-02 11:09] LABS: CREATININE 4.6 mg/dL (0.5-1.0)
[2024-10-02 11:18] LABS: BASOPHILS # (AUTO) 0.03 K/uL (0.00-0.20); BASOPHILS % (AUTO) 0.5 % (0.0-5.0); EOSINOPHILS # (AUTO) 0.21 K/uL (0.00-0.70); EOSINOPHILS % (AUTO) 3.4 % (0.0-8.0); IMMATURE GRANULOCYTE ABSOLUTE 0.03 K/uL (0-1); LYMPHOCYTES # (AUTO) 0.6 K/uL (1.0-4.8); LYMPHOCYTES % (AUTO) 9.1 % (21.0-51.0); MEAN CORPUSCULAR HEMOGLOBIN 31.9 pg (27.0-33.0); MEAN CORPUSCULAR HGB CONC 30.9 g/dL (32.0-36.0); MEAN CORPUSCULAR VOLUME 103.2 fL (79-99); MONOCYTES # (AUTO) 0.7 K/uL (0.1-1.0); MONOCYTES % (AUTO) 10.6 % (3.0-13.0); NEUTROPHILS # (AUTO) 4.7 K/uL (1.8-7.7); NEUTROPHILS % (AUTO) 75.9 % (40.0-77.0); PLATELET COUNT (AUTO) 94 K/uL (130-400); RED BLOOD CELL COUNT(AUTO) 3.39 MIL/uL (4.00-5.50); RED CELL DISTRIBUTION WIDTH 13.7 % (11.0-15.5); WHITE BLOOD COUNT (AUTO) 6.2 K/uL (4.8-10.8)
[2024-10-02 11:50] LABS: INR 0.97 (0.85-1.15); PROTHROMBIN TIME 10.9 SEC (9.6-11.6)
[2024-10-02 11:52] LABS: PARTIAL THROMBOPLASTIN TIME 42.4 SEC (26.3-35.5)
[2024-10-02 12:46] LABS: ALBUMIN 3.7 g/dL (3.5-5.0); BILIRUBIN,DIRECT 0.1 mg/dL (0.0-0.3); BILIRUBIN,TOTAL 0.5 mg/dL (0.2-1.0); TOTAL PROTEIN, SERUM 7.6 g/dL (6.0-8.3)
--- NOTE | 2024-10-02 12:50 | HMCIMG ---
CHEST 1VW HISTORY: Shortness of breath COMPARISON: 07/07/2023 FINDINGS: A frontal projection of the chest was obtained. There are bilateral pulmonary infiltrates suggestive of pulmonary vascular congestion with possible superimposed pneumonitis. Poststernotomy changes are seen. The heart is enlarged. Degenerative changes of the thoracolumbar spine are present. Aortic calcifications are seen IMPRESSION: 1. Bilateral pulmonary infiltrates are seen suggestive of pulmonary vascular congestion with possible superimposed pneumonitis.
--- NOTE | 2024-10-02 13:04 | ERN ---
ED Note History of Present Illness Stated Complaint: ABDOMINAL DISTENSION Chief Complaint: Abdominal Pain Time Seen by MD: 10:32 Dictation: 74-year-old female with a history of ESRD on hemodialysis M/W/F presents to the ED for evaluation of abdominal distention. Patient reports shortness a breath, weakness, dizziness, but denies any other associated symptoms at this time. Patient was told at dialysis on Tuesday that she was 8 kg over and mentioned she usually comes here for paracentesis every month. NEP- DR. Wren. PCP-Dr. Jackson. Allergies: Coded Allergies: metformin HCl (Unverified Allergy, Intermediate, ITCHING, RASH., 05/25/13) minoxidil (Unverified Allergy, Unknown, 12/08/20) Home Meds Reported Medications Ondansetron (Ondansetron Odt) 4 Mg Tab.rapdis, 4 MG PO UNKNOWN PRN for NAUSEA/VOMITING, TAB 03/03/23 Lactulose (Lactulose) 10 Gm/15 Ml Solution, 30 ML PO BID, ML 03/03/23 Olmesartan Medoxomil (Olmesartan Medoxomil) 40 Mg Tablet, 40 MG PO DAILY, TAB 03/03/23 Amlodipine Besylate (Amlodipine Besylate) 5 Mg Tablet, 5 MG PO DAILY, TAB 03/03/23 Mv-Mn/Iron/FA/Herbal Cmplx#190 (Vitamin D3 Complete Caplet) 1 Each Tablet, 1 EACH PO DAILY, TAB 03/03/23 Folic Acid (Folic Acid) 0.4 Mg Tablet, 0.4 MG PO DAILY, TAB 11/03/22 Vitamin E Mixed (Vitamin E) 400 Unit Tablet, 400 UNIT PO DAILY, TAB 11/03/22 Sevelamer Carbonate (Renvela) 800 Mg Tablet, 800 MG PO TID, TAB 11/03/22 Midodrine HCl (Midodrine HCl) 10 Mg Tablet, 10 MG PO AD PRN for BP SUPPORT DURING DIALYSIS, TAB 11/03/22 Cinacalcet HCl (Cinacalcet HCl) 30 Mg Tablet, 30 MG PO DAILY, TAB 11/03/22 Ursodiol (Ursodiol) 250 Mg Tablet, 250 MG PO TID, TAB 11/03/22 Amlodipine/Atorvastatin (Amlodipine-Atorvast 5-10 mg) 1 Each Tablet, 2 EACH PO BID, TAB 11/03/22 Minoxidil (Minoxidil) 2.5 Mg Tablet, 2.5 MG PO 3XWK, TAB TUESDAY, TUESDAY AND Tuesday04/01/21 Aspirin (Aspir 81) 81 Mg Tablet.dr, 81 MG PO DAILY, TAB 04/11/20 Atorvastatin Calcium (LIPITOR) 40 Mg Tablet, 40 MG PO HS, TAB 04/11/20 Esomeprazole Magnesium (Nexium) 40 Mg Capsule.dr, 40 MG PO DAILY, CAP 12/23/19 Past Medical History Past Medical History: Diabetes-Type II, Hypertension, Renal Disese Additional Past Medical Hx: FATTY LIVER Surgical History: Cholecystectomy, CABG, Other, LAVA Surgical History Other: L ARM HD SHUNT, FREQUENT PARACENTESIS' Family History: HTN Social History: Negative, Lives alone, Other History: Not Applicable Review of System Dictation Constitutional: Negative for fever,chills, and weight loss Eyes: Negative for injury, pain,redness, and discharge ENT: Negative for injury,pain or swelling Cardiovascular: Negative for chest pain, palpitations, and edema Respiratory: Positive for shortness of breath,Negative for cough, and wheezing, Abdomen/GI: Positive for abdominal distention, nausea, vomiting, diarrhea, and constipation Back: Negative for injury and pain : Negative for injury, bleeding and discharge MS/Extremity: Negative for injury and deformity Skin: Negative for rash, and discoloration Neuro: Positive for weakness and dizziness, Negative for headache, numbness, tingling, and seizure Psych: Negative for suicide ideation, homicidal ideation, and hallucinations Initial Vital Sign VS Vital Signs Date Time Temp Pulse Resp B/P (MAP) Pulse Ox O2 Delivery O2 Flow Rate FiO2 10/02/24 10:07 98.6 78 20 146/63 98 Room Air 0 Physical Exam Dictation General: awake, alert, NAD Head/Face: Normocephalic, atraumatic Eyes: PERRL, EOMI, vision at baseline ENT: oral cavity clear, TMs clear, no signs of infection Neck: Trachea midline, supple, no nuchal rigidity Cardiovascular: RRR, normal S1/S2, No MRGs, no JVD Respiratory: CTAB, no respiratory distress, No rales or wheezes Abdomen: Soft, non-tender, moderate distention, normal bowel sounds, no guarding or rebound. Skin: Warm, dry, normal turgor, no rash MS/Extremity: Pulses equal, no cyanosis, neurovascular intact, FROM Neuro: COAx4, GCS 15, strength 5/5, CN 2-12 intact, normal cerebellar exam, normal gait, Psych: Normal behavior, mood, and affect normal Results (Laboratory/Radiology) Laboratory/Radiology Laboratory Tests Test 10/02/24 10:38 10/02/24 12:21 White Blood Count 6.2 K/uL (4.8-10.8) Red Blood Count 3.39 MIL/uL (4.00-5.50) L Hemoglobin 10.8 g/dL (12.0-16.0) L Hematocrit 35.0 % (36-48) L Mean Corpuscular Volume 103.2 fL (79-99) H Mean Corpuscular Hemoglobin 31.9 pg (27.0-33.0) Mean Corpuscular Hemoglobin Concent 30.9 g/dL (32.0-36.0) L Red Cell Distribution Width 13.7 % (11.0-15.5) Platelet Count 94 K/uL (130-400) L Mean Platelet Volume 11.0 fL (7.5-10.5) H Immature Granulocyte % (Auto) 0.5 % (0-1) Neutrophils (%) (Auto) 75.9 % (40.0-77.0) Lymphocytes (%) (Auto) 9.1 % (21.0-51.0) L Monocytes (%) (Auto) 10.6 % (3.0-13.0) Eosinophils (%) (Auto) 3.4 % (0.0-8.0) Basophils (%) (Auto) 0.5 % (0.0-5.0) Neutrophils # (Auto) 4.7 K/uL (1.8-7.7) Lymphocytes # (Auto) 0.6 K/uL (1.0-4.8) L Monocytes # (Auto) 0.7 K/uL (0.1-1.0) Eosinophils # (Auto) 0.21 K/uL (0.00-0.70) Basophils # (Auto) 0.03 K/uL (0.00-0.20) Absolute Immature Granulocyte (auto 0.03 K/uL (0-1) Nucleated Red Blood Cells 0.0 % (0.0-0.19) White Cell Morphology Comment See comments Red Blood Cell Morphology See comments Prothrombin Time 10.9 SEC (9.6-11.6) Prothromb Time International Ratio 0.97 (0.85-1.15) Activated Partial Thromboplast Time 42.4 SEC (26.3-35.5) H Sodium Level 140 mmol/L (136-145) Potassium Level 4.0 mmol/L (3.5-5.1) Chloride Level 100 mmol/L (101-111) L Carbon Dioxide Level 30 mmol/L (21-32) Blood Urea Nitrogen 47 mg/dL (7-18) H Creatinine 4.6 mg/dL (0.5-1.0) H Glomerular Filtration Rate Calc 10 mL/min (>90) Random Glucose 102 mg/dL (70-105) Total Calcium 8.3 mg/dL (8.5-10.1) L Total Bilirubin 0.5 mg/dL (0.2-1.0) Direct Bilirubin 0.1 mg/dL (0.0-0.3) Aspartate Amino Transf (AST/SGOT) 17 U/L (10-37) Alanine Aminotransferase (ALT/SGPT) 14 U/L (12-78) Alkaline Phosphatase 264 U/L (50-136) H Ammonia 16 umol/L (11-32) Troponin I High Sensitivity 147 ng/L (4-50) *H Total Protein 7.6 g/dL (6.0-8.3) Albumin 3.7 g/dL (3.5-5.0) Labs Reviewed?: Yes EKG Comment: EKG 10/02/2024 time 1:52 p.m. ventricular rate 74, MA 160, QRS D 136, QT 438. S inus rhythm, right bundle branch block. No STEMI ED Course ED Course Orders Procedure Category Date Status Time Cbc With Differential LAB 10/02/24 Complete 10:32 Basic Metabolic Panel LAB 10/02/24 Complete 10:32 Pt And Ptt LAB 10/02/24 Complete 10:32 Hepatic Function Panel LAB 10/02/24 Complete 11:52 12 Lead Ekg Tracing- EKG 10/02/24 Complete Technical 11:52 Troponin I High LAB 10/02/24 Complete Sensitivity 11:52 Chest 1vw RAD 10/02/24 Resulted 11:52 Ammonia LAB 10/02/24 Complete 11:52 Vital Signs Date Time Temp Pulse Resp B/P (MAP) Pulse Ox O2 Delivery O2 Flow Rate FiO2 10/02/24 10:07 98.6 78 20 146/63 98 Room Air 0 HEART Score Response (Comments) Value History: Low suspicion (0) 0 EKG: Normal 0 Age: > 65yrs (+2) 2 Risk Factors: No known risk factors (0) 0 Initial Troponin: 1-3x Normal Limit (+1) 1 HEART Score Risk: Low Risk for MACE (1-3) Total 3 Medical Decision Making MDM MDM: Differential diagnosis: Ascites, ESRD on hemodialysis, fluid overload Previous outside records reviewed: Old ER visits. Need for hospitalization: Patient does not meet criteria for hospitalization. Need for emergency major/minor surgery: No Patient's prior external medical records from other ER visits were reviewed by me as indicated. Prior testing and results from previous visits were reviewed. Prior tests were taken into account with medical decision making and resource utilization, independent historian/historians were used to obtain complete medical history. I independently interpreted the test that were performed, results were reviewed by me and considered findings on radiology if ordered. Medical management and examination interpretation discussions were had by me with other qualified healthcare professionals as indicated for the patient's care. DX & DISP Disposition: Discharge Departure Impression: Primary Impression: End stage renal disease Additional Impression: Ascites Condition: Stable Referrals: KATHLEEN JACKSON MD (PCP) I personally scribed for NATALEE OTTO MD ([email or web address]) on 10/02/24 at 14:49. Electronically submitted by Jairo Francis ([email or web address]). NATALEE OTTO MD Oct 02, 2024 13:04
--- NOTE | 2024-10-02 13:54 | EKG ---
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
--- NOTE | 2024-10-02 15:07 | NUR ---
ASSUMED CARE AT THIS TIME. BROUGHT INTO INTERNAL WAITING AREA FOR DISCHARGE INSTUCTIONS.
[2024-10-02 15:09] VITALS: BP 142/66; PULSE 75; RESP 20; TEMP 98.1; O2SAT 97
== END 2024-10-02 15:13 | disposition home or self-care (01) ==
LOC: EDH 10:06
DX: I12.0 Hypertensive chronic kidney disease with stage 5 chronic kidney disease or end stage renal disease (principal); E11.22 Type 2 diabetes mellitus with diabetic chronic kidney disease; N18.6 End stage renal disease; Z99.2 Dependence on renal dialysis; R18.8 Other ascites; Z79.82 Long term (current) use of aspirin; Z90.49 Acquired absence of other specified parts of digestive tract; Z95.1 Presence of aortocoronary bypass graft
CPT/HCPCS: 36415; 71045; 80048; 80076; 82140; 84484; 85025; 85610; 85730; 93005; 99285

== ENCOUNTER 2024-10-11 09:30 | Emergency (ER) | payer MEDICARE ==
[~2024-10-11] VITALS: Ht 149.9 cm; Wt 59.0 kg
[2024-10-11 09:31] VITALS: TEMP 98
--- NOTE | 2024-10-11 09:40 | NUR ---
PT JUST NOW PLACED IN MY ED BED 12
--- NOTE | 2024-10-11 10:04 | ERN ---
General Chief Complaint: Abdominal Pain Stated Complaint: PARACENTESIS Time Seen by MD: 09:32 Source: patient History of Present Illness Initial Comments Patient is a 74-year-old female coming to has a paracentesis. Patient states that she frequently requires paracentesis because she retains fluid. States that the she ambulates he does feel short of breath. Allergies: Coded Allergies: metformin HCl (Unverified Allergy, Intermediate, ITCHING, RASH., 05/25/13) minoxidil (Unverified Allergy, Unknown, 12/08/20) Home Meds Reported Medications Ondansetron (Ondansetron Odt) 4 Mg Tab.rapdis, 4 MG PO UNKNOWN PRN for NAUSEA/VOMITING, TAB 03/03/23 Lactulose (Lactulose) 10 Gm/15 Ml Solution, 30 ML PO BID, ML 03/03/23 Olmesartan Medoxomil (Olmesartan Medoxomil) 40 Mg Tablet, 40 MG PO DAILY, TAB 03/03/23 Amlodipine Besylate (Amlodipine Besylate) 5 Mg Tablet, 5 MG PO DAILY, TAB 03/03/23 Mv-Mn/Iron/FA/Herbal Cmplx#190 (Vitamin D3 Complete Caplet) 1 Each Tablet, 1 EACH PO DAILY, TAB 03/03/23 Folic Acid (Folic Acid) 0.4 Mg Tablet, 0.4 MG PO DAILY, TAB 11/03/22 Vitamin E Mixed (Vitamin E) 400 Unit Tablet, 400 UNIT PO DAILY, TAB 11/03/22 Sevelamer Carbonate (Renvela) 800 Mg Tablet, 800 MG PO TID, TAB 11/03/22 Midodrine HCl (Midodrine HCl) 10 Mg Tablet, 10 MG PO AD PRN for BP SUPPORT DURING DIALYSIS, TAB 11/03/22 Cinacalcet HCl (Cinacalcet HCl) 30 Mg Tablet, 30 MG PO DAILY, TAB 11/03/22 Ursodiol (Ursodiol) 250 Mg Tablet, 250 MG PO TID, TAB 11/03/22 Amlodipine/Atorvastatin (Amlodipine-Atorvast 5-10 mg) 1 Each Tablet, 2 EACH PO BID, TAB 11/03/22 Minoxidil (Minoxidil) 2.5 Mg Tablet, 2.5 MG PO 3XWK, TAB TUESDAY, TUESDAY AND Tuesday04/01/21 Aspirin (Aspir 81) 81 Mg Tablet.dr, 81 MG PO DAILY, TAB 04/11/20 Atorvastatin Calcium (LIPITOR) 40 Mg Tablet, 40 MG PO HS, TAB 04/11/20 Esomeprazole Magnesium (Nexium) 40 Mg Capsule.dr, 40 MG PO DAILY, CAP 12/23/19 Past Medical History Past Medical History: Diabetes-Type II, Hypertension, Renal Disese Medical History Other: FATTY LIVER Past Surgical History: Cholecystectomy, CABG, Other, LAVA Surgical History Other: L ARM HD SHUNT, FREQUENT PARACENTESIS' Family History Family History: HTN Social History Social History: Negative, Lives alone, Other Female( History) History: Not Applicable ROS Dictation CONSTITUTIONAL: No chills, no fever, no weakness, no diaphoresis, no malaise. HEAD/FACE: No signs of trauma. EENT: No eye pain, no blurred vision, no tearing, no double vision, no ear pain, no ear discharge, no nose pain, no nasal congestion, no throat pain, no throat swelling, no mouth pain. RESPIRATORY: No cough, no orthopnea, SOB, no stridor, no wheezing. CARDIOVASCULAR: No chest pain, no edema, no palpitations, no syncope. GASTROINTESTINAL/ABDOMINAL: No abdominal pain, no constipation, no diarrhea, no nausea, no vomiting. GENITOURINARY: No abnormal discharge, no dysuria, no frequent urination, no hematuria. No complaints of pain in the genitals. MUSCULOSKELETAL: No back pain, no gout, no joint pain, no joint swelling, no muscle pain, no muscle stiffness, no neck pain. INTEGUMENTARY: No change in color, no change in hair/nails, no dryness, no lesion, no lumps, no rash. NEUROLOGICAL/PSYCH: No anxiety, not depressed, no emotional problem, no headache, no numbness, no pre-existing deficit, no history of seizures, no tremors, no weakness. HEMATOLOGIC/LYMPHATIC: Not anemic, no history of blood clots, no apparent bleeding, no bruising, glands not swollen. All Systems Negative, Except as Noted. Physical Exam Physical Exam Dictation VITAL SIGNS: Reviewed. GENERAL APPEARANCE: Alert, oriented x3, no acute distress, obese. HEAD AND FACE: Non-traumatic. EYES: PERRL, pink conjunctivas, eyelid no trauma, anterior chamber clear. EARS: Pinnas intact and no signs of trauma or erythema. Ear canals clear and no discharge. TMs no erythema. NOSE: No discharge, no bleeding. OROPHARYNX: Mouth normal, teeth no caries, tongue pink. Pharynx clear, no erythema. Tonsils no exudates, no abscesses noted. Mucous membrane moist. NECK: Supple, non-tender, no thyromegaly, no masses, no JVD, no bruits. BREAST: Deferred. CHEST: No tenderness, no crepitus, no paradoxical movement, no retractions. LUNGS: Clear, well-ventilated, symmetric, no rales, no wheezing, no rhonchi, no stridor, good breath sounds bilaterally. HEART: Regular rate, regular rhythm, no murmur, no gallops. VASCULAR: No peripheral edema. ABDOMEN: Soft, positive bowel sounds, distended, no guarding, nontender, no rebound, no masses no hepatomegaly, no splenomegaly, no Diamond's sign, no hernias. RECTAL: Deferred. GENITAL: Deferred. NEUROLOGICAL: Normal speech, gross motor function intact, gross sensory function intact. MUSCULOSKELETAL: Neck nontender, full range of motion, back nontender, full range of motion. EXTREMITIES: Nontender, full range of motion. SKIN: Color pink, dry, no turgor, no rash, no lacerations, no abrasions, no contusions. LYMPHATICS: Deferred. Results Laboratory and Microbiology Lab and Micro Result Laboratory Tests Test 10/11/24 09:54 White Blood Count 4.5 K/uL (4.8-10.8) L Red Blood Count 3.10 MIL/uL (4.00-5.50) L Hemoglobin 9.8 g/dL (12.0-16.0) L Hematocrit 30.7 % (36-48) L Mean Corpuscular Volume 99.0 fL (79-99) Mean Corpuscular Hemoglobin 31.6 pg (27.0-33.0) Mean Corpuscular Hemoglobin Concent 31.9 g/dL (32.0-36.0) L Red Cell Distribution Width 13.2 % (11.0-15.5) Platelet Count 154 K/uL (130-400) Mean Platelet Volume 10.4 fL (7.5-10.5) Immature Granulocyte % (Auto) 0.2 % (0-1) Neutrophils (%) (Auto) 70.0 % (40.0-77.0) Lymphocytes (%) (Auto) 16.1 % (21.0-51.0) L Monocytes (%) (Auto) 8.8 % (3.0-13.0) Eosinophils (%) (Auto) 4.2 % (0.0-8.0) Basophils (%) (Auto) 0.7 % (0.0-5.0) Neutrophils # (Auto) 3.2 K/uL (1.8-7.7) Lymphocytes # (Auto) 0.7 K/uL (1.0-4.8) L Monocytes # (Auto) 0.4 K/uL (0.1-1.0) Eosinophils # (Auto) 0.19 K/uL (0.00-0.70) Basophils # (Auto) 0.03 K/uL (0.00-0.20) Absolute Immature Granulocyte (auto 0.01 K/uL (0-1) Nucleated Red Blood Cells 0.0 % (0.0-0.19) Prothrombin Time 11.3 SEC (9.6-11.6) Prothromb Time International Ratio 1.01 (0.85-1.15) Sodium Level 139 mmol/L (136-145) Potassium Level 4.6 mmol/L (3.5-5.1) Chloride Level 100 mmol/L (101-111) L Carbon Dioxide Level 30 mmol/L (21-32) Blood Urea Nitrogen 49 mg/dL (7-18) H Creatinine 5.4 mg/dL (0.5-1.0) H Glomerular Filtration Rate Calc 8 mL/min (>90) Random Glucose 97 mg/dL (70-105) Total Calcium 8.4 mg/dL (8.5-10.1) L Labs Reviewed?: Yes MDM MDM: DIFFERENTIAL DIAGNOSIS: STATUS POST PARACENTESIS, LIVER CIRRHOSIS, PATIENT IS A 74-YEAR-OLD FEMALE COMING IN TO BE EVALUATED FOR ABDOMINAL DISTENTION. PATIENT HAS A HISTORY OF LIVER CIRRHOSIS RECEIVED A PARACENTESIS. PATIENT WILL BE DISCHARGED WITH A DIAGNOSIS OF STATUS POST PARACENTESIS SECONDARY TO LIVER CIRRHOSIS. ED Course Orders Procedure Category Date Status Time Cbc With Differential LAB 10/11/24 Complete 09:40 Basic Metabolic Panel LAB 10/11/24 Complete 09:40 Prothrombin Time With LAB 10/11/24 Complete INR 09:40 Us Abdominal US 10/11/24 Taken Paracentesis Ir 09:40 Vital Signs Date Time Temp Pulse Resp B/P (MAP) Pulse Ox O2 Delivery O2 Flow Rate FiO2 10/11/24 09:31 98.1 59 20 131/52 99 Room Air 0 DX & DISP Disposition: Discharge Departure Impression: Primary Impression: End-stage renal disease on hemodialysis Additional Impression: Status post abdominal paracentesis Condition: Stable Additional Instructions: FOLLOW-UP WITH PRIMARY CARE PROVIDER IN 1 TO 2 DAYS. TAKE MEDICATIONS DIRECTED HERE IN THE EMERGENCY ROOM. OKAY TO CONTINUE HOME MEDICATIONS UNLESS OTHERWISE DISCUSSED DURING YOUR VISIT IN THE EMERGENCY ROOM TODAY. RETURN TO YOUR NEAREST EMERGENCY ROOM IF SYMPTOMS WORSEN OR IF THERE IS NO IMPROVEMENT. CALL 911 IF YOU NEED IMMEDIATE ASSISTANCE. TAKE TYLENOL [id number] NEEDED AND IF NO CONTRAINDICATIONS ARE PRESENT. INCREASE ORAL HYDRATION. A WOUND CULTURE OR URINE CULTURE WAS ORDERED HERE IN THE EMERGENCY ROOM DEPARTMENT PLEASE FOLLOW-UP WITH PRIMARY CARE PROVIDER AND ADVISE THEM TO GET REPEAT PORTS FROM OUR FACILITY. IF YOU HAD ANY LESLY WRAP/SPLINTS THAT WERE APPLIED HERE, PLEASE DO NOT REMOVE THEM UNTIL YOU SEE YOUR PRIMARY CARE OR SPECIALTY. REFERRALS: Referrals: KATHLEEN JACKSON MD (PCP) Time of Disposition: 12:39 DONTAE RAMOS MD Oct 11, 2024 10:04
[2024-10-11 10:05] LABS: BASOPHILS # (AUTO) 0.03 K/uL (0.00-0.20); BASOPHILS % (AUTO) 0.7 % (0.0-5.0); EOSINOPHILS # (AUTO) 0.19 K/uL (0.00-0.70); EOSINOPHILS % (AUTO) 4.2 % (0.0-8.0); HEMATOCRIT 30.7 % (36-48); IMMATURE GRANULOCYTE ABSOLUTE 0.01 K/uL (0-1); LYMPHOCYTES # (AUTO) 0.7 K/uL (1.0-4.8); LYMPHOCYTES % (AUTO) 16.1 % (21.0-51.0); MEAN CORPUSCULAR HEMOGLOBIN 31.6 pg (27.0-33.0); MEAN CORPUSCULAR HGB CONC 31.9 g/dL (32.0-36.0); MONOCYTES # (AUTO) 0.4 K/uL (0.1-1.0); MONOCYTES % (AUTO) 8.8 % (3.0-13.0); NEUTROPHILS # (AUTO) 3.2 K/uL (1.8-7.7); PLATELET COUNT (AUTO) 154 K/uL (130-400); RED CELL DISTRIBUTION WIDTH 13.2 % (11.0-15.5); WHITE BLOOD COUNT (AUTO) 4.5 K/uL (4.8-10.8)
[2024-10-11 10:13] LABS: CREATININE 5.4 mg/dL (0.5-1.0); POTASSIUM 4.6 mmol/L (3.5-5.1)
[2024-10-11 10:16] LABS: INR 1.01 (0.85-1.15); PROTHROMBIN TIME 11.3 SEC (9.6-11.6)
--- NOTE | 2024-10-11 11:05 | NUR ---
PT TO IR FOR HER PARACENTESIS. LISA BRIGHT OBTAINED THE CONSENT.
--- NOTE | 2024-10-11 12:10 | NUR ---
ULTRASOUND GUIDED PARACENTESIS PROCEDURE PERFORMED BY DR. Leno HILLMAN. PUNCTURE SITE TO RLQ AND PATIENT TOLERATED PROCEDURE WELL. TOTAL REMOVED 3.0 LITERS OF CLOUDY, YELLOW FLUID. END OF PROCEDURE AT 1150. CATHETER REMOVED AND DRESSING APPLIED- NO BLEEDING NOTED. REPORT CALLED TO ELBA BLANCHARD RN AND PATIENT TRANSFERRED BACK TO ED VIA STRETCHER- ALERT AND ORIENTED WITH NO C/O PAIN.
--- NOTE | 2024-10-11 12:11 | NUR ---
IR PARACENTESIS NOTE: REMOVED 3 LITERS FROM RLQ. LOCAL ANESTHETIC. NO ALBUMIN 118/55...80.18.98%
--- NOTE | 2024-10-11 12:18 | NUR ---
PT JUST NOW RETURNED FROM IR. ED MADE AWARE OF REPORT BY IR
[2024-10-11 13:35] VITALS: BP 107/51; PULSE 52; RESP 17; O2SAT 98
--- NOTE | 2024-10-11 13:48 | HMCIMG ---
ULTRASOUND GUIDED PARACENTESIS: INDICATION: Ascites TECHNIQUE: Informed consent was obtained. Timeout performed. All elements of maximal sterile barrier technique, including hand hygiene and cutaneous antisepsis were used. Patient was placed supine. Right lower quadrant was prepped and draped in sterile fashion. Local anesthesia was applied. Then, under ultrasound guidance, a 5F centesis needle was advanced through the abdominal wall and into a pocket of fluid in the peritoneum. It yielded 3 L of fluid. The catheter was removed and sterile dressing applied. Blood pressure monitoring was performed during the procedure. Complications: None Blood loss: <5 mL. IMPRESSION: Successful ultrasound guided paracentesis.
== END 2024-10-11 13:36 | disposition home or self-care (01) ==
LOC: EDH 09:30
DX: I12.0 Hypertensive chronic kidney disease with stage 5 chronic kidney disease or end stage renal disease (principal); E11.22 Type 2 diabetes mellitus with diabetic chronic kidney disease; N18.6 End stage renal disease; K76.0 Fatty (change of) liver, not elsewhere classified; R18.8 Other ascites; Z79.82 Long term (current) use of aspirin; Z79.899 Other long term (current) drug therapy; Z90.49 Acquired absence of other specified parts of digestive tract; Z95.1 Presence of aortocoronary bypass graft; Z99.2 Dependence on renal dialysis
CPT/HCPCS: 49083; 99285; 80048; 85025; 85610; 36415; C1729

== ENCOUNTER 2025-01-24 09:37 | Emergency (ER) | payer MEDICARE ==
[~2025-01-24] VITALS: Ht 149.9 cm; Wt 59.0 kg
[2025-01-24 10:08] LABS: BASOPHILS # (AUTO) 0.02 K/uL (0.00-0.20); BASOPHILS % (AUTO) 0.5 % (0.0-5.0); EOSINOPHILS # (AUTO) 0.58 K/uL (0.00-0.70); EOSINOPHILS % (AUTO) 13.5 % (0.0-8.0); HEMATOCRIT 36.2 % (36-48); IMMATURE GRANULOCYTE ABSOLUTE 0.01 K/uL (0-1); LYMPHOCYTES # (AUTO) 0.9 K/uL (1.0-4.8); MEAN CORPUSCULAR HEMOGLOBIN 31.5 pg (27.0-33.0); MEAN CORPUSCULAR HGB CONC 30.9 g/dL (32.0-36.0); MONOCYTES # (AUTO) 0.4 K/uL (0.1-1.0); MONOCYTES % (AUTO) 8.4 % (3.0-13.0); NEUTROPHILS # (AUTO) 2.5 K/uL (1.8-7.7); NEUTROPHILS % (AUTO) 57.4 % (40.0-77.0); PLATELET COUNT (AUTO) 83 K/uL (130-400); RED BLOOD CELL COUNT(AUTO) 3.55 MIL/uL (4.00-5.50); RED CELL DISTRIBUTION WIDTH 13.7 % (11.0-15.5); WHITE BLOOD COUNT (AUTO) 4.3 K/uL (4.8-10.8)
[2025-01-24 10:14] LABS: CREATININE 4.8 mg/dL (0.5-1.0); POTASSIUM 4.9 mmol/L (3.5-5.1)
--- NOTE | 2025-01-24 10:30 | NUR ---
PATIENT LEFT FOR PARACENTESIS, PICKED UP BY FAREED BRIGHT
--- NOTE | 2025-01-24 11:42 | ERN ---
General Chief Complaint: Abdominal Pain Stated Complaint: PARACENTESIS Time Seen by MD: 09:39 Source: patient History of Present Illness Initial Comments PATIENT IS A 74-YEAR-OLD FEMALE COMING IN TO BE EVALUATED FOR ABDOMINAL DISTENTION. PATIENT HAS A HISTORY OF LIVER CIRRHOSIS AND FREQUENTLY GETS PARACENTESIS SECONDARY TO THAT. Allergies: Coded Allergies: metformin HCl (Unverified Allergy, Intermediate, ITCHING, RASH., 05/25/13) minoxidil (Unverified Allergy, Unknown, 12/08/20) Home Meds Reported Medications Ondansetron (Ondansetron Odt) 4 Mg Tab.rapdis, 4 MG PO UNKNOWN PRN for NAUSEA/VOMITING, TAB 03/03/23 Lactulose (Lactulose) 10 Gm/15 Ml Solution, 30 ML PO BID, ML 03/03/23 Olmesartan Medoxomil (Olmesartan Medoxomil) 40 Mg Tablet, 40 MG PO DAILY, TAB 03/03/23 Amlodipine Besylate (Amlodipine Besylate) 5 Mg Tablet, 5 MG PO DAILY, TAB 03/03/23 Mv-Mn/Iron/FA/Herbal Cmplx#190 (Vitamin D3 Complete Caplet) 1 Each Tablet, 1 EACH PO DAILY, TAB 03/03/23 Folic Acid (Folic Acid) 0.4 Mg Tablet, 0.4 MG PO DAILY, TAB 11/03/22 Vitamin E Mixed (Vitamin E) 400 Unit Tablet, 400 UNIT PO DAILY, TAB 11/03/22 Sevelamer Carbonate (Renvela) 800 Mg Tablet, 800 MG PO TID, TAB 11/03/22 Midodrine HCl (Midodrine HCl) 10 Mg Tablet, 10 MG PO AD PRN for BP SUPPORT DURING DIALYSIS, TAB 11/03/22 Cinacalcet HCl (Cinacalcet HCl) 30 Mg Tablet, 30 MG PO DAILY, TAB 11/03/22 Ursodiol (Ursodiol) 250 Mg Tablet, 250 MG PO TID, TAB 11/03/22 Amlodipine/Atorvastatin (Amlodipine-Atorvast 5-10 mg) 1 Each Tablet, 2 EACH PO BID, TAB 11/03/22 Minoxidil (Minoxidil) 2.5 Mg Tablet, 2.5 MG PO 3XWK, TAB TUESDAY, TUESDAY AND Tuesday04/01/21 Aspirin (Aspir 81) 81 Mg Tablet.dr, 81 MG PO DAILY, TAB 04/11/20 Atorvastatin Calcium (LIPITOR) 40 Mg Tablet, 40 MG PO HS, TAB 04/11/20 Esomeprazole Magnesium (Nexium) 40 Mg Capsule.dr, 40 MG PO DAILY, CAP 12/23/19 Past Medical History Past Medical History: Diabetes-Type II, Hypertension, Renal Failure Medical History Other: FATTY LIVER Past Surgical History: Cholecystectomy, CABG, Other, LAVA Surgical History Other: L ARM HD SHUNT, FREQUENT PARACENTESIS' Family History Family History: HTN Social History Social History: Negative, Lives alone, Other Female( History) History: Not Applicable ROS Dictation CONSTITUTIONAL: NO CHILLS, NO FEVER, NO WEAKNESS, NO DIAPHORESIS, NO MALAISE. HEAD/FACE: NO SIGNS OF TRAUMA. EENT: NO EYE PAIN, NO BLURRED VISION, NO TEARING, NO DOUBLE VISION, NO EAR PAIN, NO EAR DISCHARGE, NO NOSE PAIN, NO NASAL CONGESTION, NO THROAT PAIN, NO THROAT SWELLING, NO MOUTH PAIN. RESPIRATORY: NO COUGH, NO ORTHOPNEA, NO SOB, NO STRIDOR, NO WHEEZING. CARDIOVASCULAR: NO CHEST PAIN, NO EDEMA, NO PALPITATIONS, NO SYNCOPE. GASTROINTESTINAL/ABDOMINAL: NO ABDOMINAL PAIN, NO CONSTIPATION, NO DIARRHEA, NO NAUSEA, NO VOMITING. GENITOURINARY: NO ABNORMAL DISCHARGE, NO DYSURIA, NO FREQUENT URINATION, NO HEMATURIA. NO COMPLAINTS OF PAIN IN THE GENITALS. MUSCULOSKELETAL: NO BACK PAIN, NO GOUT, NO JOINT PAIN, NO JOINT SWELLING, NO MUSCLE PAIN, NO MUSCLE STIFFNESS, NO NECK PAIN. INTEGUMENTARY: NO CHANGE IN COLOR, NO CHANGE IN HAIR/NAILS, NO DRYNESS, NO LESION, NO LUMPS, NO RASH. NEUROLOGICAL/PSYCH: NO ANXIETY, NOT DEPRESSED, NO EMOTIONAL PROBLEM, NO HEADACHE, NO NUMBNESS, NO PRE-EXISTING DEFICIT, NO HISTORY OF SEIZURES, NO TREMORS, NO WEAKNESS. HEMATOLOGIC/LYMPHATIC: NOT ANEMIC, NO HISTORY OF BLOOD CLOTS, NO APPARENT BLEEDING, NO BRUISING, GLANDS NOT SWOLLEN. ALL SYSTEMS NEGATIVE, EXCEPT NOTED. Physical Exam Physical Exam Dictation VITAL SIGNS: REVIEWED. GENERAL APPEARANCE: ALERT, ORIENTED X3, NO ACUTE DISTRESS, OBESE. HEAD AND FACE: NON-TRAUMATIC. EYES: PERRL, PINK CONJUNCTIVAS, EYELID NO TRAUMA, ANTERIOR CHAMBER CLEAR. EARS: PINNAS INTACT AND NO SIGNS OF TRAUMA OR ERYTHEMA. EAR CANALS CLEAR AND NO DISCHARGE. TMS NO ERYTHEMA. NOSE: NO DISCHARGE, NO BLEEDING. OROPHARYNX: MOUTH NORMAL, TEETH NO CARIES, TONGUE PINK. PHARYNX CLEAR, NO ERYTHEMA. TONSILS NO EXUDATES, NO ABSCESSES NOTED. MUCOUS MEMBRANE MOIST. NECK: SUPPLE, NON-TENDER, NO THYROMEGALY, NO MASSES, NO JVD, NO BRUITS. BREAST: DEFERRED. CHEST: NO TENDERNESS, NO CREPITUS, NO PARADOXICAL MOVEMENT, NO RETRACTIONS. LUNGS: CLEAR, WELL-VENTILATED, SYMMETRIC, NO RALES, NO WHEEZING, NO RHONCHI, NO STRIDOR, GOOD BREATH SOUNDS BILATERALLY. HEART: REGULAR RATE, REGULAR RHYTHM, NO MURMUR, NO GALLOPS. VASCULAR: NO PERIPHERAL EDEMA. ABDOMEN: SOFT, POSITIVE BOWEL SOUNDS, DISTENDED, NO GUARDING, NONTENDER, NO REBOUND, NO MASSES NO HEPATOMEGALY, NO SPLENOMEGALY, NO MATHUR'S SIGN, NO HERNIAS. RECTAL: DEFERRED. GENITAL: DEFERRED. NEUROLOGICAL: NORMAL SPEECH, GROSS MOTOR FUNCTION INTACT, GROSS SENSORY FUNCTION INTACT. MUSCULOSKELETAL: NECK NONTENDER, FULL RANGE OF MOTION, BACK NONTENDER, FULL RANGE OF MOTION. EXTREMITIES: NONTENDER, FULL RANGE OF MOTION. SKIN: COLOR PINK, DRY, NO TURGOR, NO RASH, NO LACERATIONS, NO ABRASIONS, NO CONTUSIONS. LYMPHATICS: DEFERRED. Results Laboratory and Microbiology Lab and Micro Result Laboratory Tests Test 01/24/25 10:01 White Blood Count 4.3 K/uL (4.8-10.8) L Red Blood Count 3.55 MIL/uL (4.00-5.50) L Hemoglobin 11.2 g/dL (12.0-16.0) L Hematocrit 36.2 % (36-48) Mean Corpuscular Volume 102.0 fL (79-99) H Mean Corpuscular Hemoglobin 31.5 pg (27.0-33.0) Mean Corpuscular Hemoglobin Concent 30.9 g/dL (32.0-36.0) L Red Cell Distribution Width 13.7 % (11.0-15.5) Platelet Count 83 K/uL (130-400) L Mean Platelet Volume 10.8 fL (7.5-10.5) H Immature Granulocyte % (Auto) 0.2 % (0-1) Neutrophils (%) (Auto) 57.4 % (40.0-77.0) Lymphocytes (%) (Auto) 20.0 % (21.0-51.0) L Monocytes (%) (Auto) 8.4 % (3.0-13.0) Eosinophils (%) (Auto) 13.5 % (0.0-8.0) H Basophils (%) (Auto) 0.5 % (0.0-5.0) Neutrophils # (Auto) 2.5 K/uL (1.8-7.7) Lymphocytes # (Auto) 0.9 K/uL (1.0-4.8) L Monocytes # (Auto) 0.4 K/uL (0.1-1.0) Eosinophils # (Auto) 0.58 K/uL (0.00-0.70) Basophils # (Auto) 0.02 K/uL (0.00-0.20) Absolute Immature Granulocyte (auto 0.01 K/uL (0-1) Nucleated Red Blood Cells 0.0 % (0.0-0.19) Red Blood Cell Morphology See comments Sodium Level 138 mmol/L (136-145) Potassium Level 4.9 mmol/L (3.5-5.1) Chloride Level 99 mmol/L (101-111) L Carbon Dioxide Level 28 mmol/L (21-32) Blood Urea Nitrogen 43 mg/dL (7-18) H Creatinine 4.8 mg/dL (0.5-1.0) H Glomerular Filtration Rate Calc 9 mL/min (>90) Random Glucose 109 mg/dL (70-105) H Total Calcium 9.2 mg/dL (8.5-10.1) Labs Reviewed?: Yes MDM MDM: DIFFERENTIAL DIAGNOSIS: STATUS POST PARACENTESIS, HISTORY OF LIVER CIRRHOSIS, SHORTNESS OF BREATH, FLUID OVERLOAD, RATIONALE: TESTS CONSIDERED AND ORDERED SECONDARY TO SHARED DECISION MAKING INCLUDE: PREVIOUS OUTSIDE RECORDS REVIEWED: OLD ER VISITS. RISK OF COMPLICATION AND/OR MORBIDITY OR MORTALITY OF PATIENT MANAGEMENT: NONE MEDICATIONS-PER MEDICATION RECONCILIATION PATIENT IS A 74-YEAR-OLD FEMALE COMING IN TO BE EVALUATED FOR BREATH. PER PATIENT SHE WAS TREATED WITH A WITH FLUID OVERLOAD. PATIENT STATES HE WAS SHE HAS A HISTORY OF LIVER CIRRHOSIS AND FREQUENTLY PRESENTS WITH FLUID OVERLOAD STATES THAT SHE HAS BEEN PARACENTESIS. PATIENT WAS HE WAS A PARACENTESIS HE WILL BE DISCHARGED IN STABLE CONDITION . ED Course Orders Procedure Category Date Status Time Cbc With Differential LAB 01/24/25 Complete 09:41 Basic Metabolic Panel LAB 01/24/25 Complete 09:41 Us Abdominal US 01/24/25 Taken Paracentesis Ir 09:41 Vital Signs Date Time Temp Pulse Resp B/P (MAP) Pulse Ox O2 Delivery O2 Flow Rate FiO2 01/24/25 12:00 97.5 45 18 160/49 98 Room Air* 0 21 01/24/25 11:52 98.1 45 20 134/48 100 Nasal Cannula* 2 28 01/24/25 10:00 98.8 83 19 171/74 96 Nasal Cannula* 2 28 01/24/25 09:38 97.3 59 20 173/65 99 Room Air 0 DX & DISP Disposition: Discharge Departure Impression: Primary Impression: Abdominal ascites Additional Impression: Status post abdominal paracentesis Condition: Stable Additional Instructions: FOLLOW-UP WITH PRIMARY CARE PROVIDER IN 1 TO 2 DAYS. TAKE MEDICATIONS DIRECTED HERE IN THE EMERGENCY ROOM. OKAY TO CONTINUE HOME MEDICATIONS UNLESS OTHERWISE DISCUSSED DURING YOUR VISIT IN THE EMERGENCY ROOM TODAY. RETURN TO YOUR NEAREST EMERGENCY ROOM IF SYMPTOMS WORSEN OR IF THERE IS NO IMPROVEMENT. CALL 911 IF YOU NEED IMMEDIATE ASSISTANCE. TAKE TYLENOL [id number] NEEDED AND IF NO CONTRAINDICATIONS ARE PRESENT. INCREASE ORAL HYDRATION. A WOUND CULTURE OR URINE CULTURE WAS ORDERED HERE IN THE EMERGENCY ROOM DEPARTMENT PLEASE FOLLOW-UP WITH PRIMARY CARE PROVIDER AND ADVISE THEM TO GET REPEAT PORTS FROM OUR FACILITY. IF YOU HAD ANY LESLY WRAP/SPLINTS THAT WERE APPLIED HERE, PLEASE DO NOT REMOVE THEM UNTIL YOU SEE YOUR PRIMARY CARE OR SPECIALTY. REFERRALS: Referrals: KATHLEEN JACKSON MD (PCP) Time of Disposition: 12:37 DONTAE RAMOS MD Jan 24, 2025 11:42
--- NOTE | 2025-01-24 11:55 | NUR ---
U/S GD PARACENTESIS TOLERATED PROCEDURE. PERFORMED BY DR Richard PARRY. PUNCTURE SITE TO RLQ. 6.6 LITERS OF STEVEN CLOUDY FLUID REMOVED. END OF PROCEDURE AT 1135. DRESSING DRY AND INTACT. NO BLEEDING NOTED. REPORT GIVEN TO LEE ANN BRIGHT. TRANSPORTED TO ED 16 VIA STRETCHER. DENIES PAIN. A&O.
[2025-01-24 12:30] VITALS: BP 154/52; PULSE 50; RESP 20; TEMP 97.5; O2SAT 97
--- NOTE | 2025-01-24 14:43 | HMCIMG ---
US ABDOMINAL PARACENTESIS IR HISTORY: Ascites COMPARISON: None TECHNIQUE: Informed consent was obtained. Risks and benefits were explained to the patient. A timeout was performed. Patient was prepped and draped in a sterile fashion. Local anesthetics was given as required. Under ultrasound guidance, ascites fluid was localized. Paracentesis was performed. FINDINGS: 6.6 L of yellowish fluid was aspirated. Less than 2 cc blood loss is noted. Patient tolerated procedure without complication. Patient left the department in good condition. IMPRESSION: 1. Uncomplicated ultrasound-guided paracentesis.
== END 2025-01-24 13:15 | disposition home or self-care (01) ==
LOC: EDH 09:37
DX: R18.8 Other ascites (principal); E11.9 Type 2 diabetes mellitus without complications; I10 Essential (primary) hypertension; Z79.82 Long term (current) use of aspirin; Z79.899 Other long term (current) drug therapy; Z90.49 Acquired absence of other specified parts of digestive tract; Z95.1 Presence of aortocoronary bypass graft; Z98.890 Other specified postprocedural states
CPT/HCPCS: 49083; 99285; 80048; 85025; 36415; C1729

== ENCOUNTER 2025-02-01 10:43 | Observation (INO) | payer MEDICARE ==
[2025-02-01] VITALS (18 sets, daily range): BP systolic 104–165; BP diastolic 43–86; PULSE 50–76; RESP 14–24; TEMP 97.5–97.8; O2SAT 98
[~2025-02-01] VITALS: Ht 149.9 cm; Wt 59.0 kg
--- NOTE | 2025-02-01 11:06 | ERN ---
ED Note History of Present Illness Stated Complaint: SOB Chief Complaint: Shortness of Breath Time Seen by MD: 10:44 Time Seen by Midlevel: 10:44 Dictation: The patient is a 74-year-old female with a history of diabetes, hypertension, liver failure, ESRD on dialysis Wednesdays, patient of Dr. Wren who presents to the emergency department by EMS with complaints of shortness of breath and generalized weakness onset yesterday. Patient reports she went to go see Dr. Jackson who told her she did not have anything critical. Patient reports her last dialysis was on Tuesday. Missed her Tuesday dialysis due to patient having nonbloody diarrhea which has resolved. Patient was supposed to get dialysis today but due to feeling shortness of breath she decided to come to the ER. Patient denies any chest pain, cough, fevers. Allergies: Coded Allergies: metformin HCl (Unverified Allergy, Intermediate, ITCHING, RASH., 05/25/13) minoxidil (Unverified Allergy, Unknown, 12/08/20) Home Meds Reported Medications Ondansetron (Ondansetron Odt) 4 Mg Tab.rapdis, 4 MG PO UNKNOWN PRN for NAUSEA/VOMITING, TAB 03/03/23 Lactulose (Lactulose) 10 Gm/15 Ml Solution, 30 ML PO BID, ML 03/03/23 Olmesartan Medoxomil (Olmesartan Medoxomil) 40 Mg Tablet, 40 MG PO DAILY, TAB 03/03/23 Amlodipine Besylate (Amlodipine Besylate) 5 Mg Tablet, 5 MG PO DAILY, TAB 03/03/23 Mv-Mn/Iron/FA/Herbal Cmplx#190 (Vitamin D3 Complete Caplet) 1 Each Tablet, 1 EACH PO DAILY, TAB 03/03/23 Folic Acid (Folic Acid) 0.4 Mg Tablet, 0.4 MG PO DAILY, TAB 11/03/22 Vitamin E Mixed (Vitamin E) 400 Unit Tablet, 400 UNIT PO DAILY, TAB 11/03/22 Sevelamer Carbonate (Renvela) 800 Mg Tablet, 800 MG PO TID, TAB 11/03/22 Midodrine HCl (Midodrine HCl) 10 Mg Tablet, 10 MG PO AD PRN for BP SUPPORT DURING DIALYSIS, TAB 11/03/22 Cinacalcet HCl (Cinacalcet HCl) 30 Mg Tablet, 30 MG PO DAILY, TAB 11/03/22 Ursodiol (Ursodiol) 250 Mg Tablet, 250 MG PO TID, TAB 11/03/22 Amlodipine/Atorvastatin (Amlodipine-Atorvast 5-10 mg) 1 Each Tablet, 2 EACH PO BID, TAB 11/03/22 Minoxidil (Minoxidil) 2.5 Mg Tablet, 2.5 MG PO 3XWK, TAB TUESDAY, TUESDAY AND Tuesday04/01/21 Aspirin (Aspir 81) 81 Mg Tablet.dr, 81 MG PO DAILY, TAB 04/11/20 Atorvastatin Calcium (LIPITOR) 40 Mg Tablet, 40 MG PO HS, TAB 04/11/20 Esomeprazole Magnesium (Nexium) 40 Mg Capsule.dr, 40 MG PO DAILY, CAP 12/23/19 Past Medical History Past Medical History: Diabetes-Type II, High Cholesterol, Hypotension, Other Additional Past Medical Hx: CKD ON DIALYSIS Surgical History: Cholecystectomy, CABG, LAVA Surgical History Other: L ARM HD SHUNT, FREQUENT PARACENTESIS' Family History: HTN Social History: Negative, Lives alone, Other History: Not Applicable RN Note Reviewed/Agreed w/PFSH: Yes Review of System Dictation Constitutional: Negative for fever,chills, and weight loss Eyes: Negative for injury, pain,redness, and discharge ENT: Negative for injury,pain or swelling Cardiovascular: Negative for chest pain, palpitations, and edema Respiratory: Negative for cough, and wheezing, positive for shortness of breath Abdomen/GI: Negative for abdominal pain, nausea, vomiting, diarrhea, and constipation Back: Negative for injury and pain : Negative for injury, bleeding and discharge MS/Extremity: Negative for injury and deformity Skin: Negative for rash, and discoloration Neuro: Negative for headache, numbness, tingling, and seizure positive for weakness Psych: Negative for suicide ideation, homicidal ideation, and hallucinations Initial Vital Sign VS Vital Signs Date Time Temp Pulse Resp B/P (MAP) Pulse Ox O2 Delivery O2 Flow Rate FiO2 02/01/25 10:51 97.2 45 15 182/69 99 Nasal Cannula 2.0 02/01/25 11:19 28 Physical Exam Dictation Vital Signs reviewed General Appearance: Alert, oriented x 3, no acute distress, well developed, nourished. Head and Face: non-traumatic. Eyes: PERRL, pink conjunctivas, eyelid no trauma, anterior chamber with arcus senilis. Ears: Pinnas intact and no signs of trauma or erythema ear canals clear and no discharge TM no erythema Nose: No discharge, no bleeding. Oropharynx: Mouth normal, tongue pink. pharynx clear,no erythema, tonsils no exudates, no abscesses noted, mucous membrane moist Neck: Supple, non-tender, no thyromegaly, no masses, no JVD, no bruits Breast:Deferred Chest:No tenderness, no crepitus, no paradoxical movement, no retractions Lungs:Clear, well-ventilated, symmetric, no rales, no wheezing, no rhonchi, no stridor, good breath sounds bilaterally Heart: Regular rate, regular rhythm, no murmur, no gallops Vascular: no peripheral edema, Abdomen: For positive bowel sounds, distended, no guarding, nontender, no rebound, no masses no hepatomegaly, no splenomegaly, no Diamond's sign, no hernias. Rectal: Deferred Genital: Deferred Neurological: Normal speech, motor function intact, sensory function intact Musculoskeletal: Neck nontender, full range of motion, back nontender, full range of motion, Extremities: nontender, full range of motion Skin: Color pink, dry, no turgor, no rash, no lacerations, no abrasions, no contusions. Lymphatic: Deferred Results (Laboratory/Radiology) Laboratory/Radiology Laboratory Tests Test 02/01/25 11:17 02/01/25 11:52 White Blood Count 6.6 K/uL (4.8-10.8) Red Blood Count 3.31 MIL/uL (4.00-5.50) L Hemoglobin 10.5 g/dL (12.0-16.0) L Hematocrit 33.9 % (36-48) L Mean Corpuscular Volume 102.4 fL (79-99) H Mean Corpuscular Hemoglobin 31.7 pg (27.0-33.0) Mean Corpuscular Hemoglobin Concent 31.0 g/dL (32.0-36.0) L Red Cell Distribution Width 14.0 % (11.0-15.5) Platelet Count 126 K/uL (130-400) L Mean Platelet Volume 11.3 fL (7.5-10.5) H Immature Granulocyte % (Auto) 0.5 % (0-1) Neutrophils (%) (Auto) 63.0 % (40.0-77.0) Lymphocytes (%) (Auto) 13.0 % (21.0-51.0) L Monocytes (%) (Auto) 6.3 % (3.0-13.0) Eosinophils (%) (Auto) 16.3 % (0.0-8.0) H Basophils (%) (Auto) 0.9 % (0.0-5.0) Neutrophils # (Auto) 4.1 K/uL (1.8-7.7) Lymphocytes # (Auto) 0.9 K/uL (1.0-4.8) L Monocytes # (Auto) 0.4 K/uL (0.1-1.0) Eosinophils # (Auto) 1.07 K/uL (0.00-0.70) H Basophils # (Auto) 0.06 K/uL (0.00-0.20) Absolute Immature Granulocyte (auto 0.03 K/uL (0-1) Nucleated Red Blood Cells 0.0 % (0.0-0.19) White Cell Morphology Comment See comments Red Blood Cell Morphology See comments Prothrombin Time 11.2 SEC (9.6-11.6) Prothromb Time International Ratio 1.06 (0.85-1.15) Activated Partial Thromboplast Time 43.8 SEC (26.3-35.5) H Sodium Level 140 mmol/L (136-145) Potassium Level 7.2 mmol/L (3.5-5.1) *H Chloride Level 103 mmol/L (101-111) Carbon Dioxide Level 23 mmol/L (21-32) Blood Urea Nitrogen 81 mg/dL (7-18) *H Creatinine 8.3 mg/dL (0.5-1.0) *H Glomerular Filtration Rate Calc 5 mL/min (>90) Random Glucose 84 mg/dL (70-105) Total Calcium 7.9 mg/dL (8.5-10.1) L Total Creatine Kinase 68 U/L (21-232) # Troponin I High Sensitivity 115 ng/L (4-50) *H B-Type Natriuretic Peptide 2720 pg/mL (0-100) H Blood Gas Specimen Type Arterial Arterial Blood pH 7.341 (7.350-7.450) Arterial Blood Partial Pressure CO2 36 mmHg (32-45) Arterial Blood Partial Pressure O2 83.9 mmHg (83.0-108.0) Arterial Blood HCO3 18.8 mmol/L (21.0-28.0) L Arterial Blood Oxygen Saturation 95.1 % (94.0-98.0) Arterial Blood Base Excess -6.2 mmol/L (-2.0-3.0) L Hemoglobin (Blood Gas) 10.8 g/dL (12.0-16.0) L Sodium (Blood Gas) 138 MMOL/L (136-145) Bedside Potassium (Blood Gas) 6.7 MMOL/L (3.4-4.5) *H Bedside Chloride (Blood Gas) 106 MMOL/L (98-107) Bedside Glucose (Blood Gas) 79 MG/DL (65-95) Bedside Ionized Calcium (Blood Gas) 1.04 MMOL/L (1.15-1.33) L Bedside Lactic Acid (Blood Gas) 1.00 MMOL/L (0.36-0.75) H Blood Gas Temperature 37.0 CELSIUS (35.5-37.0) Blood Gas Flow-by 2.00 L/min (0.00-15.00) Blood Gas Vent Mode NC (ROOM AIR) FiO2 28.0 % Blood Gas Specimen Comment RBJESSE REASON: sob ORDERING PHYSICIAN: BRIAN SZYMANSKI PROCEDURE: CXR1VW - CHEST 1VW PORTABLE CHEST RADIOGRAPH INDICATION: sob COMPARISON: 01/02/2025 FINDINGS: awake overnight monitor leads overlie the field of view.Median sternotomy wires as well as fixation plates and screws are in appropriate alignment. Heart and pulmonary vascularity are slightly enlarged. No abnormal pulmonary parenchymal opacity or consolidation identified. No significant pleural effusion noted. No pneumothorax detected. IMPRESSION: Cardiomegaly and mild pulmonary vascular congestion. Labs Reviewed?: Yes EKG: (+) rhythm (Patient no rhythm) EKG Comment: Date:02/01/2025 Time:1110 Ventricular rate:42 OH interval: QRS duration:157 QT/QTc:540 EKG interpretation: Junctional rhythm Reviewed by ED Attending no STEMI ED Course ED Course Orders Procedure Category Date Status Time Cbc With Differential LAB 02/01/25 Complete 11:00 B-Type Natriuretic LAB 02/01/25 Complete Peptide 11:00 Chest 1vw RAD 02/01/25 Resulted 11:00 12 Lead Ekg Tracing- EKG 02/01/25 Logged Technical 11:00 Creatine Kinase, Total LAB 02/01/25 Complete 11:00 Troponin I High LAB 02/01/25 Complete Sensitivity 11:00 Basic Metabolic Panel LAB 02/01/25 Complete 11:00 Pt And Ptt LAB 02/01/25 Complete 11:00 Arterial Blood Gas + RT 02/01/25 Transmitted 11:19 Arterial Blood Gas LAB 02/01/25 Complete Arterial + 11:52 Calcium Gluc 1gm PHA 02/01/25 In Process (Calcium Gluc 1gm 12:00 Insulin Regular, PHA 02/01/25 Complete Human 3ml (Humulin R 12:00 Albuterol 0.083% PHA 02/01/25 Complete 2.5mg/3ml (Proventil 12:00 Na Zircon PHA 02/01/25 Complete Cyclosil-Lokelma 10g 12:00 Albuterol 0.083% PHA 02/01/25 Complete 2.5mg/3ml (Proventil 12:03 Albuterol 0.083% PHA 02/01/25 Complete 2.5mg/3ml (Proventil 12:04 Nephrology Consult CONPHYSVC 02/01/25 Transmitted 12:05 Dextrose 50%-Water PHA 02/01/25 Complete (D50w) 12:00 Current Medications Medications (Trade) Dose Ordered Sig/Rufina Route PRN Reason Start Time Stop Time Status Last Admin Dose Admin Albuterol Sulfate (Proventil 0.083% 2.5mg/3ml) 2.5 mg STK-MED ONCE IH 02/01/25 12:03 02/01/25 12:04 DC Albuterol Sulfate (Proventil 0.083% 2.5mg/3ml) 2.5 mg STK-MED ONCE IH 02/01/25 12:04 02/01/25 12:04 DC Albuterol Sulfate (Proventil 0.083% 2.5mg/3ml) 10 mg ONCE ONCE IH 02/01/25 12:00 02/01/25 12:11 DC Calcium Gluconate 1 gm/Sodium Chloride 110 ml @ 110 mls/hr ONCE ONCE IV 02/01/25 12:00 02/01/25 12:59 Dextrose (D50w) 50 ml ONCE ONCE IV 02/01/25 12:00 02/01/25 12:11 DC Insulin Human Regular (humuLIN R 100 UNIT/ML 3ML) 5 unit ONCE ONCE IV 02/01/25 12:00 02/01/25 12:10 DC Sodium Zirconium Cyclosilicate (Lokelma 10gm Powder) 10 gm ONCE ONCE PO 02/01/25 12:00 02/01/25 12:10 DC Vital Signs Date Time Temp Pulse Resp B/P (MAP) Pulse Ox O2 Delivery O2 Flow Rate FiO2 02/01/25 11:19 48 14 164/71 98 Nasal Cannula* 2 28 02/01/25 10:51 97.2 45 15 182/69 99 Nasal Cannula 2.0 Medical Decision Making MDM MDM: The patient is a 74-year-old female with a history of diabetes, hypertensio n, liver failure, ESRD on dialysis Wednesdays, patient of Dr. Wren who presents to the emergency department by EMS with complaints of shortness of breath and generalized weakness onset yesterday. Patient reports she went to go see Dr. Jackson who told her she did not have anything critical. Patient reports her last dialysis was on Tuesday. Missed her Tuesday dialysis due to patient having nonbloody diarrhea which has resolved. Patient was supposed to get dialysis today but due to feeling shortness of breath she decided to come to the ER. Patient denies any chest pain, cough, fevers. Leukocytosis, macrocytic anemia, chemistry showed elevated potassium of 7.2, elevated BNP is 2720. , BUN 81. Chest x-ray showed vascular congestion nephr ology consult due to elevated potassium. Dr. Younger evaluated patient and patient will be fitted for dialysis today. Be admitted Differential diagnosis: Fluid overload, ACS, pneumonia, pneumothorax electrolyte imbalance Comorbidities: Diabetes, hypertension, CAD, ESRD on dialysis, liver cirrhosis Tests considered and not ordered secondary to shared decision making include: none Previous outside records reviewed: none Risk of complication and/or morbidity or mortality of patient management: The patient meets criteria for admission. Need for emergency major/minor surgery: No There are no social concerns with this patient. I independently interpreted the tests I ordered (labs, urinalysis, etc.). I discussed the case with the hospitalist for admission. who accepts admission I discussed the case with the following specialists: Historian: pateint. I independently interpreted imaging studies and EKGs that I ordered (US, CT, XR, EKG, etc.). External chart review: none. Medical management and examination interpretation discussions were had by me with other qualified healthcare professionals as indicated for the patient's care. Critical Care Note Critical Time: other (36) Comment(s) Total critical care time was 36 minutes. Excluding time for procedures. Management of critically ill patient with concern for acute decompensation. Management included interpretation of laboratory values and imaging, hemodynamics, time for consultation with consultants and admitting physician. DX & DISP Disposition: Inpatient Decision to Admit Date: Feb 01, 2025 Decision to Admit Time: 12:39 Departure Impression: Primary Impression: Hyperkalemia Additional Impressions: ESRD needing dialysis, Fluid overload, Anemia, Liver cirrhosis, Shortness of breath Condition: Stable Referrals: KATHLEEN JACKSON MD (PCP) I have reviewed the case, and I agree with, Diagnosis and Plan BRIAN SZYMANSKI MANUFACTURING PROJECT MANAGER Feb 01, 2025 11:06
--- NOTE | 2025-02-01 11:08 | NUR ---
PT JUST NOW PLACED IN MY ED BED 14
--- NOTE | 2025-02-01 11:17 | NUR ---
PT STATES SHE DID NOT HAVE HER TUESDAY HD D/T HAVING HAD LOOSE STOOLS THAT DAY. NOW PT HERE FOR C/O SOME SOB. SATS ON ROOM AIR 96-98% AND 100% ON 2L VIA N/C.
[2025-02-01 11:28] LABS: BASOPHILS # (AUTO) 0.06 K/uL (0.00-0.20); BASOPHILS % (AUTO) 0.9 % (0.0-5.0); EOSINOPHILS # (AUTO) 1.07 K/uL (0.00-0.70); EOSINOPHILS % (AUTO) 16.3 % (0.0-8.0); HEMATOCRIT 33.9 % (36-48); IMMATURE GRANULOCYTE ABSOLUTE 0.03 K/uL (0-1); LYMPHOCYTES # (AUTO) 0.9 K/uL (1.0-4.8); MEAN CORPUSCULAR HEMOGLOBIN 31.7 pg (27.0-33.0); MEAN CORPUSCULAR VOLUME 102.4 fL (79-99); MONOCYTES # (AUTO) 0.4 K/uL (0.1-1.0); MONOCYTES % (AUTO) 6.3 % (3.0-13.0); NEUTROPHILS # (AUTO) 4.1 K/uL (1.8-7.7); PLATELET COUNT (AUTO) 126 K/uL (130-400); RED BLOOD CELL COUNT(AUTO) 3.31 MIL/uL (4.00-5.50); WHITE BLOOD COUNT (AUTO) 6.6 K/uL (4.8-10.8)
--- NOTE | 2025-02-01 11:31 | HMCIMG ---
PORTABLE CHEST RADIOGRAPH INDICATION: sob COMPARISON: 01/02/2025 FINDINGS: dough molder hand leads overlie the field of view.Median sternotomy wires as well as fixation plates and screws are in appropriate alignment. Heart and pulmonary vascularity are slightly enlarged. No abnormal pulmonary parenchymal opacity or consolidation identified. No significant pleural effusion noted. No pneumothorax detected. IMPRESSION: Cardiomegaly and mild pulmonary vascular congestion.
[2025-02-01 11:50] LABS: INR 1.06 (0.85-1.15); PROTHROMBIN TIME 11.2 SEC (9.6-11.6)
[2025-02-01 11:51] LABS: PARTIAL THROMBOPLASTIN TIME 43.8 SEC (26.3-35.5)
[2025-02-01 11:53] LABS: ABG BASE EXCESS -6.2 mmol/L (-2.0-3.0); ABG HCO3 18.8 mmol/L (21.0-28.0); ABG OXYGEN SATURATION 95.1 % (94.0-98.0); ABG PCO2 36 mmHg (32-45); ABG PH 7.341 (7.350-7.450); CARBON MONOXIDE 0.7 % (0.5-1.5); DEVICE COMMENT RBJESSE; HHb 4.9; PO2, ARTERIAL BG 83.9 mmHg (83.0-108.0); VENT MODE, BG NC (ROOM AIR)
[2025-02-01 11:54] LABS: B-TYPE NATRIURETIC PEPTIDE 2720 pg/mL (0-100)
[2025-02-01 11:56] LABS: CREATININE 8.3 mg/dL (0.5-1.0); POTASSIUM 7.2 mmol/L (3.5-5.1)
[2025-02-01] MEDS: DEXTROSE 50%-WATER 50 ML DISP.SYRIN IV ONE (13:10)
[2025-02-01] MEDS: CALCIUM GLUC 1GM 1 GM in 0.9%NACL 100ML 100 ML IV ONE (13:10)
[2025-02-01] MEDS: NA ZIRCON CYCLOSIL(LOKELMA 10GM) PO ONE (13:10)
[2025-02-01] MEDS: INSULIN humuLIN R 100 UNIT/ML 3ML IV ONE (13:13)
[2025-02-01] MEDS: ALBUTEROL 0.083% 2.5 MG/3 ML INH IH ONE ×3 (13:24→13:40)
--- NOTE | 2025-02-01 13:37 | NUR ---
HEMODIALYSIS TECH JUST ARRIVED AND IS STARTING TO PREP CONSENT FOR HEMODIALYSIS HAS BEEN OBTAINED
[2025-02-01] MEDS: 0.9%NACL 1000ML 1,000 ML IV SCH (15:00)
[2025-02-01] MEDS ORDERED: 0.9% NACL 250ML 250 ML IV SCH (15:00)
--- NOTE | 2025-02-01 15:12 | CONS ---
NEPHROLOGY CONSULTATION NOTE Date/Time Patient Seen: Feb 01, 2025 1205 Reason for Consultation: End-stage renal disease HISTORY OF PRESENT ILLNESS: This is a 72-year-old female with a past medical history diabetes mellitus type 2, hypertension, coronary artery disease, liver cirrhosis with frequent paracentesis, end-stage renal disease on hemodialysis Tuesday. She presented to emergency room with complaints of shortness of breath and generalized weakness. Chest x-ray showed cardiomegaly and mild pulmonary vascular congestion In the emergency room he was noted to have hyperkalemia. She missed dialysis session on Tuesday. She was seen in the emergency room, continues to complain of shortness of breath and generalized weakness No family at the bedside Prognosis remains guarded REVIEW OF SYSTEMS: GENERAL: Positive for shortness of breath and generalized weakness NEUROLOGIC: Negative for any blurry vision, blind spots, double vision, facial asymmetry, dysphagia, dysarthria, hemiparesis, hemisensory deficits, vertigo, ataxia. HEENT: Negative for any head trauma, neck trauma, neck stiffness, photophobia, phonophobia, sinusitis, rhinitis. CARDIAC: Negative for any chest pain, dyspnea on exertion, paroxysmal nocturnal dyspnea, peripheral edema. PULMONARY: Negative for any shortness of breath, wheezing, COPD, or TB exposure. GASTROINTESTINAL: Negative for any abdominal pain, nausea, vomiting, bright red blood per rectum, melena. GENITOURINARY: Negative for any dysuria, hematuria, incontinence. INTEGUMENTARY: Negative for any rashes, cuts, insect bites. RHEUMATOLOGIC: Negative for any joint pains, photosensitive rashes, history of vasculitis or kidney problems. HEMATOLOGIC: Negative for any abnormal bruising, frequent infections or bleeding. PAST MEDICAL HISTORY: Diabetes mellitus type 2 Hypertension Coronary artery disease Liver cirrhosis End-stage renal disease PAST SURGICAL HISTORY: CABG Cholecystectomy Left arm AV fistula For can paracentesis PAST SOCIAL HISTORY: Denies use of alcohol, tobacco or illicit drug FAMILY HISTORY: Noncontributory PHYSICAL EXAM: GENERAL: Alert and oriented x 3. No acute distress. Well-nourished. EYES: EOMI. Anicteric. HENT: Moist mucous membranes. No scleral icterus. No cervical lymphadenopathy. LUNGS: Clear to auscultation bilaterally. No accessory muscle use. CARDIOVASCULAR: Regular rate and rhythm. No murmur. No JVD. ABDOMEN: Soft, non-tender and non-distended. No palpable masses. EXTREMITIES: No edema. Non-tender. SKIN: No rashes or lesions. Warm. NEUROLOGIC: No focal neurological deficits. CN II-XII grossly intact, but not individually tested. PSYCHIATRIC: Cooperative. Appropriate mood and affect. MEDICATIONS: [ ] Vital Signs (last 8hr) Date Time Temp Pulse Resp B/P (MAP) Pulse Ox O2 Delivery O2 Flow Rate FiO2 02/01/25 13:20 65 18 02/01/25 11:19 48 14 164/71 98 Nasal Cannula* 2 28 02/01/25 10:51 97.2 45 15 182/69 99 Nasal Cannula 2.0 DIAGNOSTICS / RADIOLOGY: REASON: sob ORDERING PHYSICIAN: BRIAN SZYMANSKI PROCEDURE: CXR1VW - CHEST 1VW PORTABLE CHEST RADIOGRAPH INDICATION: sob COMPARISON: 01/02/2025 FINDINGS: potline monitor leads overlie the field of view.Median sternotomy wires as well as fixation plates and screws are in appropriate alignment. Heart and pulmonary vascularity are slightly enlarged. No abnormal pulmonary parenchymal opacity or consolidation identified. No significant pleural effusion noted. No pneumothorax detected. IMPRESSION: Cardiomegaly and mild pulmonary vascular congestion. DICTATED BY: DIXIE THURSTON MD DATE: 02/01/25 1128 LABORATORY: [ ] Hematology Labs: Test 02/01/25 11:17 Range/Units White Blood Count 6.6 4.8-10.8 K/uL Red Blood Count 3.31 L 4.00-5.50 MIL/uL Hemoglobin 10.5 L 12.0-16.0 g/dL Hematocrit 33.9 L 36-48 % Mean Corpuscular Volume 102.4 H 79-99 fL Mean Corpuscular Hemoglobin 31.7 27.0-33.0 pg Mean Corpuscular Hemoglobin Concent 31.0 L 32.0-36.0 g/dL Red Cell Distribution Width 14.0 11.0-15.5 % Platelet Count 126 L 130-400 K/uL Mean Platelet Volume 11.3 H 7.5-10.5 fL Immature Granulocyte % (Auto) 0.5 0-1 % Neutrophils (%) (Auto) 63.0 40.0-77.0 % Lymphocytes (%) (Auto) 13.0 L 21.0-51.0 % Monocytes (%) (Auto) 6.3 3.0-13.0 % Eosinophils (%) (Auto) 16.3 H 0.0-8.0 % Basophils (%) (Auto) 0.9 0.0-5.0 % Neutrophils # (Auto) 4.1 1.8-7.7 K/uL Lymphocytes # (Auto) 0.9 L 1.0-4.8 K/uL Monocytes # (Auto) 0.4 0.1-1.0 K/uL Eosinophils # (Auto) 1.07 H 0.00-0.70 K/uL Basophils # (Auto) 0.06 0.00-0.20 K/uL Absolute Immature Granulocyte (auto 0.03 0-1 K/uL Nucleated Red Blood Cells 0.0 0.0-0.19 % White Cell Morphology Comment See comments Red Blood Cell Morphology See comments Chemistry Labs: Test 02/01/25 11:17 Range/Units Sodium Level 140 136-145 mmol/L Potassium Level 7.2 *H 3.5-5.1 mmol/L Chloride Level 103 101-111 mmol/L Carbon Dioxide Level 23 21-32 mmol/L Blood Urea Nitrogen 81 *H 7-18 mg/dL Creatinine 8.3 *H 0.5-1.0 mg/dL Glomerular Filtration Rate Calc 5 >90 mL/min Random Glucose 84 70-105 mg/dL Total Calcium 7.9 L 8.5-10.1 mg/dL Total Creatine Kinase 68 # 21-232 U/L Troponin I High Sensitivity 115 *H 4-50 ng/L B-Type Natriuretic Peptide 2720 H 0-100 pg/mL Coagulation Labs: Test 02/01/25 11:17 Range/Units Prothrombin Time 11.2 9.6-11.6 SEC Prothromb Time International Ratio 1.06 0.85-1.15 Activated Partial Thromboplast Time 43.8 H 26.3-35.5 SEC ASSESSMENT: Patient has life-threatening hyperkalemia with EKG changes and multiple other comorbidities patient is critically ill Shortness of breath Pulmonary edema Fluid overload End-stage renal disease Liver cirrhosis Hypertension Diabetes mellitus type PLAN: Patient is critically ill and seen several times for Labs and Diagnostics/ Radiology personally reviewed and interpreted by myself and supervising physician We have reviewed dialysis and external records in detail Patient to have emergent dialysis She will have one dose of calcium gluconate Lokelma for hyperkalemia 1.5 L fluid restriction Continue to monitor H&H Epogen on dialysis days, as needed Continue with frequent monitoring of renal function, anemia, and electrolytes Order CBC, BMP, and electrolytes in the morning May use Dilaudid 0.5 mg IV every 6 hours as needed for severe pain Monitor blood pressure adjust medication doses as needed Maintain normotensive state Strict intake, output, and daily weight should be monitored Please renally adjust medications. Avoid nephrotoxics and nonsteroidal drugs. We will continue to monitor the patient closely We have discussed with the other team physicians in detail about the care plan Thank you us to participate in the care of this patient ATTESTATION BY PHYSICIAN I have seen and examined the patient. I reviewed the documentation, medical decision making, and treatment plan as noted by the mid-level provider above. I agree with the findings and plan of care. Patient is critically ill seen several times urgent dialysis and seen and seen several times total time spent was almost 75 minutes for critical care ROXANE CHAUHAN MD, [facility] Feb 01, 2025 15:12 ROXANE CHAUHAN MD Feb 01, 2025 22:45
--- NOTE | 2025-02-01 16:34 | EKG ---
[facility] Test Date: 2025-02-01 Test Time: 11:10:03 Pat Name: MURALI BRAXTON Department: [facility]IP Room: ED 14 Gender: F Relationship Counselor: [id number] : 1950 Requested By: BRIAN SZYMANSKI Order Number: [id number] Reading MD: Beatriz Zavala Measurements Intervals [place] Rate: 42 P: 0 RI: 0 QRS: 174 QRSD: 157 T: -55 QT: 540 QTc: 451 Interpretive Statements Junctional rhythm RBBB and LPFB Inferior infarct, age indeterminate Compared to ECG 01/02/2025 10:27:05 Junctional rhythm now present Left posterior fascicular block now present Myocardial infarct finding now present Sinus rhythm no longer present Electronically Signed On 02-02-2025 17:03:12 CDT by Beatriz Zavala Please click the below link to view image of tracing.
[2025-02-01 18:27] LABS: BILIRUBIN,TOTAL 0.6 mg/dL (0.2-1.0); CREATININE 5.1 mg/dL (0.5-1.0); POTASSIUM 4.5 mmol/L (3.5-5.1)
--- NOTE | 2025-02-01 20:36 | NUR ---
SPOKE WITH DR. JACKSON. INFORMED HIM OF PT CMP POST DIALYSIS. TELEPHONE ORDER RECIEVED TO HAVE PT DISCHARGED.
--- NOTE | 2025-02-01 22:24 | NUR ---
NS 1000ML DUE @1500 NON-ADMIN BY PRIMARY NURSE IT WAS USED FOR HEMODIALYSIS.
--- NOTE | 2025-02-02 05:34 | PN ---
SUBJECTIVE: The patient has been evaluated and seen for dialysis and seen several times. The patient is critically ill. All the other systemic review is unchanged. No other associated findings. No other aggravating or relieving factors. She is short of breath. She has severe hyperkalemia, life-threatening. PLAN: Plan is to continue dialysis support. Continued monitoring of renal function, electrolytes, and overall status and seen for dialysis and seen multiple times. I have discussed with other team members. We will be monitoring closely. I have ordered calcium gluconate and I have ordered Lokelma. Total time today spent with the patient being critically ill was 45 minutes. TID: [id number] RECEIPT: [id number]
== END 2025-02-01 22:20 | disposition home or self-care (01) ==
LOC: EDH 10:43 → EDHIP 10:44
PROVIDERS: ADMIT Internal Medicine; ATTEND Internal Medicine
DX: I12.0 Hypertensive chronic kidney disease with stage 5 chronic kidney disease or end stage renal disease (principal); E11.22 Type 2 diabetes mellitus with diabetic chronic kidney disease; N18.6 End stage renal disease; E87.70 Fluid overload, unspecified; J81.1 Chronic pulmonary edema; D72.829 Elevated white blood cell count, unspecified; E87.5 Hyperkalemia; K74.60 Unspecified cirrhosis of liver; E78.00 Pure hypercholesterolemia, unspecified; I25.10 Atherosclerotic heart disease of native coronary artery without angina pectoris; Z95.1 Presence of aortocoronary bypass graft; Z99.2 Dependence on renal dialysis; Z98.890 Other specified postprocedural states; Z79.899 Other long term (current) drug therapy
CPT/HCPCS: 96365; 96375; 82435; 82947; 84132; 84295; 80048; 85018; 93005; 36600; 99291; 82550; 84484; 80053; 82803; 83880; 85025; 85610; 85730; 83605; 36415; 71045; 94640; 90935; J1815; G0378 ×7; J7070; J0612; G0257

== ENCOUNTER 2025-02-14 09:56 | Emergency (ER) | payer MEDICARE ==
[~2025-02-14] VITALS: Ht 149.9 cm; Wt 59.0 kg
--- NOTE | 2025-02-14 10:07 | NUR ---
PT JUST NOW PLACED IN MY ED BED 11
--- NOTE | 2025-02-14 10:09 | ERN ---
General Chief Complaint: Abdominal Pain Stated Complaint: ABDOMINAL DISTENSION Time Seen by MD: 10:00 History of Present Illness Initial Comments 74-year-old female who presents with the abdominal distention and discomfort. Patient reports she has a history of needing paracentesis. Her last was 01/24/25. She reports she feels distention in the abdomen and mild dyspnea due to the distention. No fevers vomiting diarrhea or other symptoms. Allergies: Coded Allergies: metformin HCl (Unverified Allergy, Intermediate, ITCHING, RASH., 05/25/13) minoxidil (Unverified Allergy, Unknown, 12/08/20) Home Meds Unable to Obtain Active Prescriptions or Reported Meds Past Medical History Past Medical History: Diabetes-Type II, High Cholesterol, Hypertension, Hypotension, Renal Failure, Other Medical History Other: CKD ON DIALYSIS Past Surgical History: Cholecystectomy, CABG, LAVA Surgical History Other: L ARM HD SHUNT, FREQUENT PARACENTESIS' Family History Family History: HTN Social History Social History: Negative, Lives alone, Other Female( History) History: Not Applicable ROS Dictation CONSTITUTIONAL: No chills, no fever, no weakness, no diaphoresis, no malaise. HEAD/FACE: No signs of trauma. EENT: No eye pain, no blurred vision, no tearing, no double vision, no ear pain, no ear discharge, no nose pain, no nasal congestion, no throat pain, no throat swelling, no mouth pain. RESPIRATORY: No cough, no orthopnea, no SOB, no stridor, no wheezing. CARDIOVASCULAR: No chest pain, no edema, no palpitations, no syncope. GASTROINTESTINAL/ABDOMINAL: Abdominal pain and distention GENITOURINARY: No abnormal discharge, no dysuria, no frequent urination, no hematuria. No complaints of pain in the genitals. MUSCULOSKELETAL: No back pain, no gout, no joint pain, no joint swelling, no muscle pain, no muscle stiffness, no neck pain. INTEGUMENTARY: No change in color, no change in hair/nails, no dryness, no lesion, no lumps, no rash. NEUROLOGICAL/PSYCH: No anxiety, not depressed, no emotional problem, no headache, no numbness, no pre-existing deficit, no history of seizures, no tremors, no weakness. HEMATOLOGIC/LYMPHATIC: Not anemic, no history of blood clots, no apparent bleeding, no bruising, glands not swollen. All Systems Negative, Except as Noted. Physical Exam Physical Exam Dictation VITAL SIGNS: Reviewed. GENERAL APPEARANCE: Alert, oriented x3, no acute distress. HEAD AND FACE: Non-traumatic. EYES: PERRL, pink conjunctivas, eyelid no trauma, anterior chamber clear. EARS: Pinnas intact and no signs of trauma or erythema. Ear canals clear and no discharge. TMs no erythema. NOSE: No discharge, no bleeding. OROPHARYNX: Mouth normal, teeth no caries, tongue pink. Pharynx clear, no erythema. Tonsils no exudates, no abscesses noted. Mucous membrane moist. NECK: Supple, non-tender, no thyromegaly, no masses, no JVD, no bruits. BREAST: Deferred. CHEST: No tenderness, no crepitus, no paradoxical movement, no retractions. LUNGS: Clear, well-ventilated, symmetric, no rales, no wheezing, no rhonchi, no stridor, good breath sounds bilaterally. HEART: Regular rate, regular rhythm, no murmur, no gallops. VASCULAR: No peripheral edema. ABDOMEN: Abdominal distention RECTAL: Deferred. GENITAL: Deferred. NEUROLOGICAL: Normal speech, gross motor function intact, gross sensory function intact. MUSCULOSKELETAL: Neck nontender, full range of motion, back nontender, full range of motion. EXTREMITIES: Nontender, full range of motion. SKIN: Color pink, dry, no turgor, no rash, no lacerations, no abrasions, no contusions. LYMPHATICS: Deferred. Results Laboratory and Microbiology Lab and Micro Result Laboratory Tests Test 02/14/25 10:20 White Blood Count 3.8 K/uL (4.8-10.8) L Red Blood Count 3.32 MIL/uL (4.00-5.50) L Hemoglobin 10.3 g/dL (12.0-16.0) L Hematocrit 33.7 % (36-48) L Mean Corpuscular Volume 101.5 fL (79-99) H Mean Corpuscular Hemoglobin 31.0 pg (27.0-33.0) Mean Corpuscular Hemoglobin Concent 30.6 g/dL (32.0-36.0) L Red Cell Distribution Width 13.3 % (11.0-15.5) Platelet Count 85 K/uL (130-400) L Mean Platelet Volume 11.3 fL (7.5-10.5) H Immature Granulocyte % (Auto) 0.0 % (0-1) Neutrophils (%) (Auto) 60.8 % (40.0-77.0) Lymphocytes (%) (Auto) 19.1 % (21.0-51.0) L Monocytes (%) (Auto) 8.6 % (3.0-13.0) Eosinophils (%) (Auto) 10.7 % (0.0-8.0) H Basophils (%) (Auto) 0.8 % (0.0-5.0) Neutrophils # (Auto) 2.3 K/uL (1.8-7.7) Lymphocytes # (Auto) 0.7 K/uL (1.0-4.8) L Monocytes # (Auto) 0.3 K/uL (0.1-1.0) Eosinophils # (Auto) 0.41 K/uL (0.00-0.70) Basophils # (Auto) 0.03 K/uL (0.00-0.20) Absolute Immature Granulocyte (auto 0.00 K/uL (0-1) Nucleated Red Blood Cells 0.0 % (0.0-0.19) Red Blood Cell Morphology See comments Prothrombin Time 11.1 SEC (9.6-11.6) Prothromb Time International Ratio 1.05 (0.85-1.15) Activated Partial Thromboplast Time 42.6 SEC (26.3-35.5) H Sodium Level 140 mmol/L (136-145) Potassium Level 4.8 mmol/L (3.5-5.1) Chloride Level 102 mmol/L (101-111) Carbon Dioxide Level 31 mmol/L (21-32) Blood Urea Nitrogen 33 mg/dL (7-18) H Creatinine 4.8 mg/dL (0.5-1.0) H Glomerular Filtration Rate Calc 9 mL/min (>90) Random Glucose 107 mg/dL (70-105) H Total Calcium 8.9 mg/dL (8.5-10.1) MDM CC: Abdominal distention Historian: Patient Comorbidities: Cirrhosis requiring paracentesis Limitations by social determinants health: None Differential diagnosis: Ascites requiring paracentesis, electrolyte abnormality, as BP, other Based on the clinical exam very low suspicion for SBP. She was at her baseline. Patient was requires a paracentesis at this time. The labs (independently ordered and interpreted by me): Pancytopenia the white blood cells 3.8, hemoglobin 10.3, platelets 85. This appears to be baseline based on previous labs. I had performed an external chart review of labs this is the patient was baseline. The coags are stable. Electrolytes show ESRD requiring dialysis, creatinine 4.8 and BUN 33. The electrolytes are stable. Consultation to Interventional Radiology, they were able to perform a paracentesis and 5 L of fluid removed. Patient received 25% g here in the ER due to the high volume removal. On re-evaluation she was at baseline. She reports feeling much better after the paracentesis. It was no concerning findings at this time, we will discharge to PCP follow up. Patient agrees with the plan. ED Course Orders Procedure Category Date Status Time Cbc With Differential LAB 02/14/25 Complete 10:00 Basic Metabolic Panel LAB 02/14/25 Complete 10:00 Chest 1vw RAD 02/14/25 Resulted 10:00 12 Lead Ekg Tracing- EKG 02/14/25 Complete Technical 10:00 Pt And Ptt LAB 02/14/25 Complete 10:00 Us Abdominal US 02/14/25 Resulted Paracentesis Ir 10:02 Albumin Human 25% PHA 02/14/25 Complete ([place]) 12:28 Current Medications Medications (Trade) Dose Ordered Sig/Rufina Route PRN Reason Start Time Stop Time Status Last Admin Dose Admin Albumin Human 200 ml @ As Directed STK-MED ONCE IV 02/14/25 12:28 02/14/25 12:28 DC 02/14/25 12:34 Vital Signs Date Time Temp Pulse Resp B/P (MAP) Pulse Ox O2 Delivery O2 Flow Rate FiO2 02/14/25 14:03 98.1 52 16 170/58 97 Room Air* 0 21 02/14/25 09:57 56 20 203/70 99 Room Air 0 DX & DISP Disposition: Discharge Departure Impression: Primary Impression: Ascites Additional Impressions: S/P abdominal paracentesis, Pancytopenia, Cirrhosis, ESRD (end stage renal disease) Condition: Stable Scripts Unable to Obtain Active Prescriptions or Reported Meds Additional Instructions: 5 L were removed from your abdomen with a paracentesis. Your lab work is at baseline. Please return to the emergency department as needed. Follow up with the primary doctor. Referrals: KATHLEEN JACKSON MD (PCP) ALEJO PULIDO DO February 14, 2025 10:09
--- NOTE | 2025-02-14 10:16 | NUR ---
CONSENT OBTAINED FOR A PARACENTESIS
[2025-02-14 10:31] LABS: BASOPHILS # (AUTO) 0.03 K/uL (0.00-0.20); BASOPHILS % (AUTO) 0.8 % (0.0-5.0); EOSINOPHILS # (AUTO) 0.41 K/uL (0.00-0.70); EOSINOPHILS % (AUTO) 10.7 % (0.0-8.0); HEMATOCRIT 33.7 % (36-48); LYMPHOCYTES # (AUTO) 0.7 K/uL (1.0-4.8); LYMPHOCYTES % (AUTO) 19.1 % (21.0-51.0); MEAN CORPUSCULAR HGB CONC 30.6 g/dL (32.0-36.0); MEAN CORPUSCULAR VOLUME 101.5 fL (79-99); MONOCYTES # (AUTO) 0.3 K/uL (0.1-1.0); MONOCYTES % (AUTO) 8.6 % (3.0-13.0); NEUTROPHILS # (AUTO) 2.3 K/uL (1.8-7.7); NEUTROPHILS % (AUTO) 60.8 % (40.0-77.0); PLATELET COUNT (AUTO) 85 K/uL (130-400); RED BLOOD CELL COUNT(AUTO) 3.32 MIL/uL (4.00-5.50); RED CELL DISTRIBUTION WIDTH 13.3 % (11.0-15.5); WHITE BLOOD COUNT (AUTO) 3.8 K/uL (4.8-10.8)
--- NOTE | 2025-02-14 10:34 | EKG ---
[facility] Test Date: 2025-02-14 Test Time: 10:31:00 Pat Name: MURALI BRAXTON Department: [facility] Room: Gender: F [employer] Representative: [id number] : 1950 Requested By: ALEJO PULIDO Order Number: [id number] Reading MD: Garret Knapp Measurements Intervals [place] Rate: 49 P: 0 OR: 0 QRS: -48 QRSD: 143 T: 22 QT: 523 QTc: 474 Interpretive Statements Junctional rhythm RBBB and LAFB Compared to ECG 02/01/2025 11:10:03 Left anterior fascicular block now present Left posterior fascicular block no longer present Myocardial infarct finding no longer present Electronically Signed On 02-15-2025 15:50:54 CDT by Garret Knapp Please click the below link to view image of tracing.
[2025-02-14 10:39] LABS: CREATININE 4.8 mg/dL (0.5-1.0); POTASSIUM 4.8 mmol/L (3.5-5.1)
[2025-02-14 10:41] LABS: INR 1.05 (0.85-1.15); PROTHROMBIN TIME 11.1 SEC (9.6-11.6)
[2025-02-14 10:42] LABS: PARTIAL THROMBOPLASTIN TIME 42.6 SEC (26.3-35.5)
--- NOTE | 2025-02-14 11:07 | NUR ---
PARACENTESIS: FAREED BRIGHT HAS NOW TAKEN PT TO RADIOLOGY/IR FOR HER PARACENTESIS
--- NOTE | 2025-02-14 12:25 | NUR ---
U/S GD PARACENTESIS PROCEDURE PERFORMED BY DR Richard PARRY. PUNCTURE SITE RLQ AND PATIENT TOLERATED PROCEDURE WELL. TOTAL REMOVED 6 LITERS OF CLOUDY YELLOW FLUID. END OF PROCEDURE AT 1215. ALBUMIN 25% 50 GRAMS IV GIVEN POST PROCEDURE. CATHETER REMOVED AND DRESSING APPLIED. NO BLEEDING NOTED. PATIENT TRANSPORTED TO ED 11 AT 1225 AND REPORT GIVEN TO Christiano BLANCHARD RN AT NURSES STATION. AAO X3 WITH NO C/O PAIN.
--- NOTE | 2025-02-14 12:29 | NUR ---
FAREED BRIGHT JUST RETURNED W/PT FROM IR/PARACENTESIS. HE STATES HE WILL BE HANGING SOME ALBUMIN PER THEIR PROTOCOL.
[2025-02-14] MEDS: ALBUMIN HUMAN 25% 200 ML IV ONE (12:34)
--- NOTE | 2025-02-14 12:44 | HMCIMG ---
CHEST 1VW HISTORY: Dyspnea COMPARISON: 02/01/2005 FINDINGS: A frontal projection of the chest was obtained. Mild bilateral pulmonary infiltrates are seen may be related to mild pulmonary vascular congestion with possible superimposed pneumonitis. Poststernotomy changes are seen. The heart is enlarged. Degenerative changes of the thoracolumbar spine are present. Degenerative changes are seen. Aortic calcifications are seen. IMPRESSION: 1. Mild bilateral pulmonary infiltrates are seen may be related to mild pulmonary vascular congestion with possible superimposed pneumonitis.
[2025-02-14 14:03] VITALS: BP 170/58; PULSE 52; RESP 16; TEMP 98.1; O2SAT 97
--- NOTE | 2025-02-14 14:49 | HMCIMG ---
US ABDOMINAL PARACENTESIS IR HISTORY: No additional history given. COMPARISON: None TECHNIQUE: Informed consent was obtained. Risks and benefits were explained to the patient. A timeout was performed. Patient was prepped and draped in a sterile fashion. Local anesthetics was given as required. Under ultrasound guidance, ascites fluid was localized with paracentesis was performed. FINDINGS: Approximately 6 L of yellowish fluid was aspirated. Less than 2 cc blood loss is noted. Patient tolerated procedure without complication. Patient left the department in good condition. IMPRESSION: 1. Uncomplicated ultrasound-guided paracentesis.
== END 2025-02-14 14:13 | disposition home or self-care (01) ==
LOC: EDH 09:56
DX: R18.8 Other ascites (principal); K74.60 Unspecified cirrhosis of liver; D61.818 Other pancytopenia; I12.0 Hypertensive chronic kidney disease with stage 5 chronic kidney disease or end stage renal disease; E11.22 Type 2 diabetes mellitus with diabetic chronic kidney disease; N18.6 End stage renal disease; E78.00 Pure hypercholesterolemia, unspecified; Z90.49 Acquired absence of other specified parts of digestive tract; Z95.1 Presence of aortocoronary bypass graft; Z99.2 Dependence on renal dialysis
CPT/HCPCS: 96365; 99285; 80048; 85025; 85610; 85730; 36415; 71045; 49083; 93005; P9046; C1729

== ENCOUNTER 2025-03-14 10:18 | Emergency (ER) | payer MEDICARE ==
[~2025-03-14] VITALS: Ht 149.9 cm; Wt 59.0 kg
[2025-03-14 11:24] LABS: BASOPHILS # (AUTO) 0.03 K/uL (0.00-0.20); BASOPHILS % (AUTO) 0.6 % (0.0-5.0); EOSINOPHILS % (AUTO) 14.8 % (0.0-8.0); IMMATURE GRANULOCYTE ABSOLUTE 0.02 K/uL (0-1); LYMPHOCYTES # (AUTO) 0.8 K/uL (1.0-4.8); LYMPHOCYTES % (AUTO) 16.7 % (21.0-51.0); MEAN CORPUSCULAR HEMOGLOBIN 31.4 pg (27.0-33.0); MEAN CORPUSCULAR HGB CONC 31.2 g/dL (32.0-36.0); MEAN CORPUSCULAR VOLUME 100.6 fL (79-99); MONOCYTES # (AUTO) 0.4 K/uL (0.1-1.0); MONOCYTES % (AUTO) 7.4 % (3.0-13.0); NEUTROPHILS # (AUTO) 2.8 K/uL (1.8-7.7); NEUTROPHILS % (AUTO) 60.1 % (40.0-77.0); PLATELET COUNT (AUTO) 60 K/uL (130-400); RED BLOOD CELL COUNT(AUTO) 3.38 MIL/uL (4.00-5.50); WHITE BLOOD COUNT (AUTO) 4.7 K/uL (4.8-10.8)
[2025-03-14 11:30] LABS: CREATININE 4.3 mg/dL (0.5-1.0); POTASSIUM 4.1 mmol/L (3.5-5.1)
[2025-03-14 11:32] LABS: INR 1.07 (0.85-1.15); PROTHROMBIN TIME 11.3 SEC (9.6-11.6)
[2025-03-14 11:34] LABS: PARTIAL THROMBOPLASTIN TIME 42.8 SEC (26.3-35.5)
--- NOTE | 2025-03-14 12:42 | NUR ---
U/S GD PARACENTESIS TOLERATED PROCEDURE. PERFORMED BY DR Richard PARRY. PUNCTURE SITE TO RLQ. 5.3 LITERS OF YELLOW CLOUDY ASCITES FLUID REMOVED. END OF PROCEDURE AT 1232. DRESSING DRY AND INTACT. NO BLEEDING NOTED. REPORT GIVEN TO LANIE BRIGHT. DISCHARGE TO ED VIA STRETCHER. DENIES PAIN. A&O. ALBUMIN 25% 50 GRAMS TO BE GIVEN IN ED.
[2025-03-14] MEDS ORDERED: ALBUMIN (HUMAN) 25% 200 ML IV SCH (13:00)
--- NOTE | 2025-03-14 13:00 | NUR ---
REPORT TAKEN FROM RADIOLOGY REGARDING PARACENTESIS 5.3L REMOVED FROM RLQ.4X4 AND OPSITE APPLIED.DRESSING DRY AND INTACT. VS: BP 148/63,HR 70, SPO2 98% RR18.
--- NOTE | 2025-03-14 13:29 | ERN ---
General Chief Complaint: Other Problems Stated Complaint: PARACENTISIS Time Seen by MD: 10:26 Time Seen by Midlevel: 10:26 Source: patient History of Present Illness Initial Comments The patient is a 74-year-old female with a past medical history of end-stage renal disease on hemodialysis and liver cirrhosis presenting to the emergency department for abdominal distention and mild shortness of breath. The patient states she normally gets paracentesis performed. She feels like she needs another one at this time. Previously she was getting paracentesis twice a month but she has now dropped to once a month. Otherwise patient has no complaints. Allergies: Coded Allergies: metformin HCl (Unverified Allergy, Intermediate, ITCHING, RASH., 05/25/13) minoxidil (Unverified Allergy, Unknown, 12/08/20) Home Meds Unable to Obtain Active Prescriptions or Reported Meds Past Medical History Past Medical History: Hypertension, Liver Disease Medical History Other: CKD ON DIALYSIS Past Surgical History: None Surgical History Other: LT ARM LAVA Family History Family History: HTN Social History Social History: Negative, Lives alone, Other Female( History) History: Not Applicable ROS Dictation CONSTITUTIONAL: Negative except for HPI HEAD/FACE: Negative except for HPI EENT: Negative except for HPI RESPIRATORY: Negative except for HPI GASTROINTESTINAL/ABDOMINAL: Negative except for HPI GENITOURINARY: Negative except for HPI MUSCULOSKELETAL: Negative except for HPI INTEGUMENTARY: Negative except for HPI NEUROLOGICAL/PSYCH: Negative except for HPI HEMATOLOGIC/LYMPHATIC: Negative except for HPI All Systems Negative, Except as noted above. 13 point review of systems assessed and all negative except for above. Physical Exam Physical Exam Dictation Vital Signs reviewed General Appearance: Alert, oriented x 3, no acute distress, chronically ill- appearing Head and Face: non-traumatic. Eyes: PERRL, pink conjunctivas, eyelid no trauma, anterior chamber with arcus senilis. Ears: Pinnas intact and no signs of trauma or erythema ear canals clear and no discharge TM no erythema Nose: No discharge, no bleeding. Oropharynx: Mouth normal, tongue pink, pharynx clear,no erythema, tonsils no exudates, no abscesses noted, mucous membrane moist Neck: Supple, non-tender, no thyromegaly, no masses, no JVD, no bruits Breast:Deferred Chest:No tenderness, no crepitus, no paradoxical movement, no retractions Lungs:Clear, well-ventilated, symmetric, no rales, no wheezing, no rhonchi, no stridor, good breath sounds bilaterally Heart: Regular rate, regular rhythm, no murmur, no gallops Vascular: no peripheral edema, Abdomen: Soft, positive bowel sounds, abdominal distention, no guarding Rectal: Deferred Genital: Deferred Neurological: Normal speech, motor function intact, sensory function intact Musculoskeletal: Neck nontender, full range of motion, back nontender, full range of motion, Extremities: nontender, full range of motion Skin: Color pink, dry, no turgor, no rash, no lacerations, no abrasions, no contusions. Lymphatic: Deferred Results Laboratory and Microbiology Lab and Micro Result Laboratory Tests Test 03/14/25 11:08 White Blood Count 4.7 K/uL (4.8-10.8) L Red Blood Count 3.38 MIL/uL (4.00-5.50) L Hemoglobin 10.6 g/dL (12.0-16.0) L Hematocrit 34.0 % (36-48) L Mean Corpuscular Volume 100.6 fL (79-99) H Mean Corpuscular Hemoglobin 31.4 pg (27.0-33.0) Mean Corpuscular Hemoglobin Concent 31.2 g/dL (32.0-36.0) L Red Cell Distribution Width 14.0 % (11.0-15.5) Platelet Count 60 K/uL (130-400) L Mean Platelet Volume 10.9 fL (7.5-10.5) H Immature Granulocyte % (Auto) 0.4 % (0-1) Neutrophils (%) (Auto) 60.1 % (40.0-77.0) Lymphocytes (%) (Auto) 16.7 % (21.0-51.0) L Monocytes (%) (Auto) 7.4 % (3.0-13.0) Eosinophils (%) (Auto) 14.8 % (0.0-8.0) H Basophils (%) (Auto) 0.6 % (0.0-5.0) Neutrophils # (Auto) 2.8 K/uL (1.8-7.7) Lymphocytes # (Auto) 0.8 K/uL (1.0-4.8) L Monocytes # (Auto) 0.4 K/uL (0.1-1.0) Eosinophils # (Auto) 0.70 K/uL (0.00-0.70) Basophils # (Auto) 0.03 K/uL (0.00-0.20) Absolute Immature Granulocyte (auto 0.02 K/uL (0-1) Nucleated Red Blood Cells 0.0 % (0.0-0.19) Platelet Morphology Comment See comments Prothrombin Time 11.3 SEC (9.6-11.6) Prothromb Time International Ratio 1.07 (0.85-1.15) Activated Partial Thromboplast Time 42.8 SEC (26.3-35.5) H Sodium Level 140 mmol/L (136-145) Potassium Level 4.1 mmol/L (3.5-5.1) Chloride Level 103 mmol/L (101-111) Carbon Dioxide Level 30 mmol/L (21-32) Blood Urea Nitrogen 35 mg/dL (7-18) H Creatinine 4.3 mg/dL (0.5-1.0) H Glomerular Filtration Rate Calc 10 mL/min (>90) Random Glucose 87 mg/dL (70-105) Total Calcium 8.4 mg/dL (8.5-10.1) L Labs Reviewed?: Yes MDM MDM: The patient is a 74-year-old female with a past medical history of end- stage renal disease on hemodialysis and liver cirrhosis presenting to the emergency department for abdominal distention and mild shortness of breath. The patient states she normally gets paracentesis performed. She feels like she needs another one at this time. Previously she was getting paracentesis twice a month but she has now dropped to once a month. Otherwise patient has no complaints. On physical examination the patient is in no acute respiratory distress. Initial vital signs are stable. Patient does have [id number] abdominal distention with no rebound or guarding. No peritoneal signs. Patient is afebrile. Basic labs obtained and they are at baseline. Potassium is normal. Patient is due for dialysis tomorrow. IR was contacted and they performed para centesis with no complications. Patient was observed in the emergency department for over 3 hours and has remained stable. We will discharged home Differential diagnosis: End-stage renal disease on hemodialysis, fluid overload electrolyte abnormality There are no social concerns with this patient. Prescription drug management Prescriptions will include:, none Medical management and examination interpretation discussions were had by me with other qualified healthcare professionals as indicated for the patient's care. ED Course Orders Procedure Category Date Status Time Pt And Ptt LAB 03/14/25 Complete 10:32 Basic Metabolic Panel LAB 03/14/25 Complete 10:32 Cbc With Differential LAB 03/14/25 Complete 10:32 Chest 1vw RAD 03/14/25 Taken 11:51 Us Abdominal US 03/14/25 Taken Paracentesis Ir 12:00 Vital Signs Post Op CPOE 03/14/25 Transmitted 12:34 Radiology Diet Order CPOE 03/14/25 Transmitted 12:34 Albumin (Human) 25% PHA 03/14/25 In Process (Albumin (Human) 25% 13:00 Current Medications Medications (Trade) Dose Ordered Sig/Rufina Route PRN Reason Start Time Stop Time Status Last Admin Dose Admin Albumin Human 200 ml @ 0 mls/hr AD IV 03/14/25 13:00 03/15/25 12:59 Vital Signs Date Time Temp Pulse Resp B/P (MAP) Pulse Ox O2 Delivery O2 Flow Rate FiO2 03/14/25 10:50 97.9 71 18 170/71 99 Room Air* 0 21 03/14/25 10:24 97.9 71 18 170/71 99 Room Air 0 DX & DISP Disposition: Discharge Decision to Admit Date: March 14, 2025 Departure Impression: Primary Impression: Abdominal ascites Additional Impression: ESRD needing dialysis Condition: Stable Scripts Unable to Obtain Active Prescriptions or Reported Meds Referrals: KATHLEEN JACKSON MD (PCP) Time of Disposition: 13:28 I have reviewed the case, and I agree with, Diagnosis and Plan I performed the substantive portion of the visit. I have reviewed and personally made and approve the management plan that is documented in the note by myself or the LISBET. I acknowledge for responsibility for the patient's dee gement plan. KATHLEEN BUTTERFIELD March 14, 2025 13:29
--- NOTE | 2025-03-14 13:31 | HMCIMG ---
CHEST 1VW HISTORY: Shortness of breath COMPARISON: 02/14/2025 FINDINGS: A frontal projection of the chest was obtained. Mild bilateral pulmonary infiltrates are seen may be related to mild pulmonary vascular congestion with possible superimposed pneumonitis. Poststernotomy changes are seen. The heart is enlarged. Degenerative changes of the thoracolumbar spine are present. Degenerative changes are seen. No evidence of aortic calcification is seen. IMPRESSION: 1. Mild bilateral pulmonary infiltrates are seen may be related to mild pulmonary vascular congestion with possible superimposed pneumonitis.
[2025-03-14] MEDS: ALBUMIN HUMAN 25% 200 ML IV SCH (13:43)
--- NOTE | 2025-03-14 14:34 | HMCIMG ---
US ABDOMINAL PARACENTESIS IR HISTORY: Ascites COMPARISON: None TECHNIQUE: Informed consent was obtained. Risks and benefits were explained to the patient. A timeout was performed. Patient was prepped and draped in a sterile fashion. Local anesthetics was given as required. Under ultrasound guidance, ascites fluid was localized. Paracentesis was performed. FINDINGS: 5.3 L of yellowish fluid was aspirated. Less than 2 cc blood loss is noted. Patient tolerated procedure without complication. Patient left the department in good condition. IMPRESSION: 1. Uncomplicated ultrasound-guided paracentesis.
--- NOTE | 2025-03-14 14:45 | NUR ---
PT RECEIVED 200 ML 25% ALBUMIN PER ORDER. VS WNL
[2025-03-14 14:50] VITALS: BP 151/50; PULSE 55; RESP 18; TEMP 98; O2SAT 99
== END 2025-03-14 14:58 | disposition home or self-care (01) ==
LOC: EDH 10:18
DX: R18.8 Other ascites (principal); I12.0 Hypertensive chronic kidney disease with stage 5 chronic kidney disease or end stage renal disease; N18.6 End stage renal disease; Z99.2 Dependence on renal dialysis
CPT/HCPCS: 49083; 99285; 96365; 71045; 80048; 85025; 85610; 85730; 36415; P9046 ×2; P9047; C1729

== ENCOUNTER 2025-04-04 09:05 | Emergency (ER) | payer MEDICARE, MEDICAID ==
[~2025-04-04] VITALS: Ht 149.9 cm; Wt 59.0 kg
[2025-04-04 09:48] LABS: BASOPHILS # (AUTO) 0.03 K/uL (0.00-0.20); BASOPHILS % (AUTO) 0.7 % (0.0-5.0); EOSINOPHILS # (AUTO) 0.49 K/uL (0.00-0.70); EOSINOPHILS % (AUTO) 12.2 % (0.0-8.0); HEMATOCRIT 34.3 % (36-48); IMMATURE GRANULOCYTE ABSOLUTE 0.01 K/uL (0-1); LYMPHOCYTES # (AUTO) 0.6 K/uL (1.0-4.8); LYMPHOCYTES % (AUTO) 14.7 % (21.0-51.0); MEAN CORPUSCULAR HEMOGLOBIN 31.3 pg (27.0-33.0); MEAN CORPUSCULAR HGB CONC 31.5 g/dL (32.0-36.0); MEAN CORPUSCULAR VOLUME 99.4 fL (79-99); MONOCYTES # (AUTO) 0.4 K/uL (0.1-1.0); MONOCYTES % (AUTO) 10.9 % (3.0-13.0); NEUTROPHILS # (AUTO) 2.5 K/uL (1.8-7.7); NEUTROPHILS % (AUTO) 61.3 % (40.0-77.0); PLATELET COUNT (AUTO) 96 K/uL (130-400); RED BLOOD CELL COUNT(AUTO) 3.45 MIL/uL (4.00-5.50); RED CELL DISTRIBUTION WIDTH 13.8 % (11.0-15.5)
[2025-04-04 09:55] LABS: CREATININE 4.4 mg/dL (0.5-1.0); POTASSIUM 4.5 mmol/L (3.5-5.1)
--- NOTE | 2025-04-04 09:55 | HMCIMG ---
CHEST 1VW HISTORY: Dyspnea COMPARISON: 03/14/2025 FINDINGS: A frontal projection of the chest was obtained. Mild bilateral pulmonary infiltrates are seen may be related to mild pulmonary vascular congestion with possible superimposed pneumonitis. Poststernotomy changes are seen. The heart is enlarged. Degenerative changes of the thoracolumbar spine are present. Aortic calcifications are seen. IMPRESSION: 1. Mild bilateral pulmonary infiltrates are seen may be related to mild pulmonary vascular congestion with possible superimposed pneumonitis.
[2025-04-04 09:57] LABS: INR 1.08 (0.85-1.15); PROTHROMBIN TIME 11.4 SEC (9.6-11.6)
[2025-04-04 09:59] LABS: PARTIAL THROMBOPLASTIN TIME 47.6 SEC (26.3-35.5)
--- NOTE | 2025-04-04 11:20 | NUR ---
PT IS IN IR FOR HER PARACENTESIS
--- NOTE | 2025-04-04 12:20 | NUR ---
U/S GD PARACENTESIS PROCEDURE PERFORMED BY DR PARRY. PUNCTURE SITE RLQ AND PATIENT TOLERATED PROCEDURE WELL. TOTAL REMOVED 6.3 LITERS OF YELLOW CLOUDY ASCITES FLUID. END OF PROCEDURE AT 1210. CATHETER REMOVED AND DRESSING APPLIED. NO BLEEDING NOTED. REPORT GIVEN TO LANIE GUZMAN RN AND PATIENT TRANSPORTED TO ED 19 VIA BED. AAO X3 WITH NO C/O PAIN.
--- NOTE | 2025-04-04 12:32 | NUR ---
REPORT FROM RADIOLOGY PARA COMPLETED,6.3 L REMOVED,PUNCTURE SITE RLQ.4X4 & OPSITE APPLIED TO PUNCTURE SITE. 50G 25% ALBUMIN TO BE ADMINISTERED. VS HR 52,BP 134/50, RR 20, SPO2 98% ON RA
[2025-04-04] MEDS: ALBUMIN HUMAN 25% 200 ML IV SCH (12:48)
--- NOTE | 2025-04-04 12:56 | ERN ---
General Chief Complaint: Abdominal Pain Stated Complaint: PARACENTESIS Time Seen by MD: 09:06 History of Present Illness Initial Comments 74-year-old female history of ESRD on dialysis history of ascites liver cirrhosis presents for abdominal distention he requesting a paracentesis. Patient reports that she gets a paracentesis is every two weeks to a month as needed. She is report distention on increasing over the last few days. It has difficulty lying flat. No fevers or vomiting. She has been going to her regularly scheduled dialysis on Wednesdays and Fridays. She has been attempting to schedule an outpatient. Centesis but has been unable to. She reports that she did not sleep well at all last night due to the discomfort and shortness of breath due to the distention. Allergies: Coded Allergies: metformin HCl (Unverified Allergy, Intermediate, ITCHING, RASH., 05/25/13) minoxidil (Unverified Allergy, Unknown, 12/08/20) Home Meds Unable to Obtain Active Prescriptions or Reported Meds Past Medical History Past Medical History: Hypertension, Liver Disease, Renal Failure Medical History Other: CKD ON DIALYSIS Past Surgical History: LAVA Surgical History Other: LT ARM LAVA Family History Family History: HTN Social History Social History: Negative, Lives alone, Other Female( History) History: Not Applicable ROS Dictation CONSTITUTIONAL: No chills, no fever, no weakness, no diaphoresis, no malaise. HEAD/FACE: No signs of trauma. EENT: No eye pain, no blurred vision, no tearing, no double vision, no ear pain, no ear discharge, no nose pain, no nasal congestion, no throat pain, no throat swelling, no mouth pain. RESPIRATORY: Dyspnea CARDIOVASCULAR: No chest pain, no edema, no palpitations, no syncope. GASTROINTESTINAL/ABDOMINAL: Abdominal distention GENITOURINARY: No abnormal discharge, no dysuria, no frequent urination, no hematuria. No complaints of pain in the genitals. MUSCULOSKELETAL: No back pain, no gout, no joint pain, no joint swelling, no muscle pain, no muscle stiffness, no neck pain. INTEGUMENTARY: No change in color, no change in hair/nails, no dryness, no lesion, no lumps, no rash. NEUROLOGICAL/PSYCH: No anxiety, not depressed, no emotional problem, no headache, no numbness, no pre-existing deficit, no history of seizures, no tremors, no weakness. HEMATOLOGIC/LYMPHATIC: Not anemic, no history of blood clots, no apparent bleeding, no bruising, glands not swollen. All Systems Negative, Except as Noted. Physical Exam Physical Exam Dictation VITAL SIGNS: Reviewed. GENERAL APPEARANCE: Alert, oriented x3, no acute distress, HEAD AND FACE: Non-traumatic. EYES: PERRL, pink conjunctivas, eyelid no trauma, anterior chamber clear. EARS: Pinnas intact and no signs of trauma or erythema. Ear canals clear and no discharge. TMs no erythema. NOSE: No discharge, no bleeding. OROPHARYNX: Mouth normal, teeth no caries, tongue pink. Pharynx clear, no erythema. Tonsils no exudates, no abscesses noted. Mucous membrane moist. NECK: Supple, non-tender, no thyromegaly, no masses, no JVD, no bruits. BREAST: Deferred. CHEST: No tenderness, no crepitus, no paradoxical movement, no retractions. LUNGS: Clear, well-ventilated, symmetric, no rales, no wheezing, no rhonchi, no stridor, good breath sounds bilaterally. HEART: Regular rate, regular rhythm, no murmur, no gallops. VASCULAR: No peripheral edema. ABDOMEN: Distended abdomen RECTAL: Deferred. GENITAL: Deferred. NEUROLOGICAL: Normal speech, gross motor function intact, gross sensory function intact. MUSCULOSKELETAL: Neck nontender, full range of motion, back nontender, full range of motion. EXTREMITIES: Nontender, full range of motion. SKIN: Color pink, dry, no turgor, no rash, no lacerations, no abrasions, no contusions. LYMPHATICS: Deferred. Results Laboratory and Microbiology Lab and Micro Result Laboratory Tests Test 04/04/25 09:40 04/04/25 10:31 White Blood Count 4.0 K/uL (4.8-10.8) L Red Blood Count 3.45 MIL/uL (4.00-5.50) L Hemoglobin 10.8 g/dL (12.0-16.0) L Hematocrit 34.3 % (36-48) L Mean Corpuscular Volume 99.4 fL (79-99) H Mean Corpuscular Hemoglobin 31.3 pg (27.0-33.0) Mean Corpuscular Hemoglobin Concent 31.5 g/dL (32.0-36.0) L Red Cell Distribution Width 13.8 % (11.0-15.5) Platelet Count 96 K/uL (130-400) L Mean Platelet Volume 10.2 fL (7.5-10.5) Immature Granulocyte % (Auto) 0.2 % (0-1) Neutrophils (%) (Auto) 61.3 % (40.0-77.0) Lymphocytes (%) (Auto) 14.7 % (21.0-51.0) L Monocytes (%) (Auto) 10.9 % (3.0-13.0) Eosinophils (%) (Auto) 12.2 % (0.0-8.0) H Basophils (%) (Auto) 0.7 % (0.0-5.0) Neutrophils # (Auto) 2.5 K/uL (1.8-7.7) Lymphocytes # (Auto) 0.6 K/uL (1.0-4.8) L Monocytes # (Auto) 0.4 K/uL (0.1-1.0) Eosinophils # (Auto) 0.49 K/uL (0.00-0.70) Basophils # (Auto) 0.03 K/uL (0.00-0.20) Absolute Immature Granulocyte (auto 0.01 K/uL (0-1) Nucleated Red Blood Cells 0.0 % (0.0-0.19) Prothrombin Time 11.4 SEC (9.6-11.6) Prothromb Time International Ratio 1.08 (0.85-1.15) Activated Partial Thromboplast Time 47.6 SEC (26.3-35.5) H Sodium Level 139 mmol/L (136-145) Potassium Level 4.5 mmol/L (3.5-5.1) Chloride Level 101 mmol/L (101-111) Carbon Dioxide Level 29 mmol/L (21-32) Blood Urea Nitrogen 38 mg/dL (7-18) H Creatinine 4.4 mg/dL (0.5-1.0) H Glomerular Filtration Rate Calc 10 mL/min (>90) Random Glucose 100 mg/dL (70-105) Total Calcium 8.1 mg/dL (8.5-10.1) L Total Creatine Kinase 50 U/L (21-232) # Troponin I High Sensitivity 150.4 ng/L (4-50) *H 141 ng/L (4-50) *H MDM l distention Historian: Patient Comorbidities: ESRD on dialysis, cirrhosis, frequent paracentesis Limitations by social determinants of health: None Differential diagnosis: Electrolyte abnormality, ascites, respiratory issue, other. Vital signs: Stable other than mild hypertension which is baseline for patient. Labs show leukopenia four K no shift or bands. Platelets 96 thrombocytopenia baseline for patient. Anemia 10.8. She is pancytopenic which appears to be baseline based on previous labs. Coags are stable. Chemistry panel shows creatinine 4.4 BUN of 3.8 otherwise electrolytes are stable. Initial troponin 150, repeat 141, I did not external chart review and this is baseline for patient. Chest x-ray independently interpreted by me shows no. Infiltrates, there is some mild vascular congestion consistent with the patient's chronic baseline status. Patient needs a paracentesis. The ascites abdominal distention is likely causing your respiratory distress. IR was consulted, they were able to perform a paracentesis and 6 L of fluid were removed. Patient received IV albumin here in the ER. I will plan on re-evaluation the patient reports feeling much better. She is in no respiratory distress with stable vital signs she is ambulatory nontoxic in appearance. This point in time patient is safe for discharge status post par acentesis. We will recommend that she follows up with the primary doctor return to the emergency department as needed. ED Course Orders Procedure Category Date Status Time Cardiac Panel LAB 04/04/25 Complete 09:21 Cbc With Differential LAB 04/04/25 Complete 09:21 Basic Metabolic Panel LAB 04/04/25 Complete 09:21 Prothrombin Time With LAB 04/04/25 Complete INR 09:21 Partial LAB 04/04/25 Complete Thromboplastin Time 09:21 Chest 1vw RAD 04/04/25 Resulted 09:21 Us Abdominal US 04/04/25 Complete Paracentesis Ir 09:29 Troponin I High LAB 04/04/25 Complete Sensitivity 10:40 Albumin Human 25% PHA 04/04/25 In Process ([place]) 12:30 Vital Signs Post Op CPOE 04/04/25 Transmitted 12:32 Radiology Diet Order CPOE 04/04/25 Transmitted 12:32 Current Medications Medications (Trade) Dose Ordered Sig/Rufina Route PRN Reason Start Time Stop Time Status Last Admin Dose Admin Albumin Human 200 ml @ 0 mls/hr AD IV 04/04/25 12:30 05/04/25 12:29 04/04/25 12:48 Vital Signs Date Time Temp Pulse Resp B/P (MAP) Pulse Ox O2 Delivery O2 Flow Rate FiO2 04/04/25 09:46 97.9 60 16 170/57 100 Room Air* 0 21 04/04/25 09:06 97.9 63 16 164/53 98 Room Air 0 DX & DISP Disposition: Discharge Departure Impression: Primary Impression: Abdominal ascites Additional Impression: S/P abdominal paracentesis Condition: Stable Scripts Unable to Obtain Active Prescriptions or Reported Meds Additional Instructions: You had a paracentesis performed. 6 L were removed. You received albumin here in the ER. Please return to the emergency department as needed. Follow up with the primary doctor as regularly scheduled. Referrals: KATHLEEN JACKSON MD (PCP) ALEJO PULIDO DO Apr 04, 2025 12:56
[2025-04-04 13:57] VITALS: BP 140/47; PULSE 55; RESP 15; TEMP 98; O2SAT 98
--- NOTE | 2025-04-04 14:03 | HMCIMG ---
US ABDOMINAL PARACENTESIS IR HISTORY: No additional history given. COMPARISON: None TECHNIQUE: Informed consent was obtained. Risks and benefits were explained to the patient. A timeout was performed. Patient was prepped and draped in a sterile fashion. Local anesthetics was given as required. Under ultrasound guidance, ascites fluid was localized. Paracentesis was performed. FINDINGS: 6.3 L of yellowish fluid was aspirated. Less than 2 cc blood loss is noted. Patient tolerated procedure without complication. Patient left the department in good condition. IMPRESSION: 1. Uncomplicated ultrasound-guided paracentesis.
== END 2025-04-04 13:54 | disposition home or self-care (01) ==
LOC: EDH 09:05
DX: R18.8 Other ascites (principal); I12.0 Hypertensive chronic kidney disease with stage 5 chronic kidney disease or end stage renal disease; N18.6 End stage renal disease; Z99.2 Dependence on renal dialysis
CPT/HCPCS: 49083; 99285; 71045; 82550; 84484 ×2; 80048; 85025; 85610; 85730; 36415; P9046; C1729

== ENCOUNTER 2025-04-30 09:41 | Emergency (ER) | payer MEDICARE, MEDICAID ==
[~2025-04-30] VITALS: Ht 149.9 cm; Wt 57.6 kg
[2025-04-30 10:17] LABS: IMMATURE GRANULOCYTE ABSOLUTE 0.02 K/uL (0-1); NUCLEATED RED BLOOD CELLS 0.0 % (0.0-0.19); PLATELET COUNT (AUTO) 52 K/uL (130-400); RED BLOOD CELL COUNT(AUTO) 3.54 MIL/uL (4.00-5.50); RED CELL DISTRIBUTION WIDTH 13.7 % (11.0-15.5); WHITE BLOOD COUNT (AUTO) 5.6 K/uL (4.8-10.8)
[2025-04-30 10:22] LABS: CREATININE 4.5 mg/dL (0.5-1.0); GLOMERULAR FILTR. RATE CALC 10.0 mL/min (>90); GLUCOSE,RANDOM 95.0 mg/dL (70-105); SODIUM SERUM 141.0 mmol/L (136-145); UREA NITROGEN, BLOOD 39.0 mg/dL (7-18)
[2025-04-30 10:36] LABS: INR 1.08 (0.85-1.15)
--- NOTE | 2025-04-30 11:07 | NUR ---
PT LEFT FOR PARACENTESIS PROCEDURE AT THIS TIME
--- NOTE | 2025-04-30 11:49 | NUR ---
GOT REPORT FROM [facility] AT THIS TIME
--- NOTE | 2025-04-30 11:55 | NUR ---
U/S GD PARACENTESIS PROCEDURE PERFORMED BY DR CAICEDO. PUNCTURE SITE RLQ AND PATIENT TOLERATED PROCEDURE WELL. TOTAL REMOVED 4.0 LITERS OF YELLOW CLOUDY ASCITES FLUID. END OF PROCEDURE AT 1145. CATHETER REMOVED AND DRESSING APPLIED. NO BLEEDING NOTED. REPORT GIVEN TO MOON Tejada RN AND PATIENT TRANSPORTED TO ED VIA STRETCHER. AAO X3 WITH NO C/O PAIN.
[2025-04-30] MEDS: ALBUMIN (HUMAN) 25% 50 ML IV ONE (12:55)
--- NOTE | 2025-04-30 13:43 | ERN ---
ED Note History of Present Illness Stated Complaint: PARACENTESIS Chief Complaint: Abdominal Pain Time Seen by MD: 09:56 Dictation: 74-year-old female presenting to the emergency department with abdominal distention sent by her primary care doctor for therapeutic paracentesis end- stage renal disease has not skipped any dialysis. Allergies: Coded Allergies: metformin HCl (Unverified Allergy, Intermediate, ITCHING, RASH., 05/25/13) minoxidil (Unverified Allergy, Unknown, 12/08/20) Home Meds Unable to Obtain Active Prescriptions or Reported Meds Past Medical History Past Medical History: Hypertension, Liver Disease, Renal Failure Additional Past Medical Hx: ESRD ON DIALYSIS Surgical History: LAVA Surgical History Other: LT ARM LAVA Family History: HTN Social History: Negative, Lives alone, Other History: Not Applicable Review of System Dictation Constitutional: Negative for fever,chills, and weight loss Eyes: Negative for injury, pain,redness, and discharge ENT: Negative for injury,pain or swelling Cardiovascular: Negative for chest pain, palpitations, and edema Respiratory: Negative for shortness of breath, cough, and wheezing, Abdomen/GI: Per HPI Back: Negative for injury and pain : Negative for injury, bleeding and discharge MS/Extremity: Negative for injury and deformity Skin: Negative for rash, and discoloration Neuro: Negative for headache, weakness, numbness, tingling, and seizure Psych: Negative for suicide ideation, homicidal ideation, and hallucinations Initial Vital Sign VS Vital Signs Date Time Temp Pulse Resp B/P (MAP) Pulse Ox O2 Delivery O2 Flow Rate FiO2 04/30/25 09:42 96.6 63 20 131/62 99 Room Air Physical Exam Dictation General: awake, alert, NAD, appears chronically ill Head/Face: Normocephalic, atraumatic Eyes: PERRL, EOMI, vision at baseline ENT: oral cavity clear, TMs clear, no signs of infection Neck: Trachea midline, supple, no nuchal rigidity Cardiovascular: RRR, normal S1/S2, No MRGs, no JVD Respiratory: CTAB, no respiratory distress, No rales or wheezes Abdomen: Soft, non-tender, distended, normal bowel sounds, no guarding or rebound. Skin: Warm, dry, normal turgor, no rash MS/Extremity: Pulses equal, no cyanosis, neurovascular intact, FROM Neuro: COAx4, GCS 15, strength 5/5, CN 2-12 intact, normal cerebellar exam, normal gait, Psych: Normal behavior, mood, and affect normal Results (Laboratory/Radiology) Laboratory/Radiology Laboratory Tests Test 04/30/25 10:11 White Blood Count 5.6 K/uL (4.8-10.8) Red Blood Count 3.54 MIL/uL (4.00-5.50) L Hemoglobin 11.2 g/dL (12.0-16.0) L Hematocrit 35.3 % (36-48) L Mean Corpuscular Volume 99.7 fL (79-99) H Mean Corpuscular Hemoglobin 31.6 pg (27.0-33.0) Mean Corpuscular Hemoglobin Concent 31.7 g/dL (32.0-36.0) L Red Cell Distribution Width 13.7 % (11.0-15.5) Platelet Count 52 K/uL (130-400) L Mean Platelet Volume 11.3 fL (7.5-10.5) H Immature Granulocyte % (Auto) 0.4 % (0-1) Neutrophils (%) (Auto) 66.2 % (40.0-77.0) Lymphocytes (%) (Auto) 17.6 % (21.0-51.0) L Monocytes (%) (Auto) 6.4 % (3.0-13.0) Eosinophils (%) (Auto) 8.5 % (0.0-8.0) H Basophils (%) (Auto) 0.9 % (0.0-5.0) Neutrophils # (Auto) 3.7 K/uL (1.8-7.7) Lymphocytes # (Auto) 1.0 K/uL (1.0-4.8) Monocytes # (Auto) 0.4 K/uL (0.1-1.0) Eosinophils # (Auto) 0.48 K/uL (0.00-0.70) Basophils # (Auto) 0.05 K/uL (0.00-0.20) Absolute Immature Granulocyte (auto 0.02 K/uL (0-1) Nucleated Red Blood Cells 0.0 % (0.0-0.19) Platelet Morphology Comment See comments Prothrombin Time 11.4 SEC (9.6-11.6) Prothromb Time International Ratio 1.08 (0.85-1.15) Activated Partial Thromboplast Time 44.3 SEC (26.3-35.5) H Sodium Level 141 mmol/L (136-145) Potassium Level 4.1 mmol/L (3.5-5.1) Chloride Level 101 mmol/L (101-111) Carbon Dioxide Level 28 mmol/L (21-32) Blood Urea Nitrogen 39 mg/dL (7-18) H Creatinine 4.5 mg/dL (0.5-1.0) H Glomerular Filtration Rate Calc 10 mL/min (>90) Random Glucose 95 mg/dL (70-105) Total Calcium 8.1 mg/dL (8.5-10.1) L Labs Reviewed?: Yes ED Course ED Course Orders Procedure Category Date Status Time Basic Metabolic Panel LAB 04/30/25 Complete 09: Cbc With Differential LAB 04/30/25 Complete :57 Pt And Ptt LAB 04/30/25 Complete 09:57 Us Abdominal US 04/30/25 Taken Paracentesis Ir 10:00 Albumin (Human) 25% PHA 04/30/25 Complete (Albumin (Human) 25% 13:00 Current Medications Medications (Trade) Dose Ordered Sig/Rufina Route PRN Reason Start Time Stop Time Status Last Admin Dose Admin Albumin Human 50 ml @ 0 mls/hr ONCE ONCE IV 04/30/25 13:00 04/30/25 13:01 DC 04/30/25 12:55 Vital Signs Date Time Temp Pulse Resp B/P (MAP) Pulse Ox O2 Delivery O2 Flow Rate FiO2 04/30/25 09:42 96.6 63 20 131/62 99 Room Air Medical Decision Making MDM MDM: Differential diagnosis: Rationale: Tests considered and ordered secondary to shared decision making include: Previous outside records reviewed: Old ER visits. Risk of complication and/or morbidity or mortality of patient management: None Medications-Per medication reconciliation Need for hospitalization: Patient does not meet criteria for hospitalization. Need for emergency major/minor surgery: No There are no social concerns with this patient. Prescription drug management Prescriptions will include symptomatic care Patient's prior external medical records from other ER visits were reviewed by me as indicated. Prior testing and results from previous visits were reviewed. Prior tests were taken into account with medical decision making and resource utilization, independent historian/historians were used to obtain complete medical history. I independently interpreted the test that were performed, results were reviewed by me and considered findings on radiology if ordered. Medical management and examination interpretation discussions were had by me with other qualified healthcare professionals as indicated for the patient's care. 74-year-old female presenting to the emergency department for therapeutic paracentesis labs and vital signs stable had paracentesis with Interventional Radiology brought back to the emergency department and recovered well no complications albumin given stable for discharge. DX & DISP Disposition: Discharge Departure Impression: Primary Impression: End-stage renal disease on hemodialysis Additional Impression: Abdominal ascites Condition: Stable Scripts Unable to Obtain Active Prescriptions or Reported Meds Referrals: KATHLEEN JACKSON MD (PCP) NATALEE OTTO MD Apr 30, 2025 13:43
[2025-04-30 13:48] VITALS: BP 134/46; PULSE 52; RESP 18; TEMP 97.7; O2SAT 99
--- NOTE | 2025-04-30 13:57 | HMCIMG ---
EXAM: US Abdomen Limited, Evaluate for Ascites. CLINICAL HISTORY: ASCITES TECHNIQUE: Real-time ultrasound of the abdomen to evaluate for ascites. COMPARISON: Study dated 04/04. FINDINGS: RIGHT LOWER QUADRANT: 4.0 liters of fluid drained. IMPRESSION: 1. Large volume ascites status post paracentesis with 4.0 liters of fluid drained. /Todd
== END 2025-04-30 14:19 | disposition home or self-care (01) ==
LOC: EDH 09:41
DX: R18.8 Other ascites (principal); I12.0 Hypertensive chronic kidney disease with stage 5 chronic kidney disease or end stage renal disease; N18.6 End stage renal disease; Z99.2 Dependence on renal dialysis
CPT/HCPCS: 49083; 99285; 96365; 80048; 85025; 85610; 85730; 36415; P9047; C1729

== ENCOUNTER 2025-05-21 09:05 | Emergency (ER) | payer MEDICARE, MEDICAID ==
[~2025-05-21] VITALS: Ht 149.9 cm; Wt 62.6 kg
[2025-05-21 09:25] LABS: IMMATURE GRANULOCYTE ABSOLUTE 0.01 K/uL (0-1); NUCLEATED RED BLOOD CELLS 0.0 % (0.0-0.19); PLATELET COUNT (AUTO) 71 K/uL (130-400); RED BLOOD CELL COUNT(AUTO) 3.96 MIL/uL (4.00-5.50); RED CELL DISTRIBUTION WIDTH 13.9 % (11.0-15.5); WHITE BLOOD COUNT (AUTO) 5.2 K/uL (4.8-10.8)
--- NOTE | 2025-05-21 09:25 | NUR ---
CONSENT OBTAINED FOR IR PARACENTESIS AT THIS TIME./MORENO
[2025-05-21 09:35] LABS: CREATININE 4.7 mg/dL (0.5-1.0); GLOMERULAR FILTR. RATE CALC 9.0 mL/min (>90); GLUCOSE,RANDOM 91.0 mg/dL (70-105); SODIUM SERUM 140.0 mmol/L (136-145); UREA NITROGEN, BLOOD 43.0 mg/dL (7-18)
[2025-05-21 09:59] LABS: INR 1.06 (0.85-1.15)
--- NOTE | 2025-05-21 10:07 | NUR ---
SPOKE WITH ACADEMIC VICE PRESIDENT FOR UPDATE ON PENDING IR PARACENTESIS PROCEDURE, STATED THEY ARE FINISHING OUTPATIENT PROCEDURES FIRST AND PATIENT WILL BE DONE AT 11 A.M. OR 12 P.M. ED MD RAMOS MADE AWARE./MORENO
--- NOTE | 2025-05-21 10:45 | ERN ---
General Chief Complaint: Abdominal Pain Stated Complaint: PARACENTESIS Time Seen by MD: 09:06 Source: patient History of Present Illness Initial Comments Patient Is a 74-year-old female with a history of liver cirrhosis coming in for increased ascites. Per patient she usually gets paracentesis when she feels this way. No fever no chills no nausea no vomiting. Allergies: Coded Allergies: metformin HCl (Unverified Allergy, Intermediate, ITCHING, RASH., 05/25/13) minoxidil (Unverified Allergy, Unknown, 12/08/20) Home Meds Unable to Obtain Active Prescriptions or Reported Meds Past Medical History Past Medical History: Hypertension, Liver Disease, Renal Failure Medical History Other: ESRD ON DIALYSIS Past Surgical History: LAVA Surgical History Other: LT ARM LAVA Family History Family History: HTN Social History Social History: Negative, Lives alone, Other Female( History) History: Not Applicable ROS Dictation CONSTITUTIONAL: No chills, no fever, no weakness, no diaphoresis, no malaise. HEAD/FACE: No signs of trauma. EENT: No eye pain, no blurred vision, no tearing, no double vision, no ear pain, no ear discharge, no nose pain, no nasal congestion, no throat pain, no throat swelling, no mouth pain. RESPIRATORY: No cough, no orthopnea, no SOB, no stridor, no wheezing. CARDIOVASCULAR: No chest pain, no edema, no palpitations, no syncope. GASTROINTESTINAL/ABDOMINAL: No abdominal pain, no constipation, no diarrhea, no nausea, no vomiting. GENITOURINARY: No abnormal discharge, no dysuria, no frequent urination, no hematuria. No complaints of pain in the genitals. MUSCULOSKELETAL: No back pain, no gout, no joint pain, no joint swelling, no muscle pain, no muscle stiffness, no neck pain. INTEGUMENTARY: No change in color, no change in hair/nails, no dryness, no lesion, no lumps, no rash. NEUROLOGICAL/PSYCH: No anxiety, not depressed, no emotional problem, no headache, no numbness, no pre-existing deficit, no history of seizures, no tremors, no weakness. HEMATOLOGIC/LYMPHATIC: Not anemic, no history of blood clots, no apparent bleeding, no bruising, glands not swollen. All Systems Negative, Except as Noted. Physical Exam Physical Exam Dictation VITAL SIGNS: Reviewed. GENERAL APPEARANCE: Alert, oriented x3, no acute distress, obese. HEAD AND FACE: Non-traumatic. EYES: PERRL, pink conjunctivas, eyelid no trauma, anterior chamber clear. EARS: Pinnas intact and no signs of trauma or erythema. Ear canals clear and no discharge. TMs no erythema. NOSE: No discharge, no bleeding. OROPHARYNX: Mouth normal, teeth no caries, tongue pink. Pharynx clear, no erythema. Tonsils no exudates, no abscesses noted. Mucous membrane moist. NECK: Supple, non-tender, no thyromegaly, no masses, no JVD, no bruits. BREAST: Deferred. CHEST: No tenderness, no crepitus, no paradoxical movement, no retractions. LUNGS: Clear, well-ventilated, symmetric, no rales, no wheezing, no rhonchi, no stridor, good breath sounds bilaterally. HEART: Regular rate, regular rhythm, no murmur, no gallops. VASCULAR: No peripheral edema. ABDOMEN: Soft, positive bowel sounds, distended, no guarding, nontender, no rebound, no masses no hepatomegaly, no splenomegaly, no Diamond's sign, no hernias. RECTAL: Deferred. GENITAL: Deferred. NEUROLOGICAL: Normal speech, gross motor function intact, gross sensory function intact. MUSCULOSKELETAL: Neck nontender, full range of motion, back nontender, full range of motion. EXTREMITIES: Nontender, full range of motion. SKIN: Color pink, dry, no turgor, no rash, no lacerations, no abrasions, no contusions. LYMPHATICS: Deferred. Results Laboratory and Microbiology Lab and Micro Result Laboratory Tests Test 05/21/25 09:15 White Blood Count 5.2 K/uL (4.8-10.8) Red Blood Count 3.96 MIL/uL (4.00-5.50) L Hemoglobin 12.3 g/dL (12.0-16.0) Hematocrit 40.2 % (36-48) Mean Corpuscular Volume 101.5 fL (79-99) H Mean Corpuscular Hemoglobin 31.1 pg (27.0-33.0) Mean Corpuscular Hemoglobin Concent 30.6 g/dL (32.0-36.0) L Red Cell Distribution Width 13.9 % (11.0-15.5) Platelet Count 71 K/uL (130-400) L Mean Platelet Volume 10.6 fL (7.5-10.5) H Immature Granulocyte % (Auto) 0.2 % (0-1) Neutrophils (%) (Auto) 60.4 % (40.0-77.0) Lymphocytes (%) (Auto) 15.8 % (21.0-51.0) L Monocytes (%) (Auto) 8.1 % (3.0-13.0) Eosinophils (%) (Auto) 14.3 % (0.0-8.0) H Basophils (%) (Auto) 1.2 % (0.0-5.0) Neutrophils # (Auto) 3.1 K/uL (1.8-7.7) Lymphocytes # (Auto) 0.8 K/uL (1.0-4.8) L Monocytes # (Auto) 0.4 K/uL (0.1-1.0) Eosinophils # (Auto) 0.74 K/uL (0.00-0.70) H Basophils # (Auto) 0.06 K/uL (0.00-0.20) Absolute Immature Granulocyte (auto 0.01 K/uL (0-1) Nucleated Red Blood Cells 0.0 % (0.0-0.19) Red Blood Cell Morphology See comments Prothrombin Time 11.2 SEC (9.6-11.6) Prothromb Time International Ratio 1.06 (0.85-1.15) Activated Partial Thromboplast Time 46.4 SEC (26.3-35.5) H Sodium Level 140 mmol/L (136-145) Potassium Level 4.5 mmol/L (3.5-5.1) Chloride Level 100 mmol/L (101-111) L Carbon Dioxide Level 29 mmol/L (21-32) Blood Urea Nitrogen 43 mg/dL (7-18) H Creatinine 4.7 mg/dL (0.5-1.0) H Glomerular Filtration Rate Calc 9 mL/min (>90) Random Glucose 91 mg/dL (70-105) Total Calcium 8.1 mg/dL (8.5-10.1) L Labs Reviewed?: Yes MDM MDM: Differential diagnosis: Status post paracentesis, history of liver cirrhosis,, ascites Rationale: Tests considered and ordered secondary to shared decision making include: Previous outside records reviewed: Old ER visits. Risk of complication and/or morbidity or mortality of patient management: None Medications-Per medication reconciliation Need for hospitalization: Patient does not meet criteria for hospitalization. Need for emergency major/minor surgery: No Patient is a 74-year-old female coming in with the abdominal distention. Paracentesis was performed by interventional radiologist patient received albumin afterwards. Patient tolerated procedure well will be discharged in stable condition. ED Course Orders Procedure Category Date Status Time Cbc With Differential LAB 05/21/25 Complete 09:08 Basic Metabolic Panel LAB 05/21/25 Complete 09:08 Pt And Ptt LAB 05/21/25 Complete 09:08 Us Abdominal US 05/21/25 Taken Paracentesis Ir 09:08 Albumin Human 25% PHA 05/21/25 Complete ([place]) 11:57 Current Medications Medications (Trade) Dose Ordered Sig/Rufina Route PRN Reason Start Time Stop Time Status Last Admin Dose Admin Albumin Human 200 ml @ As Directed STK-MED ONCE IV 05/21/25 11:57 05/21/25 11:57 DC Vital Signs Date Time Temp Pulse Resp B/P (MAP) Pulse Ox O2 Delivery O2 Flow Rate FiO2 05/21/25 11:07 48 19 121/47 100 Room Air* 0 21 05/21/25 09:35 56 19 156/57 100 Room Air* 0 21 05/21/25 09:06 97.9 63 16 159/60 98 Room Air 0 DX & DISP Disposition: Discharge Departure Impression: Primary Impression: Status post abdominal paracentesis Additional Impression: ESRD (end stage renal disease) Condition: Stable Scripts Ciprofloxacin HCl (Cipro) 500 Mg Tablet 1 TAB PO BID for 7 Days, #14 TAB 0 Refills Prov: DONTAE RAMOS MD 05/21/25 Additional Instructions: FOLLOW-UP WITH PRIMARY CARE PROVIDER IN 1 TO 2 DAYS. TAKE MEDICATIONS DIRECTED HERE IN THE EMERGENCY ROOM. OKAY TO CONTINUE HOME MEDICATIONS UNLESS OTHERWISE DISCUSSED DURING YOUR VISIT IN THE EMERGENCY ROOM TODAY. RETURN TO YOUR NEAREST EMERGENCY ROOM IF SYMPTOMS WORSEN OR IF THERE IS NO IMPROVEMENT. CALL 911 IF YOU NEED IMMEDIATE ASSISTANCE. TAKE TYLENOL [id number] NEEDED AND IF NO CONTRAINDICATIONS ARE PRESENT. INCREASE ORAL HYDRATION. A WOUND CULTURE OR URINE CULTURE WAS ORDERED HERE IN THE EMERGENCY ROOM DEPARTMENT PLEASE FOLLOW-UP WITH PRIMARY CARE PROVIDER AND ADVISE THEM TO GET REPORTS FROM OUR FACILITY. IF YOU HAD ANY LESLY WRAP/SPLINTS THAT WERE APPLIED HERE, PLEASE DO NOT REMOVE THEM UNTIL YOU SEE YOUR PRIMARY CARE OR SPECIALTY. Referrals: Referrals: KATHLEEN JACKSON MD (PCP) Time of Disposition: 12:30 DONTAE RAMOS MD May 21, 2025 10:45
--- NOTE | 2025-05-21 11:07 | NUR ---
PATIENT TAKEN TO IR AT THIS TIME FOR PARACENTESIS, NO SIGNS OR SYMPTOMS OF DISTRESS NOTED./[place]
[2025-05-21] MEDS ORDERED: ALBUMIN HUMAN 25% 200 ML IV ONE (11:57)
--- NOTE | 2025-05-21 12:00 | NUR ---
U/S GD PARACENTESIS PROCEDURE PERFORMED BY DR CAICEDO. PUNCTURE SITE RLQ AND PATIENT TOLERATED PROCEDURE WELL. TOTAL REMOVED 5.0 LITERS OF YELLOW CLOUDY ASCITES FLUID. END OF PROCEDURE AT 1150. CATHETER REMOVED AND DRESSING APPLIED. NO BLEEDING NOTED. REPORT GIVEN TO SHAWNA Taylor RN AND PATIENT TRANSPORTED TO ED 1 VIA STRETCHER. AAO X3 WITH NO C/O PAIN.
--- NOTE | 2025-05-21 12:10 | NUR ---
PER IR RN, 5L WERE TAKEN OUT OF RLQ AND ALBUMIN WAS STARTED.
[2025-05-21 12:26] VITALS: BP 138/42; PULSE 49; RESP 19; TEMP 96.2; O2SAT 100
[2025-05-21] MEDS ORDERED: CIPR-278 PO (12:31)
--- NOTE | 2025-05-21 12:38 | HMCIMG ---
US ABDOMINAL PARACENTESIS IR REASON: ascities TECHNIQUE: Paracentesis was performed with ultrasound guidance. The puncture site was selected in the Right lower quadrant and overlying skin prepped and draped in a sterile fashion. 1% Xylocaine infiltration was performed. Catheter was placed in the fluid using trocar technique. 5 L were removed. Fluid sample was submitted for laboratory evaluation. The patient showed no evidence of complication during the procedure. Patient tolerated procedure well. IMPRESSION: 1. Ultrasound-guided paracentesis.
== END 2025-05-21 12:54 | disposition home or self-care (01) ==
LOC: EDH 09:05
DX: R18.8 Other ascites (principal); I12.0 Hypertensive chronic kidney disease with stage 5 chronic kidney disease or end stage renal disease; N18.6 End stage renal disease; Z99.2 Dependence on renal dialysis
CPT/HCPCS: 49083; 99285; 96365; 80048; 85025; 85610; 85730; 36415; P9046; C1729

== ENCOUNTER 2025-06-04 09:54 | Emergency (ER) | payer MEDICARE, MEDICAID ==
[~2025-06-04] VITALS: Ht 149.9 cm; Wt 56.7 kg
[~2025-06-04 09:54] MED LIST changes: -AMLO-257 PO; -AMLO-390 PO; -ASPI-556 PO; -ATOR40TA69 PO; -CINA30TA5 PO; +CIPR-278 PO; -ESOM40CA PO; -FOLI0.4T6 PO; -LACT10SO85 PO; -MIDO10TA3 PO; -MINO2.5T3 PO; -MV-M1TAB20 PO; -OLME40TA18 PO; -ONDA-243 PO; -SEVE800T7 PO; -URSO250T12 PO; -VITA400T9 PO
--- NOTE | 2025-06-04 10:09 | ERN ---
General Chief Complaint: Abdominal Pain Stated Complaint: ABDOMINAL PAIN Time Seen by MD: 09:57 Source: patient History of Present Illness Initial Comments Patient is a 74-year-old female coming in with the abdominal distention. Per patient she does has a history of liver cirrhosis and frequently gets paracentesis. She states that she had when she ambulates he gets tired she is short of breath so she is here for paracentesis. Allergies: Coded Allergies: metformin HCl (Unverified Allergy, Intermediate, ITCHING, RASH., 05/25/13) minoxidil (Unverified Allergy, Unknown, 12/08/20) Home Meds Active Scripts Ciprofloxacin HCl (Cipro) 500 Mg Tablet, 1 TAB PO BID for 7 Days, #14 TAB 0 Refills Prov:DONTAE RAMOS MD 05/21/25 Past Medical History Past Medical History: Diabetes-Type II, High Cholesterol, Heart Disease, Hypertension, Liver Disease, Other Medical History Other: esrd Past Surgical History: Cholecystectomy, Other Surgical History Other: paracentesis Family History Family History: HTN Social History Social History: Negative, Lives alone, Other Female( History) History: Not Applicable ROS Dictation CONSTITUTIONAL: No chills, no fever, no weakness, no diaphoresis, no malaise. HEAD/FACE: No signs of trauma. EENT: No eye pain, no blurred vision, no tearing, no double vision, no ear pain, no ear discharge, no nose pain, no nasal congestion, no throat pain, no throat swelling, no mouth pain. RESPIRATORY: No cough, no orthopnea, no SOB, no stridor, no wheezing. CARDIOVASCULAR: No chest pain, no edema, no palpitations, no syncope. GASTROINTESTINAL/ABDOMINAL: No abdominal pain, no constipation, no diarrhea, no nausea, no vomiting. GENITOURINARY: No abnormal discharge, no dysuria, no frequent urination, no hematuria. No complaints of pain in the genitals. MUSCULOSKELETAL: No back pain, no gout, no joint pain, no joint swelling, no muscle pain, no muscle stiffness, no neck pain. INTEGUMENTARY: No change in color, no change in hair/nails, no dryness, no lesion, no lumps, no rash. NEUROLOGICAL/PSYCH: No anxiety, not depressed, no emotional problem, no headache, no numbness, no pre-existing deficit, no history of seizures, no tremors, no weakness. HEMATOLOGIC/LYMPHATIC: Not anemic, no history of blood clots, no apparent bleeding, no bruising, glands not swollen. All Systems Negative, Except as Noted. Physical Exam Physical Exam Dictation VITAL SIGNS: Reviewed. GENERAL APPEARANCE: Alert, oriented x3, no acute distress, obese. HEAD AND FACE: Non-traumatic. EYES: PERRL, pink conjunctivas, eyelid no trauma, anterior chamber clear. EARS: Pinnas intact and no signs of trauma or erythema. Ear canals clear and no discharge. TMs no erythema. NOSE: No discharge, no bleeding. OROPHARYNX: Mouth normal, teeth no caries, tongue pink. Pharynx clear, no erythema. Tonsils no exudates, no abscesses noted. Mucous membrane moist. NECK: Supple, non-tender, no thyromegaly, no masses, no JVD, no bruits. BREAST: Deferred. CHEST: No tenderness, no crepitus, no paradoxical movement, no retractions. LUNGS: Clear, well-ventilated, symmetric, no rales, no wheezing, no rhonchi, no stridor, good breath sounds bilaterally. HEART: Regular rate, regular rhythm, no murmur, no gallops. VASCULAR: No peripheral edema. ABDOMEN: Soft, positive bowel sounds, nondistended, no guarding, nontender, no rebound, no masses no hepatomegaly, no splenomegaly, no Diamond's sign, no hernias. RECTAL: Deferred. GENITAL: Deferred. NEUROLOGICAL: Normal speech, gross motor function intact, gross sensory function intact. MUSCULOSKELETAL: Neck nontender, full range of motion, back nontender, full range of motion. EXTREMITIES: Nontender, full range of motion. SKIN: Color pink, dry, no turgor, no rash, no lacerations, no abrasions, no contusions. LYMPHATICS: Deferred. Results Laboratory and Microbiology Lab and Micro Result Laboratory Tests Test 06/04/25 10:07 White Blood Count 5.3 K/uL (4.8-10.8) Red Blood Count 3.94 MIL/uL (4.00-5.50) L Hemoglobin 12.4 g/dL (12.0-16.0) Hematocrit 40.4 % (36-48) Mean Corpuscular Volume 102.5 fL (79-99) H Mean Corpuscular Hemoglobin 31.5 pg (27.0-33.0) Mean Corpuscular Hemoglobin Concent 30.7 g/dL (32.0-36.0) L Red Cell Distribution Width 13.7 % (11.0-15.5) Platelet Count 75 K/uL (130-400) L Mean Platelet Volume 11.7 fL (7.5-10.5) H Immature Granulocyte % (Auto) 0.2 % (0-1) Neutrophils (%) (Auto) 61.0 % (40.0-77.0) Lymphocytes (%) (Auto) 13.4 % (21.0-51.0) L Monocytes (%) (Auto) 9.1 % (3.0-13.0) Eosinophils (%) (Auto) 15.2 % (0.0-8.0) H Basophils (%) (Auto) 1.1 % (0.0-5.0) Neutrophils # (Auto) 3.2 K/uL (1.8-7.7) Lymphocytes # (Auto) 0.7 K/uL (1.0-4.8) L Monocytes # (Auto) 0.5 K/uL (0.1-1.0) Eosinophils # (Auto) 0.80 K/uL (0.00-0.70) H Basophils # (Auto) 0.06 K/uL (0.00-0.20) Absolute Immature Granulocyte (auto 0.01 K/uL (0-1) Nucleated Red Blood Cells 0.0 % (0.0-0.19) White Cell Morphology Comment See comments Red Blood Cell Morphology See comments Prothrombin Time 11.0 SEC (9.6-11.6) Prothromb Time International Ratio 1.04 (0.85-1.15) Sodium Level 138 mmol/L (136-145) Potassium Level 5.7 mmol/L (3.5-5.1) H Chloride Level 98 mmol/L (101-111) L Carbon Dioxide Level 31 mmol/L (21-32) Blood Urea Nitrogen 48 mg/dL (7-18) H Creatinine 4.4 mg/dL (0.5-1.0) H Glomerular Filtration Rate Calc 10 mL/min (>90) Random Glucose 96 mg/dL (70-105) Total Calcium 8.4 mg/dL (8.5-10.1) L Labs Reviewed?: Yes MDM MDM: Differential diagnosis: STATUS POST PARACENTESIS, END-STAGE RENAL DISEASE, HYPERKALEMIA Rationale: Tests considered and ordered secondary to shared decision making include: Previous outside records reviewed: Old ER visits. Risk of complication and/or morbidity or mortality of patient management: None Medications-Per medication reconciliation Need for hospitalization: Patient does not meet criteria for hospitalization. Need for emergency major/minor surgery: No PATIENT IS A 74-YEAR-OLD FEMALE WITH A HISTORY OF LIVER CIRRHOSIS COMING IN TO BE EVALUATED FOR ABDOMINAL DISTENTION. PARACENTESIS PERFORMED TO BE GENERALIZED THE FLUID WERE OUT. PATIENT DOES HAS A HISTORY OF HYPERKALEMIA SECONDARY TO END-STAGE RENAL DISEASE. HYPERKALEMIA PROTOCOL WAS GIVEN. PATIENT WILL BE DISCHARGED IN STABLE CONDITION WITH A DIAGNOSIS OF LIVER CIRRHOSIS STATUS POST PARACENTESIS. ED Course Orders Procedure Category Date Status Time Cbc With Differential LAB 06/04/25 Complete 10:00 Basic Metabolic Panel LAB 06/04/25 Complete 10:00 Prothrombin Time With LAB 06/04/25 Complete INR 10:00 Us Abdominal US 06/04/25 Taken Paracentesis Ir 10:00 Albuterol 0.083% PHA 06/04/25 In Process 2.5mg/3ml (Proventil 13:00 Na Zircon PHA 06/04/25 In Process Cyclosil-Lokelma 10g 13:00 Current Medications Medications (Trade) Dose Ordered Sig/Rufina Route PRN Reason Start Time Stop Time Status Last Admin Dose Admin Albuterol Sulfate (Proventil 0.083% 2.5mg/3ml) 10 mg ONCE ONCE IH 06/04/25 13:00 06/04/25 13:01 Sodium Zirconium Cyclosilicate (Lokelma 10gm Powder) 10 gm ONCE ONCE PO 06/04/25 13:00 06/04/25 13:01 Vital Signs Date Time Temp Pulse Resp B/P (MAP) Pulse Ox O2 Delivery O2 Flow Rate FiO2 06/04/25 12:41 98.1 61 16 137/39 99 Room Air* 0 21 06/04/25 10:00 97.5 57 16 152/51 98 Room Air* 0 21 06/04/25 09:55 97.5 57 16 152/51 98 Room Air 0 DX & DISP Disposition: Discharge Departure Impression: Primary Impression: Hyperkalemia Additional Impressions: End stage renal disease on dialysis, Status post abdominal paracentesis, Liver cirrhosis Condition: Stable Scripts Sodium Zirconium Cyclosilicate (Lokelma) 10 Gram Powd.pack 1 PACKET PO DAILY for 7 Days, #7 PACKET 0 Refills Prov: DONTAE RAMOS MD 06/04/25 Additional Instructions: FOLLOW-UP WITH PRIMARY CARE PROVIDER IN 1 TO 2 DAYS. TAKE MEDICATIONS DIRECTED HERE IN THE EMERGENCY ROOM. OKAY TO CONTINUE HOME MEDICATIONS UNLESS OTHERWISE DISCUSSED DURING YOUR VISIT IN THE EMERGENCY ROOM TODAY. RETURN TO YOUR NEAREST EMERGENCY ROOM IF SYMPTOMS WORSEN OR IF THERE IS NO IMPROVEMENT. CALL 911 IF YOU NEED IMMEDIATE ASSISTANCE. TAKE TYLENOL [id number] NEEDED AND IF NO CONTRAINDICATIONS ARE PRESENT. INCREASE ORAL HYDRATION. A WOUND CULTURE OR URINE CULTURE WAS ORDERED HERE IN THE EMERGENCY ROOM DEPARTMENT PLEASE FOLLOW-UP WITH PRIMARY CARE PROVIDER AND ADVISE THEM TO GET REPORTS FROM OUR FACILITY. IF YOU HAD ANY LESLY WRAP/SPLINTS THAT WERE APPLIED HERE, PLEASE DO NOT REMOVE THEM UNTIL YOU SEE YOUR PRIMARY CARE OR SPECIALTY. REFERRALS: Referrals: KATHLEEN JACKSON MD (PCP) Time of Disposition: 12:55 DONTAE RAMOS MD Jun 04, 2025 10:09
[2025-06-04 10:16] LABS: IMMATURE GRANULOCYTE ABSOLUTE 0.01 K/uL (0-1); NUCLEATED RED BLOOD CELLS 0.0 % (0.0-0.19); PLATELET COUNT (AUTO) 75 K/uL (130-400); RED BLOOD CELL COUNT(AUTO) 3.94 MIL/uL (4.00-5.50); RED CELL DISTRIBUTION WIDTH 13.7 % (11.0-15.5); WHITE BLOOD COUNT (AUTO) 5.3 K/uL (4.8-10.8)
[2025-06-04 10:23] LABS: CREATININE 4.4 mg/dL (0.5-1.0); GLOMERULAR FILTR. RATE CALC 10.0 mL/min (>90); GLUCOSE,RANDOM 96.0 mg/dL (70-105); SODIUM SERUM 138.0 mmol/L (136-145); UREA NITROGEN, BLOOD 48.0 mg/dL (7-18)
[2025-06-04 10:45] LABS: INR 1.04 (0.85-1.15)
[2025-06-04 12:41] VITALS: BP 137/39; TEMP 98.1; O2SAT 99
[2025-06-04] MEDS ORDERED: SODI10PO2 PO (12:55)
[2025-06-04] MEDS ORDERED: ALBUTEROL 0.083% 2.5 MG/3 ML INH IH ONE (13:00)
[2025-06-04] MEDS: NA ZIRCON CYCLOSIL(LOKELMA 10GM) PO ONE (13:00)
[2025-06-04 13:06] VITALS: PULSE 49; RESP 20
--- NOTE | 2025-06-04 13:43 | HMCIMG ---
EXAM: US Abdomen Limited, Evaluate for Ascites. CLINICAL HISTORY: ASCITES TECHNIQUE: Real-time ultrasound of the abdomen to evaluate for ascites. COMPARISON: Study dated 05/21. FINDINGS: RIGHT LOWER QUADRANT: 3.0 liters of fluid drained. IMPRESSION: 1. Presence of ascites, status post drainage of 3.0 liters of fluid from right lower quadrant. /[place]
== END 2025-06-04 13:10 | disposition home or self-care (01) ==
LOC: EDH 09:54
DX: E87.5 Hyperkalemia (principal); I12.0 Hypertensive chronic kidney disease with stage 5 chronic kidney disease or end stage renal disease; E11.22 Type 2 diabetes mellitus with diabetic chronic kidney disease; N18.6 End stage renal disease; E78.00 Pure hypercholesterolemia, unspecified; K74.60 Unspecified cirrhosis of liver; Z90.49 Acquired absence of other specified parts of digestive tract; Z99.2 Dependence on renal dialysis
CPT/HCPCS: 49083; 99285; 80048; 85025; 85610; 36415; 94640; C1729

== ENCOUNTER 2025-07-02 09:32 | Emergency (ER) | payer MEDICARE, MEDICAID ==
[~2025-07-02] VITALS: Ht 149.9 cm; Wt 59.0 kg
[~2025-07-02 09:32] MED LIST changes: +SODI10PO2 PO
--- NOTE | 2025-07-02 10:03 | ERN ---
General Chief Complaint: Other Problems Stated Complaint: DISTENDED ABDOMEN Time Seen by MD: 09:38 Source: patient History of Present Illness Initial Comments This patient is a 74-year-old female with past medical history of liver cirrhosis diagnosed more than 2 years. She presented to the ED for paracentesis due to abdominal ascites. She has been undergoing scheduled paracentesis biweekly but her last paracentesis was done more than a month ago. Her abdomen is distended due to ascites. Timing/Duration: getting worse Severity: moderate Allergies: Coded Allergies: metformin HCl (Unverified Allergy, Intermediate, ITCHING, RASH., 05/25/13) minoxidil (Unverified Allergy, Unknown, 12/08/20) Home Meds Active Scripts Sodium Zirconium Cyclosilicate (Lokelma) 10 Gram Powd.pack, 1 PACKET PO DAILY for 7 Days, #7 PACKET 0 Refills Prov:DONTAE RAMOS MD 06/04/25 Ciprofloxacin HCl (Cipro) 500 Mg Tablet, 1 TAB PO BID for 7 Days, #14 TAB 0 Refills Prov:DONTAE RAMOS MD 05/21/25 Past Medical History Past Medical History: Diabetes-Type II, High Cholesterol, Heart Disease, Hypertension, Liver Disease, Other Medical History Other: esrd Past Surgical History: Cholecystectomy, Other Surgical History Other: paracentesis Family History Family History: HTN Social History Social History: Negative, Lives alone, Other Female( History) History: Not Applicable Constitutional: (-) chills, (-) diaphoresis, (-) fever, (-) malaise, (-) weakness, (-) other documentation EENTM: (-) eye pain, (-) blurred vision, (-) tearing, (-) double vision, (-) ear pain, (-) ear discharge, (-) nose pain, (-) nose congestion, (-) throat pain, (-) Throat swelling, (-) mouth pain, (-) tooth pain, (-) mouth swelling, (-) other documentation Respiratory: (-) cough, (-) orthopnea, (-) short of breath, (-) stridor, (-) wheezing, (-) other documentation Cardiovascular: (-) chest pain, (-) edema, (-) palpitations, (-) syncope, (-) dyspnea on exertion, (-) other documentation Gastrointestinal/Abdominal: (+) abdominal distention Musculoskeletal: (-) Neck pain, (-) back pain, (-) Flank Pain, (-) joint pain, (-) joint swelling, (-) muscle pain, (-) muscle stiffness, (-) gout, (-) other documentation Review of Systems: was completed, & the rest were negative. Nurses Notes Reviewed: Yes Physical Exam General Appearance: (+) no apparent distress Orientation: (+) alert, (+) oriented x 3 Head/Face Trauma: No Ear, Nose, Throat: (+) hearing grossly normal, (+) moist mucous membraine Neck: (+) normal inspection, (+) supple, (+) full range of motion Respiratory: (+) chest non-tender Heart: (+) regular Gastrointestinal: (+) non-tender, (+) distended Neurologic/Psychiatric: (+) normal speech, (+) no motor defecits, (+) no sensory deficits Results Laboratory and Microbiology Lab and Micro Result Laboratory Tests Test 07/02/25 10:01 White Blood Count 5.0 K/uL (4.8-10.8) Red Blood Count 3.74 MIL/uL (4.00-5.50) L Hemoglobin 11.6 g/dL (12.0-16.0) L Hematocrit 37.0 % (36-48) Mean Corpuscular Volume 98.9 fL (79-99) Mean Corpuscular Hemoglobin 31.0 pg (27.0-33.0) Mean Corpuscular Hemoglobin Concent 31.4 g/dL (32.0-36.0) L Red Cell Distribution Width 13.2 % (11.0-15.5) Platelet Count 122 K/uL (130-400) L Mean Platelet Volume 11.1 fL (7.5-10.5) H Immature Granulocyte % (Auto) 0.0 % (0-1) Neutrophils (%) (Auto) 55.4 % (40.0-77.0) Lymphocytes (%) (Auto) 20.2 % (21.0-51.0) L Monocytes (%) (Auto) 10.0 % (3.0-13.0) Eosinophils (%) (Auto) 12.8 % (0.0-8.0) H Basophils (%) (Auto) 1.6 % (0.0-5.0) Neutrophils # (Auto) 2.8 K/uL (1.8-7.7) Lymphocytes # (Auto) 1.0 K/uL (1.0-4.8) Monocytes # (Auto) 0.5 K/uL (0.1-1.0) Eosinophils # (Auto) 0.64 K/uL (0.00-0.70) Basophils # (Auto) 0.08 K/uL (0.00-0.20) Absolute Immature Granulocyte (auto 0.00 K/uL (0-1) Nucleated Red Blood Cells 0.0 % (0.0-0.19) Prothrombin Time 11.2 SEC (9.6-11.6) Prothromb Time International Ratio 1.06 (0.85-1.15) Sodium Level 138 mmol/L (136-145) Potassium Level 4.3 mmol/L (3.5-5.1) Chloride Level 97 mmol/L (101-111) L Carbon Dioxide Level 33 mmol/L (21-32) H Blood Urea Nitrogen 43 mg/dL (7-18) H Creatinine 5.6 mg/dL (0.5-1.0) H Glomerular Filtration Rate Calc 8 mL/min (>90) Random Glucose 77 mg/dL (70-105) Total Calcium 8.5 mg/dL (8.5-10.1) Labs Reviewed?: Yes MDM Differential diagnosis: Abdominal ascites secondary to cirrhosis Previous outside records reviewed: Old ER visits. Risk of complication and/or morbidity or mortality of patient management: None Medications-Per medication reconciliation Need for emergency major/minor surgery: No There are no social concerns with this patient. Prescription drug management Prescriptions will include symptomatic care Patient presented with abdominal ascites secondary to liver cirrhosis for missed session of paracentesis. Before undergoing paracentesis, CBC, BMP and PT/INR were ordered. Additionally, ultrasound guided abdominal paracentesis was also placed. Paracentesis carried out 3.5 L were extracted patient tolerated procedure well will be discharged in stable condition. ED Course Orders Procedure Category Date Status Time Cbc With Differential LAB 07/02/25 Complete 09:53 Basic Metabolic Panel LAB 07/02/25 Complete 09:53 Prothrombin Time With LAB 07/02/25 Complete INR 09:53 Us Abdominal US 07/02/25 Taken Paracentesis Ir 09:53 Vital Signs Date Time Temp Pulse Resp B/P (MAP) Pulse Ox O2 Delivery O2 Flow Rate FiO2 07/02/25 12:58 96.6 46 16 169/49 97 Room Air* 0 21 07/02/25 09:34 97.9 61 18 161/65 99 Room Air DX & DISP Disposition: Discharge Departure Impression: Primary Impression: Status post abdominal paracentesis Condition: Stable Additional Instructions: FOLLOW-UP WITH PRIMARY CARE PROVIDER IN 1 TO 2 DAYS. TAKE MEDICATIONS DIRECTED HERE IN THE EMERGENCY ROOM. OKAY TO CONTINUE HOME MEDICATIONS UNLESS OTHERWISE DISCUSSED DURING YOUR VISIT IN THE EMERGENCY ROOM TODAY. RETURN TO YOUR NEAREST EMERGENCY ROOM IF SYMPTOMS WORSEN OR IF THERE IS NO IMPROVEMENT. CALL 911 IF YOU NEED IMMEDIATE ASSISTANCE. TAKE TYLENOL [id number] NEEDED AND IF NO CONTRAINDICATIONS ARE PRESENT. INCREASE ORAL HYDRATION. A WOUND CULTURE OR URINE CULTURE WAS ORDERED HERE IN THE EMERGENCY ROOM DEPARTMENT PLEASE FOLLOW-UP WITH PRIMARY CARE PROVIDER AND ADVISE THEM TO GET REPORTS FROM OUR FACILITY. IF YOU HAD ANY LESLY WRAP/SPLINTS THAT WERE APPLIED HERE, PLEASE DO NOT REMOVE THEM UNTIL YOU SEE YOUR PRIMARY CARE OR SPECIALTY. Referrals: Referrals: KATHLEEN AMATO (PCP) Time of Disposition: 13:10 TYLER DE OLIVEIRA MD Jul 02, 2025 10:03 DONTAE RAMOS MD Jul 02, 2025 13:10
[2025-07-02 10:10] LABS: IMMATURE GRANULOCYTE ABSOLUTE 0.00 K/uL (0-1); NUCLEATED RED BLOOD CELLS 0.0 % (0.0-0.19); PLATELET COUNT (AUTO) 122 K/uL (130-400); RED BLOOD CELL COUNT(AUTO) 3.74 MIL/uL (4.00-5.50); RED CELL DISTRIBUTION WIDTH 13.2 % (11.0-15.5); WHITE BLOOD COUNT (AUTO) 5.0 K/uL (4.8-10.8)
[2025-07-02 10:23] LABS: CREATININE 5.6 mg/dL (0.5-1.0); GLOMERULAR FILTR. RATE CALC 8.0 mL/min (>90); GLUCOSE,RANDOM 77.0 mg/dL (70-105); SODIUM SERUM 138.0 mmol/L (136-145); UREA NITROGEN, BLOOD 43.0 mg/dL (7-18)
[2025-07-02 10:31] LABS: INR 1.06 (0.85-1.15)
--- NOTE | 2025-07-02 12:15 | NUR ---
U/S GD PARACENTESIS PROCEDURE PERFORMED BY DR Tangela CAICEDO. PUNCTURE SITE RLQ AND PATIENT TOLERATED PROCEDURE WELL. TOTAL REMOVED 3.8 LITERS OF CLOUDY YELLOW FLUID. END OF PROCEDURE AT 1200. CATHETER REMOVED AND DRESSING APPLIED. NO BLEEDING NOTED. REPORT GIVEN TO Cullen HOFF RN AND PATIENT TRANSPORTED TO ED AUXIERWAY. AAO X3 WITH NO C/O PAIN.
[2025-07-02 12:58] VITALS: TEMP 96.7
[2025-07-02 13:18] VITALS: BP 127/44; PULSE 49; RESP 16; O2SAT 98
--- NOTE | 2025-07-02 15:31 | HMCIMG ---
US ABDOMINAL PARACENTESIS IR REASON: ascities TECHNIQUE: This procedure was done by Dr Cj Young and Dr Vibha Lambert Paracentesis was performed with ultrasound guidance. The puncture site was selected in the Right lower quadrant and overlying skin prepped and draped in a sterile fashion. 1% Xylocaine infiltration was performed. Catheter was placed in the fluid using trocar technique. 3.8 L were removed. Fluid sample was submitted for laboratory evaluation. The patient showed no evidence of complication during the procedure. Patient tolerated the procedure well IMPRESSION: 1. Ultrasound-guided paracentesis. 2. 3.8 L were removed.
== END 2025-07-02 13:22 | disposition home or self-care (01) ==
LOC: EDH 09:32
DX: R18.8 Other ascites (principal); I13.11 Hypertensive heart and chronic kidney disease without heart failure, with stage 5 chronic kidney disease, or end stage renal disease; E11.22 Type 2 diabetes mellitus with diabetic chronic kidney disease; N18.6 End stage renal disease; Z99.2 Dependence on renal dialysis; E78.00 Pure hypercholesterolemia, unspecified; Z90.49 Acquired absence of other specified parts of digestive tract
CPT/HCPCS: 49083; 99285; 80048; 85025; 85610; 36415; C1729

== ENCOUNTER 2025-07-25 09:28 | Emergency (ER) | payer MEDICARE, MEDICAID ==
[~2025-07-25] VITALS: Ht 147.3 cm; Wt 59.0 kg
[2025-07-25 09:35] VITALS: BP 170/50; PULSE 61; RESP 16; TEMP 97; O2SAT 98
[2025-07-25 09:52] LABS: IMMATURE GRANULOCYTE ABSOLUTE 0.01 K/uL (0-1); NUCLEATED RED BLOOD CELLS 0.0 % (0.0-0.19); PLATELET COUNT (AUTO) 92 K/uL (130-400); RED BLOOD CELL COUNT(AUTO) 3.53 MIL/uL (4.00-5.50); RED CELL DISTRIBUTION WIDTH 13.3 % (11.0-15.5); WHITE BLOOD COUNT (AUTO) 5.1 K/uL (4.8-10.8)
--- NOTE | 2025-07-25 09:58 | EKG ---
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
[2025-07-25 10:00] LABS: INR 1.05 (0.85-1.15)
[2025-07-25 10:02] LABS: CREATININE 4.5 mg/dL (0.5-1.0); GLOMERULAR FILTR. RATE CALC 10.0 mL/min (>90); GLUCOSE,RANDOM 97.0 mg/dL (70-105); SODIUM SERUM 139.0 mmol/L (136-145); UREA NITROGEN, BLOOD 38.0 mg/dL (7-18)
[2025-07-25 10:09] LABS: ASPARTATE AMINOTRANSFERASE 17.0 U/L (10-37); TOTAL PROTEIN, SERUM 8.2 g/dL (6.0-8.3)
--- NOTE | 2025-07-25 11:19 | ERN ---
ED Note History of Present Illness Stated Complaint: PARACENTESIS Chief Complaint: Abdominal Pain Time Seen by MD: 09:36 Dictation: 74-year-old female with a history of end-stage renal disease and ascites presenting to the emergency department for worse with the got the swollen similar presentation in the past patient reports she thinks she needs a therapeutic paracentesis. Allergies: Coded Allergies: metformin HCl (Unverified Allergy, Intermediate, ITCHING, RASH., 05/25/13) minoxidil (Unverified Allergy, Unknown, 12/08/20) Home Meds Active Scripts Sodium Zirconium Cyclosilicate (Lokelma) 10 Gram Powd.pack, 1 PACKET PO DAILY for 7 Days, #7 PACKET 0 Refills Prov:DONTAE RAMOS MD 06/04/25 Ciprofloxacin HCl (Cipro) 500 Mg Tablet, 1 TAB PO BID for 7 Days, #14 TAB 0 Refills Prov:DONTAE RAMOS MD 05/21/25 Past Medical History Past Medical History: Diabetes-Type II, High Cholesterol, Hypertension, Renal Disese, Renal Failure Additional Past Medical Hx: esrd Surgical History: LAVA Surgical History Other: paracentesis Family History: HTN Social History: Negative, Lives alone, Other History: Not Applicable Review of System Dictation Constitutional: Negative for fever,chills, and weight loss Eyes: Negative for injury, pain,redness, and discharge ENT: Negative for injury,pain or swelling Cardiovascular: Negative for chest pain, palpitations, and edema Respiratory: Negative for shortness of breath, cough, and wheezing, Abdomen/GI: Per HPI : Negative for injury, bleeding and discharge MS/Extremity: Negative for injury and deformity Skin: Negative for rash, and discoloration Neuro: Negative for headache, weakness, numbness, tingling, and seizure Psych: Negative for suicide ideation, homicidal ideation, and hallucinations Initial Vital Sign VS Vital Signs Date Time Temp Pulse Resp B/P (MAP) Pulse Ox O2 Delivery O2 Flow Rate FiO2 07/25/25 09:32 97.0 61 16 170/50 968 Room Air 0 07/25/25 09:35 21 Physical Exam Dictation General: awake, alert, chronically ill Head/Face: Normocephalic, atraumatic Eyes: PERRL, EOMI, vision at baseline ENT: oral cavity clear, TMs clear, no signs of infection Neck: Trachea midline, supple, no nuchal rigidity Cardiovascular: RRR, normal S1/S2, No MRGs, no JVD Respiratory: CTAB, no respiratory distress, No rales or wheezes Abdomen: Soft, non-tender, moderate distention, normal bowel sounds, no guarding or rebound. Skin: Warm, dry, normal turgor, no rash MS/Extremity: Pulses equal, no cyanosis, neurovascular intact, FROM Neuro: COAx4, GCS 15, strength 5/5, CN 2-12 intact, normal cerebellar exam, normal gait, Psych: Normal behavior, mood, and affect normal Results (Laboratory/Radiology) Laboratory/Radiology Laboratory Tests Test 07/25/25 09:44 White Blood Count 5.1 K/uL (4.8-10.8) Red Blood Count 3.53 MIL/uL (4.00-5.50) L Hemoglobin 11.0 g/dL (12.0-16.0) L Hematocrit 35.3 % (36-48) L Mean Corpuscular Volume 100.0 fL (79-99) H Mean Corpuscular Hemoglobin 31.2 pg (27.0-33.0) Mean Corpuscular Hemoglobin Concent 31.2 g/dL (32.0-36.0) L Red Cell Distribution Width 13.3 % (11.0-15.5) Platelet Count 92 K/uL (130-400) L Mean Platelet Volume 10.6 fL (7.5-10.5) H Immature Granulocyte % (Auto) 0.2 % (0-1) Neutrophils (%) (Auto) 54.5 % (40.0-77.0) Lymphocytes (%) (Auto) 17.9 % (21.0-51.0) L Monocytes (%) (Auto) 8.7 % (3.0-13.0) Eosinophils (%) (Auto) 17.7 % (0.0-8.0) H Basophils (%) (Auto) 1.0 % (0.0-5.0) Neutrophils # (Auto) 2.8 K/uL (1.8-7.7) Lymphocytes # (Auto) 0.9 K/uL (1.0-4.8) L Monocytes # (Auto) 0.4 K/uL (0.1-1.0) Eosinophils # (Auto) 0.90 K/uL (0.00-0.70) H Basophils # (Auto) 0.05 K/uL (0.00-0.20) Absolute Immature Granulocyte (auto 0.01 K/uL (0-1) Nucleated Red Blood Cells 0.0 % (0.0-0.19) White Cell Morphology Comment See comments Prothrombin Time 11.1 SEC (9.6-11.6) Prothromb Time International Ratio 1.05 (0.85-1.15) Activated Partial Thromboplast Time 44.5 SEC (26.3-35.5) H Sodium Level 139 mmol/L (136-145) Potassium Level 5.1 mmol/L (3.5-5.1) Chloride Level 98 mmol/L (101-111) L Carbon Dioxide Level 31 mmol/L (21-32) Blood Urea Nitrogen 38 mg/dL (7-18) H Creatinine 4.5 mg/dL (0.5-1.0) H Glomerular Filtration Rate Calc 10 mL/min (>90) Random Glucose 97 mg/dL (70-105) Total Calcium 8.5 mg/dL (8.5-10.1) Total Bilirubin 0.3 mg/dL (0.2-1.0) Direct Bilirubin 0.1 mg/dL (0.0-0.3) Aspartate Amino Transf (AST/SGOT) 17 U/L (10-37) Alanine Aminotransferase (ALT/SGPT) 11 U/L (12-78) L Alkaline Phosphatase 212 U/L (50-136) H Troponin I High Sensitivity 79 ng/L (4-50) *H Total Protein 8.2 g/dL (6.0-8.3) Albumin 3.6 g/dL (3.5-5.0) Labs Reviewed?: Yes EKG Comment: Heart rate 61 normal sinus rhythm right bundle-branch block, no STEMI ED Course ED Course Orders Procedure Category Date Status Time 12 Lead Ekg Tracing- EKG 07/25/25 Complete Technical 09:37 Basic Metabolic Panel LAB 07/25/25 Complete 09:37 Cbc With Differential LAB 07/25/25 Complete 09:37 Hepatic Function Panel LAB 07/25/25 Complete 09:37 Pt And Ptt LAB 07/25/25 Complete 09:37 Troponin I High LAB 07/25/25 Complete Sensitivity 09:37 Vital Signs Date Time Temp Pulse Resp B/P (MAP) Pulse Ox O2 Delivery O2 Flow Rate FiO2 07/25/25 09:35 97.0 61 16 170/50 98 Room Air* 0 21 07/25/25 09:32 97.0 61 16 170/50 968 Room Air 0 Medical Decision Making MDM MDM: Differential diagnosis: Rationale: Tests considered and ordered secondary to shared decision making include: Previous outside records reviewed: Old ER visits. Risk of complication and/or morbidity or mortality of patient management: None Medications-Per medication reconciliation Need for hospitalization: Patient does not meet criteria for hospitalization. Need for emergency major/minor surgery: No There are no social concerns with this patient. Prescription drug management Prescriptions will include symptomatic care Patient's prior external medical records from other ER visits were reviewed by me as indicated. Prior testing and results from previous visits were reviewed. Prior tests were taken into account with medical decision making and resource utilization, independent historian/historians were used to obtain complete medical history. I independently interpreted the test that were performed, results were reviewed by me and considered findings on radiology if ordered. Medical management and examination interpretation discussions were had by me with other qualified healthcare professionals as indicated for the patient's care. 74-year-old female with end-stage renal disease ascites, currently vital signs all stable no respiratory distress stable for discharge and outpatient paracentesis as indicated. DX & DISP Disposition: Discharge Departure Impression: Primary Impression: Abdominal ascites Additional Impressions: Abdominal distention, End-stage renal disease on hemodialysis Condition: Stable Referrals: KATHLEEN AMATO (PCP) NATALEE OTTO MD Jul 25, 2025 11:19
== END 2025-07-25 12:00 | disposition home or self-care (01) ==
LOC: EDH 09:28
DX: R18.8 Other ascites (principal); R14.0 Abdominal distension (gaseous); I12.0 Hypertensive chronic kidney disease with stage 5 chronic kidney disease or end stage renal disease; E11.22 Type 2 diabetes mellitus with diabetic chronic kidney disease; N18.6 End stage renal disease; E78.00 Pure hypercholesterolemia, unspecified; Z88.8 Allergy status to other drugs, medicaments and biological substances; Z99.2 Dependence on renal dialysis
CPT/HCPCS: 36415; 80048; 80076; 84484; 85025; 85610; 85730; 93005; 99284

== ENCOUNTER 2025-07-30 09:52 | Emergency (ER) | payer MEDICARE, MEDICAID ==
[~2025-07-30] VITALS: Ht 147.3 cm; Wt 59.0 kg
[2025-07-30 10:15] LABS: IMMATURE GRANULOCYTE ABSOLUTE 0.01 K/uL (0-1); NUCLEATED RED BLOOD CELLS 0.0 % (0.0-0.19); PLATELET COUNT (AUTO) 104 K/uL (130-400); RED BLOOD CELL COUNT(AUTO) 3.61 MIL/uL (4.00-5.50); RED CELL DISTRIBUTION WIDTH 13.3 % (11.0-15.5); WHITE BLOOD COUNT (AUTO) 4.6 K/uL (4.8-10.8)
--- NOTE | 2025-07-30 10:21 | ERN ---
General Chief Complaint: Other Problems Stated Complaint: PARACENTESIS Time Seen by MD: 09:55 Source: patient History of Present Illness Initial Comments Patient is a 74-year-old female coming in with the abdominal distention. Patient states that she has a history of liver cirrhosis as well as end-stage renal disease. Patient was dialyzed yesterday but still states that her abdomen is distended. Patient is here to have a paracentesis performed. Allergies: Coded Allergies: metformin HCl (Unverified Allergy, Intermediate, ITCHING, RASH., 05/25/13) minoxidil (Unverified Allergy, Unknown, 12/08/20) Home Meds Active Scripts Sodium Zirconium Cyclosilicate (Lokelma) 10 Gram Powd.pack, 1 PACKET PO DAILY f or 7 Days, #7 PACKET 0 Refills Prov:DONTAE RAMOS MD 06/04/25 Ciprofloxacin HCl (Cipro) 500 Mg Tablet, 1 TAB PO BID for 7 Days, #14 TAB 0 Refills Prov:DONTAE RAMOS MD 05/21/25 Past Medical History Past Medical History: Diabetes-Type II, High Cholesterol, Heart Disease, Hypertension, Renal Failure Medical History Other: esrd Past Surgical History: LAVA Surgical History Other: paracentesis Family History Family History: HTN Social History Social History: Negative, Lives alone, Other Female( History) History: Not Applicable ROS Dictation CONSTITUTIONAL: No chills, no fever, no weakness, no diaphoresis, no malaise. HEAD/FACE: No signs of trauma. EENT: No eye pain, no blurred vision, no tearing, no double vision, no ear pain, no ear discharge, no nose pain, no nasal congestion, no throat pain, no throat swelling, no mouth pain. RESPIRATORY: No cough, no orthopnea, no SOB, no stridor, no wheezing. CARDIOVASCULAR: No chest pain, no edema, no palpitations, no syncope. GASTROINTESTINAL/ABDOMINAL: abdominal pain, no constipation, no diarrhea, no nausea, no vomiting. GENITOURINARY: No abnormal discharge, no dysuria, no frequent urination, no hematuria. No complaints of pain in the genitals. MUSCULOSKELETAL: No back pain, no gout, no joint pain, no joint swelling, no muscle pain, no muscle stiffness, no neck pain. INTEGUMENTARY: No change in color, no change in hair/nails, no dryness, no lesion, no lumps, no rash. NEUROLOGICAL/PSYCH: No anxiety, not depressed, no emotional problem, no headache, no numbness, no pre-existing deficit, no history of seizures, no tremors, no weakness. HEMATOLOGIC/LYMPHATIC: Not anemic, no history of blood clots, no apparent bleeding, no bruising, glands not swollen. All Systems Negative, Except as Noted. Physical Exam Physical Exam Dictation VITAL SIGNS: Reviewed. GENERAL APPEARANCE: Alert, oriented x3, no acute distress, obese. HEAD AND FACE: Non-traumatic. EYES: PERRL, pink conjunctivas, eyelid no trauma, anterior chamber clear. EARS: Pinnas intact and no signs of trauma or erythema. Ear canals clear and no discharge. TMs no erythema. NOSE: No discharge, no bleeding. OROPHARYNX: Mouth normal, teeth no caries, tongue pink. Pharynx clear, no erythema. Tonsils no exudates, no abscesses noted. Mucous membrane moist. NECK: Supple, non-tender, no thyromegaly, no masses, no JVD, no bruits. BREAST: Deferred. CHEST: No tenderness, no crepitus, no paradoxical movement, no retractions. LUNGS: Clear, well-ventilated, symmetric, no rales, no wheezing, no rhonchi, no stridor, good breath sounds bilaterally. HEART: Regular rate, regular rhythm, no murmur, no gallops. VASCULAR: No peripheral edema. ABDOMEN: Soft, positive bowel sounds, distended, no guarding, nontender, no re bound, no masses no hepatomegaly, no splenomegaly, no Diamond's sign, no hernias. RECTAL: Deferred. GENITAL: Deferred. NEUROLOGICAL: Normal speech, gross motor function intact, gross sensory function intact. MUSCULOSKELETAL: Neck nontender, full range of motion, back nontender, full range of motion. EXTREMITIES: Nontender, full range of motion. SKIN: Color pink, dry, no turgor, no rash, no lacerations, no abrasions, no contusions. LYMPHATICS: Deferred. Results Laboratory and Microbiology Lab and Micro Result Laboratory Tests Test 07/30/25 10:08 White Blood Count 4.6 K/uL (4.8-10.8) L Red Blood Count 3.61 MIL/uL (4.00-5.50) L Hemoglobin 11.1 g/dL (12.0-16.0) L Hematocrit 36.7 % (36-48) Mean Corpuscular Volume 101.7 fL (79-99) H Mean Corpuscular Hemoglobin 30.7 pg (27.0-33.0) Mean Corpuscular Hemoglobin Concent 30.2 g/dL (32.0-36.0) L Red Cell Distribution Width 13.3 % (11.0-15.5) Platelet Count 104 K/uL (130-400) L Mean Platelet Volume 10.1 fL (7.5-10.5) Immature Granulocyte % (Auto) 0.2 % (0-1) Neutrophils (%) (Auto) 57.0 % (40.0-77.0) Lymphocytes (%) (Auto) 17.3 % (21.0-51.0) L Monocytes (%) (Auto) 9.9 % (3.0-13.0) Eosinophils (%) (Auto) 14.5 % (0.0-8.0) H Basophils (%) (Auto) 1.1 % (0.0-5.0) Neutrophils # (Auto) 2.6 K/uL (1.8-7.7) Lymphocytes # (Auto) 0.8 K/uL (1.0-4.8) L Monocytes # (Auto) 0.5 K/uL (0.1-1.0) Eosinophils # (Auto) 0.66 K/uL (0.00-0.70) Basophils # (Auto) 0.05 K/uL (0.00-0.20) Absolute Immature Granulocyte (auto 0.01 K/uL (0-1) Nucleated Red Blood Cells 0.0 % (0.0-0.19) Red Blood Cell Morphology See comments Prothrombin Time 10.9 SEC (9.6-11.6) Prothromb Time International Ratio 1.03 (0.85-1.15) Activated Partial Thromboplast Time 44.8 SEC (26.3-35.5) H Sodium Level 141 mmol/L (136-145) Potassium Level 4.5 mmol/L (3.5-5.1) Chloride Level 100 mmol/L (101-111) L Carbon Dioxide Level 30 mmol/L (21-32) Blood Urea Nitrogen 45 mg/dL (7-18) H Creatinine 5.0 mg/dL (0.5-1.0) H Glomerular Filtration Rate Calc 9 mL/min (>90) Random Glucose 87 mg/dL (70-105) Total Calcium 8.3 mg/dL (8.5-10.1) L Labs Reviewed?: Yes MDM MDM: Differential diagnosis: Liver cirrhosis, status post paracentesis, end-stage renal disease Rationale: Tests considered and ordered secondary to shared decision making include: Previous outside records reviewed: Old ER visits. Risk of complication and/or morbidity or mortality of patient management: None Medications-Per medication reconciliation Need for hospitalization: Patient does not meet criteria for hospitalization. Need for emergency major/minor surgery: No Patient is a 74-year-old female coming in complaining of abdominal distention she does has a history of end-stage renal disease and liver cirrhosis. Greater than 4 L were removed from paracentesis. Patient will be discharged in stable condition with a diagnosis status post paracentesis with a end-stage renal disease. ED Course Orders Procedure Category Date Status Time Cbc With Differential LAB 07/30/25 Complete 09:57 Basic Metabolic Panel LAB 07/30/25 Complete 09:57 Prothrombin Time With LAB 07/30/25 Complete INR 09:57 Us Abdominal US 07/30/25 Taken Paracentesis Ir 09:57 Partial LAB 07/30/25 Complete Thromboplastin Time 10:22 Vital Signs Date Time Temp Pulse Resp B/P (MAP) Pulse Ox O2 Delivery O2 Flow Rate FiO2 07/30/25 10:01 97.3 59 18 172/58 98 Room Air* 0 21 07/30/25 09:54 97.3 59 18 172/58 98 Room Air 0 DX & DISP Disposition: Discharge Departure Impression: Primary Impression: End-stage renal disease on hemodialysis Additional Impression: Status post abdominal paracentesis Condition: Stable Additional Instructions: FOLLOW-UP WITH PRIMARY CARE PROVIDER IN 1 TO 2 DAYS. TAKE MEDICATIONS DIRECTED HERE IN THE EMERGENCY ROOM. OKAY TO CONTINUE HOME MEDICATIONS UNLESS OTHERWISE DISCUSSED DURING YOUR VISIT IN THE EMERGENCY ROOM TODAY. RETURN TO YOUR NEAREST EMERGENCY ROOM IF SYMPTOMS WORSEN OR IF THERE IS NO IMPROVEMENT. CALL 911 IF YOU NEED IMMEDIATE ASSISTANCE. TAKE TYLENOL [id number] NEEDED AND IF NO CONTRAINDICATIONS ARE PRESENT. INCREASE ORAL HYDRATION. A WOUND CULTURE OR URINE CULTURE WAS ORDERED HERE IN THE EMERGENCY ROOM DEPARTMENT PLEASE FOLLOW-UP WITH PRIMARY CARE PROVIDER AND ADVISE THEM TO GET REPORTS FROM OUR FACILITY. IF YOU HAD ANY LESLY WRAP/SPLINTS THAT WERE APPLIED HERE, PLEASE DO NOT REMOVE THEM UNTIL YOU SEE YOUR PRIMARY CARE OR SPECIALTY. Referrals: Referrals: KATHLEEN AMATO (PCP) Time of Disposition: 13:28 DONTAE RAMOS MD Jul 30, 2025 10:21
[2025-07-30 10:22] LABS: CREATININE 5.0 mg/dL (0.5-1.0); GLOMERULAR FILTR. RATE CALC 9.0 mL/min (>90); GLUCOSE,RANDOM 87.0 mg/dL (70-105); SODIUM SERUM 141.0 mmol/L (136-145); UREA NITROGEN, BLOOD 45.0 mg/dL (7-18)
[2025-07-30 10:25] LABS: INR 1.03 (0.85-1.15)
--- NOTE | 2025-07-30 12:10 | NUR ---
ULTRASOUND GUIDED PARACENTESIS PROCEDURE PERFORMED BY DR. ISIDRO CAICEDO. PUNCTURE SITE RLQ AND PATIENT TOLERATED PROCEDURE WELL. TOTAL REMOVED 4.8 LITERS OF CLEAR, YELLOW ASCITES FLUID. END OF PROCEDURE AT 1145. CATHETER REMOVED AND DRESSING APPLIED- NO BLEEDING NOTED. REPORT GIVEN TO LEE ANN GRACIA RN AND PATIENT TRANSPORTED BACK TO ED VIA STRETCHER. PATIENT IS ALERT AND ORIENTED IN STABLE CONDITION WITH NO C/O PAIN. Addendum: 07/30/25 at 1607 by CAROLYN OWENS RN RN PER DR. Khoi CAICEDO, ORDERS FOR ADMINISTRATION OF ALBUMIN 25% WRITTEN. PENDING TO BE ADMINISTERED UPON RETURN TO ED. DEANGELO NANCE NOTIFIED.
--- NOTE | 2025-07-30 12:38 | NUR ---
4.9 l removed during paracentesis, patient resting in bed, call light in reach
[2025-07-30 14:18] VITALS: BP 158/90; PULSE 53; RESP 17; TEMP 98.2; O2SAT 98
--- NOTE | 2025-07-30 14:19 | NUR ---
dc patient was dc'd by dr jones i explained to patient to follow up with pcp, provided info based on diagnosis, and answered any follow up questions, patient ambulated out of ed, no complications
--- NOTE | 2025-07-30 14:47 | HMCIMG ---
US ABDOMINAL PARACENTESIS IR REASON: abd distension TECHNIQUE: Paracentesis was performed with ultrasound guidance. The puncture site was selected in the Right lower quadrant and overlying skin prepped and draped in a sterile fashion. 1% Xylocaine infiltration was performed. Catheter was placed in the fluid using trocar technique. 4.8 L were removed. Fluid sample was submitted for laboratory evaluation. The patient showed no evidence of complication during the procedure. Patient tolerated procedure well. IMPRESSION: 1. Ultrasound-guided paracentesis.
== END 2025-07-30 14:17 | disposition home or self-care (01) ==
LOC: EDH 09:52
DX: I13.11 Hypertensive heart and chronic kidney disease without heart failure, with stage 5 chronic kidney disease, or end stage renal disease (principal); E11.22 Type 2 diabetes mellitus with diabetic chronic kidney disease; N18.6 End stage renal disease; E78.00 Pure hypercholesterolemia, unspecified; Z99.2 Dependence on renal dialysis
CPT/HCPCS: 49083; 99285; 80048; 85025; 85610; 85730; 36415; C1729

== ENCOUNTER 2025-09-20 07:21 | Emergency (ER) | payer MEDICARE, MEDICAID ==
[~2025-09-20] VITALS: Ht 147.3 cm; Wt 55.3 kg
--- NOTE | 2025-09-20 08:03 | ERN ---
General Chief Complaint: Abdominal Pain Stated Complaint: ABDOMINAL DISTENTION; PARACENTESIS Time Seen by MD: 07:29 Source: patient History of Present Illness Initial Comments Patient in his is a 75-year-old female coming in to be evaluated for a possible paracentesis. Patient has a history of liver cirrhosis and frequently presents with a ascites. She states that she has not been here for over a month. Patient is symptomatic when ambulating she states he runs out of breath. Allergies: Coded Allergies: metformin HCl (Unverified Allergy, Intermediate, ITCHING, RASH., 05/25/13) minoxidil (Unverified Allergy, Unknown, 12/08/20) Home Meds Active Scripts Sodium Zirconium Cyclosilicate (Lokelma) 10 Gram Powd.pack, 1 PACKET PO DAILY for 7 Days, #7 PACKET 0 Refills Prov:DONTAE RAMOS MD 06/04/25 Ciprofloxacin HCl (Cipro) 500 Mg Tablet, 1 TAB PO BID for 7 Days, #14 TAB 0 Refills Prov:DONTAE RAMOS MD 05/21/25 Past Medical History Past Medical History: Diabetes-Type II, High Cholesterol, Heart Disease, Hypertension, Renal Failure Medical History Other: esrd Past Surgical History: LAVA Surgical History Other: paracentesis Family History Family History: HTN Social History Social History: Negative, Lives alone, Other Female( History) History: Not Applicable ROS Dictation CONSTITUTIONAL: No chills, no fever, no weakness, no diaphoresis, no malaise. HEAD/FACE: No signs of trauma. EENT: No eye pain, no blurred vision, no tearing, no double vision, no ear pain, no ear discharge, no nose pain, no nasal congestion, no throat pain, no throat swelling, no mouth pain. RESPIRATORY: No cough, no orthopnea, no SOB, no stridor, no wheezing. CARDIOVASCULAR: No chest pain, no edema, no palpitations, no syncope. GASTROINTESTINAL/ABDOMINAL: No abdominal pain, no constipation, no diarrhea, no nausea, no vomiting. GENITOURINARY: No abnormal discharge, no dysuria, no frequent urination, no hematuria. No complaints of pain in the genitals. MUSCULOSKELETAL: No back pain, no gout, no joint pain, no joint swelling, no muscle pain, no muscle stiffness, no neck pain. INTEGUMENTARY: No change in color, no change in hair/nails, no dryness, no lesion, no lumps, no rash. NEUROLOGICAL/PSYCH: No anxiety, not depressed, no emotional problem, no headache, no numbness, no pre-existing deficit, no history of seizures, no tremors, no weakness. HEMATOLOGIC/LYMPHATIC: Not anemic, no history of blood clots, no apparent bleeding, no bruising, glands not swollen. All Systems Negative, Except as Noted. Physical Exam Physical Exam Dictation VITAL SIGNS: Reviewed. GENERAL APPEARANCE: Alert, oriented x3, no acute distress, obese. HEAD AND FACE: Non-traumatic. EYES: PERRL, pink conjunctivas, eyelid no trauma, anterior chamber clear. EARS: Pinnas intact and no signs of trauma or erythema. Ear canals clear and no discharge. TMs no erythema. NOSE: No discharge, no bleeding. OROPHARYNX: Mouth normal, teeth no caries, tongue pink. Pharynx clear, no erythema. Tonsils no exudates, no abscesses noted. Mucous membrane moist. NECK: Supple, non-tender, no thyromegaly, no masses, no JVD, no bruits. BREAST: Deferred. CHEST: No tenderness, no crepitus, no paradoxical movement, no retractions. LUNGS: Clear, well-ventilated, symmetric, no rales, no wheezing, no rhonchi, no stridor, good breath sounds bilaterally. HEART: Regular rate, regular rhythm, no murmur, no gallops. VASCULAR: No peripheral edema. ABDOMEN: Soft, positive bowel sounds, distended, no guarding, nontender, no rebound, no masses no hepatomegaly, no splenomegaly, no Diamond's sign, no hernias. RECTAL: Deferred. GENITAL: Deferred. NEUROLOGICAL: Normal speech, gross motor function intact, gross sensory function intact. MUSCULOSKELETAL: Neck nontender, full range of motion, back nontender, full range of motion. EXTREMITIES: Nontender, full range of motion. SKIN: Color pink, dry, no turgor, no rash, no lacerations, no abrasions, no contusions. LYMPHATICS: Deferred. Results Laboratory and Microbiology Lab and Micro Result Laboratory Tests Test 09/20/25 07:57 White Blood Count 4.5 K/uL (4.8-10.8) L Red Blood Count 3.40 MIL/uL (4.00-5.50) L Hemoglobin 10.4 g/dL (12.0-16.0) L Hematocrit 33.3 % (36-48) L Mean Corpuscular Volume 97.9 fL (79-99) Mean Corpuscular Hemoglobin 30.6 pg (27.0-33.0) Mean Corpuscular Hemoglobin Concent 31.2 g/dL (32.0-36.0) L Red Cell Distribution Width 13.6 % (11.0-15.5) Platelet Count 84 K/uL (130-400) L Mean Platelet Volume 10.7 fL (7.5-10.5) H Immature Granulocyte % (Auto) 0.2 % (0-1) Neutrophils (%) (Auto) 63.4 % (40.0-77.0) Lymphocytes (%) (Auto) 13.3 % (21.0-51.0) L Monocytes (%) (Auto) 6.7 % (3.0-13.0) Eosinophils (%) (Auto) 15.1 % (0.0-8.0) H Basophils (%) (Auto) 1.3 % (0.0-5.0) Neutrophils # (Auto) 2.8 K/uL (1.8-7.7) Lymphocytes # (Auto) 0.6 K/uL (1.0-4.8) L Monocytes # (Auto) 0.3 K/uL (0.1-1.0) Eosinophils # (Auto) 0.67 K/uL (0.00-0.70) Basophils # (Auto) 0.06 K/uL (0.00-0.20) Absolute Immature Granulocyte (auto 0.01 K/uL (0-1) Nucleated Red Blood Cells 0.0 % (0.0-0.19) White Cell Morphology Comment See comments Prothrombin Time 11.0 SEC (9.6-11.6) Prothromb Time International Ratio 1.04 (0.85-1.15) Sodium Level 138 mmol/L (136-145) Potassium Level 4.6 mmol/L (3.5-5.1) Chloride Level 99 mmol/L (101-111) L Carbon Dioxide Level 29 mmol/L (21-32) Blood Urea Nitrogen 48 mg/dL (7-18) H Creatinine 5.6 mg/dL (0.5-1.0) H Glomerular Filtration Rate Calc 8 mL/min (>90) Random Glucose 141 mg/dL (70-105) H Total Calcium 9.0 mg/dL (8.5-10.1) Labs Reviewed?: Yes MDM MDM: Differential diagnosis: Status post paracentesis, abdominal ascites, liver cirrhosis, Rationale: Tests considered and ordered secondary to shared decision making include: Previous outside records reviewed: Old ER visits. Risk of complication and/or morbidity or mortality of patient management: None Medications-Per medication reconciliation Need for hospitalization: Patient does not meet criteria for hospitalization. Need for emergency major/minor surgery: No Patient is a 75-year-old female coming in to be evaluated for abdominal distention secondary to ascites. Patient does state he has a history of liver cirrhosis. Patient had a paracentesis performed by IR 3 L were removed. Patient will be discharged in stable condition. ED Course Orders Procedure Category Date Status Time Cbc With Differential LAB 09/20/25 Complete 07:31 Basic Metabolic Panel LAB 09/20/25 Complete 07:31 Prothrombin Time With LAB 09/20/25 Complete INR 07:31 Us Abdominal US 09/20/25 Taken Paracentesis Ir 07:31 Vital Signs Date Time Temp Pulse Resp B/P (MAP) Pulse Ox O2 Delivery O2 Flow Rate FiO2 09/20/25 10:01 98.2 46 18 158/44 99 Room Air* 0 21 09/20/25 08:08 18 148/51 100 Room Air* 0 21 09/20/25 07:23 98.2 60 20 156/57 99 Room Air DX & DISP Disposition: Discharge Departure Impression: Primary Impression: Status post abdominal paracentesis Condition: Stable Additional Instructions: FOLLOW-UP WITH PRIMARY CARE PROVIDER IN 1 TO 2 DAYS. TAKE MEDICATIONS DIRECTED HERE IN THE EMERGENCY ROOM. OKAY TO CONTINUE HOME MEDICATIONS UNLESS OTHERWISE DISCUSSED DURING YOUR VISIT IN THE EMERGENCY ROOM TODAY. RETURN TO YOUR NEAREST EMERGENCY ROOM IF SYMPTOMS WORSEN OR IF THERE IS NO IMPROVEMENT. CALL 911 IF YOU NEED IMMEDIATE ASSISTANCE. TAKE TYLENOL [id number] NEEDED AND IF NO CONTRAINDICATIONS ARE PRESENT. INCREASE ORAL HYDRATION. A WOUND CULTURE OR URINE CULTURE WAS ORDERED HERE IN THE EMERGENCY ROOM DEPARTMENT PLEASE FOLLOW-UP WITH PRIMARY CARE PROVIDER AND ADVISE THEM TO GET REPORTS FROM OUR FACILITY. IF YOU HAD ANY LESLY WRAP/SPLINTS THAT WERE APPLIED HERE, PLEASE DO NOT REMOVE THEM UNTIL YOU SEE YOUR PRIMARY CARE OR SPECIALTY. Referrals: Referrals: KATHLEEN AMATO (PCP) Time of Disposition: 10:16 DONTAE RAMOS MD Sep 20, 2025 08:03
--- NOTE | 2025-09-20 08:07 | NUR ---
PT CONSENTED TO PARACENTESIS.
[2025-09-20 08:13] LABS: IMMATURE GRANULOCYTE ABSOLUTE 0.01 K/uL (0-1); NUCLEATED RED BLOOD CELLS 0.0 % (0.0-0.19); PLATELET COUNT (AUTO) 84 K/uL (130-400); RED BLOOD CELL COUNT(AUTO) 3.40 MIL/uL (4.00-5.50); RED CELL DISTRIBUTION WIDTH 13.6 % (11.0-15.5); WHITE BLOOD COUNT (AUTO) 4.5 K/uL (4.8-10.8)
[2025-09-20 08:16] LABS: CREATININE 5.6 mg/dL (0.5-1.0); GLOMERULAR FILTR. RATE CALC 8.0 mL/min (>90); GLUCOSE,RANDOM 141.0 mg/dL (70-105); SODIUM SERUM 138.0 mmol/L (136-145); UREA NITROGEN, BLOOD 48.0 mg/dL (7-18)
[2025-09-20 08:19] LABS: INR 1.04 (0.85-1.15)
--- NOTE | 2025-09-20 08:45 | NUR ---
PT TO IR
--- NOTE | 2025-09-20 09:45 | NUR ---
U/S GD PARACENTESIS PROCEDURE PERFORMED BY DR CAICEDO. PUNCTURE SITE RLQ AND PATIENT TOLERATED PROCEDURE WELL. TOTAL REMOVED 3 LITERS OF YELLOW CLOUDY ASCITES FLUID. END OF PROCEDURE AT 0935. CATHETER REMOVED AND DRESSING APPLIED. NO BLEEDING NOTED. REPORT GIVEN TO DEANGELO DELA CRUZ AND PATIENT TRANSPORTED TO ED VIA STRETCHER. AAO X3 WITH NO C/O PAIN.
--- NOTE | 2025-09-20 09:45 | NUR ---
REPORT FROM IR PARA SITE RLQ.DRESSED WITH 4X4 OPSITE. 3 L FLUID REMOVED, NO NEED FOR ALBUMINE THIS TIME.VSs HR 58, BP 158/51 RR 20 SPO2 100%
--- NOTE | 2025-09-20 09:51 | NUR ---
RETURNED FROM MANDO CROW.
[2025-09-20 10:01] VITALS: BP 158/44; PULSE 46; RESP 18; TEMP 98.2; O2SAT 99
--- NOTE | 2025-09-20 11:16 | HMCIMG ---
EXAM: US Abdomen Limited CLINICAL HISTORY: abdominal ascites TECHNIQUE: Real-time ultrasound of the abdomen (complete) with image documentation. COMPARISON: US dated 07/30 FINDINGS: Gross ascites is evident. About 3 L of ascitic fluid was aspirated. Scan after the aspiration shows a significant reduction in the ascites. IMPRESSION: Significant reduction in the ascites after the aspiration of approximately 3 L of ascitic fluid. /Todd
== END 2025-09-20 10:32 | disposition home or self-care (01) ==
LOC: EDH 07:21
DX: R18.8 Other ascites (principal); E11.22 Type 2 diabetes mellitus with diabetic chronic kidney disease; I13.11 Hypertensive heart and chronic kidney disease without heart failure, with stage 5 chronic kidney disease, or end stage renal disease; N18.6 End stage renal disease; E78.00 Pure hypercholesterolemia, unspecified
CPT/HCPCS: 99285; 49083; 80048; 85025; 85610; 36415; C1729; 99284